=== PATIENT | female | born 1995 | race Caucasian/White ===

== ENCOUNTER 2017-10-17 15:06 | Emergency (ER) | payer SELFPAY ==
[2017-10-17] MEDS ORDERED: IBUPROFEN 400 MG TAB ONE (15:23)
[2017-10-17] MEDS ORDERED: CYCLOBENZAPRINE 10 MG TAB ONE (15:32)
[2017-10-17] MEDS ORDERED: HYDROCODONE/APAP 10/325 TAB ONE (15:58)
--- NOTE | 2017-10-17 15:59 | RAD REPORT ---
EXAM DESCRIPTION: RAD - Ankle Left 3 View -10/17/2017 3:44 pm CLINICAL HISTORY: Left ankle pain status post injury FINDINGS: An oblique mildly displaced fracture involves the distal diaphysis of the left fibula exte nding inferiorly into the fibular metaphysis. Nondisplaced fracture of the distal metaphysis of the tibia is present. This likely extends inferiorl y involving the medial and possibly posterior malleolus. Borderline widening of the medial clear space may indicate an injury to the deltoid ligament
--- NOTE | 2017-10-17 16:58 | EDPHYS ---
Physician Documentation [facility] Name: Dominique Rutledge Age: 22 yrs Sex: Female : 1995 Arrival Date: 10/17/2017 Time: 15:09 Bed 18 Private MD: ED Physician Mak Lara HPI: 10/17 15:31 This 22 yrs old Female presents to ER via Wheelchair with complaints of Ankle kav Injury. 15:31 The patient presents with a contusion, decreased range of motion, pain, swelling. The kav complaints affect the left ankle, anterior aspect of left ankle. Onset: The symptoms/episode began/occurred acutely, just prior to arrival. Context: The problem was sustained at home, resulted from a mis-step by the patient, skate board, The mechanism of injury involved inversion of the affected ankle. The patient is unable to bear weight. must have assistance. Associated signs and symptoms: Pertinent positives: swelling, weakness. Modifying factors: The symptoms are alleviated by nothing, the symptoms are aggravated by weight bearing, movement. Severity of symptoms: At their worst the symptoms were moderate, just prior to arrival. The patient has not experienced similar symptoms in the past. The patient has not recently seen a physician. 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 - Social history:: Smoking status: Patient/guardian denies using tobacco. - Family history:: not pertinent. - Hospitalizations: : No recent hospitalization is reported. - History obtained from: mother. ROS: 15:34 Constitutional: Negative for fever, chills, and weight loss, Eyes: Negative for injury, kav pain, redness, and discharge, ENT: Negative for injury, pain, and discharge, Neck: Negative for injury, pain, and swelling, Cardiovascular: Negative for chest pain, palpitations, and edema, Respiratory: Negative for shortness of breath, cough, wheezing, and pleuritic chest pain, Abdomen/GI: Negative for abdominal pain, nausea, vomiting, diarrhea, and constipation, Back: Negative for injury and pain, : Negative for injury, bleeding, discharge, and swelling, Skin: Negative for injury, rash, and discoloration, Neuro: Negative for headache, weakness, numbness, tingling, and seizure, Psych: Negative for depression, anxiety, suicide ideation, homicidal ideation, and hallucinations, Allergy/Immunology: Negative for hives, rash, and allergies, Endocrine: Negative for neck swelling, polydipsia, polyuria, polyphagia, and marked weight changes, Hematologic/Lymphatic: Negative for swollen nodes, abnormal bleeding, and unusual bruising. 15:34 MS/extremity: Positive for injury or acute deformity, contusion, decreased range of motion, pain, swelling, tenderness, of the anterior aspect of left ankle. Exam: 15:34 Constitutional: This is a well developed, well nourished patient who is awake, alert, kav and in no acute distress. Head/Face: Normocephalic, atraumatic. Eyes: Pupils equal round and reactive to light, extra-ocular motions intact. Lids and lashes normal. Conjunctiva and sclera are non-icteric and not injected. Cornea within normal limits. Periorbital areas with no swelling, redness, or edema. ENT: Nares patent. No nasal discharge, no septal abnormalities noted. Tympanic membranes are normal and external auditory canals are clear. Oropharynx with no redness, swelling, or masses, exudates, or evidence of obstruction, uvula midline. Mucous membranes moist. Neck: Trachea midline, no thyromegaly or masses palpated, and no cervical lymphadenopathy. Supple, full range of motion without nuchal rigidity, or vertebral point tenderness. No Meningismus. Chest/axilla: Normal chest wall appearance and motion. Nontender with no deformity. No lesions are appreciated. Cardiovascular: Regular rate and rhythm with a normal S1 and S2. No gallops, murmurs, or rubs. Normal PMI, no JVD. No pulse deficits. Respiratory: Lungs have equal breath sounds bilaterally, clear to auscultation and percussion. No rales, rhonchi or wheezes noted. No increased work of breathing, no retractions or nasal flaring. Abdomen/GI: Soft, non-tender, with normal bowel sounds. No distension or tympany. No guarding or rebound. No evidence of tenderness throughout. Back: No spinal tenderness. No costovertebral tenderness. Full range of motion. Skin: Warm, dry with normal turgor. Normal color with no rashes, no lesions, and no evidence of cellulitis. Neuro: Awake and alert, GCS 15, oriented to person, place, time, and situation. Cranial nerves II-XII grossly intact. Motor strength 5/5 in all extremities. Sensory grossly intact. Cerebellar exam normal. Normal gait. Psych: Awake, alert, with orientation to person, place and time. Behavior, mood, and affect are within normal limits. 15:34 Musculoskeletal/extremity: Extremities: noted in the anterior aspect of left ankle: ROM: full passive range of motion, in the anterior aspect of left ankle, limited active range of motion, Circulation is intact in all extremities. Pulses: are normal with no appreciated deficits, Sensation intact. Joints: the left ankle displays limited range of motion, pain at rest, painful range of motion, swelling, tenderness, Weight bearing: is unable to bear weight. Vital Signs: 15:12 BP 122 / 85; Pulse 104; Resp 19; Temp 97.6; Pulse Ox 100% on R/A; Weight 72.57 kg; la1 15:15 Pain 10/10; rb1 16:35 BP 109 / 84; Pulse 113; Resp 20; Pulse Ox 100% ; Pain 7/10; rb1 17:19 BP 113 / 83; Pulse 89; Resp 17; Pulse Ox 100% on R/A; rb1 MDM: 15:18 Patient medically screened. kav 15:34 Data reviewed: vital signs, nurses notes. kav 15:53 ED course: patient re-evaluated and c/o to report pain 9/10. kav 16:38 Physician consultation: Santo Davis MD was called at 16:40, was contacted at 16:40, kav regarding consult, patient's condition, need to evaluate the patient as soon as possible, outpatient follow-up, posterior stirrup leg splint lle and f/u with his office on Thursday on 10/19/17. 16:57 Medical screening is not applicable. ka 10/17 15:29 Order name: Ankle Left 3 View XRAY; Complete Time: 16:14 [place] 10/17 16:33 Interpretation: Abnormal. kav 10/17 16:34 Order name: Crutches; Complete Time: 17:11 ka 10/17 16:38 Order name: Splint - Posterior Leg: posterior stirrup splint up to knee left lower kav extremity; Complete Time: 17:11 10/17 16:41 Order name: VS Recheck; Complete Time: 17:20 kav Administered Medications: 15:29 Drug: Ibuprofen 800 mg Route: PO; rb1 16:00 Follow up: Response: No adverse reaction; Pain is decreased rb1 15:36 Drug: Cyclobenzaprine 10 mg Route: PO; rb1 16:00 Follow up: Response: No adverse reaction; Pain is decreased rb1 16:00 Drug: [place] 10 mg-325 mg 1 tabs Route: PO; rb1 16:30 Follow up: Response: No adverse reaction; Pain is decreased rb1 Disposition: 10/17/17 16:57 Discharged to Home. Impression: Displaced fracture of medial malleolus of left tibia, Displaced transverse fracture of shaft of unspecified fibula. - Condition is Stable. - Discharge Instructions: Tibial and Fibular Fracture, Adult, Tibial Fracture, Adult, [id number]. - Prescriptions for Ibuprofen 800 mg Oral Tablet - take 1 tablet by ORAL route every 8 hours As needed take with food; 30 tablet. Tylenol- Codeine #4 300-60 mg Oral Tablet - take 1 tablet by ORAL route every 6 hours As needed; 6 tablet. - Medication Reconciliation Form, Thank You Letter, Antibiotic Education, Prescription Opioid Use form. - Follow up: Santo Davis MD; When: 1 - 2 days; Reason: Recheck today's complaints, Continuance of care, Re-evaluation by your physician. - Problem is new. - Symptoms have improved. Signatures: Dispatcher [employer] EDMS Celeste Workman, ELECTRICIAN MAINTENANCE ELECTRICIAN MAINTENANCE Reese Crowley RN RN la1 Clara Guadalupe, RN RN rb1 Corrections: (The following items were deleted from the chart) 16:38 16:33 Splint - Long Leg: Posterior w/ Stirrup ordered. kachencho kachencho
--- NOTE | 2017-10-17 16:58 | ER ---
Nurse's Notes [facility] Name: Dominique Rutledge Age: 22 yrs Sex: Female : 1995 Arrival Date: 10/17/2017 Time: 15:09 Bed 18 Private MD: Diagnosis: Displaced fracture of medial malleolus of left tibia;Displaced transverse fracture of shaft of unspecified fibula Presentation: 10/17 15:11 Presenting complaint: Patient states: I rolled my left ankle skateboarding. CMS intact. la1 Transition of care: patient was not received from another setting of care. Onset of symptoms was October 17, 2017. Initial Sepsis Screen: Does the patient meet any 2 criteria? No. Patient's initial sepsis screen is negative. Does the patient have a suspected source of infection? No. Patient's initial sepsis screen is negative. Care prior to arrival: None. 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 - Social history:: Smoking status: Patient/guardian denies using tobacco. - Family history:: not pertinent. - Hospitalizations: : No recent hospitalization is reported. - History obtained from: mother. Screenin:15 Abuse screen: Denies threats or abuse. Nutritional screening: No deficits noted. rb1 Tuberculosis screening: No symptoms or risk factors identified. Fall Risk Fall in past 12 months (25 points). No secondary diagnosis (0 pts). No IV (0 pts). Ambulatory Aid- None/Bed Rest/Nurse Assist (0 pts). Gait- Impaired (20 pts.). Mental Status- Oriented to own ability (0 pts). Total Gutierrez Fall Scale indicates High Risk Score (45 or more points). Fall prevention measures have been instituted. Side Rails Up X 2 Placed Close to Nursing Station 1:1 Attendant Assigned Frequent Obs/Assessments Occuring Family Present and informed to notify staff if the need to leave the bedside As available patient and family educated on Fall Prevention Program and Strategies. Assessment: 15:15 General: Appears uncomfortable, Behavior is calm, cooperative. Pain: Complains of pain rb1 in left ankle Pain currently is 10 out of 10 on a pain scale. Pain began \T\ 1500. Neuro: Level of Consciousness is awake, alert, obeys commands, Oriented to person, place, time, situation. Cardiovascular: Capillary refill < 3 seconds is brisk in bilateral toes. Respiratory: Airway is patent Respiratory effort is even, unlabored, Respiratory pattern is regular, symmetrical. GI: No signs and/or symptoms were reported involving the gastrointestinal system. : No signs and/or symptoms were reported regarding the genitourinary system. Derm: Skin is pink, warm \T\ dry. Musculoskeletal: Range of motion: limited in left ankle Swelling present in left ankle. Injury Description: pt. twisted foot while skateboarding. 16:10 Reassessment: Patient appears in no apparent distress at this time. Patient and/or rb1 family updated on plan of care and expected duration. Pain level reassessed. Patient is alert, oriented x 3, equal unlabored respirations, skin warm/dry/pink. 17:00 Reassessment: Pt. tolerated the ankle splint well. rb1 Vital Signs: 15:12 BP 122 / 85; Pulse 104; Resp 19; Temp 97.6; Pulse Ox 100% on R/A; Weight 72.57 kg; la1 15:15 Pain 10/10; rb1 16:35 BP 109 / 84; Pulse 113; Resp 20; Pulse Ox 100% ; Pain 7/10; rb1 17:19 BP 113 / 83; Pulse 89; Resp 17; Pulse Ox 100% on R/A; rb1 ED Course: 15:09 Patient arrived in ED. sb2 15:12 Triage completed. la1 15:12 Arm band placed on right wrist. la1 15:15 Clara Guadalupe, RN is Primary Nurse. rb1 15:15 Patient has correct armband on for positive identification. Bed in low position. Call rb1 light in reach. Side rails up X 1. Pulse ox on. NIBP on. 15:18 Celeste Workman FNP is PHCP. kav 15:18 Mak Lara MD is Attending Physician. kav 15:19 Celeste Workman FNP is PHCP. kav 15:44 Ankle Left 3 View XRAY In Process Unspecified. EDMS 16:55 Orthoglass splint: Posterior short lleg splint applied on left leg. stirrup splint dh3 applied on left leg. capillary refill less than 3 seconds. 16:56 Santo Davis MD is Referral Physician. ka 17:25 No provider procedures requiring assistance completed. Patient did not have IV access rb1 during this emergency room visit. Administered Medications: 15:29 Drug: Ibuprofen 800 mg Route: PO; rb1 16:00 Follow up: Response: No adverse reaction; Pain is decreased rb1 15:36 Drug: Cyclobenzaprine 10 mg Route: PO; rb1 16:00 Follow up: Response: No adverse reaction; Pain is decreased rb1 16:00 Drug: [place] 10 mg-325 mg 1 tabs Route: PO; rb1 16:30 Follow up: Response: No adverse reaction; Pain is decreased rb1 Outcome: 16:57 Discharge ordered by MD. ka 17:25 Discharged to home via wheelchair, with crutches, with family. rb1 17:25 Condition: stable 17:25 Discharge instructions given to patient, Instructed on discharge instructions, follow up and referral plans. medication usage, Demonstrated understanding of instructions, follow-up care, medications, Prescriptions given X 2. 17:25 Patient left the ED. rb1 Signatures: Dispatcher [employer] EDMS Celeste Workman, TAMPING MACHINE OPERATOR ROAD FORMS TAMPING MACHINE OPERATOR ROAD FORMS Reese Crowley RN RN la1 Clara Guadalupe, RN RN rb1 Suni Hitchcock dh3 Karen Jackson sb2 Corrections: (The following items were deleted from the chart) 17:33 17:33 Patient left the ED. rb1 rb1
== END 2017-10-17 17:33 | disposition home or self-care (01) ==
LOC: ER 15:06
DX: S82.52XA Displaced fracture of medial malleolus of left tibia, initial encounter for closed fracture (principal); S82.492A Other fracture of shaft of left fibula, initial encounter for closed fracture; Y93.51 Activity, roller skating (inline) and skateboarding; Y92.9 Unspecified place or not applicable
CPT/HCPCS: 99284

== ENCOUNTER 2017-10-23 06:29 | Day surgery (SDC) | payer SELFPAY ==
[2017-10-21 11:52] LABS: Absolute Lymphocytes (CBC) 2.1 K/uL (0.7-4.9); Absolute Monocytes 0.6 K/uL (0.1-1.3); Basophils % 0.5 % (0-1.3); Hematocrit 41.1 % (36.0-45.0); Lymphocytes % 23.8 % (15.3-44.8); MPV 9.4 fL (7.6-11.3); Monocytes % 7.1 % (3.3-12.3); RBC Red Blood Cell Count 4.42 M/uL (3.86-4.86)
[2017-10-21 12:12] LABS: BUN Blood Urea Nitrogen 9 mg/dL (6-20); Bicarbonate 29 mEq/L (21-31); Glucose Level 88 mg/dL (65-120); Sodium Level 144 mEq/L (135-145)
[2017-10-21 12:20] LABS: Protime INR 1.04
[2017-10-23 06:44] LABS: Specific Gravity 1.015 (1.005-1.030)
[2017-10-23] MEDS ORDERED: Ringers Lactate 1,000 ML IV ONE (06:48)
[2017-10-23] MEDS ORDERED: CEFAZOLIN/SWI 1gm 1 GM/10 ML SYR ONE (06:49)
[2017-10-23] MEDS ORDERED: PROPOFOL 200 MG/20 ML VIAL IV ONE (07:23)
[2017-10-23] MEDS ORDERED: LIDOCAINE 1% MPF 5 ML VIAL ONE (07:23)
[2017-10-23] MEDS ORDERED: FENTANYL CITR 100 MCG/2 ML ONE ×2 (07:23→08:54)
[2017-10-23] MEDS ORDERED: MIDAZOLAM HCL 2 MG/2 ML INJ ONE (07:23)
[2017-10-23] MEDS ORDERED: MORPHINE 10 MG/ML VIAL ONE ×2 (07:52→08:23)
[2017-10-23] MEDS ORDERED: KETOROLAC 30 MG/ML INJ ONE ×2 (08:54)
[2017-10-23] MEDS ORDERED: ONDANSETRON 4 MG/2 ML VIAL ONE (08:54)
--- NOTE | 2017-10-23 09:33 | P.BOP ---
Preoperative diagnosis: left bimalleolar ankle fracture Postoperative diagnosis: same Primary procedure: ORIF left bimalleolar ankle fracture Office Services Clerk: NONE,NONE Estimated blood loss: <10 cc Specimen: none Findings: see dictation Anesthesia: General Complications: None Implants: 8 hole third tubular plate, 2- 4.0 mm cannulated screws Fluids & blood products: per anesthesia; TT: 69 mins @ 250 mmHg Transferred to: Recovery Room Condition: Good
[2017-10-23] MEDS: MEPERIDINE HCL 50 MG/ML AMP ONE ×2 (09:50→09:55)
[2017-10-23] MEDS ORDERED: MEPERIDINE HCL 50 MG/ML AMP ONE (10:07)
--- NOTE | 2017-10-23 10:50 | RAD REPORT ---
EXAM DESCRIPTION: RAD - Ankle Left 2 View - 10/23/2017 9:51 am FINDINGS: Portable frontal and lateral views of the ankle were obtained cast material is in place li miting detail. Bone screws are present fixing prior medial malleolus fracture and plate and screw fixation of fibula r fracture noted. Hardware is in good position. No unexpected bone hardware or joint finding.
[2017-10-23] MEDS ORDERED: HYDROCODONE/APAP 7.5/325 MG TAB ONE (10:56)
--- NOTE | 2017-10-23 17:35 | RAD REPORT ---
EXAM DESCRIPTION: RAD - Ankle Left 2 View - 10/23/2017 4:43 pm FINDINGS: Left ankle fluoroscopy performed. Multiple portable C-arm views were obtained during fluoroscopic assisted placement of fracture fixati on hardware. No suspicious or unexpected finding.
--- NOTE | 2017-10-23 23:04 | OP ---
Date of Procedure: 10/23/2017 Surgeon: Santo Davis MD Preoperative Diagnosis: Left bimalleolar ankle fracture. Postoperative Diagnosis: Left bimalleolar ankle fracture. Procedure Performed: Open reduction and internal fixation of left bimalleolar ankle fracture. Anesthesia: General LMA. Fluids: Per Anesthesia record. Estimated Blood Loss: Less than 10 cc. Implants: An 8-hole 1/3 tubular plate. Two 4.0 mm cannulated screws. Tourniquet Time: 59 minutes at 250 mmHg. Indication For Procedure: Dominique is a 22-year-old female presented to my clinic after sustaining an injury to her left ankle, while skiboarding. She was seen in the ER, diagnosed with a left bimalleolar ankle fracture. The fracture pattern with an SER IV unstable ankle injury. I discussed with the patient and her family at length risks and benefits associated with operative and nonoperative. They expressed understanding and elected to proceed with operative treatment. Description Of Procedure: After informed consent was obtained, the patient was identified in the preoperative holding area. The left lower extremity was marked. The patient was then taken back to the operating room, transferred to the operating table supine in fashion and placed under general LMA anesthesia. The left lower extremity was then prepped and draped in usual sterile fashion. A time-out was initiated. The correct patient and procedure were confirmed and identified. The patient did receive her preop prophylactic antibiotics. The left lower extremity was then exsanguinated using an Esmarch and the tourniquet was inflated to 250 mmHg. Attention was first taken to the distal fibula. For approximately a 12 cm longitudinal incision was made over the distal fibula. Dissection was taken down to the distal fibula using Metzenbaum. The fracture site was identified. The fracture site was then reduced using a 2-point reduction clamp. Fluoroscopy was used to ensure proper reduction of the distal fibula fracture. There was an oblique fracture pattern, and a lag screw was placed using standard AO technique by over-drilling the proximal cortex with a 3.5 drill bit. The distal cortex with a 2.5 drill bit perpendicular to the fracture line. A single 3.5 mm cortical screw was placed. There was a fracture noted at the fracture site. A third plate was then placed over the distal fibula with an 8-hole 1/3 tubular plate. Proper position of the plate was confirmed using fluoroscopy. Three screws placed proximal to the fracture site using 3.5 cortical screws in bicortical fashion. Three screws were placed in unicortical fashion distally using 4-0 cancellous screws. Proper positioning of the screws and plate was confirmed using fluoroscopy, both AP and lateral views. A Cotton test was performed using a 2-point reduction clamp with lateral stress placed on the distal fibula. There was no widening of the syndesmosis. The wound was then irrigated thoroughly with normal saline and subcutaneous tissue was approximated using a 2-0 Vicryl. Next, attention was taken to the distal medial malleolus. Approximately a 4 cm incision centered over the tip of the medial malleolus was performed. There was no significant displacement of the medial malleolus. Two K-wires were placed in a retrograde fashion from the tip of the medial malleolus, 1 anterior, 1 posterior. Proper position of the K-wires was confirmed using fluoroscopy. The proximal cortex was then drilled using a cannulated drill bit and two size 46 mm 4-0 cannulated screws were placed without complication. There was overall good alignment of the fracture as well as placement of the screws was confirmed by fluoroscopy. K -wires were then removed. The wounds were then irrigated thoroughly with normal saline. Subcutaneous tissues were approximated using 2-0 Vicryl. Skin was approximated using a 3-0 nylon. Sterile dressings were applied. The patient was placed in a posterior stirrup splint, awakened and transferred to PACU in good condition. Postoperative Plan: She will be nonweightbearing on the left lower extremity. She will follow up in my clinic in 2 weeks for suture removal. At that point, she will be placed in a CAM boot and will be allowed to work on range of motion exercise. ALLEN/ROSEMARIE Voice ID: [id number] Report ID: [id number] VINI
== END 2017-10-23 11:30 | disposition home or self-care (01) ==
LOC: OR 06:29
PROVIDERS: ATTEND Orthopaedic Surgery Sports Medicine
PROC: 0QSH04Z Reposition Left Tibia with Internal Fixation Device, Open Approach (ICD-10-PCS; 2017-10-23)
PROC: 0QSK04Z Reposition Left Fibula with Internal Fixation Device, Open Approach (ICD-10-PCS; principal; 2017-10-23 07:30)
DX: S82.842A Displaced bimalleolar fracture of left lower leg, initial encounter for closed fracture (principal)
CPT/HCPCS: 36415; 80048; 81025; 85025; 85610; 85730; J0690; J2175; J2250; J2405; J3010

== ENCOUNTER 2021-04-28 14:10 | Emergency (ER) | payer OTHER ==
[2021-04-28 15:19] LABS: Urine Blood Trace-intact (Negative); Urine Glucose Negative (Negative); Urine Protein Negative (Negative); Urine Specific Gravity >=1.030 (1.005-1.030)
[2021-04-28 15:35] LABS: Absolute Lymphocytes (CBC) 2.2 K/uL (0.7-4.9); Basophils % 0.8 % (0-1.3); Lymphocytes % 23.3 % (15.3-44.8); RBC Red Blood Cell Count 4.99 M/uL (3.86-4.86)
--- NOTE | 2021-04-28 16:04 | RAD REPORT ---
EXAM DESCRIPTION: CT - Abdomen Pelvis W Contrast - 04/28/2021 3:45 pm CLINICAL HISTORY: ABD PAIN COMPARISON: No comparisons TECHNIQUE: Biphasic, helical CT imaging of the abdomen and pelvis was performed following 100 ml non -ionic IV contrast. No oral contrast administered. All CT scans are performed using dose optimization technique as appropriate and may include automated exposure control or mA/KV adjustment according to patient size. FINDINGS: No suspicious findings in the lung bases. The liver, spleen, and pancreas show no suspicious findings. Liver attenuation is borderline for fatt y infiltration. No portal vein abnormality. Gallbladder is tightly contracted with no biliary tree di latation. Symmetric renal function is seen with no hydronephrosis or suspicious renal mass. No pyelonephritis o r acute parenchymal process. No bladder abnormalities. No adrenal abnormalities. Uterus and ovaries a re within normal range for patient age. No hemorrhagic or grossly enlarged ovarian cyst. Stomach is filled but not dilated by ingested food. No gastric wall thickening or mass. No duodenal a bnormality seen. Large and small bowel show no acute findings. No surgical history was detailed. Ther e does not appear to be appendectomy clips at the tip of the cecum. No free air, free fluid or inflammatory stranding. No hernia, mass or bulky lymphadenopathy. No suspicious bony findings. IMPRESSION: Contrast enhanced CT abdomen and pelvis showing no acute or emergent finding.
[2021-04-28 16:06] LABS: Albumin 4.5 g/dL (3.4-5.0); Bilirubin Direct 0.1 mg/dL (0-0.2); Bilirubin Total 0.3 mg/dL (0.2-1.0); Potassium 4.2 mmol/L (3.5-5.1); Protein, Total 9.2 g/dL (6.4-8.2)
[2021-04-28] MEDS ORDERED: NA CHLORIDE 0.9% 1,000 ML ONE (17:00)
[2021-04-28] MEDS ORDERED: ONDANSETRON 4 MG/2 ML VIAL ONE (17:00)
[2021-04-28] MEDS ORDERED: MORPHINE 4 MG/ML SYR ONE (17:00)
--- NOTE | 2021-04-28 17:44 | EDPHYS ---
Physician Documentation [facility] Name: Dominique Rutledge Age: 25 yrs Sex: Female : 1995 Arrival Date: 04/28/2021 Time: 14:14 Bed 20 Private MD: ED Physician Alex Barker HPI: 04/28 17:00 This 25 yrs old Female presents to ER via Ambulatory with complaints of pm1 Abdominal Pain, Diarrhea, Back Pain, Nausea. 17:00 The patient presents with abdominal pain in the epigastric area, in the right upper pm1 quadrant. Onset: The symptoms/episode began/occurred yesterday. The symptoms radiate to Associated signs and symptoms: Pertinent positives: diarrhea, nausea, Pertinent negatives: dysuria, fever. The symptoms are described as achy, crampy. Modifying factors: the symptoms are aggravated by food. Severity of pain: in the emergency department the pain has improved is a 1 / 10. The patient has experienced a previous episode, approximately 1 weeks ago. The patient has not recently seen a physician. 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 - Social history:: Smoking status: Patient denies any tobacco usage or history of. ROS: 17:00 Constitutional: Negative for fever, chills, and weight loss, Cardiovascular: Negative pm1 for chest pain, palpitations, and edema, Respiratory: Negative for shortness of breath, cough, wheezing, and pleuritic chest pain. 17:00 : Negative for injury, bleeding, discharge, and swelling, MS/Extremity: Negative for injury and deformity, Skin: Negative for injury, rash, and discoloration. 17:00 Abdomen/GI: Positive for abdominal pain, nausea, diarrhea, Negative for vomiting. 17:00 Back: Negative for injury or acute deformity. 17:00 All other systems are negative. Exam: 17:00 Constitutional: This is a well developed, well nourished patient who is awake, alert, pm1 and in no acute distress. Head/Face: Normocephalic, atraumatic. 17:00 Back: No spinal tenderness. No costovertebral tenderness. Full range of motion. Skin: Warm, dry with normal turgor. Normal color with no rashes, no lesions, and no evidence of cellulitis. MS/ Extremity: Pulses equal, no cyanosis. Neurovascular intact. Full, normal range of motion. 17:00 Eyes: Exam is negative for acute changes, Extraocular movements: no acute changes, Sclera: no acute changes, icterus, is not appreciated. 17:00 ENT: Exam is negative for acute changes, Mouth: no acute changes, Lips: normal, moist, Oral mucosa: normal, pink and intact, moist. 17:00 Cardiovascular: Exam negative for acute changes, Rate: normal, Rhythm: regular, Pulses: no pulse deficits are appreciated, Heart sounds: normal, normal S1and S2, Edema: is not appreciated. 17:00 Respiratory: Exam negative for acute changes, respiratory distress, shortness of breath, Breath sounds: are clear throughout. 17:00 Abdomen/GI: Inspection: obese Palpation: soft, in all quadrants, mild abdominal tenderness, in the epigastric area and right upper quadrant. 17:00 Neuro: Exam negative for acute changes, Orientation: is normal, Mentation: is normal, Motor: is normal, moves all fours. Vital Signs: 14:25 BP 125 / 99; Pulse 113; Resp 14; Temp 98.0(O); Pulse Ox 100% on R/A; Weight 83.91 kg; ss Height 5 ft. 4 in. (162.56 cm); Pain 8/10; 14:30 BP 108 / 61; Pulse 95; Resp 18; Temp 98.4; Pulse Ox 99% on R/A; sl2 16:00 BP 125 / 89; Pulse 99; Resp 18; Temp 98.2(O); Pulse Ox 99% on R/A; sl2 17:00 BP 114 / 82; Pulse 85; Resp 18; Temp 98.2; Pulse Ox 99% ; iw 14:25 Body Mass Index 31.75 (83.91 kg, 162.56 cm) MDM: 14:54 Patient medically screened. pm1 17:02 Data reviewed: vital signs. Data interpreted: Pulse oximetry: on room air is 99 %. pm1 Interpretation: normal. Counseling: I had a detailed discussion with the patient and/or guardian regarding: the historical points, exam findings, and any diagnostic results supporting the discharge/admit diagnosis, lab results, radiology results, the need for outpatient follow up, a office support clerk, to return to the emergency department if symptoms worsen or persist or if there are any questions or concerns that arise at home. 04/28 14:55 Order name: Basic Metabolic Panel; Complete Time: 16:08 pm1 04/28 14:55 Order name: CBC with Diff; Complete Time: 15:51 pm1 04/28 14:55 Order name: Hepatic Function; Complete Time: 16:08 pm1 04/28 14:55 Order name: Lipase; Complete Time: 16:08 pm1 04/28 15:18 Order name: Urine Dipstick-Ancillary; Complete Time: 15:22 EDMS 04/28 15:21 Order name: Test Urine - POC sp 04/28 14:55 Order name: IV Saline Lock; Complete Time: 16:25 pm1 04/28 14:55 Order name: Labs collected and sent; Complete Time: 16:25 pm1 04/28 14:55 Order name: CT Abd/Pelvis - IV Contrast Only; Complete Time: 16:08 pm1 04/28 15:21 Order name: Urine --Ancillary; Complete Time: 16:57 EDMS 04/28 14:55 Order name: Urine Dipstick-Ancillary (obtain specimen); Complete Time: 16:25 pm1 04/28 14:55 Order name: Urine Test (obtain specimen); Complete Time: 16:25 pm1 Administered Medications: 15:10 Drug: NS 0.9% 1000 ml Route: IV; Rate: 1000 ml; Site: left antecubital; sl2 16:25 Follow up: Response: No adverse reaction; IV Status: Completed infusion; IV Intake: sl2 1000ml 15:10 Drug: Zofran (Ondansetron) 4 mg Route: IVP; Site: left antecubital; sl2 16:24 Follow up: Response: No adverse reaction sl2 15:14 Drug: morphine 4 mg Route: IVP; Site: left antecubital; sl2 16:24 Follow up: Response: No adverse reaction; Pain is decreased sl2 17:19 Drug: GI Cocktail without - (Maalox Suspension 30 ml, Lidocaine Liquid 2 % 15 sl2 ml) Route: PO; 17:53 Follow up: Response: No adverse reaction; Pain is decreased iw Disposition: 04/29 06:33 Co-signature as Attending Physician, Alex Barker MD I agree with the assessment and kdr plan of care. Disposition Summary: 04/28/21 17:43 Discharge Ordered Location: Home pm1 Problem: new pm1 Symptoms: have improved pm1 Condition: Stable pm1 Diagnosis - Abdominal pain, unspecified pm1 Followup: pm1 - With: Emergency Department - When: As needed - Reason: Worsening of condition Followup: pm1 - With: Private Physician - When: 2 - 3 days - Reason: Recheck today's complaints, Continuance of care, Re-evaluation by your physician Discharge Instructions: - Discharge Summary Sheet pm1 - Abdominal Pain, Adult pm1 Forms: - Medication Reconciliation Form pm1 - Thank You Letter pm1 - Antibiotic Education pm1 - Prescription Opioid Use pm1 Prescriptions: - dicyclomine 20 mg Oral tablet - take 1 tablet by ORAL route every 6 hours As needed; 20 tablet; Refills: 0, pm1 Product Selection Permitted - ondansetron 4 mg Oral tablet,disintegrating - place 1 tablet by TRANSLINGUAL route every 8 hours As needed; 12 tablet; pm1 Refills: 0, Product Selection Permitted - Pepcid 20 mg Oral Tablet - take 1 tablet by ORAL route every 12 hours for 10 days; 20 tablet; Refills: 0, pm1 Product Selection Permitted Signatures: Dispatcher [employer] EDDE Alex Barker MD MD [facility] Odessa Aparicio RN RN ss Corky Hood, RYAN BREADMAN pm1 Roseline Guerrero RN RN sl2 Misty Nova RN iw
--- NOTE | 2021-04-28 17:44 | ER ---
Nurse's Notes [facility] Name: Dominique Rutledge Age: 25 yrs Sex: Female : 1995 Arrival Date: 04/28/2021 Time: 14:14 Bed 20 Private MD: Diagnosis: Abdominal pain, unspecified Presentation: 04/28 14:25 Chief complaint: Patient states: epigastric discomfort and back discomfort that is ss worse after eating. Pt reports the pain comes and goes, but has become worse since yesterday and now has nausea. Coronavirus screen: Client denies travel out of the [place] in the last 14 days. Ebola Screen: Patient denies exposure to infectious person. Patient denies travel to an Ebola-affected area in the 21 days before illness onset. Initial Sepsis Screen: Does the patient meet any 2 criteria? No. Patient's initial sepsis screen is negative. Does the patient have a suspected source of infection? No. Patient's initial sepsis screen is negative. Risk Assessment: Do you want to hurt yourself or someone else? Patient reports no desire to harm self or others. Onset of symptoms is unknown. 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 - Social history:: Smoking status: Patient denies any tobacco usage or history of. Screenin:40 Abuse screen: Denies threats or abuse. Nutritional screening: No deficits noted. sl2 Tuberculosis screening: No symptoms or risk factors identified. Never had TB. Possible symptoms: None Risk factors: None. Fall Risk None identified. No fall in past 12 months (0 pts). No secondary diagnosis (0 pts). No IV (0 pts). Ambulatory Aid- None/Bed Rest/Nurse Assist (0 pts). Gait- Normal/Bed Rest/Wheelchair (0 pts) Mental Status- Oriented to own ability (0 pts). Total Gutierrez Fall Scale indicates No Risk (0-24 pts). Assessment: 14:40 General: Appears uncomfortable, well groomed, well developed, Behavior is calm, sl2 cooperative, Reports Epigastric \T\ RUQ abdominal pain - worst after eating and light colored stools. 14:40 Pain: Complains of pain in epigastric \T\ RUQ abdomen Pain does not radiate. Pain sl2 currently is 7 out of 10 on a pain scale. Quality of pain is described as aching, sharp, Pain began suddenly, Is intermittent. Neuro: No deficits noted. Level of Consciousness is awake, alert, obeys commands, Oriented to person, place, time, situation, Electric Wirer are equal bilaterally Moves all extremities. Gait is steady, Speech is normal, Facial symmetry appears normal, Cardiovascular: No deficits noted. Respiratory: No deficits noted. GI: Abdomen is soft and non-tender Bowel sounds present X 4 quads. Abd is soft and non tender Reports upper abdominal pain, epigastric pain, Light colored stools Patient currently denies diarrhea. : No deficits noted. EENT: No deficits noted. Derm: No deficits noted. Musculoskeletal: No deficits noted. 16:35 Pain: Pain currently is 1 out of 10 on a pain scale. sl2 Vital Signs: 14:25 BP 125 / 99; Pulse 113; Resp 14; Temp 98.0(O); Pulse Ox 100% on R/A; Weight 83.91 kg; ss Height 5 ft. 4 in. (162.56 cm); Pain 8/10; 14:30 BP 108 / 61; Pulse 95; Resp 18; Temp 98.4; Pulse Ox 99% on R/A; sl2 16:00 BP 125 / 89; Pulse 99; Resp 18; Temp 98.2(O); Pulse Ox 99% on R/A; sl2 17:00 BP 114 / 82; Pulse 85; Resp 18; Temp 98.2; Pulse Ox 99% ; iw 14:25 Body Mass Index 31.75 (83.91 kg, 162.56 cm) ED Course: 14:14 Patient arrived in ED. am2 14:27 Triage completed. ss 14:27 Arm band placed on right wrist. ss 14:39 Corky Hood NP is PHCP. pm1 14:39 Alex Barker MD is Attending Physician. pm1 14:40 Patient has correct armband on for positive identification. Bed in low position. Call sl2 light in reach. 15:30 Inserted saline lock: 22 gauge in left antecubital area, using aseptic technique. sl2 15:45 CT Abd/Pelvis - IV Contrast Only In Process Unspecified. EDMS 15:57 Roseline Guerrero, RN is Primary Nurse. sl2 16:22 Test Urine - POC Sent. sl2 17:55 No provider procedures requiring assistance completed. IV discontinued. iw Administered Medications: 15:10 Drug: NS 0.9% 1000 ml Route: IV; Rate: 1000 ml; Site: left antecubital; sl2 16:25 Follow up: Response: No adverse reaction; IV Status: Completed infusion; IV Intake: sl2 1000ml 15:10 Drug: Zofran (Ondansetron) 4 mg Route: IVP; Site: left antecubital; sl2 16:24 Follow up: Response: No adverse reaction sl2 15:14 Drug: morphine 4 mg Route: IVP; Site: left antecubital; sl2 16:24 Follow up: Response: No adverse reaction; Pain is decreased sl2 17:19 Drug: GI Cocktail without - (Maalox Suspension 30 ml, Lidocaine Liquid 2 % 15 sl2 ml) Route: PO; 17:53 Follow up: Response: No adverse reaction; Pain is decreased iw Intake: 16:25 IV: 1000ml; Total: 1000ml. sl2 Outcome: 17:43 Discharge ordered by MD. pm1 17:55 Discharged to home ambulatory. iw 17:55 Condition: stable 17:55 Discharge instructions given to patient, Instructed on discharge instructions, follow up and referral plans. medication usage, Demonstrated understanding of Prescriptions given X 3. 18:05 Patient left the ED. iw Signatures: Dispatcher [employer] EDMS Misty Nova RN RN iw Odessa Aparicio RN RN Corky Hood, RYAN COMPUTATIONAL SCIENTIST pm1 Whitney Sommers am2 Roseline Guerrero, CHIN RN sl2 Corrections: (The following items were deleted from the chart) 17:54 17:54 BP 114 / 82; Pulse 85bpm; Resp 18bpm; Pulse Ox 99%; Temp 98.2F; iw iw
[2021-04-28] MEDS ORDERED: LIDOCAINE VISCOUS 2% SOLN 15 ML UDC ONE (18:15)
[2021-04-28] MEDS ORDERED: MAGNES/ALUMIN/SIMET 30ML UCUP ONE (18:15)
[2021-04-28 18:39] VITALS: TEMP 98.2; O2SAT 99
[2021-04-28 18:42] VITALS: BP 114/82
== END 2021-04-28 18:05 | disposition home or self-care (01) ==
LOC: ER 14:10
DX: R10.11 Right upper quadrant pain (principal); R10.13 Epigastric pain; F32.A Depression, unspecified
CPT/HCPCS: 96361; 85025; 80048; 36415; 81025; 82565; 80076; 81003; 83690; 74177; 96375; 96374; 99284; Q9967; J7030; J2405

== ENCOUNTER → 2023-08-21 | Emergency (ER) | payer BC, OTHER ==
[~2023-08-21] MED LIST: ACETAMINOPHEN 500 MG TAB ONE
--- OUTSIDE RECORDS SUMMARY | 2023-08-21 13:18 | XMS REPORT | Continuity of Care Document ---
Author Name Unknown Address [address] [place] [address] [facility] thconnect Address [address] [place] [address] Care Team Providers Care At Home Independent Call Center Agent Name Role Phone NATALIIA TALBERT Primary Care Physician Tigist loaiza Moved, . Attending Clinician Unavailable Jj Zaidi Attending Clinician Unavailable ALEJANDRINA MENCHACA Attending Clinician Unavailable Sleep Lab Bed Attending Clinician Shelly Sweeney MD Attending Clinician SHELLY BEDOLLA Attending Clinician SHELLY Licona Attending Clinician Tigist loaiza Doctor Unassigned, Gomer Attending Clinician U [place] Asif Attending Clinician Unavaila Trace Thomas MD Attending Clinician [phone] TRACE ATWOOD Attending Clinician Unavailable ARLENE DAILY Attending Clinician Unavailable Darell Hartley MD Attending Clinician [phone] RAVINDER VALENZUELA Attending Clinician Unavailable Ravinder Valenzuela MD Attending Clinician [phone] Marvin Millan RN, Erum Lemus Attending Clinician Unava ilable Lab, Ang - Db Attending Clinician Unavailable FARHANA ARNOLD Attending Clinician Unavailable Clayton PULLEY MORTISER OPERATOR, Farhana Smith Attending Clinician + [phone] AZEEM FALK Attending Clinician Unava illj Falk PULLEY MORTISER OPERATOR, Azeem Attending Clinician + Nataliia Garcia Attending Clinician [phone] [email or web address] Attending Clinician Unavaila DARELL Romeo Attending Clinician Unavail able DARELL HARTLEY Attending Clinician Unavail able Aman CAPPSP, Lawrence Attending Clinician [phone] AMAN, MELINDA Attending Clinician Unavailable NATALIIA TALBERT Attending Clinician Unavailable [facility] Sleep Lab Attending Clinician Unavaila lila RADIOLOGY Attending Clinician Unavailable Radiology Attending Clinician Unavailable CAROLINE MACHADO Attending Clinician Unavaila Stanislav Rivas Attending Clinician Unavailable Jordon Ovalle Attending Clinician UnavailAbraham Soto Attending Clinician Unavailable Juwan Magdaleno DO Attending Clinician [phone] Kristin Clements Attending Clinician [phone] Brunilda BLAIR, Jessica Winters Attending Clinician [phone] Geovany Khalil MD Attending Clinician [phone] GEOVANY KHALIL Attending Clinician Unavailable Catina Marin MD Attending Clinician + [phone] CATINA MARIN Attending Clinician Unavaila CATINA Lucas Attending Clinician Unavaila Arlene Hawley MD Attending Clinician [phone] TRACE ATWOOD Admitting Clinician Unavailable FARHANA ARNOLD Admitting Clinician Unavailable [email or web address]_S Admitting Clinician UnavailDARELL Burgess Admitting Clinician Unavail able LAURITA CALDERON Admitting Clinician UnavailGeovany Muller MD Admitting Clinician GEOVANY KHALIL Admitting Clinician Unavailable Catina Marin MD Admitting Clinician + [phone] CATINA MARIN Admitting Clinician Unavaila lila Payers Payer Name Policy Type Policy Number Effective Date Expirati on Date Source [facility] [id number] 2022 00:00:00 Cigna 53 [id number] [facility] CIGNA II [id number] 2022 00:00:00 Aetna 53 [id number] 2020 00:00:00 [facility] Problems Condition Name Condition Details Condition Category Status Onset Date Resolution Date Last Treatment Date Treating Clinician Comments Source JERRICA (obstructi ve sleep apnea) JERRICA (obstructi ve sleep apnea) Disease Active 8-10 00:00: 00 [facility] Anxiety with depression Anxiety with depression Disease Active 7-19 00:00: 00 [facility] Appendicit is Appendicit is Disease Active 0 6-14 00:00: 00 [facility] Acute appendicit is Acute appendicit is Disease Active 0 6-13 00:00: 00 [facility] Status post incision and drainage Status post incision and drainage Disease Active 20200 6-06 00:00: 00 [facility] Left genital labial abscess Left genital labial abscess Disease Active 20200 6-06 00:00: 00 [facility] Mitral valve prolapse Mitral valve prolapse Disease Active 0 6-06 00:00: 00 [facility] Cardiac arrhythmia Cardiac arrhythmia Disease Active 0 6-06 00:00: 00 [facility] Status post incision and drainage Status post incision and drainage Disease Active 0 6-06 00:00: 00 [facility] Obesity (BMI 30-39.9) Obesity (BMI 30-39.9) Disease Active 11-28 00:00: 00 [facility] [id number] Mild episode of recurrent major depressive disorder Problem [facility] ent [facility] [id number] Chronic GERD Problem [facility] ent [facility] [id number] Anxiety Problem [facility] [id number] Other chronic pain Problem [facility] [id number] Migraine without aura and without status migrainosu s, not intractabl e Problem [facility] [id number] Irregular menses Problem [facility] [id number] Generalize d anxiety disorder Problem [facility] ent [facility] [id number] Non-intrac table vomiting with nausea, unspecifie d vomiting type Problem [facility] [id number] Sore throat Problem [facility] [id number] Vitamin D deficiency Problem [facility] [id number] Diarrhea of presumed infectious origin Problem [facility] [id number] Contact with and (suspected ) exposure to other viral communicab le diseases Problem [facility] [id number] Encounter for screening for other viral diseases Problem [facility] [id number] UTI symptoms Problem [facility] Clinics Allergies, Adverse Reactions, Alerts Allergy Name Allergy Type Status Severity Reaction(s) Onset Date Inactive Date Treating Clinician Comments Source SUMATRIP DEJESUS DRUG INGREDI Active Med Other-Cmnt 02-02 00:00: 00 [facility] Sumatrip dejesus Propensi ty to adverse reaction s Active Other - See comments 02-02 00:00: 00 Chest tightness [facility] TRIPTANS -5-HT1 ANTIMIGR TONYA AGENTS Drug Class Active Other-Cmnt 11-27 00:00: 00 [facility] Triptans -5-Ht1 Antimigr tonya Agents Propensi ty to adverse reaction s Active Other - See comments 11-27 00:00: 00 [facility] NO KNOWN ALLERGIE S Drug Class Active [facility] Social History Social Habit Start Date Stop Date Quantity Comments Source Gender identity [facility] of [facility] Sex Assigned At [facility] Alcohol intake 2023-05-06 00:00:00 2023-05-06 00:00:00 Current drinker of alcohol (finding) [facility] History of Social function 2023-01-14 00:00:00 2023-01-14 00:00:00 [facility] Tobacco use and exposure 2022-08-22 00:00:00 2022-08-22 00:00:00 Former smokeless tobacco user [facility] Tobacco Comment 2022-08-22 00:00:00 2022-08-22 00:00:00 Vaping [facility] Exposure to SARS-CoV-2 (event) 2022-07-12 00:00:00 2022-07-22 10:40:00 Not sure [facility] Alcohol Comment 2019-11-29 00:00:00 2019-11-29 00:00:00 Socially [facility] Smoking Status Start Date Stop Date Source Never smoked tobacco [facility] Medications Ordered Medication Name Filled Medication Name Start Date Stop Date Current Medication? Ordering Clinician Indication Dosage Frequency Signature (SIG) Comments Components Source verapamiL 40 mg tablet 2022-06 00:00: 00 Yes [id number] 40mg Take 1 tablet by mouth in the morning and 1 tablet at noon and 1 tablet in the evening. [facility] verapamiL 40 mg tablet 2022-06 00:00: 00 Yes [id number] 40mg Take 1 tablet by mouth in the morning and 1 tablet at noon and 1 tablet in the evening. [facility] verapamiL 40 mg tablet 2022-06 00:00: 00 Yes [id number] 40mg Take 1 tablet by mouth in the morning and 1 tablet at noon and 1 tablet in the evening. [facility] verapamiL 40 mg tablet 2022-06 00:00: 00 Yes [id number] 40mg Take 1 tablet by mouth in the morning and 1 tablet at noon and 1 tablet in the evening. [facility] verapamiL 40 mg tablet 2022-06 00:00: 00 Yes [id number] 40mg Take 1 tablet by mouth in the morning and 1 tablet at noon and 1 tablet in the evening. [facility] verapamiL 40 mg tablet 2022-06 00:00: 00 Yes [id number] 40mg Take 1 tablet by mouth in the morning and 1 tablet at noon and 1 tablet in the evening. [facility] verapamiL 40 mg tablet 2022-06 00:00: 00 Yes [id number] 40mg Take 1 tablet by mouth in the morning and 1 tablet at noon and 1 tablet in the evening. [facility] NaCl 0.9% (NS) bolus infusion 1,000 mL 2022-06 02:15: 00 05-07 02:56 :00 No 1000mL at 999 mL/hr, 1,000 mL, IV Infusion, ONCE, 1 dose, On Thu05/06/23 at 2015, STAT [facility] ketorolac (TORADOL) injection 30 mg 2022-06 02:15: 00 05-07 01:35 :00 No 30mg 30 mg, Slow IV Push, ONCE, 1 dose, On Thu05/06/23 at 2015, RANULFO [facility] morpHINE (4 mg/mL) injection 4 mg 2022-06 01:15: 00 05-07 01:35 :00 No 4mg 4 mg, Slow IV Push, ONCE, 1 dose, On Thu05/06/23 at 1915, RANULFO [facility] ondansetron 4 mg disintegrat ing tablet 2022-06 00:00: 00 Yes [id number] 4mg Take 1 tablet by mouth every 4 (four) hours as needed for Nausea and Vomiting (N/V). [facility] ondansetron 4 mg disintegrat ing tablet 2022-06 00:00: 00 Yes [id number] 4mg Take 1 tablet by mouth every 4 (four) hours as needed for Nausea and Vomiting (N/V). [facility] ondansetron 4 mg disintegrat ing tablet 2022-06 00:00: 00 Yes [id number] 4mg Take 1 tablet by mouth every 4 (four) hours as needed for Nausea and Vomiting (N/V). [facility] ondansetron 4 mg disintegrat ing tablet 2022-06 00:00: 00 Yes [id number] 4mg Take 1 tablet by mouth every 4 (four) hours as needed for Nausea and Vomiting (N/V). [facility] ondansetron 4 mg disintegrat ing tablet 2022-06 00:00: 00 Yes [id number] 4mg Take 1 tablet by mouth every 4 (four) hours as needed for Nausea and Vomiting (N/V). [facility] ondansetron 4 mg disintegrat ing tablet 2022-06 00:00: 00 Yes [id number] 4mg Take 1 tablet by mouth every 4 (four) hours as needed for Nausea and Vomiting (N/V). [facility] ondansetron 4 mg disintegrat ing tablet 2022-06 00:00: 00 Yes [id number] 4mg Take 1 tablet by mouth every 4 (four) hours as needed for Nausea and Vomiting (N/V). [facility] ondansetron 4 mg disintegrat ing tablet 2022-06 00:00: 00 Yes [id number] 4mg Take 1 tablet by mouth every 4 (four) hours as needed for Nausea and Vomiting (N/V). [facility] ondansetron 4 mg disintegrat ing tablet 2022-06 00:00: 00 Yes [id number] 4mg Take 1 tablet by mouth every 4 (four) hours as needed for Nausea and Vomiting (N/V). [facility] ondansetron 4 mg disintegrat ing tablet 2022-06 00:00: 00 Yes [id number] 4mg Take 1 tablet by mouth every 4 (four) hours as needed for Nausea and Vomiting (N/V). [facility] ondansetron 4 mg disintegrat ing tablet 2022-06 00:00: 00 Yes [id number] 4mg Take 1 tablet by mouth every 4 (four) hours as needed for Nausea and Vomiting (N/V). [facility] HYDROcodone -acetaminop hen (NORCO) 10-325 mg tablet 2022-06 00:00: 00 05-14 05:59 :00 No [id number] 1{tbl} Take 1 tablet by mouth every 6 (six) hours as needed for Pain (scale 4-6) for up to 7 days. Indication s: acute pain [facility] HYDROcodone -acetaminop hen (NORCO) 10-325 mg tablet 2022-06 00:00: 00 05-14 05:59 :00 No 4647 1{tbl} Take 1 tablet by mouth every 6 (six) hours as needed for Pain (scale 4-6) for up to 7 days. Indication s: acute pain [facility] HYDROcodone -acetaminop hen (NORCO) 10-325 mg tablet 2022-06 00:00: 00 05-14 05:59 :00 No 4647 1{tbl} Take 1 tablet by mouth every 6 (six) hours as needed for Pain (scale 4-6) for up to 7 days. Indication s: acute pain [facility] tamsulosin 0.4 mg 24 hr capsule 2022-06 00:00: 00 06-02 05:59 :00 No [id number] .4mg Take 1 capsule by mouth in the morning for 28 days. [facility] tamsulosin 0.4 mg 24 hr capsule 2022-06 00:00: 00 06-02 05:59 :00 No [id number] .4mg Take 1 capsule by mouth in the morning for 28 days. [facility] tamsulosin 0.4 mg 24 hr capsule 2022-06 00:00: 00 06-02 05:59 :00 No [id number] .4mg Take 1 capsule by mouth in the morning for 28 days. [facility] tamsulosin 0.4 mg 24 hr capsule 2022-06 00:00: 00 06-02 05:59 :00 No [id number] .4mg Take 1 capsule by mouth in the morning for 28 days. [facility] tamsulosin 0.4 mg 24 hr capsule 2022-06 00:00: 00 06-02 05:59 :00 No [id number] .4mg Take 1 capsule by mouth in the morning for 28 days. [facility] tamsulosin 0.4 mg 24 hr capsule 2022-06 00:00: 00 06-02 05:59 :00 No [id number] .4mg Take 1 capsule by mouth in the morning for 28 days. [facility] tamsulosin 0.4 mg 24 hr capsule 2022-06 00:00: 00 06-02 05:59 :00 No [id number] .4mg Take 1 capsule by mouth in the morning for 28 days. [facility] tamsulosin 0.4 mg 24 hr capsule 2022-06 00:00: 00 06-02 05:59 :00 No [id number] .4mg Take 1 capsule by mouth in the morning for 28 days. [facility] tamsulosin 0.4 mg 24 hr capsule 2022-06 00:00: 00 06-02 05:59 :00 No [id number] .4mg Take 1 capsule by mouth in the morning for 28 days. [facility] tamsulosin 0.4 mg 24 hr capsule 2022-06 00:00: 00 06-02 05:59 :00 No [id number] .4mg Take 1 capsule by mouth in the morning for 28 days. [facility] tamsulosin 0.4 mg 24 hr capsule 2022-06 00:00: 00 06-02 05:59 :00 No [id number] .4mg Take 1 capsule by mouth in the morning for 28 days. [facility] tamsulosin 0.4 mg 24 hr capsule 2022-06 00:00: 00 06-02 05:59 :00 No [id number] .4mg Take 1 capsule by mouth in the morning for 28 days. [facility] tamsulosin 0.4 mg 24 hr capsule 2022-06 00:00: 00 06-02 05:59 :00 No [id number] .4mg Take 1 capsule by mouth in the morning for 28 days. [facility] tamsulosin 0.4 mg 24 hr capsule 2022-06 00:00: 00 06-02 05:59 :00 No [id number] .4mg Take 1 capsule by mouth in the morning for 28 days. [facility] cefTRIAXone (ROCEPHIN) 1,000 mg in NaCl 0.9% (NS) 100 mL MINI-BAG 2022-06 03:15: 00 05-03 04:36 :00 No 1000mg 1,000 mg, IV Piggyback, ONCE, 1 dose, On 05/02/23 at 2215, Administer over 30 Minutes, 100 mL
Reas on for Anti-Infec tive: Empiric Therapy for Suspected Infection< br>Empiric Therapy Site: Abdominal< br>Duratio n of therapy: Once (ED) [facility] iopamidol (ISOVUE 370-500 mL) injection 80 mL 2022-06 03:15: 00 05-03 03:15 :00 No [id number] 80mL 80 mL, Intravenou s, ONCE, 1 dose, On 05/02/23 at 2215, Routine [facility] ondansetron (ZOFRAN (PF)) injection 4 mg 2022-06 02:15: 00 05-03 01:45 :00 No 4mg 4 mg, Slow IV Push, ONCE, 1 dose, On 05/02/23 at 2115, RANULFO [facility] ketorolac (TORADOL) injection 15 mg 2022-06 02:15: 00 05-03 01:45 :00 No 15mg 15 mg, Slow IV Push, ONCE, 1 dose, On 05/02/23 at 2115, RANULFO [facility] NaCl 0.9% (NS) bolus infusion 1,000 mL 2022-06 02:15: 00 05-03 03:49 :00 No 1000mL at 999 mL/hr, 1,000 mL, IV Infusion, ONCE, 1 dose, On 05/02/23 at 2115, RANULFO [facility] ketorolac 10 mg tablet 2022-06 00:00: 00 Yes [id number] 10mg Take 1 tablet by mouth every 6 (six) hours as needed for Pain (scale 7-10) for up to 15 doses. [facility] ondansetron (ZOFRAN) 4 mg tablet 2022-06 00:00: 00 Yes [id number] 4mg Take 1 tablet by mouth every 8 (eight) hours as needed for Nausea and Vomiting (N/V) for up to 15 doses. [facility] ketorolac 10 mg tablet 2022-06 00:00: 00 Yes [id number] 10mg Take 1 tablet by mouth every 6 (six) hours as needed for Pain (scale 7-10) for up to 15 doses. [facility] ondansetron (ZOFRAN) 4 mg tablet 2022-06 00:00: 00 Yes [id number] 4mg Take 1 tablet by mouth every 8 (eight) hours as needed for Nausea and Vomiting (N/V) for up to 15 doses. [facility] ketorolac 10 mg tablet 2022-06 00:00: 00 Yes [id number] 10mg Take 1 tablet by mouth every 6 (six) hours as needed for Pain (scale 7-10) for up to 15 doses. [facility] ondansetron (ZOFRAN) 4 mg tablet 2022-06 00:00: 00 Yes [id number] 4mg Take 1 tablet by mouth every 8 (eight) hours as needed for Nausea and Vomiting (N/V) for up to 15 doses. [facility] ketorolac 10 mg tablet 2022-06 00:00: 00 Yes [id number] 10mg Take 1 tablet by mouth every 6 (six) hours as needed for Pain (scale 7-10) for up to 15 doses. [facility] ondansetron (ZOFRAN) 4 mg tablet 2022-06 00:00: 00 Yes [id number] 4mg Take 1 tablet by mouth every 8 (eight) hours as needed for Nausea and Vomiting (N/V) for up to 15 doses. [facility] ketorolac 10 mg tablet 2022-06 00:00: 00 Yes [id number] 10mg Take 1 tablet by mouth every 6 (six) hours as needed for Pain (scale 7-10) for up to 15 doses. [facility] ondansetron (ZOFRAN) 4 mg tablet 2022-06 00:00: 00 Yes [id number] 4mg Take 1 tablet by mouth every 8 (eight) hours as needed for Nausea and Vomiting (N/V) for up to 15 doses. [facility] ketorolac 10 mg tablet 2022-06 00:00: 00 Yes [id number] 10mg Take 1 tablet by mouth every 6 (six) hours as needed for Pain (scale 7-10) for up to 15 doses. [facility] ondansetron (ZOFRAN) 4 mg tablet 2022-06 00:00: 00 Yes [id number] 4mg Take 1 tablet by mouth every 8 (eight) hours as needed for Nausea and Vomiting (N/V) for up to 15 doses. [facility] ketorolac 10 mg tablet 2022-06 00:00: 00 Yes [id number] 10mg Take 1 tablet by mouth every 6 (six) hours as needed for Pain (scale 7-10) for up to 15 doses. [facility] ondansetron (ZOFRAN) 4 mg tablet 2022-06 00:00: 00 Yes [id number] 4mg Take 1 tablet by mouth every 8 (eight) hours as needed for Nausea and Vomiting (N/V) for up to 15 doses. [facility] ketorolac 10 mg tablet 2022-06 00:00: 00 Yes [id number] 10mg Take 1 tablet by mouth every 6 (six) hours as needed for Pain (scale 7-10) for up to 15 doses. [facility] ondansetron (ZOFRAN) 4 mg tablet 2022-06 00:00: 00 Yes [id number] 4mg Take 1 tablet by mouth every 8 (eight) hours as needed for Nausea and Vomiting (N/V) for up to 15 doses. [facility] ketorolac 10 mg tablet 2022-06 00:00: 00 Yes [id number] 10mg Take 1 tablet by mouth every 6 (six) hours as needed for Pain (scale 7-10) for up to 15 doses. [facility] ondansetron (ZOFRAN) 4 mg tablet 2022-06 00:00: 00 Yes [id number] 4mg Take 1 tablet by mouth every 8 (eight) hours as needed for Nausea and Vomiting (N/V) for up to 15 doses. [facility] ketorolac 10 mg tablet 2022-06 00:00: 00 Yes [id number] 10mg Take 1 tablet by mouth every 6 (six) hours as needed for Pain (scale 7-10) for up to 15 doses. [facility] ondansetron (ZOFRAN) 4 mg tablet 2022-06 00:00: 00 Yes [id number] 4mg Take 1 tablet by mouth every 8 (eight) hours as needed for Nausea and Vomiting (N/V) for up to 15 doses. [facility] ketorolac 10 mg tablet 2022-06 00:00: 00 Yes [id number] 10mg Take 1 tablet by mouth every 6 (six) hours as needed for Pain (scale 7-10) for up to 15 doses. [facility] ondansetron (ZOFRAN) 4 mg tablet 2022-06 00:00: 00 Yes [id number] 4mg Take 1 tablet by mouth every 8 (eight) hours as needed for Nausea and Vomiting (N/V) for up to 15 doses. [facility] ketorolac 10 mg tablet 2022-06 00:00: 00 Yes [id number] 10mg Take 1 tablet by mouth every 6 (six) hours as needed for Pain (scale 7-10) for up to 15 doses. [facility] ondansetron (ZOFRAN) 4 mg tablet 2022-06 00:00: 00 Yes [id number] 4mg Take 1 tablet by mouth every 8 (eight) hours as needed for Nausea and Vomiting (N/V) for up to 15 doses. [facility] ketorolac 10 mg tablet 2022-06 00:00: 00 Yes [id number] 10mg Take 1 tablet by mouth every 6 (six) hours as needed for Pain (scale 7-10) for up to 15 doses. [facility] ondansetron (ZOFRAN) 4 mg tablet 2022-06 00:00: 00 Yes [id number] 4mg Take 1 tablet by mouth every 8 (eight) hours as needed for Nausea and Vomiting (N/V) for up to 15 doses. [facility] ketorolac 10 mg tablet 2022-06 00:00: 00 Yes [id number] 10mg Take 1 tablet by mouth every 6 (six) hours as needed for Pain (scale 7-10) for up to 15 doses. [facility] ondansetron (ZOFRAN) 4 mg tablet 2022-06 00:00: 00 Yes [id number] 4mg Take 1 tablet by mouth every 8 (eight) hours as needed for Nausea and Vomiting (N/V) for up to 15 doses. [facility] ketorolac 10 mg tablet 2022-06 00:00: 00 Yes [id number] 10mg Take 1 tablet by mouth every 6 (six) hours as needed for Pain (scale 7-10) for up to 15 doses. [facility] ondansetron (ZOFRAN) 4 mg tablet 2022-06 00:00: 00 Yes [id number] 4mg Take 1 tablet by mouth every 8 (eight) hours as needed for Nausea and Vomiting (N/V) for up to 15 doses. [facility] ketorolac 10 mg tablet 2022-06 00:00: 00 Yes [id number] 10mg Take 1 tablet by mouth every 6 (six) hours as needed for Pain (scale 7-10) for up to 15 doses. [facility] ondansetron (ZOFRAN) 4 mg tablet 2022-06 00:00: 00 Yes [id number] 4mg Take 1 tablet by mouth every 8 (eight) hours as needed for Nausea and Vomiting (N/V) for up to 15 doses. [facility] ketorolac 10 mg tablet 2022-06 00:00: 00 Yes [id number] 10mg Take 1 tablet by mouth every 6 (six) hours as needed for Pain (scale 7-10) for up to 15 doses. [facility] ondansetron (ZOFRAN) 4 mg tablet 2022-06 00:00: 00 Yes [id number] 4mg Take 1 tablet by mouth every 8 (eight) hours as needed for Nausea and Vomiting (N/V) for up to 15 doses. [facility] ketorolac 10 mg tablet 2022-06 00:00: 00 Yes [id number] 10mg Take 1 tablet by mouth every 6 (six) hours as needed for Pain (scale 7-10) for up to 15 doses. [facility] ondansetron (ZOFRAN) 4 mg tablet 2022-06 00:00: 00 Yes [id number] 4mg Take 1 tablet by mouth every 8 (eight) hours as needed for Nausea and Vomiting (N/V) for up to 15 doses. [facility] cefdinir 300 mg capsule 2022-06 00:00: 00 05-13 05:59 :00 No [id number] 300mg Take 1 capsule by mouth every 12 (twelve) hours for 10 days. [facility] cefdinir 300 mg capsule 2022-06 00:00: 00 05-13 05:59 :00 No [id number] 300mg Take 1 capsule by mouth every 12 (twelve) hours for 10 days. [facility] cefdinir 300 mg capsule 2022-06 00:00: 00 05-13 05:59 :00 No [id number] 300mg Take 1 capsule by mouth every 12 (twelve) hours for 10 days. [facility] cefdinir 300 mg capsule 2022-06 00:00: 00 05-13 05:59 :00 No [id number] 300mg Take 1 capsule by mouth every 12 (twelve) hours for 10 days. [facility] [facility] cefdinir 300 mg capsule 2022-06 00:00: 00 05-13 05:59 :00 No [id number] 300mg Take 1 capsule by mouth every 12 (twelve) hours for 10 days. [facility] cefdinir 300 mg capsule 2022-06 00:00: 00 05-13 05:59 :00 No [id number] 300mg Take 1 capsule by mouth every 12 (twelve) hours for 10 days. [facility] cefdinir 300 mg capsule 2022-06 00:00: 00 05-13 05:59 :00 No [id number] 300mg Take 1 capsule by mouth every 12 (twelve) hours for 10 days. [facility] cefdinir 300 mg capsule 2022-06 00:00: 00 05-13 05:59 :00 No [id number] 300mg Take 1 capsule by mouth every 12 (twelve) hours for 10 days. [facility] cefdinir 300 mg capsule 2022-06 00:00: 00 05-13 05:59 :00 No [id number] 300mg Take 1 capsule by mouth every 12 (twelve) hours for 10 days. [facility] cefdinir 300 mg capsule 2022-06 00:00: 00 05-13 05:59 :00 No [id number] 300mg Take 1 capsule by mouth every 12 (twelve) hours for 10 days. [facility] BUSPIRONE 5 mg tablet 2022-06 0 00:00: 00 Yes [id number] TAKE 1 AND 1/2 TABLETS BY MOUTH TWICE DAILY NEEDED FOR ANXIETY [facility] BUSPIRONE 5 mg tablet 2022-06 0-27 00:00: 00 Yes [id number] TAKE 1 AND 1/2 TABLETS BY MOUTH TWICE DAILY NEEDED FOR ANXIETY [facility] BUSPIRONE 5 mg tablet 2022-06 0-27 00:00: 00 Yes [id number] TAKE 1 AND 1/2 TABLETS BY MOUTH TWICE DAILY NEEDED FOR ANXIETY [facility] BUSPIRONE 5 mg tablet 2022-06 00:00: 00 Yes [id number] TAKE 1 AND 1/2 TABLETS BY MOUTH TWICE DAILY NEEDED FOR ANXIETY [facility] BUSPIRONE 5 mg tablet 2022-06 0 00:00: 00 Yes [id number] TAKE 1 AND 1/2 TABLETS BY MOUTH TWICE DAILY NEEDED FOR ANXIETY [facility] BUSPIRONE 5 mg tablet 2022-06 0 00:00: 00 Yes [id number] TAKE 1 AND 1/2 TABLETS BY MOUTH TWICE DAILY NEEDED FOR ANXIETY [facility] BUSPIRONE 5 mg tablet 2022-06 0 00:00: 00 Yes [id number] TAKE 1 AND 1/2 TABLETS BY MOUTH TWICE DAILY NEEDED FOR ANXIETY [facility] BUSPIRONE 5 mg tablet 2022-06 0 00:00: 00 Yes [id number] TAKE 1 AND 1/2 TABLETS BY MOUTH TWICE DAILY NEEDED FOR ANXIETY [facility] BUSPIRONE 5 mg tablet 2022-06 00:00: 00 Yes [id number] TAKE 1 AND 1/2 TABLETS BY MOUTH TWICE DAILY NEEDED FOR ANXIETY [facility] BUSPIRONE 5 mg tablet 2022-06 0 00:00: 00 Yes [id number] TAKE 1 AND 1/2 TABLETS BY MOUTH TWICE DAILY NEEDED FOR ANXIETY [facility] BUSPIRONE 5 mg tablet 2022-06 00:00: 00 Yes [id number] TAKE 1 AND 1/2 TABLETS BY MOUTH TWICE DAILY NEEDED FOR ANXIETY [facility] BUSPIRONE 5 mg tablet 2022-06 00:00: 00 Yes [id number] TAKE 1 AND 1/2 TABLETS BY MOUTH TWICE DAILY NEEDED FOR ANXIETY [facility] BUSPIRONE 5 mg tablet 2022-06 0 00:00: 00 Yes [id number] TAKE 1 AND 1/2 TABLETS BY MOUTH TWICE DAILY NEEDED FOR ANXIETY [facility] BUSPIRONE 5 mg tablet 2022-06 0 00:00: 00 Yes [id number] TAKE 1 AND 1/2 TABLETS BY MOUTH TWICE DAILY NEEDED FOR ANXIETY [facility] BUSPIRONE 5 mg tablet 2022-06 00:00: 00 Yes [id number] TAKE 1 AND 1/2 TABLETS BY MOUTH TWICE DAILY NEEDED [facility] 2022-06 00:00: 00 Yes [id number] TAKE 1 AND 1/2 TABLETS BY MOUTH TWICE DAILY NEEDED FOR ANXIETY [facility] BUSPIRONE 5 mg tablet 2022-06 00:00: 00 Yes [id number] TAKE 1 AND 1/2 TABLETS BY MOUTH TWICE DAILY NEEDED FOR ANXIETY [facility] BUSPIRONE 5 mg tablet 2022-06 00:00: 00 Yes [id number] TAKE 1 AND 1/2 TABLETS BY MOUTH TWICE DAILY NEEDED [facility]XIETY [facility] tablet 2022-06 00:00: 00 Yes [id number] TAKE 1 AND 1/2 TABLETS BY MOUTH TWICE DAILY NEEDED FOR ANXIETY [facility] BUSPIRONE 5 mg tablet 2022-06 00:00: 00 Yes [id number] TAKE 1 AND 1/2 TABLETS BY MOUTH TWICE DAILY NEEDED FOR ANXIETY [facility] nortriptyli ne 25 mg capsule 2022-0 03-03 00:00: 00 Yes [id number] 25mg Take 1 capsule by mouth at bedtime. [facility] nortriptyli ne 25 mg capsule 2022-0 03-03 00:00: 00 Yes [id number] 25mg Take 1 capsule by mouth at bedtime. [facility] nortriptyli ne 25 mg capsule 2022-0 03-03 00:00: 00 Yes [id number] 25mg Take 1 capsule by mouth at bedtime. [facility] nortriptyli ne 25 mg capsule 2022-0 03-03 00:00: 00 Yes [id number] 25mg Take 1 capsule by mouth at bedtime. [facility] nortriptyli ne 25 mg capsule 2022-0 03-03 00:00: 00 Yes [id number] 25mg Take 1 capsule by mouth at bedtime. [facility] nortriptyli ne 25 mg capsule 2022-0 03-03 00:00: 00 Yes [id number] 25mg Take 1 capsule by mouth at bedtime. [facility] nortriptyli ne 25 mg capsule 3-0 03-03 00:00: 00 Yes [id number] 25mg Take 1 capsule by mouth at bedtime. [facility] nortriptyli ne 25 mg capsule 3-0 03-03 00:00: 00 Yes [id number] 25mg Take 1 capsule by mouth at bedtime. [facility] nortriptyli ne 25 mg capsule 3-0 - 00:00: 00 Yes [id number] 25mg Take 1 capsule by mouth at bedtime. [facility] nortriptyli ne 25 mg capsule 3-0 03-03 00:00: 00 Yes [id number] 25mg Take 1 capsule by mouth at bedtime. [facility] nortriptyli ne 25 mg capsule 3-0 03-03 00:00: 00 Yes [id number] 25mg Take 1 capsule by mouth at bedtime. [facility] nortriptyli ne 25 mg capsule 3-0 03-03 00:00: 00 Yes [id number] 25mg Take 1 capsule by mouth at bedtime. [facility] nortriptyli ne 25 mg capsule 3-0 03-03 00:00: 00 Yes [id number] 25mg Take 1 capsule by mouth at bedtime. [facility] nortriptyli ne 25 mg capsule 3-0 03-03 00:00: 00 Yes [id number] 25mg Take 1 capsule by mouth at bedtime. [facility] nortriptyli ne 25 mg capsule 3-0 03-03 00:00: 00 Yes [id number] 25mg Take 1 capsule by mouth at bedtime. [facility] nortriptyli ne 25 mg capsule 3-0 03-03 00:00: 00 Yes [id number] 25mg Take 1 capsule by mouth at bedtime. [facility] nortriptyli ne 25 mg capsule 3-0 - 00:00: 00 Yes [id number] 25mg Take 1 capsule by mouth at bedtime. [facility] nortriptyli ne 25 mg capsule 0 03-03 00:00: 00 Yes [id number] 25mg Take 1 capsule by mouth at bedtime. [facility] nortriptyli ne 25 mg capsule 0 03-03 00:00: 00 Yes [id number] 25mg Take 1 capsule by mouth at bedtime. [facility] nortriptyli ne 25 mg capsule 03-03 00:00: 00 Yes [id number] 25mg Take 1 capsule by mouth at bedtime. [facility] nortriptyli ne 25 mg capsule 0 03-03 00:00: 00 Yes [id number] 25mg Take 1 capsule by mouth at bedtime. [facility] nortriptyli ne 25 mg capsule 03-03 00:00: 00 Yes [id number] 25mg Take 1 capsule by mouth at bedtime. [facility] nortriptyli ne 25 mg capsule 03-03 00:00: 00 Yes [id number] 25mg Take 1 capsule by mouth at bedtime. [facility] LORazepam (ATIVAN) tablet 1 mg 02-20 15:15: 00 02-20 14:10 :00 No [id number] 1mg 1 mg, Oral, ONCE, 1 dose, On Thu02/20/23 at 1015, Routine [facility] LORazepam (ATIVAN) tablet 1 mg 02-20 15:15: 00 02-20 14:10 :00 No [id number] 1mg 1 mg, Oral, ONCE, 1 dose, On Thu02/20/23 at 1015, Routine [facility] escitalopra m oxalate (LEXAPRO) 20 mg tablet 02-11 00:00: 00 Yes [id number] 20mg Take 1 tablet by mouth in the morning. [facility] busPIRone 5 mg tablet 02-11 00:00: 00 Yes [id number] 7.5mg Take 1.5 tablets by mouth 2 (two) times daily as needed (anxiety). [facility] escitalopra m oxalate (LEXAPRO) 20 mg tablet 3-0 8-16 00:00: 00 Yes [id number] 20mg Take 1 tablet by mouth in the morning. [facility] busPIRone 5 mg tablet 3-0 8-16 00:00: 00 Yes [id number] 7.5mg Take 1.5 tablets by mouth 2 (two) times daily as needed (anxiety). [facility] escitalopra m oxalate (LEXAPRO) 20 mg tablet 3-0 8-16 00:00: 00 Yes [id number] 20mg Take 1 tablet by mouth in the morning. [facility] busPIRone 5 mg tablet 3-0 8-16 00:00: 00 Yes [id number] 7.5mg Take 1.5 tablets by mouth 2 (two) times daily as needed (anxiety). [facility] escitalopra m oxalate (LEXAPRO) 20 mg tablet 2022-0 8-16 00:00: 00 Yes [id number] 20mg Take 1 tablet by mouth in the morning. [facility] busPIRone 5 mg tablet 3-0 8-16 00:00: 00 Yes [id number] 7.5mg Take 1.5 tablets by mouth 2 (two) times daily as needed (anxiety). [facility] escitalopra m oxalate (LEXAPRO) 20 mg tablet 3-0 8-16 00:00: 00 Yes [id number] 20mg Take 1 tablet by mouth in the morning. [facility] busPIRone 5 mg tablet 3-0 8-16 00:00: 00 Yes [id number] 7.5mg Take 1.5 tablets by mouth 2 (two) times daily as needed (anxiety). [facility] escitalopra m oxalate (LEXAPRO) 20 mg tablet 3-0 8-16 00:00: 00 Yes [id number] 20mg Take 1 tablet by mouth in the morning. [facility] busPIRone 5 mg tablet 3-0 8-16 00:00: 00 Yes [id number] 7.5mg Take 1.5 tablets by mouth 2 (two) times daily as needed (anxiety). [facility] escitalopra m oxalate (LEXAPRO) 20 mg tablet 3-0 8-16 00:00: 00 Yes [id number] 20mg Take 1 tablet by mouth in the morning. [facility] busPIRone 5 mg tablet 3-0 8-16 00:00: 00 Yes [id number] 7.5mg Take 1.5 tablets by mouth 2 (two) times daily as needed (anxiety). [facility] escitalopra m oxalate (LEXAPRO) 20 mg tablet 3-0 8-16 00:00: 00 Yes [id number] 20mg Take 1 tablet by mouth in the morning. [facility] busPIRone 5 mg tablet 3-0 8-16 00:00: 00 Yes [id number] 7.5mg Take 1.5 tablets by mouth 2 (two) times daily as needed (anxiety). [facility] escitalopra m oxalate (LEXAPRO) 20 mg tablet 3-0 8-16 00:00: 00 Yes [id number] 20mg Take 1 tablet by mouth in the morning. [facility] busPIRone 5 mg tablet 3-0 8-16 00:00: 00 Yes [id number] 7.5mg Take 1.5 tablets by mouth 2 (two) times daily as needed (anxiety). [facility] escitalopra m oxalate (LEXAPRO) 20 mg tablet 3-0 8-16 00:00: 00 Yes [id number] 20mg Take 1 tablet by mouth in the morning. [facility] busPIRone 5 mg tablet 3-0 8-16 00:00: 00 Yes [id number] 7.5mg Take 1.5 tablets by mouth 2 (two) times daily as needed (anxiety). [facility] escitalopra m oxalate (LEXAPRO) 20 mg tablet 3-0 8-16 00:00: 00 Yes [id number] 20mg Take 1 tablet by mouth in the morning. [facility] busPIRone 5 mg tablet 3-0 8-16 00:00: 00 Yes [id number] 7.5mg Take 1.5 tablets by mouth 2 (two) times daily as needed (anxiety). [facility] escitalopra m oxalate (LEXAPRO) 20 mg tablet 2022-0 8-16 00:00: 00 Yes [id number] 20mg Take 1 tablet by mouth in the morning. [facility] busPIRone 5 mg tablet 2022-0 8-16 00:00: 00 Yes [id number] 7.5mg Take 1.5 tablets by mouth 2 (two) times daily as needed (anxiety). [facility] escitalopra m oxalate (LEXAPRO) 20 mg tablet 2022-0 8-16 00:00: 00 Yes [id number] 20mg Take 1 tablet by mouth in the morning. [facility] busPIRone 5 mg tablet 2022-0 8-16 00:00: 00 Yes [id number] 7.5mg Take 1.5 tablets by mouth 2 (two) times daily as needed (anxiety). [facility] escitalopra m oxalate (LEXAPRO) 20 mg tablet 2022-0 8-16 00:00: 00 Yes [id number] 20mg Take 1 tablet by mouth in the morning. [facility] busPIRone 5 mg tablet 2022-0 8-16 00:00: 00 Yes [id number] 7.5mg Take 1.5 tablets by mouth 2 (two) times daily as needed (anxiety). [facility] escitalopra m oxalate (LEXAPRO) 20 mg tablet 2022-0 8-16 00:00: 00 Yes [id number] 20mg Take 1 tablet by mouth in the morning. [facility] escitalopra m oxalate (LEXAPRO) 20 mg tablet 3-0 8-16 00:00: 00 Yes [id number] 20mg Take 1 tablet by mouth in the morning. [facility] escitalopra m oxalate (LEXAPRO) 20 mg tablet 3-0 8-16 00:00: 00 Yes [id number] 20mg Take 1 tablet by mouth in the morning. [facility] escitalopra m oxalate (LEXAPRO) 20 mg tablet 3-0 8-16 00:00: 00 Yes [id number] 20mg Take 1 tablet by mouth in the morning. [facility] escitalopra m oxalate (LEXAPRO) 20 mg tablet 2023-0 8-16 00:00: 00 Yes [id number] 20mg Take 1 tablet by mouth in the morning. [facility] escitalopra m oxalate (LEXAPRO) 20 mg tablet 2023-0 8-16 00:00: 00 Yes [id number] 20mg Take 1 tablet by mouth in the morning. [facility] escitalopra m oxalate (LEXAPRO) 20 mg tablet 3-0 8-16 00:00: 00 Yes [id number] 20mg Take 1 tablet by mouth in the morning. [facility] escitalopra m oxalate (LEXAPRO) 20 mg tablet 2023-0 8-16 00:00: 00 Yes [id number] 20mg Take 1 tablet by mouth in the morning. [facility] escitalopra m oxalate (LEXAPRO) 20 mg tablet 3-0 8-16 00:00: 00 Yes [id number] 20mg Take 1 tablet by mouth in the morning. [facility] escitalopra m oxalate (LEXAPRO) 20 mg tablet 3-0 8-16 00:00: 00 Yes [id number] 20mg Take 1 tablet by mouth in the morning. [facility] escitalopra m oxalate (LEXAPRO) 20 mg tablet 2023-0 8-16 00:00: 00 Yes [id number] 20mg Take 1 tablet by mouth in the morning. [facility] escitalopra m oxalate (LEXAPRO) 20 mg tablet 2023-0 8-16 00:00: 00 Yes [id number] 20mg Take 1 tablet by mouth in the morning. [facility] escitalopra m oxalate (LEXAPRO) 20 mg tablet 2023-0 8-16 00:00: 00 Yes [id number] 20mg Take 1 tablet by mouth in the morning. [facility] escitalopra m oxalate (LEXAPRO) 20 mg tablet 2023-0 8-16 00:00: 00 Yes [id number] 20mg Take 1 tablet by mouth in the morning. [facility] escitalopra m oxalate (LEXAPRO) 20 mg tablet 3-0 8-16 00:00: 00 Yes [id number] 20mg Take 1 tablet by mouth in the morning. [facility] escitalopra m oxalate (LEXAPRO) 20 mg tablet 2022-0 8-16 00:00: 00 Yes [id number] 20mg Take 1 tablet by mouth in the morning. [facility] escitalopra m oxalate (LEXAPRO) 20 mg tablet 2022-0 8-16 00:00: 00 Yes [id number] 20mg Take 1 tablet by mouth in the morning. [facility] escitalopra m oxalate (LEXAPRO) 20 mg tablet 2022-0 8-16 00:00: 00 Yes [id number] 20mg Take 1 tablet by mouth in the morning. [facility] escitalopra m oxalate (LEXAPRO) 20 mg tablet 2022-0 8-16 00:00: 00 Yes [id number] 20mg Take 1 tablet by mouth in the morning. [facility] escitalopra m oxalate (LEXAPRO) 20 mg tablet 2022-0 8-16 00:00: 00 Yes [id number] 20mg Take 1 tablet by mouth in the morning. [facility] busPIRone 5 mg tablet 2022-0 8-16 00:00: 00 27 00:00 :00 No [id number] 7.5mg Take 1.5 tablets by mouth 2 (two) times daily as needed (anxiety). [facility] busPIRone 7.5 mg tablet 2022-0 8-16 00:00: 00 16 00:00 :00 No [id number] 7.5mg Take 1 tablet by mouth in the morning and 1 tablet in the evening. [facility] busPIRone 7.5 mg tablet 3-0 8-16 00:00: 00 -16 00:00 :00 No [id number] 7.5mg Take 1 tablet by mouth in the morning and 1 tablet in the evening. [facility] amitriptyli ne 25 mg tablet 2022-0 02-02 00:00: 00 Yes [id number] 25mg Take 1 tablet by mouth at bedtime. [facility] amitriptyli ne 25 mg tablet 2022-0 8 00:00: 00 Yes [id number] 25mg Take 1 tablet by mouth at bedtime. [facility] amitriptyli ne 25 mg tablet 2022-0 02-02 00:00: 00 Yes [id number] 25mg Take 1 tablet by mouth at bedtime. [facility] amitriptyli ne 25 mg tablet 2022-0 02-02 00:00: 00 Yes [id number] 25mg Take 1 tablet by mouth at bedtime. [facility] amitriptyli ne 25 mg tablet 0 02-02 00:00: 00 Yes [id number] 25mg Take 1 tablet by mouth at bedtime. [facility] amitriptyli ne 25 mg tablet 2022-0 02-02 00:00: 00 Yes [id number] 25mg Take 1 tablet by mouth at bedtime. [facility] amitriptyli ne 25 mg tablet 2022-0 02-02 00:00: 00 Yes [id number] 25mg Take 1 tablet by mouth at bedtime. [facility] amitriptyli ne 25 mg tablet 2022-0 02-02 00:00: 00 Yes [id number] 25mg Take 1 tablet by mouth at bedtime. [facility] amitriptyli ne 25 mg tablet 2022-0 02-02 00:00: 00 Yes [id number] 25mg Take 1 tablet by mouth at bedtime. [facility] amitriptyli ne 25 mg tablet 2022-0 02-02 00:00: 00 Yes [id number] 25mg Take 1 tablet by mouth at bedtime. [facility] amitriptyli ne 25 mg tablet 2022-0 8 00:00: 00 Yes [id number] 25mg Take 1 tablet by mouth at bedtime. [facility] amitriptyli ne 25 mg tablet 2022-0 8 00:00: 00 Yes [id number] 25mg Take 1 tablet by mouth at bedtime. [facility] amitriptyli ne 25 mg tablet 02-02 00:00: 00 Yes [id number] 25mg Take 1 tablet by mouth at bedtime. [facility] amitriptyli ne 25 mg tablet 02-02 00:00: 00 Yes [id number] 25mg Take 1 tablet by mouth at bedtime. [facility] amitriptyli ne 25 mg tablet 02-02 00:00: 00 Yes [id number] 25mg Take 1 tablet by mouth at bedtime. [facility] amitriptyli ne 25 mg tablet 02-02 00:00: 00 03-03 00:00 :00 No [id number] 25mg Take 1 tablet by mouth at bedtime. [facility] amitriptyli ne 25 mg tablet 02-02 00:00: 00 03-03 00:00 :00 No [id number] 25mg Take 1 tablet by mouth at bedtime. [facility] amitriptyli ne 25 mg tablet 02-02 00:00: 00 03-03 00:00 :00 No [id number] 25mg Take 1 tablet by mouth at bedtime. [facility] Cholecalcif liza, Vitamin D3, (VITAMIN D3) 10 mcg (400 unit) capsule 01-14 08:09: 34 Yes [facility] Cholecalcif liza, Vitamin D3, (VITAMIN D3) 10 mcg (400 unit) capsule 2022 01-14 08:09: 34 Yes [facility] Cholecalcif liza, Vitamin D3, (VITAMIN D3) 10 mcg (400 unit) capsule 01-14 08:09: 34 Yes [facility] Cholecalcif liza, Vitamin D3, (VITAMIN D3) 10 mcg (400 unit) capsule 2022 01-14 08:09: 34 Yes [facility] Cholecalcif liza, Vitamin D3, (VITAMIN D3) 10 mcg (400 unit) capsule 01-14 08:09: 34 Yes [facility] Cholecalcif liza, Vitamin D3, (VITAMIN D3) 10 mcg (400 unit) capsule 01-14 08:09: 34 Yes [facility] Cholecalcif liza, Vitamin D3, (VITAMIN D3) 10 mcg (400 unit) capsule 01-14 08:09: 34 Yes [facility] Cholecalcif liza, Vitamin D3, (VITAMIN D3) 10 mcg (400 unit) capsule 01-14 08:09: 34 Yes [facility] Cholecalcif liza, Vitamin D3, (VITAMIN D3) 10 mcg (400 unit) capsule 01-14 08:09: 34 Yes [facility] Cholecalcif liza, Vitamin D3, (VITAMIN D3) 10 mcg (400 unit) capsule 01-14 08:09: 34 Yes [facility] Cholecalcif liza, Vitamin D3, (VITAMIN D3) 10 mcg (400 unit) capsule 01-14 08:09: 34 Yes [facility] Cholecalcif liza, Vitamin D3, (VITAMIN D3) 10 mcg (400 unit) capsule 01-14 08:09: 34 Yes [facility] Cholecalcif liza, Vitamin D3, (VITAMIN D3) 10 mcg (400 unit) capsule 01-14 08:09: 34 Yes [facility] Cholecalcif liza, Vitamin D3, (VITAMIN D3) 10 mcg (400 unit) capsule 01-14 08:09: 34 Yes [facility] Cholecalcif liza, Vitamin D3, (VITAMIN D3) 10 mcg (400 unit) capsule 01-14 08:09: 34 Yes [facility] Cholecalcif liza, Vitamin D3, (VITAMIN D3) 10 mcg (400 unit) capsule 01-14 08:09: 34 Yes [facility] Cholecalcif liza, Vitamin D3, (VITAMIN D3) 10 mcg (400 unit) capsule 01-14 08:09: 34 Yes [facility] Cholecalcif liza, Vitamin D3, (VITAMIN D3) 10 mcg (400 unit) capsule 01-14 08:09: 34 Yes [facility] Cholecalcif liza, Vitamin D3, (VITAMIN D3) 10 mcg (400 unit) capsule 01-14 08:09: 34 Yes [facility] Cholecalcif liza, Vitamin D3, (VITAMIN D3) 10 mcg (400 unit) capsule 01-14 08:09: 34 Yes [facility] Cholecalcif liza, Vitamin D3, (VITAMIN D3) 10 mcg (400 unit) capsule 01-14 08:09: 34 Yes [facility] Cholecalcif liza, Vitamin D3, (VITAMIN D3) 10 mcg (400 unit) capsule 01-14 08:09: 34 Yes [facility] Cholecalcif liza, Vitamin D3, (VITAMIN D3) 10 mcg (400 unit) capsule 01-14 08:09: 34 Yes [facility] Cholecalcif liza, Vitamin D3, (VITAMIN D3) 10 mcg (400 unit) capsule 01-14 08:09: 34 Yes [facility] Cholecalcif liza, Vitamin D3, (VITAMIN D3) 10 mcg (400 unit) capsule 01-14 08:09: 34 Yes [facility] Cholecalcif liza, Vitamin D3, (VITAMIN D3) 10 mcg (400 unit) capsule 01-14 08:09: 34 Yes [facility] Cholecalcif liza, Vitamin D3, (VITAMIN D3) 10 mcg (400 unit) capsule 01-14 08:09: 34 Yes [facility] Cholecalcif liza, Vitamin D3, (VITAMIN D3) 10 mcg (400 unit) capsule 01-14 08:09: 34 Yes [facility] Cholecalcif liza, Vitamin D3, (VITAMIN D3) 10 mcg (400 unit) capsule 01-14 08:09: 34 Yes [facility] Cholecalcif liza, Vitamin D3, (VITAMIN D3) 10 mcg (400 unit) capsule 01-14 08:09: 34 Yes [facility] Cholecalcif liza, Vitamin D3, (VITAMIN D3) 10 mcg (400 unit) capsule 01-14 08:09: 34 Yes [facility] Cholecalcif liza, Vitamin D3, (VITAMIN D3) 10 mcg (400 unit) capsule 01-14 08:09: 34 Yes [facility] Cholecalcif liaz, Vitamin D3, (VITAMIN D3) 10 mcg (400 unit) capsule 01-14 08:09: 34 Yes [facility] Cholecalcif liza, Vitamin D3, (VITAMIN D3) 10 mcg (400 unit) capsule 01-14 08:09: 34 Yes [facility] Cholecalcif liza, Vitamin D3, (VITAMIN D3) 10 mcg (400 unit) capsule 01-14 08:09: 34 Yes [facility] Cholecalcif liza, Vitamin D3, (VITAMIN D3) 10 mcg (400 unit) capsule 01-14 08:09: 34 Yes [facility] Cholecalcif liza, Vitamin D3, (VITAMIN D3) 10 mcg (400 unit) capsule 01-14 08:09: 34 Yes [facility] [facility] Cholecalcif liza, Vitamin D3, (VITAMIN D3) 10 mcg (400 unit) capsule 01-14 08:09: 34 Yes [facility] Cholecalcif liza, Vitamin D3, (VITAMIN D3) 10 mcg (400 unit) capsule 01-14 08:09: 34 Yes [facility] Cholecalcif liza, Vitamin D3, (VITAMIN D3) 10 mcg (400 unit) capsule 01-14 08:09: 34 Yes [facility] Cholecalcif liza, Vitamin D3, (VITAMIN D3) 10 mcg (400 unit) capsule 01-14 08:09: 34 Yes [facility] Cholecalcif liza, Vitamin D3, (VITAMIN D3) 10 mcg (400 unit) capsule 01-14 08:09: 34 Yes [facility] Cholecalcif liza, Vitamin D3, (VITAMIN D3) 10 mcg (400 unit) capsule 01-14 08:09: 34 Yes [facility] Cholecalcif liza, Vitamin D3, (VITAMIN D3) 10 mcg (400 unit) capsule 01-14 08:09: 34 Yes [facility] Cholecalcif liza, Vitamin D3, (VITAMIN D3) 10 mcg (400 unit) capsule 01-14 08:09: 34 Yes [facility] Cholecalcif liza, Vitamin D3, (VITAMIN D3) 10 mcg (400 unit) capsule 01-14 08:09: 34 Yes [facility] busPIRone 5 mg tablet 01-14 00:00: 00 Yes [id number] 5mg Take 1 tablet by mouth 2 (two) times daily as needed (anxiety). [facility] escitalopra m oxalate (LEXAPRO) 20 mg tablet 01-14 00:00: 00 Yes [id number] 20mg Take 1 tablet by mouth in the morning. [facility] busPIRone 5 mg tablet 01-14 00:00: 00 Yes [id number] 5mg Take 1 tablet by mouth 2 (two) times daily as needed (anxiety). [facility] escitalopra m oxalate (LEXAPRO) 20 mg tablet 01-14 00:00: 00 Yes [id number] 20mg Take 1 tablet by mouth in the morning. [facility] busPIRone 5 mg tablet 01-14 00:00: 00 Yes [id number] 5mg Take 1 tablet by mouth 2 (two) times daily as needed (anxiety). [facility] busPIRone 5 mg tablet 01-14 00:00: 00 Yes [id number] 5mg Take 1 tablet by mouth 2 (two) times daily as needed (anxiety). [facility] escitalopra m oxalate (LEXAPRO) 20 mg tablet 01-14 00:00: 00 Yes [id number] 20mg Take 1 tablet by mouth in the morning. [facility] busPIRone 5 mg tablet 0 01-14 00:00: 00 Yes [id number] 5mg Take 1 tablet by mouth 2 (two) times daily as needed (anxiety). [facility] busPIRone 5 mg tablet 2022-0 01-14 00:00: 00 Yes [id number] 5mg Take 1 tablet by mouth 2 (two) times daily as needed (anxiety). [facility] busPIRone 5 mg tablet 0 01-14 00:00: 00 Yes [id number] 5mg Take 1 tablet by mouth 2 (two) times daily as needed (anxiety). [facility] escitalopra m oxalate (LEXAPRO) 20 mg tablet 0 01-14 00:00: 00 Yes [id number] 20mg Take 1 tablet by mouth in the morning. [facility] busPIRone 5 mg tablet 0 01-14 00:00: 00 Yes [id number] 5mg Take 1 tablet by mouth 2 (two) times daily as needed (anxiety). [facility] escitalopra m oxalate (LEXAPRO) 20 mg tablet 0 01-14 00:00: 00 Yes [id number] 20mg Take 1 tablet by mouth in the morning. [facility] busPIRone 5 mg tablet 0 01-14 00:00: 00 Yes [id number] 5mg Take 1 tablet by mouth 2 (two) times daily as needed (anxiety). [facility] escitalopra m oxalate (LEXAPRO) 20 mg tablet 0 01-14 00:00: 00 Yes [id number] 20mg Take 1 tablet by mouth in the morning. [facility] busPIRone 5 mg tablet 2022-0 - 00:00: 00 Yes [id number] 5mg Take 1 tablet by mouth 2 (two) times daily as needed (anxiety). [facility] escitalopra m oxalate (LEXAPRO) 20 mg tablet 0 - 00:00: 00 Yes [id number] 20mg Take 1 tablet by mouth in the morning. [facility] busPIRone 5 mg tablet 01-14 00:00: 00 Yes [id number] 5mg Take 1 tablet by mouth 2 (two) times daily as needed (anxiety). [facility] escitalopra m oxalate (LEXAPRO) 20 mg tablet 01-14 00:00: 00 Yes [id number] 20mg Take 1 tablet by mouth in the morning. [facility] busPIRone 5 mg tablet 01-14 00:00: 00 Yes [id number] 5mg Take 1 tablet by mouth 2 (two) times daily as needed (anxiety). [facility] escitalopra m oxalate (LEXAPRO) 20 mg tablet 01-14 00:00: 00 Yes [id number] 20mg Take 1 tablet by mouth in the morning. [facility] busPIRone 5 mg tablet 01-14 00:00: 00 02-11 00:00 :00 No [id number] 5mg Take 1 tablet by mouth 2 (two) times daily as needed (anxiety). [facility] escitalopra m oxalate (LEXAPRO) 20 mg tablet 01-14 00:00: 00 02-11 00:00 :00 No [id number] 20mg Take 1 tablet by mouth in the morning. [facility] busPIRone 5 mg tablet 01-14 00:00: 00 02-11 00:00 :00 No [id number] 5mg Take 1 tablet by mouth 2 (two) times daily as needed (anxiety). [facility] escitalopra m oxalate (LEXAPRO) 20 mg tablet 01-14 00:00: 00 02-11 00:00 :00 No [id number] 20mg Take 1 tablet by mouth in the morning. [facility] ubrogepant 100 mg Tab - 00:00: 00 Yes [id number] 100mg Take 1 tablet by mouth as needed for Other (Headache) for up to 10 doses. If symptoms persist or return, may repeat dose after 2 hours. Maximum: 200 mg per 24 hours [facility] ubrogepant 100 mg Tab 2023-0 7- 00:00: 00 Yes [id number] 100mg Take 1 tablet by mouth as needed for Other (Headache) for up to 10 doses. If symptoms persist or return, may repeat dose after 2 hours. Maximum: 200 mg per 24 hours [facility] ubrogepant 100 mg Tab 2023-0 7 00:00: 00 Yes [id number] 100mg Take 1 tablet by mouth as needed for Other (Headache) for up to 10 doses. If symptoms persist or return, may repeat dose after 2 hours. Maximum: 200 mg per 24 hours [facility] ubrogepant 100 mg Tab 2023-0 7- 00:00: 00 Yes [id number] 100mg Take 1 tablet by mouth as needed for Other (Headache) for up to 10 doses. If symptoms persist or return, may repeat dose after 2 hours. Maximum: 200 mg per 24 hours [facility] ubrogepant 100 mg Tab 2023-0 7- 00:00: 00 Yes [id number] 100mg Take 1 tablet by mouth as needed for Other (Headache) for up to 10 doses. If symptoms persist or return, may repeat dose after 2 hours. Maximum: 200 mg per 24 hours [facility] ubrogepant 100 mg Tab 3-0 7 00:00: 00 Yes [id number] 100mg Take 1 tablet by mouth as needed for Other (Headache) for up to 10 doses. If symptoms persist or return, may repeat dose after 2 hours. Maximum: 200 mg per 24 hours [facility] ubrogepant 100 mg Tab 2023-0 7 00:00: 00 Yes [id number] 100mg Take 1 tablet by mouth as needed for Other (Headache) for up to 10 doses. If symptoms persist or return, may repeat dose after 2 hours. Maximum: 200 mg per 24 hours [facility] ubrogepant 100 mg Tab 2023-0 7- 00:00: 00 Yes [id number] 100mg Take 1 tablet by mouth as needed for Other (Headache) for up to 10 doses. If symptoms persist or return, may repeat dose after 2 hours. Maximum: 200 mg per 24 hours [facility] ubrogepant 100 mg Tab 2023-0 7- 00:00: 00 Yes [id number] 100mg Take 1 tablet by mouth as needed for Other (Headache) for up to 10 doses. If symptoms persist or return, may repeat dose after 2 hours. Maximum: 200 mg per 24 hours [facility] ubrogepant 100 mg Tab 2023-0 7- 00:00: 00 Yes [id number] 100mg Take 1 tablet by mouth as needed for Other (Headache) for up to 10 doses. If symptoms persist or return, may repeat dose after 2 hours. Maximum: 200 mg per 24 hours [facility] ubrogepant 100 mg Tab 2023-0 7- 00:00: 00 Yes [id number] 100mg Take 1 tablet by mouth as needed for Other (Headache) for up to 10 doses. If symptoms persist or return, may repeat dose after 2 hours. Maximum: 200 mg per 24 hours [facility] ubrogepant 100 mg Tab 2023-0 7- 00:00: 00 Yes [id number] 100mg Take 1 tablet by mouth as needed for Other (Headache) for up to 10 doses. If symptoms persist or return, may repeat dose after 2 hours. Maximum: 200 mg per 24 hours [facility] ubrogepant 100 mg Tab 2023-0 7- 00:00: 00 Yes [id number] 100mg Take 1 tablet by mouth as needed for Other (Headache) for up to 10 doses. If symptoms persist or return, may repeat dose after 2 hours. Maximum: 200 mg per 24 hours [facility] ubrogepant 100 mg Tab 2023-0 7- 00:00: 00 Yes [id number] 100mg Take 1 tablet by mouth as needed for Other (Headache) for up to 10 doses. If symptoms persist or return, may repeat dose after 2 hours. Maximum: 200 mg per 24 hours [facility] ubrogepant 100 mg Tab 2023-0 7- 00:00: 00 Yes [id number] 100mg Take 1 tablet by mouth as needed for Other (Headache) for up to 10 doses. If symptoms persist or return, may repeat dose after 2 hours. Maximum: 200 mg per [address] [facility] ubrogepant 100 mg Tab 2023-0 7- 00:00: 00 Yes [id number] 100mg Take 1 tablet by mouth as needed for Other (Headache) for up to 10 doses. If symptoms persist or return, may repeat dose after 2 hours. Maximum: 200 mg per 24 hours [facility] ubrogepant 100 mg Tab 2023-0 7- 00:00: 00 Yes [id number] 100mg Take 1 tablet by mouth as needed for Other (Headache) for up to 10 doses. If symptoms persist or return, may repeat dose after 2 hours. Maximum: 200 mg per 24 hours [facility] ubrogepant 100 mg Tab 2023-0 7- 00:00: 00 Yes [id number] 100mg Take 1 tablet by mouth as needed for Other (Headache) for up to 10 doses. If symptoms persist or return, may repeat dose after 2 hours. Maximum: 200 mg per 24 hours [facility] ubrogepant 100 mg Tab 2023-0 7- 00:00: 00 Yes [id number] 100mg Take 1 tablet by mouth as needed for Other (Headache) for up to 10 doses. If symptoms persist or return, may repeat dose after 2 hours. Maximum: 200 mg per 24 hours [facility] ubrogepant 100 mg Tab 2023-0 7 00:00: 00 Yes [id number] 100mg Take 1 tablet by mouth as needed for Other (Headache) for up to 10 doses. If symptoms persist or return, may repeat dose after 2 hours. Maximum: 200 mg per 24 hours [facility] ubrogepant 100 mg Tab 2023-0 7 00:00: 00 Yes [id number] 100mg Take 1 tablet by mouth as needed for Other (Headache) for up to 10 doses. If symptoms persist or return, may repeat dose after 2 hours. Maximum: 200 mg per 24 hours [facility] ubrogepant 100 mg Tab 2023-0 7- 00:00: 00 Yes [id number] 100mg Take 1 tablet by mouth as needed for Other (Headache) for up to 10 doses. If symptoms persist or return, may repeat dose after 2 hours. Maximum: 200 mg per 24 hours [facility] ubrogepant 100 mg Tab 2023-0 7- 00:00: 00 Yes [id number] 100mg Take 1 tablet by mouth as needed for Other (Headache) for up to 10 doses. If symptoms persist or return, may repeat dose after 2 hours. Maximum: 200 mg per 24 hours [facility] ubrogepant 100 mg Tab 3-0 7 00:00: 00 Yes [id number] 100mg Take 1 tablet by mouth as needed for Other (Headache) for up to 10 doses. If symptoms persist or return, may repeat dose after 2 hours. Maximum: 200 mg per 24 hours [facility] ubrogepant 100 mg Tab 3-0 01-02 00:00: 00 Yes [id number] 100mg Take 1 tablet by mouth as needed for Other (Headache) for up to 10 doses. If symptoms persist or return, may repeat dose after 2 hours. Maximum: 200 mg per 24 hours [facility] ubrogepant 100 mg Tab 3-0 01-02 00:00: 00 Yes [id number] 100mg Take 1 tablet by mouth as needed for Other (Headache) for up to 10 doses. If symptoms persist or return, may repeat dose after 2 hours. Maximum: 200 mg per 24 hours [facility] ubrogepant 100 mg Tab 3-0 01-02 00:00: 00 Yes [id number] 100mg Take 1 tablet by mouth as needed for Other (Headache) for up to 10 doses. If symptoms persist or return, may repeat dose after 2 hours. Maximum: 200 mg per 24 hours [facility] ubrogepant 100 mg Tab 3-0 01-02 00:00: 00 Yes [id number] 100mg Take 1 tablet by mouth as needed for Other (Headache) for up to 10 doses. If symptoms persist or return, may repeat dose after 2 hours. Maximum: 200 mg per 24 hours [facility] ubrogepant 100 mg Tab 3-0 01-02 00:00: 00 Yes [id number] 100mg Take 1 tablet by mouth as needed for Other (Headache) for up to 10 doses. If symptoms persist or return, may repeat dose after 2 hours. Maximum: 200 mg per 24 hours [facility] ubrogepant 100 mg Tab 3-0 01-02 00:00: 00 Yes [id number] 100mg Take 1 tablet by mouth as needed for Other (Headache) for up to 10 doses. If symptoms persist or return, may repeat dose after 2 hours. Maximum: 200 mg per 24 hours [facility] ubrogepant 100 mg Tab 2023-0 7- 00:00: 00 Yes [id number] 100mg Take 1 tablet by mouth as needed for Other (Headache) for up to 10 doses. If symptoms persist or return, may repeat dose after 2 hours. Maximum: 200 mg per 24 hours [facility] ubrogepant 100 mg Tab 2023-0 7- 00:00: 00 Yes [id number] 100mg Take 1 tablet by mouth as needed for Other (Headache) for up to 10 doses. If symptoms persist or return, may repeat dose after 2 hours. Maximum: 200 mg per 24 hours [facility] ubrogepant 100 mg Tab 2023-0 7- 00:00: 00 Yes [id number] 100mg Take 1 tablet by mouth as needed for Other (Headache) for up to 10 doses. If symptoms persist or return, may repeat dose after 2 hours. Maximum: 200 mg per 24 hours [facility] ubrogepant 100 mg Tab 2023-0 7- 00:00: 00 Yes [id number] 100mg Take 1 tablet by mouth as needed for Other (Headache) for up to 10 doses. If symptoms persist or return, may repeat dose after 2 hours. Maximum: 200 mg per 24 hours [facility] ubrogepant 100 mg Tab 2023-0 7 00:00: 00 Yes [id number] 100mg Take 1 tablet by mouth as needed for Other (Headache) for up to 10 doses. If symptoms persist or return, may repeat dose after 2 hours. Maximum: 200 mg per 24 hours [facility] ubrogepant 100 mg Tab 2023-0 7- 00:00: 00 Yes [id number] 100mg Take 1 tablet by mouth as needed for Other (Headache) for up to 10 doses. If symptoms persist or return, may repeat dose after 2 hours. Maximum: 200 mg per 24 hours [facility] ubrogepant 100 mg Tab 2023-0 7- 00:00: 00 Yes [id number] 100mg Take 1 tablet by mouth as needed for Other (Headache) for up to 10 doses. If symptoms persist or return, may repeat dose after 2 hours. Maximum: 200 mg per 24 hours [facility] ubrogepant 100 mg Tab 2023-0 7- 00:00: 00 Yes [id number] 100mg Take 1 tablet by mouth as needed for Other (Headache) for up to 10 doses. If symptoms persist or return, may repeat dose after 2 hours. Maximum: 200 mg per 24 hours [facility] ubrogepant 100 mg Tab 2023-0 7- 00:00: 00 Yes [id number] 100mg Take 1 tablet by mouth as needed for Other (Headache) for up to 10 doses. If symptoms persist or return, may repeat dose after 2 hours. Maximum: 200 mg per 24 hours [facility] ubrogepant 100 mg Tab 2023-0 7- 00:00: 00 Yes [id number] 100mg Take 1 tablet by mouth as needed for Other (Headache) for up to 10 doses. If symptoms persist or return, may repeat dose after 2 hours. Maximum: 200 mg per 24 hours [facility] ubrogepant 100 mg Tab 2023-0 7- 00:00: 00 Yes [id number] 100mg Take 1 tablet by mouth as needed for Other (Headache) for up to 10 doses. If symptoms persist or return, may repeat dose after 2 hours. Maximum: 200 mg per 24 hours [facility] ubrogepant 100 mg Tab 2023-0 7 00:00: 00 Yes [id number] 100mg Take 1 tablet by mouth as needed for Other (Headache) for up to 10 doses. If symptoms persist or return, may repeat dose after 2 hours. Maximum: 200 mg per 24 hours [facility] ubrogepant 100 mg Tab 2023-0 7- 00:00: 00 Yes [id number] 100mg Take 1 tablet by mouth as needed for Other (Headache) for up to 10 doses. If symptoms persist or return, may repeat dose after 2 hours. Maximum: 200 mg per 24 hours [facility] ubrogepant 100 mg Tab 2023-0 7- 00:00: 00 Yes [id number] 100mg Take 1 tablet by mouth as needed for Other (Headache) for up to 10 doses. If symptoms persist or return, may repeat dose after 2 hours. Maximum: 200 mg per 24 hours [facility] ubrogepant 100 mg Tab 3-0 7- 00:00: 00 Yes [id number] 100mg Take 1 tablet by mouth as needed for Other (Headache) for up to 10 doses. If symptoms persist or return, may repeat dose after 2 hours. Maximum: 200 mg per 24 hours [facility] ubrogepant 100 mg Tab 2023-0 7- 00:00: 00 Yes [id number] 100mg Take 1 tablet by mouth as needed for Other (Headache) for up to 10 doses. If symptoms persist or return, may repeat dose after 2 hours. Maximum: 200 mg per 24 hours [facility] ubrogepant 100 mg Tab 3-0 7- 00:00: 00 Yes [id number] 100mg Take 1 tablet by mouth as needed for Other (Headache) for up to 10 doses. If symptoms persist or return, may repeat dose after 2 hours. Maximum: 200 mg per [address] [facility] ubrogepant 100 mg Tab 3-0 7- 00:00: 00 Yes [id number] 100mg Take 1 tablet by mouth as needed for Other (Headache) for up to 10 doses. If symptoms persist or return, may repeat dose after 2 hours. Maximum: 200 mg per [facility] ubrogepant 100 mg Tab 3-0 7 00:00: 00 Yes [id number] 100mg Take 1 tablet by mouth as needed for Other (Headache) for up to 10 doses. If symptoms persist or return, may repeat dose after 2 hours. Maximum: 200 mg per 24 hours [facility] sumatriptan 100 mg tablet 3-0 -17 00:00: 00 Yes [id number] 100mg Take 1 tablet by mouth as needed for Migraine (Max of 2 tablets/da y.). [facility] sumatriptan 100 mg tablet 3-0 5-17 00:00: 00 Yes [id number] 100mg Take 1 tablet by mouth as needed for Migraine (Max of 2 tablets/da y.). [facility] sumatriptan 100 mg tablet 3-0 5-17 00:00: 00 Yes [id number] 100mg Take 1 tablet by mouth as needed for Migraine (Max of 2 tablets/da y.). [facility] sumatriptan 100 mg tablet 2022-0 -17 00:00: 00 01-02 00:00 :00 No [id number] 100mg Take 1 tablet by mouth as needed for Migraine (Max of 2 tablets/da y.). [facility] escitalopra m oxalate 10 mg tablet 0 - 00:00: 00 01-14 00:00 :00 No 10mg Take 1 tablet by mouth in the morning. [facility] escitalopra m oxalate 10 mg tablet 2022-0 - 00:00: 00 01-14 00:00 :00 No 10mg Take 1 tablet by mouth in the morning. [facility] escitalopra m oxalate 10 mg tablet 2022-0 - 00:00: 00 01-14 00:00 :00 No 10mg Take 1 tablet by mouth in the morning. [facility] verapamiL 40 mg tablet 2022-0 -06 00:00: 00 Yes 40mg Take 1 tablet by mouth in the morning and 1 tablet in the evening. [facility] verapamiL 40 mg tablet 2022-0 -06 00:00: 00 Yes 40mg Take 1 tablet by mouth in the morning and 1 tablet in the evening. [facility] verapamiL 40 mg tablet 3-0 -06 00:00: 00 Yes 40mg Take 1 tablet by mouth in the morning and 1 tablet in the evening. [facility] verapamiL 40 mg tablet 3-0 4-06 00:00: 00 Yes 40mg Take 1 tablet by mouth in the morning and 1 tablet in the evening. [facility] verapamiL 40 mg tablet 3-0 4-06 00:00: 00 Yes 40mg Take 1 tablet by mouth in the morning and 1 tablet in the evening. [facility] verapamiL 40 mg tablet 3-0 4-06 00:00: 00 Yes 40mg Take 1 tablet by mouth in the morning and 1 tablet in the evening. [facility] verapamiL 40 mg tablet 3-0 4- 00:00: 00 Yes 40mg Take 1 tablet by mouth in the morning and 1 tablet in the evening. [facility] verapamiL 40 mg tablet 3-0 4- 00:00: 00 Yes 40mg Take 1 tablet by mouth in the morning and 1 tablet in the evening. [facility] verapamiL 40 mg tablet 2022-0 - 00:00: 00 Yes 40mg Take 1 tablet by mouth in the morning and 1 tablet in the evening. [facility] tablet 3-0 - 00:00: 00 Yes 40mg Take 1 tablet by mouth in the morning and 1 tablet in the evening. [facility] verapamiL 40 mg tablet 3-0 - 00:00: 00 Yes 40mg Take 1 tablet by mouth in the morning and 1 tablet in the evening. [facility] verapamiL 40 mg tablet 3-0 - 00:00: 00 Yes 40mg Take 1 tablet by mouth in the morning and 1 tablet in the evening. [facility] verapamiL 40 mg tablet 3-0 - 00:00: 00 Yes 40mg Take 1 tablet by mouth in the morning and 1 tablet in the evening. [facility] verapamiL 40 mg tablet 3-0 10-02 00:00: 00 Yes 40mg Take 1 tablet by mouth in the morning and 1 tablet in the evening. [facility] verapamiL 40 mg tablet 3-0 - 00:00: 00 Yes 40mg Take 1 tablet by mouth in the morning and 1 tablet in the evening. [facility] verapamiL 40 mg tablet 3-0 - 00:00: 00 Yes 40mg Take 1 tablet by mouth in the morning and 1 tablet in the evening. [facility] verapamiL 40 mg tablet 3-0 - 00:00: 00 Yes 40mg Take 1 tablet by mouth in the morning and 1 tablet in the evening. [facility] verapamiL 40 mg tablet 3-0 4- 00:00: 00 Yes 40mg Take 1 tablet by mouth in the morning and 1 tablet in the evening. [facility] verapamiL 40 mg tablet 3-0 4- 00:00: 00 Yes 40mg Take 1 tablet by mouth in the morning and 1 tablet in the evening. [facility] verapamiL 40 mg tablet 3-0 4- 00:00: 00 Yes 40mg Take 1 tablet by mouth in the morning and 1 tablet in the evening. [facility] verapamiL 40 mg tablet 3-0 4- 00:00: 00 Yes 40mg Take 1 tablet by mouth in the morning and 1 tablet in the evening. [facility] verapamiL 40 mg tablet 3-0 4- 00:00: 00 Yes 40mg Take 1 tablet by mouth in the morning and 1 tablet in the evening. [facility] verapamiL 40 mg tablet 3-0 4- 00:00: 00 Yes 40mg Take 1 tablet by mouth in the morning and 1 tablet in the evening. [facility] verapamiL 40 mg tablet 3-0 4- 00:00: 00 Yes 40mg Take 1 tablet by mouth in the morning and 1 tablet in the evening. [facility] verapamiL 40 mg tablet 3-0 - 00:00: 00 Yes 40mg Take 1 tablet by mouth in the morning and 1 tablet in the evening. [facility] verapamiL 40 mg tablet 3-0 4- 00:00: 00 Yes 40mg Take 1 tablet by mouth in the morning and 1 tablet in the evening. [facility] verapamiL 40 mg tablet 3-0 4- 00:00: 00 Yes 40mg Take 1 tablet by mouth in the morning and 1 tablet in the evening. [facility] verapamiL 40 mg tablet 3-0 4- 00:00: 00 Yes 40mg Take 1 tablet by mouth in the morning and 1 tablet in the evening. [facility] verapamiL 40 mg tablet 3-0 4- 00:00: 00 Yes 40mg Take 1 tablet by mouth in the morning and 1 tablet in the evening. [facility] verapamiL 40 mg tablet 3-0 4- 00:00: 00 Yes 40mg Take 1 tablet by mouth in the morning and 1 tablet in the evening. [facility] verapamiL 40 mg tablet 3-0 4- 00:00: 00 Yes 40mg Take 1 tablet by mouth in the morning and 1 tablet in the evening. [facility] verapamiL 40 mg tablet 3-0 4- 00:00: 00 Yes 40mg Take 1 tablet by mouth in the morning and 1 tablet in the evening. [facility] verapamiL 40 mg tablet 3-0 4- 00:00: 00 Yes 40mg Take 1 tablet by mouth in the morning and 1 tablet in the evening. [facility] verapamiL 40 mg tablet 3-0 4- 00:00: 00 Yes 40mg Take 1 tablet by mouth in the morning and 1 tablet in the evening. [facility] 3-0 4- 00:00: 00 Yes 40mg Take 1 tablet by mouth in the morning and 1 tablet in the evening. [facility] verapamiL 40 mg tablet 3-0 4- 00:00: 00 Yes 40mg Take 1 tablet by mouth in the morning and 1 tablet in the evening. [facility] verapamiL 40 mg tablet 3-0 4- 00:00: 00 Yes 40mg Take 1 tablet by mouth in the morning and 1 tablet in the evening. [facility] verapamiL 40 mg tablet 3-0 4- 00:00: 00 Yes 40mg Take 1 tablet by mouth in the morning and 1 tablet in the evening. [facility] verapamiL 40 mg tablet 3-0 4- 00:00: 00 Yes 40mg Take 1 tablet by mouth in the morning and 1 tablet in the evening. [facility] verapamiL 40 mg tablet 3-0 4- 00:00: 00 Yes 40mg Take 1 tablet by mouth in the morning and 1 tablet in the evening. [facility] verapamiL 40 mg tablet 3-0 4- 00:00: 00 Yes 40mg Take 1 tablet by mouth in the morning and 1 tablet in the evening. [facility] verapamiL 40 mg tablet 3-0 4- 00:00: 00 Yes 40mg Take 1 tablet by mouth in the morning and 1 tablet in the evening. [facility] verapamiL 40 mg tablet 3-0 4- 00:00: 00 Yes 40mg Take 1 tablet by mouth in the morning and 1 tablet in the evening. [facility] verapamiL 40 mg tablet 2022-0 4- 00:00: 00 Yes 40mg Take 1 tablet by mouth in the morning and 1 tablet in the evening. [facility] verapamiL 40 mg tablet 2022-0 - 00:00: 00 Yes 40mg Take 1 tablet by mouth in the morning and 1 tablet in the evening. [facility] verapamiL 40 mg tablet 2022-0 - 00:00: 00 Yes 40mg Take 1 tablet by mouth in the morning and 1 tablet in the evening. [facility] verapamiL 40 mg tablet - 00:00: 00 Yes 40mg Take 1 tablet by mouth in the morning and 1 tablet in the evening. [facility] verapamiL 40 mg tablet 2022-0 - 00:00: 00 Yes 40mg Take 1 tablet by mouth in the morning and 1 tablet in the evening. [facility] verapamiL 40 mg tablet - 00:00: 00 Yes 40mg Take 1 tablet by mouth in the morning and 1 tablet in the evening. [facility] verapamiL 40 mg tablet - 00:00: 00 Yes 40mg Take 1 tablet by mouth in the morning and 1 tablet in the evening. [facility] verapamiL 40 mg tablet 2022-0 - 00:00: 00 Yes 40mg Take 1 tablet by mouth in the morning and 1 tablet in the evening. [facility] verapamiL 40 mg tablet 2022-0 - 00:00: 00 Yes 40mg Take 1 tablet by mouth in the morning and 1 tablet in the evening. [facility] verapamiL 40 mg tablet 2022-0 - 00:00: 00 05-14 00:00 :00 No 40mg Take 1 tablet by mouth in the morning and 1 tablet in the evening. [facility] ubrogepant 100 mg Tab 2022-0 3-16 00:00: 00 Yes [id number] 100mg Take 1 tablet by mouth as needed for Other (Headache) for up to 10 doses. If symptoms persist or return, may repeat dose after 2 hours. Maximum: 200 mg per 24 hours [facility] ubrogepant 100 mg Tab 2023-0 3-16 00:00: 00 Yes [id number] 100mg Take 1 tablet by mouth as needed for Other (Headache) for up to 10 doses. If symptoms persist or return, may repeat dose after 2 hours. Maximum: 200 mg per 24 hours [facility] ubrogepant 100 mg Tab 2023-0 3-16 00:00: 00 Yes [id number] 100mg Take 1 tablet by mouth as needed for Other (Headache) for up to 10 doses. If symptoms persist or return, may repeat dose after 2 hours. Maximum: 200 mg per 24 hours [facility] ubrogepant 100 mg Tab 2023-0 3-16 00:00: 00 Yes [id number] 100mg Take 1 tablet by mouth as needed for Other (Headache) for up to 10 doses. If symptoms persist or return, may repeat dose after 2 hours. Maximum: 200 mg per 24 hours [facility] ubrogepant 100 mg Tab 2023-0 3-16 00:00: 00 Yes [id number] 100mg Take 1 tablet by mouth as needed for Other (Headache) for up to 10 doses. If symptoms persist or return, may repeat dose after 2 hours. Maximum: 200 mg per 24 hours [facility] ubrogepant 100 mg Tab 2023-0 3-16 00:00: 00 Yes [id number] 100mg Take 1 tablet by mouth as needed for Other (Headache) for up to 10 doses. If symptoms persist or return, may repeat dose after 2 hours. Maximum: 200 mg per 24 hours [facility] ubrogepant 100 mg Tab 2023-0 3-16 00:00: 00 Yes [id number] 100mg Take 1 tablet by mouth as needed for Other (Headache) for up to 10 doses. If symptoms persist or return, may repeat dose after 2 hours. Maximum: 200 mg per 24 hours [facility] ubrogepant 100 mg Tab 2023-0 3-16 00:00: 00 Yes [id number] 100mg Take 1 tablet by mouth as needed for Other (Headache) for up to 10 doses. If symptoms persist or return, may repeat dose after 2 hours. Maximum: 200 mg per 24 hours [facility] ubrogepant 100 mg Tab 2023-0 3-16 00:00: 00 Yes [id number] 100mg Take 1 tablet by mouth as needed for Other (Headache) for up to 10 doses. If symptoms persist or return, may repeat dose after 2 hours. Maximum: 200 mg per 24 hours [facility] ubrogepant 100 mg Tab 2023-0 3-16 00:00: 00 Yes [id number] 100mg Take 1 tablet by mouth as needed for Other (Headache) for up to 10 doses. If symptoms persist or return, may repeat dose after 2 hours. Maximum: 200 mg per 24 hours [facility] ubrogepant 100 mg Tab 2023-0 3-16 00:00: 00 Yes [id number] 100mg Take 1 tablet by mouth as needed for Other (Headache) for up to 10 doses. If symptoms persist or return, may repeat dose after 2 hours. Maximum: [facility] Tab 3-0 3-16 00:00: 00 202-17 00:00 :00 No [id number] 100mg Take 1 tablet by mouth as needed for Other (Headache) for up to 10 doses. If symptoms persist or return, may repeat dose after 2 hours. Maximum: 200 mg per 24 hours [facility] verapamiL 40 mg tablet 3-0 2-24 00:00: 00 Yes 40mg Take 1 tablet by mouth in the morning and 1 tablet in the evening. [facility] verapamiL 40 mg tablet 3-0 2-24 00:00: 00 Yes 40mg Take 1 tablet by mouth in the morning and 1 tablet in the evening. [facility] verapamiL 40 mg tablet 3-0 2-24 00:00: 00 Yes 40mg Take 1 tablet by mouth in the morning and 1 tablet in the evening. [facility] verapamiL 40 mg tablet 3-0 2-24 00:00: 00 Yes 40mg Take 1 tablet by mouth in the morning and 1 tablet in the evening. [facility] verapamiL 40 mg tablet 3-0 2-24 00:00: 00 Yes 40mg Take 1 tablet by mouth in the morning and 1 tablet in the evening. [facility] verapamiL 40 mg tablet 2023-0 2-24 00:00: 00 Yes 40mg Take 1 tablet by mouth in the morning and 1 tablet in the evening. [facility] verapamiL 40 mg tablet 2022-0 2-24 00:00: 00 10-02 00:00 :00 No 40mg Take 1 tablet by mouth in the morning and 1 tablet in the evening. [facility] verapamiL 40 mg tablet 2022-0 2-24 00:00: 00 10-02 00:00 :00 No 40mg Take 1 tablet by mouth in the morning and 1 tablet in the evening. [facility] verapamiL 40 mg tablet 2022-0 -24 00:00: 00 Yes [id number] 40mg Take 1 tablet by mouth in the morning and 1 tablet in the evening. [facility] verapamiL 40 mg tablet 2022-0 -24 00:00: 00 Yes [id number] 40mg Take 1 tablet by mouth in the morning and 1 tablet in the evening. [facility] verapamiL 40 mg tablet 2022-0 - 00:00: 00 Yes [id number] 40mg Take 1 tablet by mouth in the morning and 1 tablet in the evening. [facility] verapamiL 40 mg tablet 2022-0 -24 00:00: 00 08-22 00:00 :00 No [id number] 40mg Take 1 tablet by mouth in the morning and 1 tablet in the evening. [facility] verapamiL 40 mg tablet 2022-0 -24 00:00: 00 08-22 00:00 :00 No [id number] 40mg Take 1 tablet by mouth in the morning and 1 tablet in the evening. [facility] verapamiL 40 mg tablet 2022-0 -24 00:00: 00 08-22 00:00 :00 No [id number] 40mg Take 1 tablet by mouth in the morning and 1 tablet in the evening. [facility] Nurtec 75 MG Nurtec 75 MG 2022-- 00:00: 00 No 1{table t_on_ e_sue e_and_a llow_to _dissol ve} Nurtec 75 MG Nurtec 75 MG Nurtec 75 MG 0 07-07 00:00: 00 No 1{table t_on_th e_tongu e_and_a llow_to _dissol ve} Nurtec 75 MG Nurtec 75 MG Nurtec 75 MG 3-0 07-07 00:00: 00 No 1{table t_on_th e_tongu e_and_a llow_to _dissol ve} Nurtec 75 MG Nurtec 75 MG Nurtec 75 MG 3-0 07-07 00:00: 00 No 1{table t_on_th e_tongu e_and_a llow_to _dissol ve} Nurtec 75 MG Nurtec 75 MG Nurtec 75 MG 2022-0 07-07 00:00: 00 No 1{table t_on_th e_tongu e_and_a llow_to _dissol ve} Nurtec 75 MG Nurtec 75 MG Nurtec 75 MG 3-0 07-07 00:00: 00 No 1{table t_on_th e_tongu e_and_a llow_to _dissol ve} Nurtec 75 MG Nurtec 75 MG Nurtec 75 MG 2022-0 07-07 00:00: 00 No 1{table t_on_th e_tongu e_and_a llow_to _dissol ve} Nurtec 75 MG Nurtec 75 MG Nurtec 75 MG 3-0 07-07 00:00: 00 No 1{table t_on_th e_tongu e_and_a llow_to _dissol ve} Nurtec 75 MG Nurtec 75 MG Nurtec 75 MG 3-0 07-07 00:00: 00 No 1{table t_on_th e_tongu e_and_a llow_to _dissol ve} Nurtec 75 MG Nurtec 75 MG Nurtec 75 MG 3-0 07-07 00:00: 00 No 1{table t_on_th e_tongu e_and_a llow_to _dissol ve} Nurtec 75 MG Nurtec 75 MG Nurtec 75 MG 3-0 07-07 00:00: 00 No 1{table t_on_ e_tongu e_and_a llow_to _dissol ve} Nurtec 75 MG Ibuprofen 800 MG Ibuprofen 800 MG 2022-0 5-23 00:00: 00 No TID Ibuprofen 800 MG Ibuprofen 800 MG Ibuprofen 800 MG 2022-0 5-23 00:00: 00 No TID Ibuprofen 800 MG Ibuprofen 800 MG Ibuprofen 800 MG 2022-0 5-23 00:00: 00 No TID Ibuprofen 800 MG Ibuprofen 800 MG Ibuprofen 800 MG 2022-0 5-23 00:00: 00 No TID Ibuprofen 800 MG Ibuprofen 800 MG Ibuprofen 800 MG 2022-0 5-23 00:00: 00 No TID Ibuprofen 800 MG Ibuprofen 800 MG Ibuprofen 800 MG 2022-0 5-23 00:00: 00 No TID Ibuprofen 800 MG Ibuprofen 800 MG Ibuprofen 800 MG 2022-0 5-23 00:00: 00 No TID Ibuprofen 800 MG Ibuprofen 800 MG Ibuprofen 800 MG 2022-0 5-23 00:00: 00 No TID Ibuprofen 800 MG Ibuprofen 800 MG Ibuprofen 800 MG 2022-0 5-23 00:00: 00 No TID Ibuprofen 800 MG Ibuprofen 800 MG Ibuprofen 800 MG 2022-0 5-23 00:00: 00 No TID Ibuprofen 800 MG Ibuprofen 800 MG Ibuprofen 800 MG 2022-0 5-23 00:00: 00 No TID Ibuprofen 800 MG Ibuprofen 800 MG Ibuprofen 800 MG 2022-0 5-23 00:00: 00 No TID Ibuprofen 800 MG Ibuprofen 800 MG Ibuprofen 800 MG 2022-0 5-23 00:00: 00 No TID Ibuprofen 800 MG Ibuprofen 800 MG Ibuprofen 800 MG 2022-0 5-23 00:00: 00 No TID Ibuprofen 800 MG Ibuprofen 800 MG Ibuprofen 800 MG 2022-0 5-23 00:00: 00 No TID Ibuprofen 800 MG Ibuprofen 800 MG Ibuprofen 800 MG 2022-0 5-23 00:00: 00 No TID Ibuprofen 800 MG Lexapro 10 MG Lexapro 10 MG 2022-0 2-22 00:00: 00 No 1{table t} QD Lexapro 10 MG Lexapro 10 MG Lexapro 10 MG 2022-0 2-22 00:00: 00 No 1{table t} QD Lexapro 10 MG Lexapro 10 MG Lexapro 10 MG 2022-0 2-22 00:00: 00 No 1{table t} QD Lexapro 10 MG Lexapro 10 MG Lexapro 10 MG 2021-0 2- 00:00: 00 No 1{table t} QD Lexapro 10 MG Lexapro 10 MG Lexapro 10 MG 2021-0 2- 00:00: 00 No 1{table t} QD Lexapro 10 MG Lexapro 10 MG Lexapro 10 MG 2021-0 2- 00:00: 00 No 1{table t} QD Lexapro 10 MG Lexapro 10 MG Lexapro 10 MG 2022-0 2- 00:00: 00 No 1{table t} QD Lexapro 10 MG Lexapro 10 MG Lexapro 10 MG 2021-0 2- 00:00: 00 No 1{table t} QD Lexapro 10 MG Lexapro 10 MG Lexapro 10 MG 2021-0 2- 00:00: 00 No 1{table t} QD Lexapro 10 MG Lexapro 10 MG Lexapro 10 MG 2021-0 2 00:00: 00 No 1{table t} QD Lexapro 10 MG Zoloft 50 MG Zoloft 50 MG 2021-0 1- 00:00: 00 No 1{table t} QD Zoloft 50 MG Zoloft 50 MG Zoloft 50 MG 2021-0 1- 00:00: 00 No 1{table t} QD Zoloft 50 MG Wellbutrin XL 150 MG Wellbutrin XL 150 MG 2020-06 2-10 00:00: 00 No 1{table t_in_th e_morni ng} QD Wellbutrin XL 150 MG Wellbutrin XL 150 MG Wellbutrin XL 150 MG 2020-06 2-10 00:00: 00 No 1{table t_in_th e_morni ng} QD Wellbutrin XL 150 MG Oseltamivir Phosphate 75 MG Oseltamivir Phosphate 75 MG 2020-06 1-18 00:00: 00 No 1{capsu le} BID Oseltamivi r Phosphate 75 MG Oseltamivir Phosphate 75 MG Oseltamivir Phosphate 75 MG 2020- 1-18 00:00: 00 No 1{capsu le} BID Oseltamivi r Phosphate 75 MG Oseltamivir Phosphate 75 MG Oseltamivir Phosphate 75 MG 2020-06 00:00: 00 No 1{capsu le} BID Oseltamivi r Phosphate 75 MG Fluticasone Propionate 50 MCG/ACT Fluticasone Propionate 50 MCG/ACT 2020-06 00:00: 00 No 1{spray _in_eac h_nostr il} QD Fluticason e Propionate 50 MCG/ACT Fluticasone Propionate 50 MCG/ACT Fluticasone Propionate 50 MCG/ACT 2020-06 00:00: 00 No 1{spray _in_eac h_nostr il} QD Fluticason e Propionate 50 MCG/ACT Fluticasone Propionate 50 MCG/ACT Fluticasone Propionate 50 MCG/ACT 2020-06 00:00: 00 No 1{spray _in_eac h_nostr il} QD Fluticason e Propionate 50 MCG/ACT Naproxen 500 MG Naproxen 500 MG 0 03-14 00:00: 00 No BID Naproxen 500 MG Vitamin D3 25 MCG (1000 UT) Vitamin D3 25 MCG (1000 UT) 2020-0 03-14 00:00: 00 No 1{table t} QD Vitamin D3 25 MCG (1000 UT) Vitamin D3 25 MCG (1000 UT) Vitamin D3 25 MCG (1000 UT) 0 16 00:00: 00 No 1{table t} QD Vitamin D3 25 MCG (1000 UT) Naproxen 500 MG Naproxen 500 MG 0 03-14 00:00: 00 No BID Naproxen 500 MG Vitamin D3 25 MCG (1000 UT) Vitamin D3 25 MCG (1000 UT) 0 03-14 00:00: 00 No 1{table t} QD Vitamin D3 25 MCG (1000 UT) Naproxen 500 MG Naproxen 500 MG 2020-0 16 00:00: 00 No BID Naproxen 500 MG Vitamin D3 25 MCG (1000 UT) Vitamin D3 25 MCG (1000 UT) 2020-0 03-14 00:00: 00 No 1{table t} QD Vitamin D3 25 MCG (1000 UT) Naproxen 500 MG Naproxen 500 MG 2020-0 -16 00:00: 00 No BID Naproxen 500 MG Naproxen 500 MG Naproxen 500 MG 2020-0 9-16 00:00: 00 No BID Naproxen 500 MG Vitamin D3 25 MCG (1000 UT) Vitamin D3 25 MCG (1000 UT) 1-0 -16 00:00: 00 No 1{table t} QD Vitamin D3 25 MCG (1000 UT) Vitamin D3 25 MCG (1000 UT) Vitamin D3 25 MCG (1000 UT) 2020-0 -16 00:00: 00 No 1{table t} QD Vitamin D3 25 MCG (1000 UT) Naproxen 500 MG Naproxen 500 MG 1-0 -16 00:00: 00 No BID Naproxen 500 MG Vitamin D3 25 MCG (1000 UT) Vitamin D3 25 MCG (1000 UT) 1-0 -16 00:00: 00 No 1{table t} QD Vitamin D3 25 MCG (1000 UT) Naproxen 500 MG Naproxen 500 MG 2020-0 -16 00:00: 00 No BID Naproxen 500 MG Vitamin D3 25 MCG (1000 UT) Vitamin D3 25 MCG (1000 UT) 2020-0 -16 00:00: 00 No 1{table t} QD Vitamin D3 25 MCG (1000 UT) Naproxen 500 MG Naproxen 500 MG 2020-0 16 00:00: 00 No BID Naproxen 500 MG Vitamin D3 25 MCG (1000 UT) Vitamin D3 25 MCG (1000 UT) 2020-0 16 00:00: 00 No 1{table t} QD Vitamin D3 25 MCG (1000 UT) Naproxen 500 MG Naproxen 500 MG 1-0 -16 00:00: 00 No BID Naproxen 500 MG Vitamin D3 25 MCG (1000 UT) Vitamin D3 25 MCG (1000 UT) 2020-0 -16 00:00: 00 No 1{table t} QD Vitamin D3 25 MCG (1000 UT) Naproxen 500 MG Naproxen 500 MG 1-0 -16 00:00: 00 No BID Naproxen 500 MG Vitamin D3 25 MCG (1000 UT) Vitamin D3 25 MCG (1000 UT) 2020-0 -16 00:00: 00 No 1{table t} QD Vitamin D3 25 MCG (1000 UT) Naproxen 500 MG Naproxen 500 MG 1-0 9-16 00:00: 00 No BID Naproxen 500 MG Vitamin D3 25 MCG (1000 UT) Vitamin D3 25 MCG (1000 UT) 1-0 -16 00:00: 00 No 1{table t} QD Vitamin D3 25 MCG (1000 UT) Naproxen 500 MG Naproxen 500 MG 2020-0 -16 00:00: 00 No BID Naproxen 500 MG Naproxen 500 MG Naproxen 500 MG 1-0 -16 00:00: 00 No BID Naproxen 500 MG Vitamin D3 25 MCG (1000 UT) Vitamin D3 25 MCG (1000 UT) 1-0 -16 00:00: 00 No 1{table t} QD Vitamin D3 25 MCG (1000 UT) Naproxen 500 MG Naproxen 500 MG 1-0 -16 00:00: 00 No BID Naproxen 500 MG Vitamin D3 25 MCG (1000 UT) Vitamin D3 25 MCG (1000 UT) 2020-0 -16 00:00: 00 No 1{table t} QD Vitamin D3 25 MCG (1000 UT) Naproxen 500 MG Naproxen 500 MG 2020-0 -16 00:00: 00 No BID Naproxen 500 MG Vitamin D3 25 MCG (1000 UT) Vitamin D3 25 MCG (1000 UT) 1-0 -16 00:00: 00 No 1{table t} QD Vitamin D3 25 MCG (1000 UT) Naproxen 500 MG Naproxen 500 MG 2020-0 -16 00:00: 00 No BID Naproxen 500 MG Vitamin D3 25 MCG (1000 UT) Vitamin D3 25 MCG (1000 UT) 2020-0 -16 00:00: 00 No 1{table t} QD Vitamin D3 25 MCG (1000 UT) Naproxen 500 MG Naproxen 500 MG 2020-0 -16 00:00: 00 No BID Naproxen 500 MG Vitamin D3 25 MCG (1000 UT) Vitamin D3 25 MCG (1000 UT) 1-0 9-16 00:00: 00 No 1{table t} QD Vitamin D3 25 MCG (1000 UT) Naproxen 500 MG Naproxen 500 MG 2020-0 -16 00:00: 00 No BID Naproxen 500 MG Vitamin D3 25 MCG (1000 UT) Vitamin D3 25 MCG (1000 UT) 1-0 9-16 00:00: 00 No 1{table t} QD Vitamin D3 25 MCG (1000 UT) Naproxen 500 MG Naproxen 500 MG 2021-0 16 00:00: 00 No BID Naproxen 500 MG Vitamin D3 25 MCG (1000 UT) Vitamin D3 25 MCG (1000 UT) 2020-0 16 00:00: 00 No 1{table t} QD Vitamin D3 25 MCG (1000 UT) Naproxen 500 MG Naproxen 500 MG 2020-0 -16 00:00: 00 No BID Naproxen 500 MG Vitamin D3 25 MCG (1000 UT) Vitamin D3 25 MCG (1000 UT) 2020-0 16 00:00: 00 No 1{table t} QD Vitamin D3 25 MCG (1000 UT) Vitamin D3 25 MCG (1000 UT) Vitamin D3 25 MCG (1000 UT) 2020-0 16 00:00: 00 No 1{table t} QD Vitamin D3 25 MCG (1000 UT) Vitamin D3 25 MCG (1000 UT) Vitamin D3 25 MCG (1000 UT) 2020-0 16 00:00: 00 No 1{table t} QD Vitamin D3 25 MCG (1000 UT) Vitamin D3 25 MCG (1000 UT) Vitamin D3 25 MCG (1000 UT) 2020-0 16 00:00: 00 No 1{table t} QD Vitamin D3 25 MCG (1000 UT) Vitamin D3 25 MCG (1000 UT) Vitamin D3 25 MCG (1000 UT) 2020-0 16 00:00: 00 No 1{table t} QD Vitamin D3 25 MCG (1000 UT) Vitamin D3 25 MCG (1000 UT) Vitamin D3 25 MCG (1000 UT) 2020-0 16 00:00: 00 No 1{table t} QD Vitamin D3 25 MCG (1000 UT) Vitamin D3 25 MCG (1000 UT) Vitamin D3 25 MCG (1000 UT) 2020-0 16 00:00: 00 No 1{table t} QD Vitamin D3 25 MCG (1000 UT) Vitamin D3 25 MCG (1000 UT) Vitamin D3 25 MCG (1000 UT) 2020-0 9-16 00:00: 00 No 1{table t} QD Vitamin D3 25 MCG (1000 UT) Vitamin D3 25 MCG (1000 UT) Vitamin D3 25 MCG (1000 UT) 2020-0 9-16 00:00: 00 No 1{table t} QD Vitamin D3 25 MCG (1000 UT) Vitamin D3 25 MCG (1000 UT) Vitamin D3 25 MCG (1000 UT) 2020-0 9-16 00:00: 00 No 1{table t} QD Vitamin D3 25 MCG (1000 UT) Vitamin D3 25 MCG (1000 UT) Vitamin D3 25 MCG (1000 UT) 2020-0 9-16 00:00: 00 No 1{table t} QD Vitamin D3 25 MCG (1000 UT) Vitamin D3 25 MCG (1000 UT) Vitamin D3 25 MCG (1000 UT) 2020-0 9-16 00:00: 00 No 1{table t} QD Vitamin D3 25 MCG (1000 UT) Zofran ODT 4 mg Zofran ODT 4 mg 2020-0 27 00:00: 00 No 1{table t_on_th e_tongu e_and_a llow_to _dissol ve} Zofran ODT 4 mg Ketorolac Ketorolac 2020-0 02-22 00:00: 00 No 60mg [facility] Ketorolac Ketorolac 2020-0 02-22 00:00: 00 No 60mg [facility] Ketorolac Ketorolac 2020-0 827 00:00: 00 No 60mg [facility] Ketorolac Ketorolac 2020-0 8 00:00: 00 No 60mg [facility] Ketorolac Ketorolac 2020-0 827 00:00: 00 No 60mg [facility] Ketorolac Ketorolac 2020-0 02-22 00:00: 00 No 60mg [facility] Ketorolac Ketorolac 2020-0 827 00:00: [address] [facility] Ketorolac Ketorolac 2020-0 827 00:00: [address] [facility] Ketorolac Ketorolac 2020-0 827 00:00: 00 No 60mg [facility] Ketorolac Ketorolac 2020-0 827 00:00: 00 No 60mg [facility] Ketorolac Ketorolac 1-0 827 00:00: 00 No 60mg [facility] Ketorolac Ketorolac 1-0 02-22 00:00: 00 No 60mg [facility] Ketorolac Ketorolac 2020-0 02-22 00:00: 00 No 60mg [facility] Ketorolac Ketorolac 1-0 8 00:00: 00 No 60mg [facility] Ketorolac Ketorolac 1-0 8 00:00: 00 No 60mg [facility] Ketorolac Ketorolac 1-0 8 00:00: 00 No 60mg [facility] Ketorolac Ketorolac 2020-0 02-22 00:00: 00 No 60mg [facility] Ketorolac Ketorolac 2020-0 02-22 00:00: 00 No 60mg [facility] Ketorolac Ketorolac 2020-0 02-22 00:00: 00 No 60mg [facility] Ketorolac Ketorolac 1-0 8 00:00: 00 No 60mg [facility] Ketorolac Ketorolac 2020-0 02-22 00:00: 00 No 60mg [facility] Ketorolac Ketorolac 1-0 827 00:00: 00 No 60mg [facility] Ketorolac Ketorolac 1-0 827 00:00: 00 No 60mg [facility] Zofran ODT 4 mg Zofran ODT 4 mg 2020-0 827 00:00: 00 No 1{table t_on_ e_jeannineu e_and_a llow_to _dissol ve} Zofran ODT 4 mg Rizatriptan Benzoate 5 MG Rizatriptan Benzoate 5 MG 1-0 7-08 00:00: 00 No QD Rizatripta n Benzoate 5 MG Rizatriptan Benzoate 5 MG Rizatriptan Benzoate 5 MG 2021-0 01-03 00:00: 00 No QD Rizatripta n Benzoate 5 MG Vitamin D 3 50,000 IU Vitamin D 3 50,000 IU 2021-0 01-03 00:00: 00 No 1{table t} Vitamin D 3 50,000 IU Rizatriptan Benzoate 5 MG Rizatriptan Benzoate 5 MG 2021-0 01-03 00:00: 00 No QD Rizatripta n Benzoate 5 MG Vitamin D 3 50,000 IU Vitamin D 3 50,000 IU 2021-0 01-03 00:00: 00 No 1{table t} Vitamin D 3 50,000 IU Vitamin D 3 50,000 IU Vitamin D 3 50,000 IU 2021-0 01-03 00:00: 00 No 1{table t} Vitamin D 3 50,000 IU Promethazin e HCl 12.5 MG Promethazin e HCl 12.5 MG 2019-06 00:00: 00 No 1{table t} Promethazi ne HCl 12.5 MG Zofran ODT 4 MG Zofran ODT 4 MG 2019-06 00:00: 00 No 1{table t_on_th e_tongu e_and_a llow_to _dissol ve} Zofran ODT 4 MG Zofran ODT 4 MG Zofran ODT 4 MG 2019-06 00:00: 00 No 1{table t_on_th e_tongu e_and_a llow_to _dissol ve} Zofran ODT 4 MG Promethazin e HCl 12.5 MG Promethazin e HCl 12.5 MG 2019-06 00:00: 00 No 1{table t} Promethazi ne HCl 12.5 MG Zofran ODT 4 MG Zofran ODT 4 MG 2019-06 00:00: 00 No 1{table t_on_th e_tongu e_and_a llow_to _dissol ve} Zofran ODT 4 MG Zofran ODT 4 MG Zofran ODT 4 MG 2019-06 00:00: 00 No 1{table t_on_ e_jeannineu e_and_a llow_to _dissol ve} Zofran ODT 4 MG ibuprofen (IBU) tablet 400 mg 12-10 17:00: 00 Yes 400mg 400 mg, Oral, TID MEALS, First dose on Thu12/11/19 at 1200, Until Discontinu ed, Routine [facility] HYDROcodone -acetaminop hen (NORCO 5) 5-325 mg tablet 1 tablet 12-10 14:58: 18 12-10 15:22 :42 No 1{tbl} 1 tablet, Oral, Q6HPRN, Starting Thu12/11/19 at 0958, Until Thu12/11/19 at 1022, Routine, Pain (scale 4-6), PACU [facility] acetaminoph en (TYLENOL) tablet 650 mg 12-10 14:45: 00 Yes 650mg 650 mg, Oral, Q6HPRN, Starting Thu12/11/19 at 0945, Until Discontinu ed, Routine, Pain (scale 1-3) [facility] D5W-LR IV infusion 1,000 mL 12-10 14:45: 00 12-11 14:20 :29 No 1000mL at 50 mL/hr, IV Infusion, CONTINUOUS , Starting 12/11/19 at 0945, Until 12/12/19 at 0920, Routine [facility] morpHINE injection 2 mg 12-10 14:28: 17 12-10 15:22 :42 No 2mg 2 mg, Slow IV Push, Q5MIN PRN, 5 doses, Starting Thu12/11/19 at 0928, Until Thu12/11/19 at 1022, Routine, Pain (scale 4-6), PACU [facility] pantoprazol e (PROTONIX) EC tablet 40 mg 12-10 14:00: 00 Yes 40mg 40 mg, Oral, DAILY, First dose on Thu12/11/19 at 0900, Until Discontinu ed, Routine [facility] acetaminoph en (TYLENOL) tablet 650 mg 12-10 05:00: 00 12-10 14:33 :08 No 650mg 650 mg, Oral, Q6H, First dose on 12/11/19 at 0000, Until Discontinu ed, Routine [facility] piperacilli n-tazobacta m (ZOSYN) 3.375 gram/50 mL Piggyback RTU 3.375 g 12-10 00:00: 00 Yes 3.375g 3.375 g, IV Piggyback, Q6H ABX, First dose on 12/10/19 at 1900, Until Discontinu ed, 50 mL
Reas on for Anti-Infec tive: Documented Infection< br>Documen lori Infection Site: Abdominal< br>Duratio n of Therapy: 7 days [facility] D5W-LR IV infusion 1,000 mL 12-10 00:00: 00 12-10 14:33 :08 No 1000mL at 125 mL/hr, IV Infusion, CONTINUOUS , Starting [facility] 12/10/19 at 1900, Until [place] 12/11/19 at 0933, Routine [facility] ondansetron (ZOFRAN (PF)) injection 4 mg 12-09 23:24: 53 Yes 4mg 4 mg, Slow IV Push, Q6HPRN, Starting 12/10/19 at 1824, Until Discontinu ed, Routine, Nausea and Vomiting (N/V) [facility] morpHINE injection 2 mg 12-09 23:24: 20 12-10 14:33 :08 No 2mg 2 mg, Slow IV Push, Q4HPRN, Starting 12/10/19 at 1824, Until 12/11/19 at 0933, Routine, Pain (scale 7-10) [facility] HYDROcodone -acetaminop hen (NORCO 5) 5-325 mg tablet 1 tablet 12-09 23:23: 58 12-11 23:22 :58 No 1{tbl} 1 tablet, Oral, Q6HPRN, Starting 12/10/19 at 1823, Until 12/12/19 at 1822, Routine, Pain (scale 4-6) [facility] cefTRIAXone (ROCEPHIN) 1,000 mg in NaCl 0.9% (NS) 50 mL MINI-BAG 12-09 22:45: 00 12-09 22:54 :19 No 1000mg 1,000 mg, IV Piggyback, ONCE, 1 dose, 12/10/19 at 1745, 50 mL
Reas on for Anti-Infec tive: Documented Infection< br>Documen lori Infection Site: Urine
D uration of Therapy: 7 days [facility] iohexol (OMNIPAQUE 350 BULK-150 mL) injection 120 mL 12-09 22:00: 00 12-09 22:00 :00 No 120mL 120 mL, Intravenou s, ONCE, 1 dose, 12/10/19 at 1700, Routine [facility] maalox:diph enhydrAMINE :lidocaine 2 % viscous 1:1:1 ([facility]) oral suspension 15 mL 12-09 21:30: 00 12-09 20:41 :00 No 15mL 15 mL, Oral, ONCE, 1 dose, 12/10/19 at 1630, Routine [facility] ondansetron (ZOFRAN (PF)) injection 4 mg 12-09 21:30: 00 12-09 20:41 :00 No 4mg 4 mg, Slow IV Push, ONCE, 1 dose, 12/10/19 at 1630, RANULFO [facility] morpHINE injection 4 mg 12-09 21:30: 00 12-09 20:41 :00 No 4mg 4 mg, Slow IV Push, ONCE, 1 dose, 12/10/19 at 1630, STAT [facility] NaCl 0.9% (NS) bolus infusion 1,000 mL 12-09 20:30: 00 12-09 21:50 :00 No 1000mL at 999 mL/hr, 1,000 mL, IV Infusion, ONCE, 1 dose, 12/10/19 at 1530, RANULFO [facility] oxyCODONE immediate release tablet 5 mg 12-03 18:30: 00 12-03 17:26 :00 No 5mg 5 mg, Oral, ONCE, 1 dose, 12/04/19 at 1330, Routine
glass forming crew member approving Restricted medication : CATINA MARIN [facility] enoxaparin (LOVENOX) injection 40 mg 12-03 14:00: 00 Yes 40mg 40 mg, Subcutaneo us, DAILY, First dose on 12/04/19 at 0900, Until Discontinu ed, Routine [facility] sennosides (SENOKOT) tablet 8.6 mg 12-03 14:00: 00 Yes 8.6mg 8.6 mg, Oral, DAILY, First dose on 12/04/19 at 0900, Until Discontinu ed, Routine [facility] docusate (COLACE) capsule 100 mg 12-03 01:00: 00 Yes 100mg 100 mg, Oral, Q12H, First dose on 12/03/19 at 2000, Until Discontinu ed, Routine [facility] ibuprofen 600 mg tablet 12-03 00:00: 00 Yes [id number] 600mg Take 1 tablet by mouth every 6 (six) hours as needed for Pain (scale 1-3). [facility] ibuprofen 600 mg tablet 12-03 00:00: 00 Yes [id number] 600mg Take 1 tablet by mouth every 6 (six) hours as needed for Pain (scale 1-3). [facility] ibuprofen 600 mg tablet 12-03 00:00: 00 Yes [id number] 600mg Take 1 tablet by mouth every 6 (six) hours as needed for Pain (scale 1-3). [facility] ibuprofen 600 mg tablet 12-03 00:00: 00 Yes [id number] 600mg Take 1 tablet by mouth every 6 (six) hours as needed for Pain (scale 1-3). [facility] ibuprofen 600 mg tablet 12-03 00:00: 00 Yes [id number] 600mg Take 1 tablet by mouth every 6 (six) hours as needed for Pain (scale 1-3). [facility] ibuprofen 600 mg tablet 12-03 00:00: 00 Yes [id number] 600mg Take 1 tablet by mouth every 6 (six) hours as needed for Pain (scale 1-3). [facility] ibuprofen 600 mg tablet 12-03 00:00: 00 Yes [id number] 600mg Take 1 tablet by mouth every 6 (six) hours as needed for Pain (scale 1-3). [facility] ibuprofen 600 mg tablet 12-03 00:00: 00 Yes [id number] 600mg Take 1 tablet by mouth every 6 (six) hours as needed for Pain (scale 1-3). [facility] ibuprofen 600 mg tablet 12-03 00:00: 00 Yes [id number] 600mg Take 1 tablet by mouth every 6 (six) hours as needed for Pain (scale 1-3). [facility] oxyCODONE 5 mg immediate release tablet 12-03 00:00: 00 Yes [id number] 5mg Take 1 tablet by mouth every 6 (six) hours as needed for Pain (scale 7-10). [facility] ibuprofen 600 mg tablet 12-03 00:00: 00 Yes [id number] 600mg Take 1 tablet by mouth every 6 (six) hours as needed for Pain (scale 1-3). [facility] ibuprofen 600 mg tablet 12-03 00:00: 00 Yes [id number] 600mg Take 1 tablet by mouth every 6 (six) hours as needed for Pain (scale 1-3). [facility] ondansetron (ZOFRAN ODT) 4 mg disintegrat ing tablet 12-03 00:00: 00 Yes [id number] 4mg Take 1 tablet by mouth every 6 (six) hours as needed for Nausea and Vomiting (N/V). [facility] ibuprofen 600 mg tablet 12-03 00:00: 00 Yes [id number] 600mg Take 1 tablet by mouth every 6 (six) hours as needed for Pain (scale 1-3). [facility] ibuprofen 600 mg tablet 12-03 00:00: 00 Yes [id number] 600mg Take 1 tablet by mouth every 6 (six) hours as needed for Pain (scale 1-3). [facility] mg tablet 12-03 00:00: 00 Yes [id number] 600mg Take 1 tablet by mouth every 6 (six) hours as needed for Pain (scale 1-3). [facility] mg tablet 12-03 00:00: 00 Yes [id number] 600mg Take 1 tablet by mouth every 6 (six) hours as needed for Pain (scale 1-3). [facility] mg tablet 12-03 00:00: 00 Yes [id number] 600mg Take 1 tablet by mouth every 6 (six) hours as needed for Pain (scale 1-3). [facility] ibuprofen 600 mg tablet 12-03 00:00: 00 Yes [id number] 600mg Take 1 tablet by mouth every 6 (six) hours as needed for Pain (scale 1-3). [facility] ibuprofen 600 mg tablet 12-03 00:00: 00 Yes [id number] 600mg Take 1 tablet by mouth every 6 (six) hours as needed for Pain (scale 1-3). [facility] ibuprofen 600 mg tablet 12-03 00:00: 00 Yes [id number] 600mg Take 1 tablet by mouth every 6 (six) hours as needed for Pain (scale 1-3). [facility] ibuprofen 600 mg tablet 12-03 00:00: 00 Yes [id number] 600mg Take 1 tablet by mouth every 6 (six) hours as needed for Pain (scale 1-3). [facility] ibuprofen 600 mg tablet 12-03 00:00: 00 Yes [id number] 600mg Take 1 tablet by mouth every 6 (six) hours as needed for Pain (scale 1-3). [facility] ibuprofen 600 mg tablet 12-03 00:00: 00 Yes [id number] 600mg Take 1 tablet by mouth every 6 (six) hours as needed for Pain (scale 1-3). [facility] ibuprofen 600 mg tablet 12-03 00:00: 00 Yes [id number] 600mg Take 1 tablet by mouth every 6 (six) hours as needed for Pain (scale 1-3). [facility] ibuprofen 600 mg tablet 12-03 00:00: 00 Yes [id number] 600mg Take 1 tablet by mouth every 6 (six) hours as needed for Pain (scale 1-3). [facility] ibuprofen 600 mg tablet 12-03 00:00: 00 Yes [id number] 600mg Take 1 tablet by mouth every 6 (six) hours as needed for Pain (scale 1-3). [facility] ibuprofen 600 mg tablet 12-03 00:00: 00 Yes [id number] 600mg Take 1 tablet by mouth every 6 (six) hours as needed for Pain (scale 1-3). [facility] ibuprofen 600 mg tablet 12-03 00:00: 00 Yes [id number] 600mg Take 1 tablet by mouth every 6 (six) hours as needed for Pain (scale 1-3). [facility] ibuprofen 600 mg tablet 12-03 00:00: 00 Yes [id number] 600mg Take 1 tablet by mouth every 6 (six) hours as needed for Pain (scale 1-3). [facility] ibuprofen 600 mg tablet 12-03 00:00: 00 01-14 00:00 :00 No [id number] 600mg Take 1 tablet by mouth every 6 (six) hours as needed for Pain (scale 1-3). [facility] ibuprofen 600 mg tablet 12-03 00:00: 00 01-14 00:00 :00 No [id number] 600mg Take 1 tablet by mouth every 6 (six) hours as needed for Pain (scale 1-3). [facility] ibuprofen 600 mg tablet 12-03 00:00: 00 01-14 00:00 :00 No [id number] 600mg Take 1 tablet by mouth every 6 (six) hours as needed for Pain (scale 1-3). [facility] acetaminoph en 325 mg tablet 12-03 00:00: 00 12-04 04:59 :00 No [id number] 650mg Take 2 tablets by mouth every 6 (six) hours as needed for Pain (scale 1-3). [facility] acetaminoph en 325 mg tablet 12-03 00:00: 12-04 04:59 :00 No [id number] 650mg Take 2 tablets by mouth every 6 (six) hours as needed for Pain (scale 1-3). [facility] acetaminoph en 325 mg tablet 12-03 00:00: 12-04 04:59 :00 No [id number] 650mg Take 2 tablets by mouth every 6 (six) hours as needed for Pain (scale 1-3). [facility] acetaminoph en 325 mg tablet 12-03 00:00: 12-04 04:59 :00 No [id number] 650mg Take 2 tablets by mouth every 6 (six) hours as needed for Pain (scale 1-3). [facility] clindamycin 300 mg capsule 12-03 00:00: 12-14 04:59 :00 No [id number] 300mg Take 1 capsule by mouth 4 (four) times daily for 10 days. [facility] amoxicillin -clavulanat e (AUGMENTIN) 875-125 mg per tablet 12-03 00:00: 00 12-14 04:59 :00 No [id number] 1{tbl} Take 1 tablet by mouth 2 (two) times daily for 10 days. [facility] oxyCODONE 5 mg immediate release tablet 12-03 00:00: 00 12-12 00:00 :00 No [id number] 5mg Take 1 tablet by mouth every 6 (six) hours as needed for Pain (scale 7-10). [facility] ondansetron (ZOFRAN ODT) 4 mg disintegrat ing tablet 12-03 00:00: 00 12-12 00:00 :00 No [id number] 4mg Take 1 tablet by mouth every 6 (six) hours as needed for Nausea and Vomiting (N/V). [facility] clindamycin 300 mg capsule 12-03 00:00: 00 12-12 00:00 :00 No [id number] 300mg Take 1 capsule by mouth 4 (four) times daily for 10 days. [facility] amoxicillin -clavulanat e (AUGMENTIN) 875-125 mg per tablet 12-03 00:00: 00 12-12 00:00 :00 No [id number] 1{tbl} Take 1 tablet by mouth 2 (two) times daily for 10 days. [facility] gabapentin 300 mg capsule 12-03 00:00: 00 12-09 04:59 :00 No [id number] 300mg Take 1 capsule by mouth 3 (three) times daily for 5 days. [facility] acetaminoph en (TYLENOL) tablet 650 mg 12-02 23:00: 00 Yes 650mg 650 mg, Oral, Q6H, First dose on 12/03/19 at 1800, Until Discontinu ed, Routine [facility] ketorolac (TORADOL) injection 30 mg 12-02 22:30: 00 12-04 16:59 :00 No 30mg 30 mg, Slow IV Push, Q6H, 8 doses, First dose on Thu12/03/19 at 1730, Last dose on Thu12/05/19 at 0600, Routine
glass forming crew member approving Restricted medication : CATINA MARIN [facility] piperacilli n-tazobacta m (ZOSYN) 3.375 gram/50 mL Piggyback RTU 3.375 g 12-02 19:45: 00 Yes 3.375g 3.375 g, IV Piggyback, Q6H ABX, First dose on 12/03/19 at 1445, Until Discontinu ed, 50 mL
Reas on for Anti-Infec tive: Documented Infection< br>Documen lori Infection Site: Wound
D uration of Therapy: 10 days [facility] gabapentin (NEURONTIN) capsule 300 mg 12-02 19:15: 00 Yes 300mg 300 mg, Oral, TID, First dose on 12/03/19 at 1415, Until Discontinu ed, Routine [facility] lactated ringers IV infusion 1,000 mL 12-02 18:00: 00 Yes 1000mL at 125 mL/hr, 1,000 mL, IV Infusion, CONTINUOUS , Starting 12/03/19 at 1300, Until Discontinu ed, Routine [facility] oxyCODONE immediate release tablet 5 mg 12-02 17:44: 08 Yes 5mg 5 mg, Oral, Q6HPRN, Starting 12/03/19 at 1244, Until Discontinu ed, Routine, Pain (scale 7-10)
F aculty member approving Restricted medication : CATINA MARIN [facility] zolpidem (AMBIEN) tablet 10 mg 12-02 17:43: 42 Yes 10mg 10 mg, Oral, QHSPRN, Starting 12/03/19 at 1243, Until Discontinu ed, Routine, Insomnia [facility] ondansetron (ZOFRAN (PF)) injection 4 mg 12-02 17:43: 33 Yes 4mg 4 mg, Slow IV Push, Q6HPRN, Starting 12/03/19 at 1243, Until Discontinu ed, Routine, Nausea and Vomiting (N/V) [facility] lactated ringers IV infusion 1,000 mL 12-02 17:00: 00 Yes 1000mL at 75 mL/hr, 1,000 mL, IV Infusion, CONTINUOUS , Starting 12/03/19 at 1200, Until Discontinu ed, Routine, PACU [facility] clindamycin in 5 % dextrose (CLEOCIN) 900 mg/50 mL IV piggyback RTU 900 mg 12-02 14:30: 00 Yes 900mg 900 mg, IV Piggyback, Q8H ABX, First dose on 12/03/19 at 0930, Until Discontinu ed, 50 mL
Reas on for Anti-Infec tive: Documented Infection< br>Documen lori Infection Site: Skin / Soft Tissue
Duration of Therapy: Other (see Comments)< br>Restric lori use approved by: ED PROVIDER<b r>Indicati on for Clindamyci n use: labial abscess [facility] iohexol (OMNIPAQUE 350 BULK-100 mL) injection 120 mL 12-02 13:45: 00 12-02 13:31 :00 No 120mL 120 mL, Intravenou s, ONCE, 1 dose, 12/03/19 at 0845, Routine [facility] acetaminoph en (TYLENOL) tablet 1,000 mg 12-02 13:30: 12-02 12:28 :00 No 1000mg 1,000 mg, Oral, ONCE, 1 dose, 12/03/19 at 0830, RANULFO [facility] ondansetron (ZOFRAN (PF)) injection 4 mg 12-02 13:30: 12-02 12:29 :00 No 4mg 4 mg, Slow IV Push, ONCE, 1 [facility], [facility]03[facility] 0830[facility] (SUBLIMAZE (PF)) injection 75 mcg 12-02 13:30: 12-02 12:29 :00 No 75ug 75 mcg, Slow IV Push, ONCE, 1 dose, 12/03/19 at 0830, STAT [facility] ibuprofen 800 mg tablet 11-28 00:00: 00 Yes [id number] 800mg Take 1 tablet by mouth every 8 (eight) hours as needed for Pain (scale 4-6). [facility] sulfamethox azole-trime thoprim (BACTRIM DS) 800-160 mg per tablet 11-28 00:00: 00 Yes [id number] 1{tbl} Take 1 tablet by mouth 2 (two) times daily. [facility] sulfamethox azole-trime thoprim (BACTRIM DS) 800-160 mg per tablet 11-28 00:00: 00 12-03 00:00 :00 No [id number] 1{tbl} Take 1 tablet by mouth 2 (two) times daily. [facility] ibuprofen 800 mg tablet 11-28 00:00: 00 12-03 00:00 :00 No [id number] 800mg Take 1 tablet by mouth every 8 (eight) hours as needed for Pain (scale 4-6). [facility] Z[facility] MG Zoloft 100 MG No 1{table t} QD Zoloft 100 MG Zoloft 100 MG Zoloft 100 MG No 1{table t} QD Zoloft 100 MG Tylenol Tylenol No Tylenol NyQuil NyQuil No NyQuil NyQuil NyQuil No NyQuil Pepcid 20 MG Pepcid 20 MG No 1{table t_at_be dtime} QD Pepcid 20 MG Tylenol Tylenol No Tylenol Zoloft 100 MG Zoloft 100 MG No 1{table t} QD Zoloft 100 MG NyQuil NyQuil No NyQuil Pepcid 20 MG Pepcid 20 MG No 1{table t_at_be dtime} QD Pepcid 20 MG Tylenol Tylenol No Tylenol Zoloft 100 MG Zoloft 100 MG No 1{table t} QD Zoloft 100 MG NyQuil NyQuil No NyQuil Pepcid 20 MG Pepcid 20 MG No 1{table t_at_be dtime} QD Pepcid 20 MG Tylenol Tylenol No Tylenol Zoloft 100 MG Zoloft 100 MG No 1{table t} QD Zoloft 100 MG Zoloft 100 MG Zoloft 100 MG No 1{table t} QD Zoloft 100 MG Tylenol Tylenol No Tylenol Pepcid 20 MG Pepcid 20 MG No 1{table t_at_be dtime} QD Pepcid 20 MG Benadryl Allergy 25 MG Benadryl Allergy 25 MG No 1{table t_at_be dtime_a s_neede d} QD Benadryl Allergy 25 MG Zoloft 100 MG Zoloft 100 MG No 1{table t} QD Zoloft 100 MG Benadryl Allergy 25 MG Benadryl Allergy 25 MG No 1{table t_at_be dtime_a s_neede d} QD Benadryl Allergy 25 MG Pepcid 20 MG Pepcid 20 MG No 1{table t_at_be dtime} QD Pepcid 20 MG Tylenol Tylenol No Tylenol Tylenol Tylenol No Tylenol Pepcid 20 MG Pepcid 20 MG No 1{table t_at_be dtime} QD Pepcid 20 MG Benadryl Allergy 25 MG Benadryl Allergy 25 MG No 1{table t_at_be dtime_a s_neede d} QD Benadryl Allergy 25 MG Tylenol Tylenol No Tylenol Pepcid 20 MG Pepcid 20 MG No 1{table t_at_be dtime} QD Pepcid 20 MG Benadryl Allergy 25 MG Benadryl Allergy 25 MG No 1{table t_at_be dtime_a s_neede d} QD Benadryl Allergy 25 MG Tylenol Tylenol No Tylenol Pepcid 20 MG Pepcid 20 MG No 1{table t_at_be dtime} QD Pepcid 20 MG Benadryl Allergy 25 MG Benadryl Allergy 25 MG No 1{table t_at_be dtime_a s_neede d} QD Benadryl Allergy 25 MG Tylenol Tylenol No Tylenol Pepcid 20 MG Pepcid 20 MG No 1{table t_at_be dtime} QD Pepcid 20 MG Benadryl Allergy 25 MG Benadryl Allergy 25 MG No 1{table t_at_be dtime_a s_neede d} QD Benadryl Allergy 25 MG Tylenol Tylenol No Tylenol Pepcid 20 MG Pepcid 20 MG No 1{table t_at_be dtime} QD Pepcid 20 MG Benadryl Allergy 25 MG Benadryl Allergy 25 MG No 1{table t_at_be dtime_a s_neede d} QD Benadryl Allergy 25 MG Tylenol Tylenol No Tylenol Pepcid 20 MG Pepcid 20 MG No 1{table t_at_be dtime} QD Pepcid 20 MG Benadryl Allergy 25 MG Benadryl Allergy 25 MG No 1{table t_at_be dtime_a s_neede d} QD Benadryl Allergy 25 MG Tylenol Tylenol No Tylenol Benadryl Allergy 25 MG Benadryl Allergy 25 MG No 1{table t_at_be dtime_a s_neede d} QD Benadryl Allergy 25 MG Pepcid 20 MG Pepcid 20 MG No 1{table t_at_be dtime} QD Pepcid 20 MG Tylenol Tylenol No Tylenol Benadryl Allergy 25 MG Benadryl Allergy 25 MG No 1{table t_at_be dtime_a s_neede d} QD Benadryl Allergy 25 MG Pepcid 20 MG Pepcid 20 MG No 1{table t_at_be dtime} QD Pepcid 20 MG Tylenol Tylenol No Tylenol Pepcid 20 MG Pepcid 20 MG No 1{table t_at_be dtime} QD Pepcid 20 MG Benadryl Allergy 25 MG Benadryl Allergy 25 MG No 1{table t_at_be dtime_a s_neede d} QD Benadryl Allergy 25 MG Benadryl Allergy 25 MG Benadryl Allergy 25 MG No 1{table t_at_be dtime_a s_neede d} QD Benadryl Allergy 25 MG Pepcid 20 MG Pepcid 20 MG No 1{table t_at_be dtime} QD Pepcid 20 MG Tylenol Tylenol No Tylenol Tylenol Tylenol No Tylenol Benadryl Allergy 25 MG Benadryl Allergy 25 MG No 1{table t_at_be dtime_a s_neede d} QD Benadryl Allergy 25 MG Pepcid 20 MG Pepcid 20 MG No 1{table t_at_be dtime} QD Pepcid 20 MG Tylenol Tylenol No Tylenol Benadryl Allergy 25 MG Benadryl Allergy 25 MG No 1{table t_at_be dtime_a s_neede d} QD Benadryl Allergy 25 MG Pepcid 20 MG Pepcid 20 MG No 1{table t_at_be dtime} QD Pepcid 20 MG Pepcid 20 MG Pepcid 20 MG No 1{table t_at_be dtime} QD Pepcid 20 MG Tylenol Tylenol No Tylenol Benadryl Allergy 25 MG Benadryl Allergy 25 MG No 1{table t_at_be dtime_a s_neede d} QD Benadryl Allergy 25 MG Escitalopra m Oxalate 10 MG Escitalopra m Oxalate 10 MG No Escitalopr am Oxalate 10 MG Pepcid 20 MG Pepcid 20 MG No 1{table t_at_be dtime} QD Pepcid 20 MG Tylenol Tylenol No Tylenol Benadryl Allergy 25 MG Benadryl Allergy 25 MG No 1{table t_at_be dtime_a s_neede d} QD Benadryl Allergy 25 MG Escitalopra m Oxalate 10 MG Escitalopra m Oxalate 10 MG No Escitalopr am Oxalate 10 MG Tylenol Tylenol No Tylenol Escitalopra m Oxalate 10 MG Escitalopra m Oxalate 10 MG No Escitalopr am Oxalate 10 MG Benadryl Allergy 25 MG Benadryl Allergy 25 MG No 1{table t_at_be dtime_a s_neede d} QD Benadryl Allergy 25 MG Tylenol Tylenol No Tylenol Escitalopra m Oxalate 10 MG Escitalopra m Oxalate 10 MG No Escitalopr am Oxalate 10 MG Benadryl Allergy 25 MG Benadryl Allergy 25 MG No 1{table t_at_be dtime_a s_neede d} QD Benadryl Allergy 25 MG Tylenol Tylenol No Tylenol Escitalopra m Oxalate 10 MG Escitalopra m Oxalate 10 MG No Escitalopr am Oxalate 10 MG Benadryl Allergy 25 MG Benadryl Allergy 25 MG No 1{table t_at_be dtime_a s_neede d} QD Benadryl Allergy 25 MG Tylenol Tylenol No Tylenol Escitalopra m Oxalate 10 MG Escitalopra m Oxalate 10 MG No Escitalopr am Oxalate 10 MG Benadryl Allergy 25 MG Benadryl Allergy 25 MG No 1{table t_at_be dtime_a s_neede d} QD Benadryl Allergy 25 MG Tylenol Tylenol No Tylenol Escitalopra m Oxalate 10 MG Escitalopra m Oxalate 10 MG No Escitalopr am Oxalate 10 MG Benadryl Allergy 25 MG Benadryl Allergy 25 MG No 1{table t_at_be dtime_a s_neede d} QD Benadryl Allergy 25 MG Tylenol Tylenol No Tylenol Escitalopra m Oxalate 10 MG Escitalopra m Oxalate 10 MG No Escitalopr am Oxalate 10 MG Benadryl Allergy 25 MG Benadryl Allergy 25 MG No 1{table t_at_be dtime_a s_neede d} QD Benadryl Allergy 25 MG Verapamil HCl 40 MG Verapamil HCl 40 MG No 1{table t} BID Verapamil HCl 40 MG Benadryl Allergy 25 MG Benadryl Allergy 25 MG No 1{table t_at_be dtime_a s_neede d} QD Benadryl Allergy 25 MG Tylenol Tylenol No Tylenol Escitalopra m Oxalate 10 MG Escitalopra m Oxalate 10 MG No Escitalopr am Oxalate 10 MG Verapamil HCl 40 MG Verapamil HCl 40 MG No 1{table t} BID Verapamil HCl 40 MG Benadryl Allergy 25 MG Benadryl Allergy 25 MG No 1{table t_at_be dtime_a s_neede d} QD Benadryl Allergy 25 MG Tylenol Tylenol No Tylenol Escitalopra m Oxalate 10 MG Escitalopra m Oxalate 10 MG No Escitalopr am Oxalate 10 MG Verapamil HCl 40 MG Verapamil HCl 40 MG No 1{table t} BID Verapamil HCl 40 MG Benadryl Allergy 25 MG Benadryl Allergy 25 MG No 1{table t_at_be dtime_a s_neede d} QD Benadryl Allergy 25 MG Tylenol Tylenol No Tylenol Escitalopra m Oxalate 10 MG Escitalopra m Oxalate 10 MG No Escitalopr am Oxalate 10 MG Verapamil HCl 40 MG Verapamil HCl 40 MG No 1{table t} BID Verapamil HCl 40 MG Benadryl Allergy 25 MG Benadryl Allergy 25 MG No 1{table t_at_be dtime_a s_neede d} QD Benadryl Allergy 25 MG Tylenol Tylenol No Tylenol Escitalopra m Oxalate 10 MG Escitalopra m Oxalate 10 MG No Escitalopr am Oxalate 10 MG Verapamil HCl 40 MG Verapamil HCl 40 MG No 1{table t} BID Verapamil HCl 40 MG Escitalopra m Oxalate 10 MG Escitalopra m Oxalate 10 MG No Escitalopr am Oxalate 10 MG Benadryl Allergy 25 MG Benadryl Allergy 25 MG No 1{table t_at_be dtime_a s_neede d} QD Benadryl Allergy 25 MG Tylenol Tylenol No Tylenol Tylenol Tylenol No Tylenol Ibuprofen 200 MG Ibuprofen 200 MG No TID Ibuprofen 200 MG Zoloft 100 MG Zoloft 100 MG No 1{table t} QD Zoloft 100 MG Benadryl Allergy 25 MG Benadryl Allergy 25 MG No 1{table t_at_be dtime_a s_neede d} QD Benadryl Allergy 25 MG Ibuprofen Ibuprofen No Ibuprofen Tylenol Tylenol No Tylenol Ibuprofen 200 MG Ibuprofen 200 MG No TID Ibuprofen 200 MG Zoloft 100 MG Zoloft 100 MG No 1{table t} QD Zoloft 100 MG Benadryl Allergy 25 MG Benadryl Allergy 25 MG No 1{table t_at_be dtime_a s_neede d} QD Benadryl Allergy 25 MG Ibuprofen Ibuprofen No Ibuprofen NyQuil NyQuil No NyQuil Tylenol Tylenol No Tylenol Immunizations Ordered Immunization Name Filled Immunization Name Date Status Comments Source Flu Quadrivalent PF 0.5 ml IM Flu Quadrivalent PF 0.5 ml IM 2022-02-28 15:07:[address] [facility] Flu Quadrivalent PF 0.5 ml IM Flu Quadrivalent PF 0.5 ml IM 2022-02-28 15:07:[address] [facility] Flu Quadrivalent PF 0.5 ml IM Flu Quadrivalent PF 0.5 ml IM 2022-02-28 15:07:[address] [facility] Flu Quadrivalent PF 0.5 ml IM Flu Quadrivalent PF 0.5 ml IM 2022-02-28 15:07:[address] [facility] Flu Quadrivalent PF 0.5 ml IM Flu Quadrivalent PF 0.5 ml IM 2022-02-28 15:07:[address] [facility] Flu Quadrivalent PF 0.5 ml IM Flu Quadrivalent PF 0.5 ml IM 2022-02-28 15:07:[address] [facility] Flu Quadrivalent PF 0.5 ml IM Flu Quadrivalent PF 0.5 ml IM 2022-02-28 15:07:[address] [facility] Flu Quadrivalent PF 0.5 ml IM Flu Quadrivalent PF 0.5 ml IM 2022-02-28 15:07:[address] [facility] Flu Quadrivalent PF 0.5 ml IM Flu Quadrivalent PF 0.5 ml IM 2022-02-28 15:07:[address] [facility] Flu Quadrivalent PF 0.5 ml IM Flu Quadrivalent PF 0.5 ml IM 2022-02-28 15:07:[address] [facility] Flu Quadrivalent PF 0.5 ml IM Flu Quadrivalent PF 0.5 ml IM 2022-02-28 15:07:[address] [facility] Flu Quadrivalent PF 0.5 ml IM Flu Quadrivalent PF 0.5 ml IM 2021-04-10 14:13:[address] [facility] Flu Quadrivalent PF 0.5 ml IM Flu Quadrivalent PF 0.5 ml IM 2021-04-10 14:13:[address] [facility] Flu Quadrivalent PF 0.5 ml IM Flu Quadrivalent PF 0.5 ml IM 2021-04-10 14:13:[address] [facility] Flu Quadrivalent PF 0.5 ml IM Flu Quadrivalent PF 0.5 ml IM 2021-04-10 14:13:[address] [facility] Flu Quadrivalent PF 0.5 ml IM Flu Quadrivalent PF 0.5 ml IM 2021-04-10 14:13:[address] [facility] Flu Quadrivalent PF 0.5 ml IM Flu Quadrivalent PF 0.5 ml IM 2021-04-10 14:13:[address] [facility] Flu Quadrivalent PF 0.5 ml IM Flu Quadrivalent PF 0.5 ml IM 2021-04-10 14:13:[address] [facility] Flu Quadrivalent PF 0.5 ml IM Flu Quadrivalent PF 0.5 ml IM 2021-04-10 14:13:[address] [facility] Flu Quadrivalent PF 0.5 ml IM Flu Quadrivalent PF 0.5 ml IM 2021-04-10 14:13:[address] [facility] Flu Quadrivalent PF 0.5 ml IM Flu Quadrivalent PF 0.5 ml IM 2021-04-10 14:13:[address] [facility] Flu Quadrivalent PF 0.5 ml IM Flu Quadrivalent PF 0.5 ml IM 2021-04-10 14:13:[address] [facility] Flu Quadrivalent PF 0.5 ml IM Flu Quadrivalent PF 0.5 ml IM 2021-04-10 14:13:[address] [facility] Flu Quadrivalent PF 0.5 ml IM Flu Quadrivalent PF 0.5 ml IM 2021-04-10 14:13:[address] [facility] Flu Quadrivalent PF 0.5 ml IM Flu Quadrivalent PF 0.5 ml IM 2021-04-10 14:13:[address] [facility] Flu Quadrivalent PF 0.5 ml IM Flu Quadrivalent PF 0.5 ml IM 2021-04-10 14:13:[address] [facility] Flu Quadrivalent PF 0.5 ml IM Flu Quadrivalent PF 0.5 ml IM 2021-04-10 14:13:[address] [facility] Flu Quadrivalent PF 0.5 ml IM Flu Quadrivalent PF 0.5 ml IM 2021-04-10 14:13:[address] [facility] Flu Quadrivalent PF 0.5 ml IM Flu Quadrivalent PF 0.5 ml IM 2021-04-10 14:13:[address] [facility] Flu Quadrivalent PF 0.5 ml IM Flu Quadrivalent PF 0.5 ml IM 2021-04-10 14:13:[address] [facility] Flu Quadrivalent PF 0.5 ml IM Flu Quadrivalent PF 0.5 ml IM 2021-04-10 14:13:[address] [facility] Flu Quadrivalent PF 0.5 ml IM Flu Quadrivalent PF 0.5 ml IM 2021-04-10 14:13:[address] [facility] Flu Quadrivalent PF 0.5 ml IM Flu Quadrivalent PF 0.5 ml IM 2021-04-10 14:13:[address] [facility] Flu Quadrivalent PF 0.5 ml IM Flu Quadrivalent PF 0.5 ml IM 2021-04-10 14:13:[address] [facility] Flu Quadrivalent PF 0.5 ml IM Flu Quadrivalent PF 0.5 ml IM 2021-04-10 14:13:[address] [facility] Flu Quadrivalent PF 0.5 ml IM Flu Quadrivalent PF 0.5 ml IM 2021-04-10 14:13:[address] [facility] Flu Quadrivalent PF 0.5 ml IM Flu Quadrivalent PF 0.5 ml IM 2021-04-10 14:13:[address] [facility] Flu Quadrivalent PF 0.5 ml IM Flu Quadrivalent PF 0.5 ml IM 2021-04-10 14:13:00 Completed [facility] Ketorolac Ketorolac 2021-02-22 13:36:00 Completed [facility] Ketorolac Ketorolac 2021-02-22 13:36:[address] [facility] Influenza Virus Vaccine 2018-04-21 00:00:00 Completed [facility] Influenza Virus Vaccine 2018-04-21 00:00:00 Completed [facility] Influenza Virus Vaccine 2018-04-21 00:00:00 Completed [facility] Influenza Virus Vaccine 2018-04-21 00:00:00 Completed [facility] Influenza Virus Vaccine 2018-04-21 00:00:00 Completed [facility] Influenza Virus Vaccine 2018-04-21 00:00:00 Completed [facility] Influenza Virus Vaccine 2018-04-21 00:00:00 Completed [facility] Influenza Virus Vaccine 2018-04-21 00:00:00 Completed [facility] Influenza Virus Vaccine 2018-04-21 00:00:00 Completed [facility] Influenza Virus Vaccine 2018-04-21 00:00:00 Completed [facility] Influenza Virus Vaccine 2018-04-21 00:00:00 Completed [facility] Influenza Virus Vaccine 2018-04-21 00:00:00 Completed [facility] Influenza Virus Vaccine 2018-04-21 00:00:00 Completed [facility] Influenza Virus Vaccine 2018-04-21 00:00:00 Completed [facility] Influenza Virus Vaccine 2018-04-21 00:00:00 Completed [facility] Influenza Virus Vaccine 2018-04-21 00:00:00 Completed [facility] Influenza Virus Vaccine 2018-04-21 00:00:00 Completed [facility] Influenza Virus Vaccine 2018-04-21 00:00:00 Completed [facility] Influenza Virus Vaccine 2018-04-21 00:00:00 Completed [facility] Influenza Virus Vaccine 2018-04-21 00:00:00 Completed [facility] Influenza Virus Vaccine 2018-04-21 00:00:00 Completed [facility] Influenza Virus Vaccine 2018-04-21 00:00:00 Completed [facility] Influenza Virus Vaccine 2018-04-21 00:00:00 Completed [facility] Influenza Virus Vaccine 2018-04-21 00:00:00 Completed [facility] Influenza Virus Vaccine 2018-04-21 00:00:00 Completed [facility] Influenza Virus Vaccine 2018-04-21 00:00:00 Completed [facility] Influenza Virus Vaccine 2018-04-21 00:00:00 Completed [facility] Influenza Virus Vaccine 2018-04-21 00:00:00 Completed [facility] Influenza Virus Vaccine 2018-04-21 00:00:00 Completed [facility] Influenza Virus Vaccine 2018-04-21 00:00:00 Completed [facility] Influenza Virus Vaccine 2018-04-21 00:00:00 Completed [facility] Influenza Virus Vaccine 2018-04-21 00:00:00 Completed [facility] Influenza Virus Vaccine 2018-04-21 00:00:00 Completed [facility] Influenza Virus Vaccine 2018-04-21 00:00:00 Completed [facility] Influenza Virus Vaccine 2018-04-21 00:00:00 Completed [facility] Influenza Virus Vaccine 2018-04-21 00:00:00 Completed [facility] Influenza Virus Vaccine 2018-04-21 00:00:00 Completed [facility] Influenza Virus Vaccine 2018-04-21 00:00:00 Completed [facility] Influenza Virus Vaccine 2018-04-21 00:00:00 Completed [facility] Influenza Virus Vaccine 2018-04-21 00:00:00 Completed [facility] Influenza Virus Vaccine 2018-04-21 00:00:00 Completed [facility] Influenza Virus Vaccine 2018-04-21 00:00:00 Completed [facility] Influenza Virus Vaccine 2018-04-21 00:00:00 Completed [facility] Influenza Virus Vaccine 2018-04-21 00:00:00 Completed [facility] Influenza Virus Vaccine 2018-04-21 00:00:00 Completed [facility] Influenza Virus Vaccine 2018-04-21 00:00:00 Completed [facility] Influenza Virus Vaccine 2018-04-21 00:00:00 Completed [facility] Influenza Virus Vaccine 2018-04-21 00:00:00 Completed [facility] Influenza Virus Vaccine 2018-04-21 00:00:00 Completed [facility] Influenza Virus Vaccine 2018-04-21 00:00:00 Completed [facility] Influenza Virus Vaccine 2018-04-21 00:00:00 Completed [facility] Influenza Virus Vaccine 2018-04-21 00:00:00 Completed [facility] Influenza Virus Vaccine 2018-04-21 00:00:00 Completed [facility] Influenza Virus Vaccine 2018-04-21 00:00:00 Completed [facility] Meningococcal Polysaccharide (groups A, C, Y and W-135) conjugate vaccine (MCV4P) 2018-01-12 00:00:00 Completed [facility] Meningococcal Polysaccharide (groups A, C, Y and W-135) conjugate vaccine (MCV4P) 2018-01-12 00:00:00 Completed [facility] Meningococcal Polysaccharide (groups A, C, Y and W-135) conjugate vaccine (MCV4P) 2018-01-12 00:00:00 Completed [facility] Meningococcal Polysaccharide (groups A, C, Y and W-135) conjugate vaccine (MCV4P) 2018-01-12 00:00:00 Completed [facility] Meningococcal Polysaccharide (groups A, C, Y and W-135) conjugate vaccine (MCV4P) 2018-01-12 00:00:00 Completed [facility] Meningococcal Polysaccharide (groups A, C, Y and W-135) conjugate vaccine (MCV4P) 2018-01-12 00:00:00 Completed [facility] Meningococcal Polysaccharide (groups A, C, Y and W-135) conjugate vaccine (MCV4P) 2018-01-12 00:00:00 Completed [facility] Meningococcal Polysaccharide (groups A, C, Y and W-135) conjugate vaccine (MCV4P) 2018-01-12 00:00:00 Completed [facility] Meningococcal Polysaccharide (groups A, C, Y and W-135) conjugate vaccine (MCV4P) 2018-01-12 00:00:00 Completed [facility] Meningococcal Polysaccharide (groups A, C, Y and W-135) conjugate vaccine (MCV4P) 2018-01-12 00:00:00 Completed [facility] Meningococcal Polysaccharide (groups A, C, Y and W-135) conjugate vaccine (MCV4P) 2018-01-12 00:00:00 Completed [facility] Meningococcal Polysaccharide (groups A, C, Y and W-135) conjugate vaccine (MCV4P) 2018-01-12 00:00:00 Completed [facility] Meningococcal Polysaccharide (groups A, C, Y and W-135) conjugate vaccine (MCV4P) 2018-01-12 00:00:00 Completed [facility] Meningococcal Polysaccharide (groups A, C, Y and W-135) conjugate vaccine (MCV4P) 2018-01-12 00:00:00 Completed [facility] Meningococcal Polysaccharide (groups A, C, Y and W-135) conjugate vaccine (MCV4P) 2018-01-12 00:00:00 Completed [facility] Meningococcal Polysaccharide (groups A, C, Y and W-135) conjugate vaccine (MCV4P) 2018-01-12 00:00:00 Completed [facility] Meningococcal Polysaccharide (groups A, C, Y and W-135) conjugate vaccine (MCV4P) 2018-01-12 00:00:00 Completed [facility] Meningococcal Polysaccharide (groups A, C, Y and W-135) conjugate vaccine (MCV4P) 2018-01-12 00:00:00 Completed [facility] Meningococcal Polysaccharide (groups A, C, Y and W-135) conjugate vaccine (MCV4P) 2018-01-12 00:00:00 Completed [facility] Meningococcal Polysaccharide (groups A, C, Y and W-135) conjugate vaccine (MCV4P) 2018-01-12 00:00:00 Completed [facility] Meningococcal Polysaccharide (groups A, C, Y and W-135) conjugate vaccine (MCV4P) 2018-01-12 00:00:00 Completed [facility] Meningococcal Polysaccharide (groups A, C, Y and W-135) conjugate vaccine (MCV4P) 2018-01-12 00:00:00 Completed [facility] Meningococcal Polysaccharide (groups A, C, Y and W-135) conjugate vaccine (MCV4P) 2018-01-12 00:00:00 Completed [facility] Meningococcal Polysaccharide (groups A, C, Y and W-135) conjugate vaccine (MCV4P) 2018-01-12 00:00:00 Completed [facility] Meningococcal Polysaccharide (groups A, C, Y and W-135) conjugate vaccine (MCV4P) 2018-01-12 00:00:00 Completed [facility] Meningococcal Polysaccharide (groups A, C, Y and W-135) conjugate vaccine (MCV4P) 2018-01-12 00:00:00 Completed [facility] Meningococcal Polysaccharide (groups A, C, Y and W-135) conjugate vaccine (MCV4P) 2018-01-12 00:00:00 Completed [facility] Meningococcal Polysaccharide (groups A, C, Y and W-135) conjugate vaccine (MCV4P) 2018-01-12 00:00:00 Completed [facility] Meningococcal Polysaccharide (groups A, C, Y and W-135) conjugate vaccine (MCV4P) 2018-01-12 00:00:00 Completed [facility] Meningococcal Polysaccharide (groups A, C, Y and W-135) conjugate vaccine (MCV4P) 2018-01-12 00:00:00 Completed [facility] Meningococcal Polysaccharide (groups A, C, Y and W-135) conjugate vaccine (MCV4P) 2018-01-12 00:00:00 Completed [facility] Meningococcal Polysaccharide (groups A, C, Y and W-135) conjugate vaccine (MCV4P) 2018-01-12 00:00:00 Completed [facility] Meningococcal Polysaccharide (groups A, C, Y and W-135) conjugate vaccine (MCV4P) 2018-01-12 00:00:00 Completed [facility] Meningococcal Polysaccharide (groups A, C, Y and W-135) conjugate vaccine (MCV4P) 2018-01-12 00:00:00 Completed [facility] Meningococcal Polysaccharide (groups A, C, Y and W-135) conjugate vaccine (MCV4P) 2018-01-12 00:00:00 Completed [facility] Meningococcal Polysaccharide (groups A, C, Y and W-135) conjugate vaccine (MCV4P) 2018-01-12 00:00:00 Completed [facility] Meningococcal Polysaccharide (groups A, C, Y and W-135) conjugate vaccine (MCV4P) 2018-01-12 00:00:00 Completed [facility] Meningococcal Polysaccharide (groups A, C, Y and W-135) conjugate vaccine (MCV4P) 2018-01-12 00:00:00 Completed [facility] Meningococcal Polysaccharide (groups A, C, Y and W-135) conjugate vaccine (MCV4P) 2018-01-12 00:00:00 Completed [facility] Meningococcal Polysaccharide (groups A, C, Y and W-135) conjugate vaccine (MCV4P) 2018-01-12 00:00:00 Completed [facility] Meningococcal Polysaccharide (groups A, C, Y and W-135) conjugate vaccine (MCV4P) 2018-01-12 00:00:00 Completed [facility] Meningococcal Polysaccharide (groups A, C, Y and W-135) conjugate vaccine (MCV4P) 2018-01-12 00:00:00 Completed [facility] Meningococcal Polysaccharide (groups A, C, Y and W-135) conjugate vaccine (MCV4P) 2018-01-12 00:00:00 Completed [facility] Meningococcal Polysaccharide (groups A, C, Y and W-135) conjugate vaccine (MCV4P) 2018-01-12 00:00:00 Completed [facility] Meningococcal Polysaccharide (groups A, C, Y and W-135) conjugate vaccine (MCV4P) 2018-01-12 00:00:00 Completed [facility] Meningococcal Polysaccharide (groups A, C, Y and W-135) conjugate vaccine (MCV4P) 2018-01-12 00:00:00 Completed [facility] Meningococcal Polysaccharide (groups A, C, Y and W-135) conjugate vaccine (MCV4P) 2018-01-12 00:00:00 Completed [facility] Meningococcal Polysaccharide (groups A, C, Y and W-135) conjugate vaccine (MCV4P) 2018-01-12 00:00:00 Completed [facility] Meningococcal Polysaccharide (groups A, C, Y and W-135) conjugate vaccine (MCV4P) 2018-01-12 00:00:00 Completed [facility] Meningococcal Polysaccharide (groups A, C, Y and W-135) conjugate vaccine (MCV4P) 2018-01-12 00:00:00 Completed [facility] Meningococcal Polysaccharide (groups A, C, Y and W-135) conjugate vaccine (MCV4P) 2018-01-12 00:00:00 Completed [facility] Meningococcal Polysaccharide (groups A, C, Y and W-135) conjugate vaccine (MCV4P) 2018-01-12 00:00:00 Completed [facility] Meningococcal Polysaccharide (groups A, C, Y and W-135) conjugate vaccine (MCV4P) 2018-01-12 00:00:00 Completed [facility] Meningococcal Polysaccharide (groups A, C, Y and W-135) conjugate vaccine (MCV4P) 2018-01-12 00:00:00 Completed [facility] TDAP 2010-01-02 00:00:00 Completed [facility] Varicella (varivax)(chicken pox) 2010-01-02 00:00:00 Completed [facility] Meningococcal Polysaccharide (groups A, C, Y and W-135) conjugate vaccine (MCV4P) 2010-01-02 00:00:00 Completed [facility] TDAP 2010-01-02 00:00:00 Completed [facility] Varicella (varivax)(chicken pox) 2010-01-02 00:00:00 Completed [facility] Meningococcal Polysaccharide (groups A, C, Y and W-135) conjugate vaccine (MCV4P) 2010-01-02 00:00:00 Completed [facility] TDAP 2010-01-02 00:00:00 Completed [facility] Varicella (varivax)(chicken pox) 2010-01-02 00:00:00 Completed [facility] Meningococcal Polysaccharide (groups A, C, Y and W-135) conjugate vaccine (MCV4P) 2010-01-02 00:00:00 Completed [facility] TDAP 2010-01-02 00:00:00 Completed [facility] Varicella (varivax)(chicken pox) 2010-01-02 00:00:00 Completed [facility] Meningococcal Polysaccharide (groups A, C, Y and W-135) conjugate vaccine (MCV4P) 2010-01-02 00:00:00 Completed [facility] TDAP 2010-01-02 00:00:00 Completed [facility] Varicella (varivax)(chicken pox) 2010-01-02 00:00:00 Completed [facility] Meningococcal Polysaccharide (groups A, C, Y and W-135) conjugate vaccine (MCV4P) 2010-01-02 00:00:00 Completed [facility] TDAP 2010-01-02 00:00:00 Completed [facility] Varicella (varivax)(chicken pox) 2010-01-02 00:00:00 Completed [facility] Meningococcal Polysaccharide (groups A, C, Y and W-135) conjugate vaccine (MCV4P) 2010-01-02 00:00:00 Completed [facility] TDAP 2010-01-02 00:00:00 Completed [facility] Varicella (varivax)(chicken pox) 2010-01-02 00:00:00 Completed [facility] Meningococcal Polysaccharide (groups A, C, Y and W-135) conjugate vaccine (MCV4P) 2010-01-02 00:00:00 Completed [facility] TDAP 2010-01-02 00:00:00 Completed [facility] Varicella (varivax)(chicken pox) 2010-01-02 00:00:00 Completed [facility] Meningococcal Polysaccharide (groups A, C, Y and W-135) conjugate vaccine (MCV4P) 2010-01-02 00:00:00 Completed [facility] TDAP 2010-01-02 00:00:00 Completed [facility] Varicella (varivax)(chicken pox) 2010-01-02 00:00:00 Completed [facility] Meningococcal Polysaccharide (groups A, C, Y and W-135) conjugate vaccine (MCV4P) 2010-01-02 00:00:00 Completed [facility] TDAP 2010-01-02 00:00:00 Completed [facility] Varicella (varivax)(chicken pox) 2010-01-02 00:00:00 Completed [facility] Meningococcal Polysaccharide (groups A, C, Y and W-135) conjugate vaccine (MCV4P) 2010-01-02 00:00:00 Completed [facility] TDAP 2010-01-02 00:00:00 Completed [facility] Varicella (varivax)(chicken pox) 2010-01-02 00:00:00 Completed [facility] Meningococcal Polysaccharide (groups A, C, Y and W-135) conjugate vaccine (MCV4P) 2010-01-02 00:00:00 Completed [facility] TDAP 2010-01-02 00:00:00 Completed [facility] Varicella (varivax)(chicken pox) 2010-01-02 00:00:00 Completed [facility] Meningococcal Polysaccharide (groups A, C, Y and W-135) conjugate vaccine (MCV4P) 2010-01-02 00:00:00 Completed [facility] TDAP 2010-01-02 00:00:00 Completed [facility] Varicella (varivax)(chicken pox) 2010-01-02 00:00:00 Completed [facility] Meningococcal Polysaccharide (groups A, C, Y and W-135) conjugate vaccine (MCV4P) 2010-01-02 00:00:00 Completed [facility] TDAP 2010-01-02 00:00:00 Completed [facility] Varicella (varivax)(chicken pox) 2010-01-02 00:00:00 Completed [facility] Meningococcal Polysaccharide (groups A, C, Y and W-135) conjugate vaccine (MCV4P) 2010-01-02 00:00:00 Completed [facility] TDAP 2010-01-02 00:00:00 Completed [facility] Varicella (varivax)(chicken pox) 2010-01-02 00:00:00 Completed [facility] Meningococcal Polysaccharide (groups A, C, Y and W-135) conjugate vaccine (MCV4P) 2010-01-02 00:00:00 Completed [facility] TDAP 2010-01-02 00:00:00 Completed [facility] Varicella (varivax)(chicken pox) 2010-01-02 00:00:00 Completed [facility] Meningococcal Polysaccharide (groups A, C, Y and W-135) conjugate vaccine (MCV4P) 2010-01-02 00:00:00 Completed [facility] TDAP 2010-01-02 00:00:00 Completed [facility] Varicella (varivax)(chicken pox) 2010-01-02 00:00:00 Completed [facility] Meningococcal Polysaccharide (groups A, C, Y and W-135) conjugate vaccine (MCV4P) 2010-01-02 00:00:00 Completed [facility] TDAP 2010-01-02 00:00:00 Completed [facility] Varicella (varivax)(chicken pox) 2010-01-02 00:00:00 Completed [facility] Meningococcal Polysaccharide (groups A, C, Y and W-135) conjugate vaccine (MCV4P) 2010-01-02 00:00:00 Completed [facility] TDAP 2010-01-02 00:00:00 Completed [facility] Varicella (varivax)(chicken pox) 2010-01-02 00:00:00 Completed [facility] Meningococcal Polysaccharide (groups A, C, Y and W-135) conjugate vaccine (MCV4P) 2010-01-02 00:00:00 Completed [facility] TDAP 2010-01-02 00:00:00 Completed [facility] Varicella (varivax)(chicken pox) 2010-01-02 00:00:00 Completed [facility] Meningococcal Polysaccharide (groups A, C, Y and W-135) conjugate vaccine (MCV4P) 2010-01-02 00:00:00 Completed [facility] Meningococcal Polysaccharide (groups A, C, Y and W-135) conjugate vaccine (MCV4P) 2010-01-02 00:00:00 Completed [facility] TDAP 2010-01-02 00:00:00 Completed [facility] Varicella (varivax)(chicken pox) 2010-01-02 00:00:00 Completed [facility] Meningococcal Polysaccharide (groups A, C, Y and W-135) conjugate vaccine (MCV4P) 2010-01-02 00:00:00 Completed [facility] TDAP 2010-01-02 00:00:00 Completed [facility] Varicella (varivax)(chicken pox) 2010-01-02 00:00:00 Completed [facility] Meningococcal Polysaccharide (groups A, C, Y and W-135) conjugate vaccine (MCV4P) 2010-01-02 00:00:00 Completed [facility] TDAP 2010-01-02 00:00:00 Completed [facility] Varicella (varivax)(chicken pox) 2010-01-02 00:00:00 Completed [facility] Tdap 2010-01-02 00:00:00 Completed [facility] Meningococcal Polysaccharide (groups A, C, Y and W-135) conjugate vaccine (MCV4P) 2010-01-02 00:00:00 Completed [facility] Varicella (varivax)(chicken pox) 2010-01-02 00:00:00 Completed [facility] TDAP 2010-01-02 00:00:00 Completed [facility] Varicella (varivax)(chicken pox) 2010-01-02 00:00:00 Completed [facility] Meningococcal Polysaccharide (groups A, C, Y and W-135) conjugate vaccine (MCV4P) 2010-01-02 00:00:00 Completed [facility] TDAP 2010-01-02 00:00:00 Completed [facility] Varicella (varivax)(chicken pox) 2010-01-02 00:00:00 Completed [facility] Meningococcal Polysaccharide (groups A, C, Y and W-135) conjugate vaccine (MCV4P) 2010-01-02 00:00:00 Completed [facility] TDAP 2010-01-02 00:00:00 Completed [facility] Varicella (varivax)(chicken pox) 2010-01-02 00:00:00 Completed [facility] Meningococcal Polysaccharide (groups A, C, Y and W-135) conjugate vaccine (MCV4P) 2010-01-02 00:00:00 Completed [facility] TDAP 2010-01-02 00:00:00 Completed [facility] Varicella (varivax)(chicken pox) 2010-01-02 00:00:00 Completed [facility] Meningococcal Polysaccharide (groups A, C, Y and W-135) conjugate vaccine (MCV4P) 2010-01-02 00:00:00 Completed [facility] Meningococcal Polysaccharide (groups A, C, Y and W-135) conjugate vaccine (MCV4P) 2010-01-02 00:00:00 Completed [facility] TDAP 2010-01-02 00:00:00 Completed [facility] Varicella (varivax)(chicken pox) 2010-01-02 00:00:00 Completed [facility] Meningococcal Polysaccharide (groups A, C, Y and W-135) conjugate vaccine (MCV4P) 2010-01-02 00:00:00 Completed [facility] Tdap 2010-01-02 00:00:00 Completed [facility] TDAP 2010-01-02 00:00:00 Completed [facility] Varicella (varivax)(chicken pox) 2010-01-02 00:00:00 Completed [facility] Varicella (varivax)(chicken pox) 2010-01-02 00:00:00 Completed [facility] Meningococcal Polysaccharide (groups A, C, Y and W-135) conjugate vaccine (MCV4P) 2010-01-02 00:00:00 Completed [facility] TDAP 2010-01-02 00:00:00 Completed [facility] Varicella (varivax)(chicken pox) 2010-01-02 00:00:00 Completed [facility] Meningococcal Polysaccharide (groups A, C, Y and W-135) conjugate vaccine (MCV4P) 2010-01-02 00:00:00 Completed [facility] TDAP 2010-01-02 00:00:00 Completed [facility] Varicella (varivax)(chicken pox) 2010-01-02 00:00:00 Completed [facility] Meningococcal Polysaccharide (groups A, C, Y and W-135) conjugate vaccine (MCV4P) 2010-01-02 00:00:00 Completed [facility] TDAP 2010-01-02 00:00:00 Completed [facility] Varicella (varivax)(chicken pox) 2010-01-02 00:00:00 Completed [facility] Meningococcal Polysaccharide (groups A, C, Y and W-135) conjugate vaccine (MCV4P) 2010-01-02 00:00:00 Completed [facility] TDAP 2010-01-02 00:00:00 Completed [facility] Varicella (varivax)(chicken pox) 2010-01-02 00:00:00 Completed [facility] Meningococcal Polysaccharide (groups A, C, Y and W-135) conjugate vaccine (MCV4P) 2010-01-02 00:00:00 Completed [facility] TDAP 2010-01-02 00:00:00 Completed [facility] Varicella (varivax)(chicken pox) 2010-01-02 00:00:00 Completed [facility] Meningococcal Polysaccharide (groups A, C, Y and W-135) conjugate vaccine (MCV4P) 2010-01-02 00:00:00 Completed [facility] TDAP 2010-01-02 00:00:00 Completed [facility] Varicella (varivax)(chicken pox) 2010-01-02 00:00:00 Completed [facility] Meningococcal Polysaccharide (groups A, C, Y and W-135) conjugate vaccine (MCV4P) 2010-01-02 00:00:00 Completed [facility] TDAP 2010-01-02 00:00:00 Completed [facility] Varicella (varivax)(chicken pox) 2010-01-02 00:00:00 Completed [facility] Meningococcal Polysaccharide (groups A, C, Y and W-135) conjugate vaccine (MCV4P) 2010-01-02 00:00:00 Completed [facility] TDAP 2010-01-02 00:00:00 Completed [facility] Varicella (varivax)(chicken pox) 2010-01-02 00:00:00 Completed [facility] Meningococcal Polysaccharide (groups A, C, Y and W-135) conjugate vaccine (MCV4P) 2010-01-02 00:00:00 Completed [facility] TDAP 2010-01-02 00:00:00 Completed [facility] Varicella (varivax)(chicken pox) 2010-01-02 00:00:00 Completed [facility] Meningococcal Polysaccharide (groups A, C, Y and W-135) conjugate vaccine (MCV4P) 2010-01-02 00:00:00 Completed [facility] TDAP 2010-01-02 00:00:00 Completed [facility] Varicella (varivax)(chicken pox) 2010-01-02 00:00:00 Completed [facility] Meningococcal Polysaccharide (groups A, C, Y and W-135) conjugate vaccine (MCV4P) 2010-01-02 00:00:00 Completed [facility] TDAP 2010-01-02 00:00:00 Completed [facility] Varicella (varivax)(chicken pox) 2010-01-02 00:00:00 Completed [facility] Meningococcal Polysaccharide (groups A, C, Y and W-135) conjugate vaccine (MCV4P) 2010-01-02 00:00:00 Completed [facility] TDAP 2010-01-02 00:00:00 Completed [facility] Varicella (varivax)(chicken pox) 2010-01-02 00:00:00 Completed [facility] Meningococcal Polysaccharide (groups A, C, Y and W-135) conjugate vaccine (MCV4P) 2010-01-02 00:00:00 Completed [facility] TDAP 2010-01-02 00:00:00 Completed [facility] Varicella (varivax)(chicken pox) 2010-01-02 00:00:00 Completed [facility] Meningococcal Polysaccharide (groups A, C, Y and W-135) conjugate vaccine (MCV4P) 2010-01-02 00:00:00 Completed [facility] TDAP 2010-01-02 00:00:00 Completed [facility] Varicella (varivax)(chicken pox) 2010-01-02 00:00:00 Completed [facility] Meningococcal Polysaccharide (groups A, C, Y and W-135) conjugate vaccine (MCV4P) 2010-01-02 00:00:00 Completed [facility] TDAP 2010-01-02 00:00:00 Completed [facility] Varicella (varivax)(chicken pox) 2010-01-02 00:00:00 Completed [facility] Meningococcal Polysaccharide (groups A, C, Y and W-135) conjugate vaccine (MCV4P) 2010-01-02 00:00:00 Completed [facility] TDAP 2010-01-02 00:00:00 Completed [facility] Varicella (varivax)(chicken pox) 2010-01-02 00:00:00 Completed [facility] Meningococcal Polysaccharide (groups A, C, Y and W-135) conjugate vaccine (MCV4P) 2010-01-02 00:00:00 Completed [facility] Meningococcal Polysaccharide (groups A, C, Y and W-135) conjugate vaccine (MCV4P) 2010-01-02 00:00:00 Completed [facility] TDAP 2010-01-02 00:00:00 Completed [facility] Varicella (varivax)(chicken pox) 2010-01-02 00:00:00 Completed [facility] Meningococcal Polysaccharide (groups A, C, Y and W-135) conjugate vaccine (MCV4P) 2010-01-02 00:00:00 Completed [facility] TDAP 2010-01-02 00:00:00 Completed [facility] Varicella (varivax)(chicken pox) 2010-01-02 00:00:00 Completed [facility] Meningococcal Polysaccharide (groups A, C, Y and W-135) conjugate vaccine (MCV4P) 2010-01-02 00:00:00 Completed [facility] TDAP 2010-01-02 00:00:00 Completed [facility] Varicella (varivax)(chicken pox) 2010-01-02 00:00:00 Completed [facility] Tdap 2010-01-02 00:00:00 Completed [facility] Meningococcal Polysaccharide (groups A, C, Y and W-135) conjugate vaccine (MCV4P) 2010-01-02 00:00:00 Completed [facility] Varicella (varivax)(chicken pox) 2010-01-02 00:00:00 Completed [facility] TDAP 2010-01-02 00:00:00 Completed [facility] Varicella (varivax)(chicken pox) 2010-01-02 00:00:00 Completed [facility] Meningococcal Polysaccharide (groups A, C, Y and W-135) conjugate vaccine (MCV4P) 2010-01-02 00:00:00 Completed [facility] TDAP 2010-01-02 00:00:00 Completed [facility] Varicella (varivax)(chicken pox) 2010-01-02 00:00:00 Completed [facility] Meningococcal Polysaccharide (groups A, C, Y and W-135) conjugate vaccine (MCV4P) 2010-01-02 00:00:00 Completed [facility] TDAP 2010-01-02 00:00:00 Completed [facility] Varicella (varivax)(chicken pox) 2010-01-02 00:00:00 Completed [facility] Meningococcal Polysaccharide (groups A, C, Y and W-135) conjugate vaccine (MCV4P) 2010-01-02 00:00:00 Completed [facility] MMR 2003-02-07 00:00:00 Completed [facility] Polio (IPV/OPV) 2003-02-07 00:00:00 Completed [facility] Daptacel DTAP 2003-02-07 00:00:00 Completed [facility] MMR 2003-02-07 00:00:00 Completed [facility] Polio (IPV/OPV) 2003-02-07 00:00:00 Completed [facility] Daptacel DTAP 2003-02-07 00:00:00 Completed [facility] MMR 2003-02-07 00:00:00 Completed [facility] Polio (IPV/OPV) 2003-02-07 00:00:00 Completed [facility] Daptacel DTAP 2003-02-07 00:00:00 Completed [facility] MMR 2003-02-07 00:00:00 Completed [facility] Polio (IPV/OPV) 2003-02-07 00:00:00 Completed [facility] Daptacel DTAP 2003-02-07 00:00:00 Completed [facility] MMR 2003-02-07 00:00:00 Completed [facility] Polio (IPV/OPV) 2003-02-07 00:00:00 Completed [facility] Daptacel DTAP 2003-02-07 00:00:00 Completed [facility] MMR 2003-02-07 00:00:00 Completed [facility] Polio (IPV/OPV) 2003-02-07 00:00:00 Completed [facility] Daptacel DTAP 2003-02-07 00:00:00 Completed [facility] MMR 2003-02-07 00:00:00 Completed [facility] Polio (IPV/OPV) 2003-02-07 00:00:00 Completed [facility] Daptacel DTAP 2003-02-07 00:00:00 Completed [facility] MMR 2003-02-07 00:00:00 Completed [facility] Polio (IPV/OPV) 2003-02-07 00:00:00 Completed [facility] Daptacel DTAP 2003-02-07 00:00:00 Completed [facility] MMR 2003-02-07 00:00:00 Completed [facility] Polio (IPV/OPV) 2003-02-07 00:00:00 Completed [facility] Daptacel DTAP 2003-02-07 00:00:00 Completed [facility] MMR 2003-02-07 00:00:00 Completed [facility] Polio (IPV/OPV) 2003-02-07 00:00:00 Completed [facility] Daptacel DTAP 2003-02-07 00:00:00 Completed [facility] MMR 2003-02-07 00:00:00 Completed [facility] Polio (IPV/OPV) 2003-02-07 00:00:00 Completed [facility] Daptacel DTAP 2003-02-07 00:00:00 Completed [facility] MMR 2003-02-07 00:00:00 Completed [facility] Polio (IPV/OPV) 2003-02-07 00:00:00 Completed [facility] Daptacel DTAP 2003-02-07 00:00:00 Completed [facility] MMR 2003-02-07 00:00:00 Completed [facility] Polio (IPV/OPV) 2003-02-07 00:00:00 Completed [facility] Daptacel DTAP 2003-02-07 00:00:00 Completed [facility] MMR 2003-02-07 00:00:00 Completed [facility] Polio (IPV/OPV) 2003-02-07 00:00:00 Completed [facility] Daptacel DTAP 2003-02-07 00:00:00 Completed [facility] MMR 2003-02-07 00:00:00 Completed [facility] Polio (IPV/OPV) 2003-02-07 00:00:00 Completed [facility] Daptacel DTAP 2003-02-07 00:00:00 Completed [facility] Daptacel DTAP 2003-02-07 00:00:00 Completed [facility] MMR 2003-02-07 00:00:00 Completed [facility] Polio (IPV/OPV) 2003-02-07 00:00:00 Completed [facility] Daptacel DTAP 2003-02-07 00:00:00 Completed [facility] MMR 2003-02-07 00:00:00 Completed [facility] Polio (IPV/OPV) 2003-02-07 00:00:00 Completed [facility] Daptacel DTAP 2003-02-07 00:00:00 Completed [facility] MMR 2003-02-07 00:00:00 Completed [facility] Polio (IPV/OPV) 2003-02-07 00:00:00 Completed [facility] Daptacel DTAP 2003-02-07 00:00:00 Completed [facility] MMR 2003-02-07 00:00:00 Completed [facility] Polio (IPV/OPV) 2003-02-07 00:00:00 Completed [facility] Daptacel DTAP 2003-02-07 00:00:00 Completed [facility] Daptacel DTAP 2003-02-07 00:00:00 Completed [facility] MMR 2003-02-07 00:00:00 Completed [facility] Polio (IPV/OPV) 2003-02-07 00:00:00 Completed [facility] Daptacel DTAP 2003-02-07 00:00:00 Completed [facility] MMR 2003-02-07 00:00:00 Completed [facility] Polio (IPV/OPV) 2003-02-07 00:00:00 Completed [facility] MMR 2003-02-07 00:00:00 Completed [facility] Daptacel DTAP 2003-02-07 00:00:00 Completed [facility] MMR 2003-02-07 00:00:00 Completed [facility] Polio (IPV/OPV) 2003-02-07 00:00:00 Completed [facility] Daptacel DTAP 2003-02-07 00:00:00 Completed [facility] MMR 2003-02-07 00:00:00 Completed [facility] Polio (IPV/OPV) 2003-02-07 00:00:00 Completed [facility] Polio (IPV/OPV) 2003-02-07 00:00:00 Completed [facility] Daptacel DTAP 2003-02-07 00:00:00 Completed [facility] MMR 2003-02-07 00:00:00 Completed [facility] Polio (IPV/OPV) 2003-02-07 00:00:00 Completed [facility] Daptacel DTAP 2003-02-07 00:00:00 Completed [facility] MMR 2003-02-07 00:00:00 Completed [facility] Polio (IPV/OPV) 2003-02-07 00:00:00 Completed [facility] Daptacel DTAP 2003-02-07 00:00:00 Completed [facility] MMR 2003-02-07 00:00:00 Completed [facility] Polio (IPV/OPV) 2003-02-07 00:00:00 Completed [facility] Daptacel DTAP 2003-02-07 00:00:00 Completed [facility] MMR 2003-02-07 00:00:00 Completed [facility] Polio (IPV/OPV) 2003-02-07 00:00:00 Completed [facility] MMR 2003-02-07 00:00:00 Completed [facility] Daptacel DTAP 2003-02-07 00:00:00 Completed [facility] MMR 2003-02-07 00:00:00 Completed [facility] Polio (IPV/OPV) 2003-02-07 00:00:00 Completed [facility] Polio (IPV/OPV) 2003-02-07 00:00:00 Completed [facility] Daptacel DTAP 2003-02-07 00:00:00 Completed [facility] MMR 2003-02-07 00:00:00 Completed [facility] Polio (IPV/OPV) 2003-02-07 00:00:00 Completed [facility] Daptacel DTAP 2003-02-07 00:00:00 Completed [facility] MMR 2003-02-07 00:00:00 Completed [facility] Polio (IPV/OPV) 2003-02-07 00:00:00 Completed [facility] Daptacel DTAP 2003-02-07 00:00:00 Completed [facility] MMR 2003-02-07 00:00:00 Completed [facility] Polio (IPV/OPV) 2003-02-07 00:00:00 Completed [facility] Daptacel DTAP 2003-02-07 00:00:00 Completed [facility] MMR 2003-02-07 00:00:00 Completed [facility] Polio (IPV/OPV) 2003-02-07 00:00:00 Completed [facility] Daptacel DTAP 2003-02-07 00:00:00 Completed [facility] MMR 2003-02-07 00:00:00 Completed [facility] Polio (IPV/OPV) 2003-02-07 00:00:00 Completed [facility] Daptacel DTAP 2003-02-07 00:00:00 Completed [facility] MMR 2003-02-07 00:00:00 Completed [facility] Polio (IPV/OPV) 2003-02-07 00:00:00 Completed [facility] Daptacel DTAP 2003-02-07 00:00:00 Completed [facility] MMR 2003-02-07 00:00:00 Completed [facility] Polio (IPV/OPV) 2003-02-07 00:00:00 Completed [facility] Daptacel DTAP 2003-02-07 00:00:00 Completed [facility] MMR 2003-02-07 00:00:00 Completed [facility] Polio (IPV/OPV) 2003-02-07 00:00:00 Completed [facility] Daptacel DTAP 2003-02-07 00:00:00 Completed [facility] MMR 2003-02-07 00:00:00 Completed [facility] Polio (IPV/OPV) 2003-02-07 00:00:00 Completed [facility] Daptacel DTAP 2003-02-07 00:00:00 Completed [facility] MMR 2003-02-07 00:00:00 Completed [facility] Polio (IPV/OPV) 2003-02-07 00:00:00 Completed [facility] Daptacel DTAP 2003-02-07 00:00:00 Completed [facility] MMR 2003-02-07 00:00:00 Completed [facility] Polio (IPV/OPV) 2003-02-07 00:00:00 Completed [facility] Daptacel DTAP 2003-02-07 00:00:00 Completed [facility] MMR 2003-02-07 00:00:00 Completed [facility] Polio (IPV/OPV) 2003-02-07 00:00:00 Completed [facility] Daptacel DTAP 2003-02-07 00:00:00 Completed [facility] MMR 2003-02-07 00:00:00 Completed [facility] Polio (IPV/OPV) 2003-02-07 00:00:00 Completed [facility] Daptacel DTAP 2003-02-07 00:00:00 Completed [facility] MMR 2003-02-07 00:00:00 Completed [facility] Polio (IPV/OPV) 2003-02-07 00:00:00 Completed [facility] Daptacel DTAP 2003-02-07 00:00:00 Completed [facility] MMR 2003-02-07 00:00:00 Completed [facility] Polio (IPV/OPV) 2003-02-07 00:00:00 Com[facility] [facility] DTAP 2003-02-07 00:00:00 Completed [facility] Daptacel DTAP 2003-02-07 00:00:00 Completed [facility] MMR 2003-02-07 00:00:00 Completed [facility] Polio (IPV/OPV) 2003-02-07 00:00:00 Completed [facility] Daptacel DTAP 2003-02-07 00:00:00 Completed [facility] MMR 2003-02-07 00:00:00 Completed [facility] Polio (IPV/OPV) 2003-02-07 00:00:00 Completed [facility] Daptacel DTAP 2003-02-07 00:00:00 Completed [facility] MMR 2003-02-07 00:00:00 Completed [facility] Polio (IPV/OPV) 2003-02-07 00:00:00 Completed [facility] MMR 2003-02-07 00:00:00 Completed [facility] Daptacel DTAP 2003-02-07 00:00:00 Completed [facility] MMR 2003-02-07 00:00:00 Completed [facility] Polio (IPV/OPV) 2003-02-07 00:00:00 Completed [facility] Daptacel DTAP 2003-02-07 00:00:00 Completed [facility] Polio (IPV/OPV) 2003-02-07 00:00:00 Completed [facility] MMR 2003-02-07 00:00:00 Completed [facility] Polio (IPV/OPV) 2003-02-07 00:00:00 Completed [facility] D[facility]acel DTAP 2003-02-07 00:00:00 Completed [facility] MMR 2003-02-07 00:00:00 Completed [facility] Polio (IPV/OPV) 2003-02-07 00:00:00 Completed [facility] D[facility]acel DTAP 2003-02-07 00:00:00 Completed [facility] MMR 2003-02-07 00:00:00 Completed [facility] Polio (IPV/OPV) 2003-02-07 00:00:00 Completed [facility] D[facility]acel DTAP 2003-02-07 00:00:00 Completed [facility] MMR 2003-02-07 00:00:00 Completed [facility] Polio (IPV/OPV) 2003-02-07 00:00:00 Completed [facility] Daptacel DTAP 2003-02-07 00:00:00 Completed [facility] Hiberix 1999-06-27 00:00:00 Completed [facility] Daptacel DTAP 1999-06-27 00:00:00 Completed [facility] Hiberix 1999-06-27 00:00:00 Completed [facility] Daptacel DTAP 1999-06-27 00:00:00 Completed [facility] Hiberix 1999-06-27 00:00:00 Completed [facility] Daptacel DTAP 1999-06-27 00:00:00 Completed [facility] Hiberix 1999-06-27 00:00:00 Completed [facility] Daptacel DTAP 1999-06-27 00:00:00 Completed [facility] Hiberix 1999-06-27 00:00:00 Completed [facility] D[facility]acel DTAP 1999-06-27 00:00:00 Completed [facility] Hiberix 1999-06-27 00:00:00 Completed [facility] D[facility]acel DTAP 1999-06-27 00:00:00 Completed [facility] Hiberix 1999-06-27 00:00:00 Completed [facility] Daptacel DTAP 1999-06-27 00:00:00 Completed [facility] Hiberix 1999-06-27 00:00:00 Completed [facility] Daptacel DTAP 1999-06-27 00:00:00 Completed [facility] Hiberix 1999-06-27 00:00:00 Completed [facility] Daptacel DTAP 1999-06-27 00:00:00 Completed [facility] Hiberix 1999-06-27 00:00:00 Completed [facility] Daptacel DTAP 1999-06-27 00:00:00 Completed [facility] Hiberix 1999-06-27 00:00:00 Completed [facility] Daptacel DTAP 1999-06-27 00:00:00 Completed [facility] Hiberix 1999-06-27 00:00:00 Completed [facility] Daptacel DTAP 1999-06-27 00:00:00 Completed [facility] Daptacel DTAP 1999-06-27 00:00:00 Completed [facility] Hiberix 1999-06-27 00:00:00 Completed [facility] Daptacel DTAP 1999-06-27 00:00:00 Completed [facility] Hiberix 1999-06-27 00:00:00 Completed [facility] Daptacel DTAP 1999-06-27 00:00:00 Completed [facility] Hiberix 1999-06-27 00:00:00 Completed [facility] Daptacel DTAP 1999-06-27 00:00:00 Completed [facility] Hiberix 1999-06-27 00:00:00 Completed [facility] Daptacel DTAP 1999-06-27 00:00:00 Completed [facility] Hiberix 1999-06-27 00:00:00 Completed [facility] Daptacel DTAP 1999-06-27 00:00:00 Completed [facility] Hiberix 1999-06-27 00:00:00 Completed [facility] Daptacel DTAP 1999-06-27 00:00:00 Completed [facility] Hiberix 1999-06-27 00:00:00 Completed [facility] Daptacel DTAP 1999-06-27 00:00:00 Completed [facility] Daptacel DTAP 1999-06-27 00:00:00 Completed [facility] Hiberix 1999-06-27 00:00:00 Completed [facility] Daptacel DTAP 1999-06-27 00:00:00 Completed [facility] Hiberix 1999-06-27 00:00:00 Completed [facility] Daptacel DTAP 1999-06-27 00:00:00 Completed [facility] Hiberix 1999-06-27 00:00:00 Completed [facility] Daptacel DTAP 1999-06-27 00:00:00 Completed [facility] Hiberix 1999-06-27 00:00:00 Completed [facility] Daptacel DTAP 1999-06-27 00:00:00 Completed [facility] Hiberix 1999-06-27 00:00:00 Completed [facility] Daptacel DTAP 1999-06-27 00:00:00 Completed [facility] Hiberix 1999-06-27 00:00:00 Completed [facility] Hiberix 1999-06-27 00:00:00 Completed [facility] Daptacel DTAP 1999-06-27 00:00:00 Completed [facility] Hiberix 1999-06-27 00:00:00 Completed [facility] Daptacel DTAP 1999-06-27 00:00:00 Completed [facility] Hiberix 1999-06-27 00:00:00 Completed [facility] Daptacel DTAP 1999-06-27 00:00:00 Completed [facility] Hiberix 1999-06-27 00:00:00 Completed [facility] Daptacel DTAP 1999-06-27 00:00:00 Completed [facility] Hiberix 1999-06-27 00:00:00 Completed [facility] Hiberix 1999-06-27 00:00:00 Completed [facility] D[facility]el DTAP 1999-06-27 00:00:00 Completed [facility] Hiberix 1999-06-27 00:00:00 Completed [facility] Daptacel DTAP 1999-06-27 00:00:00 Completed [facility] Hiberix 1999-06-27 00:00:00 Completed [facility] Daptacel DTAP 1999-06-27 00:00:00 Completed [facility] Hiberix 1999-06-27 00:00:00 Completed [facility] Daptacel DTAP 1999-06-27 00:00:00 Completed [facility] Hiberix 1999-06-27 00:00:00 Completed [facility] Daptacel DTAP 1999-06-27 00:00:00 Completed [facility] Hiberix 1999-06-27 00:00:00 Completed [facility] Daptacel DTAP 1999-06-27 00:00:00 Completed [facility] Hiberix 1999-06-27 00:00:00 Completed [facility] Daptacel DTAP 1999-06-27 00:00:00 Completed [facility] Hiberix 1999-06-27 00:00:00 Completed [facility] Daptacel DTAP 1999-06-27 00:00:00 Completed [facility] Hiberix 1999-06-27 00:00:00 Completed [facility] Daptacel DTAP 1999-06-27 00:00:00 Completed [facility] Hiberix 1999-06-27 00:00:00 Completed [facility] Daptacel DTAP 1999-06-27 00:00:00 Completed [facility] Hiberix 1999-06-27 00:00:00 Completed [facility] Daptacel DTAP 1999-06-27 00:00:00 Completed [facility] Hiberix 1999-06-27 00:00:00 Completed [facility] Daptacel DTAP 1999-06-27 00:00:00 Completed [facility] Hiber[facility] 1999-06-27 00:00:00 Completed [facility] Daptacel DTAP 1999-06-27 00:00:00 Completed [facility] Hiber[facility] 1999-06-27 00:00:00 Completed [facility] D[facility]el DTAP 1999-06-27 00:00:00 Completed [facility] Hiber[facility] 1999-06-27 00:00:00 Completed [facility] Daptacel DTAP 1999-06-27 00:00:00 Completed [facility] Daptacel DTAP 1999-06-27 00:00:00 Completed [facility] Hiberix 1999-06-27 00:00:00 Completed [facility] Daptacel DTAP 1999-06-27 00:00:00 Completed [facility] Hiberix 1999-06-27 00:00:00 Completed [facility] Daptacel DTAP 1999-06-27 00:00:00 Completed [facility] Hiber[facility] 1999-06-27 00:00:00 Completed [facility] Daptacel DTAP 1999-06-27 00:00:00 Completed [facility] Hiberix 1999-06-27 00:00:00 Completed [facility] Daptacel DTAP 1999-06-27 00:00:00 Completed [facility] Hiberix 1999-06-27 00:00:00 Completed [facility] Daptacel DTAP 1999-06-27 00:00:00 Completed [facility] Hiber[facility] 1999-06-27 00:00:00 Completed [facility] D[facility]el DTAP 1999-06-27 00:00:00 Completed [facility] Hiberix 1999-06-27 00:00:00 Completed [facility] Hiber[facility] 1999-06-27 00:00:00 Completed [facility] D[facility]el DTAP 1999-06-27 00:00:00 Completed [facility] Hiber[facility] 1999-06-27 00:00:00 Completed [facility] D[facility]el DTAP 1999-06-27 00:00:00 Completed [facility] Polio (IPV/OPV) 1998-09-10 00:00:00 Completed [facility] Varicella (varivax)(chicken pox) 1998-09-10 00:00:00 Completed [facility] Hiberix 1998-09-10 00:00:00 Completed [facility] D[facility]acel DTAP 1998-09-10 00:00:00 Completed [facility] MMR 1998-09-10 00:00:00 Completed [facility] Polio (IPV/OPV) 1998-09-10 00:00:00 Completed [facility] Varicella (varivax)(chicken pox) 1998-09-10 00:00:00 Completed [facility] Hiber[facility] 1998-09-10 00:00:00 Completed [facility] D[facility]el DTAP 1998-09-10 00:00:00 Completed [facility] MMR 1998-09-10 00:00:00 Completed [facility] Polio (IPV/OPV) 1998-09-10 00:00:00 Completed [facility] Varicella (varivax)(chicken pox) 1998-09-10 00:00:00 Completed [facility] Hiberix 1998-09-10 00:00:00 Completed [facility] D[facility]el DTAP 1998-09-10 00:00:00 Completed [facility] MMR 1998-09-10 00:00:00 Completed [facility] Polio (IPV/OPV) 1998-09-10 00:00:00 Completed [facility] Varicella (varivax)(chicken pox) 1998-09-10 00:00:00 Completed [facility] Hiberix 1998-09-10 00:00:00 Completed [facility] D[facility]el DTAP 1998-09-10 00:00:00 Completed [facility] MMR 1998-09-10 00:00:00 Completed [facility] Polio (IPV/OPV) 1998-09-10 00:00:00 Completed [facility] Varicella (varivax)(chicken pox) 1998-09-10 00:00:00 Completed [facility]iber[facility] 1998-09-10 00:00:00 Completed [facility] D[facility]el DTAP 1998-09-10 00:00:00 Completed [facility] MMR 1998-09-10 00:00:00 Completed [facility] Polio (IPV/OPV) 1998-09-10 00:00:00 Completed [facility] Varicella (varivax)(chicken pox) 1998-09-10 00:00:00 Completed [facility] 1998-09-10 00:00:00 Completed [facility] D[facility]el DTAP 1998-09-10 00:00:00 Completed [facility] MMR 1998-09-10 00:00:00 Completed [facility] Polio (IPV/OPV) 1998-09-10 00:00:00 Completed [facility] Varicella (varivax)(chicken pox) 1998-09-10 00:00:00 Completed [facility]iber[facility] 1998-09-10 00:00:00 Completed [facility] D[facility]el DTAP 1998-09-10 00:00:00 Completed [facility] MMR 1998-09-10 00:00:00 Completed [facility] Polio (IPV/OPV) 1998-09-10 00:00:00 Completed [facility] Varicella (varivax)(chicken pox) 1998-09-10 00:00:00 Completed [facility]iber[facility] 1998-09-10 00:00:00 Completed [facility] D[facility]el DTAP 1998-09-10 00:00:00 Completed [facility] MMR 1998-09-10 00:00:00 Completed [facility] Polio (IPV/OPV) 1998-09-10 00:00:00 Completed [facility] Varicella (varivax)(chicken pox) 1998-09-10 00:00:00 Completed [facility]iber[facility] 1998-09-10 00:00:00 Completed [facility] D[facility]el DTAP 1998-09-10 00:00:00 Completed [facility] D[facility]el DTAP 1998-09-10 00:00:00 Completed [facility] MMR 1998-09-10 00:00:00 Completed [facility] Polio (IPV/OPV) 1998-09-10 00:00:00 Completed [facility] Varicella (varivax)(chicken pox) 1998-09-10 00:00:00 Completed [facility]iber[facility] 1998-09-10 00:00:00 Completed [facility] D[facility]acel DTAP 1998-09-10 00:00:00 Completed [facility] MMR 1998-09-10 00:00:00 Completed [facility] Polio (IPV/OPV) 1998-09-10 00:00:00 Completed [facility] Varicella (varivax)(chicken pox) 1998-09-10 00:00:00 Completed [facility]iber[facility] 1998-09-10 00:00:00 Completed [facility] D[facility]acel DTAP 1998-09-10 00:00:00 Completed [facility] MMR 1998-09-10 00:00:00 Completed [facility] Polio (IPV/OPV) 1998-09-10 00:00:00 Completed [facility] Varicella (varivax)(chicken pox) 1998-09-10 00:00:00 Completed [facility]iber[facility] 1998-09-10 00:00:00 Completed [facility] D[facility]acel DTAP 1998-09-10 00:00:00 Completed [facility] MMR 1998-09-10 00:00:00 Completed [facility] Polio (IPV/OPV) 1998-09-10 00:00:00 Completed [facility] Varicella (varivax)(chicken pox) 1998-09-10 00:00:00 Completed [facility]iberix 1998-09-10 00:00:00 Completed [facility] D[facility]acel DTAP 1998-09-10 00:00:00 Completed [facility] MMR 1998-09-10 00:00:00 Completed [facility] Polio (IPV/OPV) 1998-09-10 00:00:00 Completed [facility] Varicella (varivax)(chicken pox) 1998-09-10 00:00:00 Completed [facility]iber[facility] 1998-09-10 00:00:00 Completed [facility] D[facility]acel DTAP 1998-09-10 00:00:00 Completed [facility] MMR 1998-09-10 00:00:00 Completed [facility] Polio (IPV/OPV) 1998-09-10 00:00:00 Completed [facility] Varicella (varivax)(chicken pox) 1998-09-10 00:00:00 Completed [facility]iber[facility] 1998-09-10 00:00:00 Completed [facility] D[facility]el DTAP 1998-09-10 00:00:00 Completed [facility] MMR 1998-09-10 00:00:00 Completed [facility] Polio (IPV/OPV) 1998-09-10 00:00:00 Completed [facility] Varicella (varivax)(chicken pox) 1998-09-10 00:00:00 Completed [facility] 1998-09-10 00:00:00 Completed [facility] D[facility]el DTAP 1998-09-10 00:00:00 Completed [facility] MMR 1998-09-10 00:00:00 Completed [facility] Polio (IPV/OPV) 1998-09-10 00:00:00 Completed [facility] Varicella (varivax)(chicken pox) 1998-09-10 00:00:00 Completed [facility] 1998-09-10 00:00:00 Completed [facility] D[facility]el DTAP 1998-09-10 00:00:00 Completed [facility] MMR 1998-09-10 00:00:00 Completed [facility] Polio (IPV/OPV) 1998-09-10 00:00:00 Completed [facility] Varicella (varivax)(chicken pox) 1998-09-10 00:00:00 Completed [facility] 1998-09-10 00:00:00 Completed [facility] D[facility]el DTAP 1998-09-10 00:00:00 Completed [facility] MMR 1998-09-10 00:00:00 Completed [facility] Polio (IPV/OPV) 1998-09-10 00:00:00 Completed [facility] D[facility]el DTAP 1998-09-10 00:00:00 Completed [facility] Varicella (varivax)(chicken pox) 1998-09-10 00:00:00 Completed [facility] 1998-09-10 00:00:00 Completed [facility] D[facility]el DTAP 1998-09-10 00:00:00 Completed [facility] MMR 1998-09-10 00:00:00 Completed [facility] Polio (IPV/OPV) 1998-09-10 00:00:00 Completed [facility] Varicella (varivax)(chicken pox) 1998-09-10 00:00:00 Completed [facility] 1998-09-10 00:00:00 Completed [facility] D[facility]acel DTAP 1998-09-10 00:00:00 Completed [facility] MMR 1998-09-10 00:00:00 Completed [facility] Polio (IPV/OPV) 1998-09-10 00:00:00 Completed [facility] Varicella (varivax)(chicken pox) 1998-09-10 00:00:00 Completed [facility] 1998-09-10 00:00:00 Completed [facility] MMR 1998-09-10 00:00:00 Completed [facility] D[facility]el DTAP 1998-09-10 00:00:00 Completed [facility] MMR 1998-09-10 00:00:00 Completed [facility] Polio (IPV/OPV) 1998-09-10 00:00:00 Completed [facility] Varicella (varivax)(chicken pox) 1998-09-10 00:00:00 Completed [facility] 1998-09-10 00:00:00 Completed [facility] D[facility]el DTAP 1998-09-10 00:00:00 Completed [facility] Polio (IPV/OPV) 1998-09-10 00:00:00 Completed [facility] MMR 1998-09-10 00:00:00 Completed [facility] Polio (IPV/OPV) 1998-09-10 00:00:00 Completed [facility] Varicella (varivax)(chicken pox) 1998-09-10 00:00:00 Completed [facility] 1998-09-10 00:00:00 Completed [facility] Varicella (varivax)(chicken pox) 1998-09-10 00:00:00 Completed [facility] D[facility]acel DTAP 1998-09-10 00:00:00 Completed [facility] MMR 1998-09-10 00:00:00 Completed [facility] Polio (IPV/OPV) 1998-09-10 00:00:00 Completed [facility] Varicella (varivax)(chicken pox) 1998-09-10 00:00:00 Completed [facility] 1998-09-10 00:00:00 Completed [facility] 1998-09-10 00:00:00 Completed [facility] D[facility]el DTAP 1998-09-10 00:00:00 Completed [facility] MMR 1998-09-10 00:00:00 Completed [facility] Polio (IPV/OPV) 1998-09-10 00:00:00 Completed [facility] Varicella (varivax)(chicken pox) 1998-09-10 00:00:00 Completed [facility] 1998-09-10 00:00:00 Completed [facility] D[facility]el DTAP 1998-09-10 00:00:00 Completed [facility] MMR 1998-09-10 00:00:00 Completed [facility] Polio (IPV/OPV) 1998-09-10 00:00:00 Completed [facility] Varicella (varivax)(chicken pox) 1998-09-10 00:00:00 Completed [facility] 1998-09-10 00:00:00 Completed [facility] D[facility]el DTAP 1998-09-10 00:00:00 Completed [facility] MMR 1998-09-10 00:00:00 Completed [facility] Polio (IPV/OPV) 1998-09-10 00:00:00 Completed [facility] Varicella (varivax)(chicken pox) 1998-09-10 00:00:00 Completed [facility] 1998-09-10 00:00:00 Completed [facility] MMR 1998-09-10 00:00:00 Completed [facility] D[facility]acel DTAP 1998-09-10 00:00:00 Completed [facility] MMR 1998-09-10 00:00:00 Completed [facility] Polio (IPV/OPV) 1998-09-10 00:00:00 Completed [facility] Varicella (varivax)(chicken pox) 1998-09-10 00:00:00 Completed [facility] Polio (IPV/OPV) 1998-09-10 00:00:00 Completed [facility] 1998-09-10 00:00:00 Completed [facility] D[facility]el DTAP 1998-09-10 00:00:00 Completed [facility] MMR 1998-09-10 00:00:00 Completed [facility] Polio (IPV/OPV) 1998-09-10 00:00:00 Completed [facility] Varicella (varivax)(chicken pox) 1998-09-10 00:00:00 Completed [facility] 1998-09-10 00:00:00 Completed [facility] Varicella (varivax)(chicken pox) 1998-09-10 00:00:00 Completed [facility] 1998-09-10 00:00:00 Completed [facility] D[facility]el DTAP 1998-09-10 00:00:00 Completed [facility] MMR 1998-09-10 00:00:00 Completed [facility] Polio (IPV/OPV) 1998-09-10 00:00:00 Completed [facility] Varicella (varivax)(chicken pox) 1998-09-10 00:00:00 Completed [facility] 1998-09-10 00:00:00 Completed [facility] D[facility]el DTAP 1998-09-10 00:00:00 Completed [facility] MMR 1998-09-10 00:00:00 Completed [facility] Polio (IPV/OPV) 1998-09-10 00:00:00 Completed [facility] Varicella (varivax)(chicken pox) 1998-09-10 00:00:00 Completed [facility] 1998-09-10 00:00:00 Completed [facility]el DTAP 1998-09-10 00:00:00 [facility] [facility] M[facility] 1998-09-10 00:00:00 Completed [facility] Polio (IPV/OPV) 1998-09-10 00:00:00 Completed [facility] Varicella (varivax)(chicken pox) 1998-09-10 00:00:00 Completed [facility] Hiberix 1998-09-10 00:00:00 Completed [facility] Daptacel DTAP 1998-09-10 00:00:00 Completed [facility] MMR 1998-09-10 00:00:00 Completed [facility] Polio (IPV/OPV) 1998-09-10 00:00:00 Completed [facility] Varicella (varivax)(chicken pox) 1998-09-10 00:00:00 Completed [facility] Hiberix 1998-09-10 00:00:00 Completed [facility] Daptacel DTAP 1998-09-10 00:00:00 Completed [facility] MMR 1998-09-10 00:00:00 Completed [facility] Polio (IPV/OPV) 1998-09-10 00:00:00 Completed [facility] Varicella (varivax)(chicken pox) 1998-09-10 00:00:00 Completed [facility] Hiberix 1998-09-10 00:00:00 Completed [facility] Daptacel DTAP 1998-09-10 00:00:00 Completed [facility] MMR 1998-09-10 00:00:00 Completed [facility] Polio (IPV/OPV) 1998-09-10 00:00:00 Completed [facility] Varicella (varivax)(chicken pox) 1998-09-10 00:00:00 Completed [facility] Hiberix 1998-09-10 00:00:00 Completed [facility] Daptacel DTAP 1998-09-10 00:00:00 Completed [facility] MMR 1998-09-10 00:00:00 Completed [facility] Polio (IPV/OPV) 1998-09-10 00:00:00 Completed [facility] Varicella (varivax)(chicken pox) 1998-09-10 00:00:00 Completed [facility] Hiberix 1998-09-10 00:00:00 Completed [facility] Daptacel DTAP 1998-09-10 00:00:00 Completed [facility] MMR 1998-09-10 00:00:00 Completed [facility] Polio (IPV/OPV) 1998-09-10 00:00:00 Completed [facility] Varicella (varivax)(chicken pox) 1998-09-10 00:00:00 Completed [facility] Hiberix 1998-09-10 00:00:00 Completed [facility] Daptacel DTAP 1998-09-10 00:00:00 Completed [facility] MMR 1998-09-10 00:00:00 Completed [facility] Polio (IPV/OPV) 1998-09-10 00:00:00 Completed [facility] Varicella (varivax)(chicken pox) 1998-09-10 00:00:00 Completed [facility] Hiberix 1998-09-10 00:00:00 Completed [facility] Daptacel DTAP 1998-09-10 00:00:00 Completed [facility] MMR 1998-09-10 00:00:00 Completed [facility] Polio (IPV/OPV) 1998-09-10 00:00:00 Completed [facility] Varicella (varivax)(chicken pox) 1998-09-10 00:00:00 Completed [facility] Hiberix 1998-09-10 00:00:00 Completed [facility] Daptacel DTAP 1998-09-10 00:00:00 Completed [facility] MMR 1998-09-10 00:00:00 Completed [facility] Polio (IPV/OPV) 1998-09-10 00:00:00 Completed [facility] Varicella (varivax)(chicken pox) 1998-09-10 00:00:00 Completed [facility] Hiberix 1998-09-10 00:00:00 Completed [facility] Daptacel DTAP 1998-09-10 00:00:00 Completed [facility] MMR 1998-09-10 00:00:00 Completed [facility] Polio (IPV/OPV) 1998-09-10 00:00:00 Completed [facility] Varicella (varivax)(chicken pox) 1998-09-10 00:00:00 Completed [facility] Hiberix 1998-09-10 00:00:00 Completed [facility] Daptacel DTAP 1998-09-10 00:00:00 Completed [facility] MMR 1998-09-10 00:00:00 Completed [facility] Polio (IPV/OPV) 1998-09-10 00:00:00 Completed [facility] Varicella (varivax)(chicken pox) 1998-09-10 00:00:00 Completed [facility] Hiberix 1998-09-10 00:00:00 Completed [facility] Daptacel DTAP 1998-09-10 00:00:00 Completed [facility] MMR 1998-09-10 00:00:00 Completed [facility] Daptacel DTAP 1998-09-10 00:00:00 Completed [facility] Polio (IPV/OPV) 1998-09-10 00:00:00 Completed [facility] Varicella (varivax)(chicken pox) 1998-09-10 00:00:00 Completed [facility] Hiberix 1998-09-10 00:00:00 Completed [facility] Daptacel DTAP 1998-09-10 00:00:00 Completed [facility] MMR 1998-09-10 00:00:00 Completed [facility] Polio (IPV/OPV) 1998-09-10 00:00:00 Completed [facility] Varicella (varivax)(chicken pox) 1998-09-10 00:00:00 Completed [facility] Hiberix 1998-09-10 00:00:00 Completed [facility] Daptacel DTAP 1998-09-10 00:00:00 Completed [facility] MMR 1998-09-10 00:00:00 Completed [facility] Polio (IPV/OPV) 1998-09-10 00:00:00 Completed [facility] Varicella (varivax)(chicken pox) 1998-09-10 00:00:00 Completed [facility] Hiberix 1998-09-10 00:00:00 Completed [facility] Daptacel DTAP 1998-09-10 00:00:00 Completed [facility] MMR 1998-09-10 00:00:00 Completed [facility] Polio (IPV/OPV) 1998-09-10 00:00:00 Completed [facility] MMR 1998-09-10 00:00:00 Completed [facility] Varicella (varivax)(chicken pox) 1998-09-10 00:00:00 Completed [facility] Hiberix 1998-09-10 00:00:00 Completed [facility] Daptacel DTAP 1998-09-10 00:00:00 Completed [facility] MMR 1998-09-10 00:00:00 Completed [facility] Polio (IPV/OPV) 1998-09-10 00:00:00 Completed [facility] Varicella (varivax)(chicken pox) 1998-09-10 00:00:00 Completed [facility] Hiberix 1998-09-10 00:00:00 Completed [facility] Polio (IPV/OPV) 1998-09-10 00:00:00 Completed [facility] Daptacel DTAP 1998-09-10 00:00:00 Completed [facility] MMR 1998-09-10 00:00:00 Completed [facility] Polio (IPV/OPV) 1998-09-10 00:00:00 Completed [facility] Varicella (varivax)(chicken pox) 1998-09-10 00:00:00 Completed [facility] Hiberix 1998-09-10 00:00:00 Completed [facility] Varicella (varivax)(chicken pox) 1998-09-10 00:00:00 Completed [facility] Daptacel DTAP 1998-09-10 00:00:00 Completed [facility] MMR 1998-09-10 00:00:00 Completed [facility] Polio (IPV/OPV) 1998-09-10 00:00:00 Completed [facility] Varicella (varivax)(chicken pox) 1998-09-10 00:00:00 Completed [facility] Hiberix 1998-09-10 00:00:00 Completed [facility] Daptacel DTAP 1998-09-10 00:00:00 Completed [facility] Hiberix 1998-09-10 00:00:00 Completed [facility] MMR 1998-09-10 00:00:00 Completed [facility] Polio (IPV/OPV) 1998-09-10 00:00:00 Completed [facility] Varicella (varivax)(chicken pox) 1998-09-10 00:00:00 Completed [facility] Hiberix 1998-09-10 00:00:00 Completed [facility] Daptacel DTAP 1998-09-10 00:00:00 Completed [facility] MMR 1998-09-10 00:00:00 Completed [facility] Polio (IPV/OPV) 1998-09-10 00:00:00 Completed [facility] Varicella (varivax)(chicken pox) 1998-09-10 00:00:00 Completed [facility] Hiberix 1998-09-10 00:00:00 Completed [facility] Daptacel DTAP 1998-09-10 00:00:00 Completed [facility] MMR 1998-09-10 00:00:00 Completed [facility] Hep B, Adol or Pedi Dosage 1997 00:00:00 Completed [facility] Hep B, Adol or Pedi Dosage 1997 00:00:00 Completed [facility] Hep B, Adol or Pedi Dosage 1997 00:00:00 Completed [facility] Hep B, Adol or Pedi Dosage 1997 00:00:00 Completed [facility] Hep B, Adol or Pedi Dosage 1997 00:00:00 Completed [facility] Hep B, Adol or Pedi Dosage 1997 00:00:00 Completed [facility] Hep B, Adol or Pedi Dosage 1997 00:00:00 Completed [facility] Hep B, Adol or Pedi Dosage 1997 00:00:00 Completed [facility] Hep B, Adol or Pedi Dosage 1997 00:00:00 Completed [facility] Hep B, Adol or Pedi Dosage 1997 00:00:00 Completed [facility] Hep B, Adol or Pedi Dosage 1997 00:00:00 Completed [facility] Hep B, Adol or Pedi Dosage 1997 00:00:00 Completed [facility] Hep B, Adol or Pedi Dosage 1997 00:00:00 Completed [facility] Hep B, Adol or Pedi Dosage 1997 00:00:00 Completed [facility] Hep B, Adol or Pedi Dosage 1997 00:00:00 Completed [facility] Hep B, Adol or Pedi Dosage 1997 00:00:00 Completed [facility] Hep B, Adol or Pedi Dosage 1997 00:00:00 Completed [facility] Hep B, Adol or Pedi Dosage 1997 00:00:00 Completed [facility] Hep B, Adol or Pedi Dosage 1997 00:00:00 Completed [facility] Hep B, Adol or Pedi Dosage 1997 00:00:00 Completed [facility] Hep B, Adol or Pedi Dosage 1997 00:00:00 Completed [facility] Hep B, Adol or Pedi Dosage 1997 00:00:00 Completed [facility] Hep B, Adol or Pedi Dosage 1997 00:00:00 Completed [facility] Hep B, Adol or Pedi Dosage 1997 00:00:00 Completed [facility] Hep B, Adol or Pedi Dosage 1997 00:00:00 Completed [facility] Hep B, Adol or Pedi Dosage 1997 00:00:00 Completed [facility] Hep B, Adol or Pedi Dosage 1997 00:00:00 Completed [facility] Hep B, Adol or Pedi Dosage 1997 00:00:00 Completed [facility] Hep B, Adol or Pedi Dosage 1997 00:00:00 Completed [facility] Hep B, Adol or Pedi Dosage 1997 00:00:00 Completed [facility] Hep B, Adol or Pedi Dosage 1997 00:00:00 Completed [facility] Hep B, Adol or Pedi Dosage 1997 00:00:00 Completed [facility] Hep B, Adol or Pedi Dosage 1997 00:00:00 Completed [facility] Hep B, Adol or Pedi Dosage 1997 00:00:00 Completed [facility] Hep B, Adol or Pedi Dosage 1997 00:00:00 Completed [facility] Hep B, Adol or Pedi Dosage 1997 00:00:00 Completed [facility] Hep B, Adol or Pedi Dosage 1997 00:00:00 Completed [facility] Hep B, Adol or Pedi Dosage 1997 00:00:00 Completed [facility] Hep B, Adol or Pedi Dosage 1997 00:00:00 Completed [facility] Hep B, Adol or Pedi Dosage 1997 00:00:00 Completed [facility] Hep B, Adol or Pedi Dosage 1997 00:00:00 Completed [facility] Hep B, Adol or Pedi Dosage 1997 00:00:00 Completed [facility] Hep B, Adol or Pedi Dosage 1997 00:00:00 Completed [facility] Hep B, Adol or Pedi Dosage 1997 00:00:00 Completed [facility] Hep B, Adol or Pedi Dosage 1997 00:00:00 Completed [facility] Hep B, Adol or Pedi Dosage 1997 00:00:00 Completed [facility] Hep B, Adol or Pedi Dosage 1997 00:00:00 Completed [facility] Hep B, Adol or Pedi Dosage 1997 00:00:00 Completed [facility] Hep B, Adol or Pedi Dosage 1997 00:00:00 Completed [facility] Hep B, Adol or Pedi Dosage 1997 00:00:00 Completed [facility] Hep B, Adol or Pedi Dosage 1997 00:00:00 Completed [facility] Hep B, Adol or Pedi Dosage 1997 00:00:00 Completed [facility] Hep B, Adol or Pedi Dosage 1997 00:00:00 Completed [facility] Hep B, Adol or Pedi Dosage 1997 00:00:00 Completed [facility] Polio (IPV/OPV) 1997 00:00:00 Completed [facility] Hiberix 1997 00:00:00 Completed [facility] Daptacel DTAP 1997 00:00:00 Completed [facility] Polio (IPV/OPV) 1997 00:00:00 Completed [facility] Hiberix 1997 00:00:00 Completed [facility] Daptacel DTAP 1997 00:00:00 Completed [facility] Polio (IPV/OPV) 1997 00:00:00 Completed [facility] Hiberix 1997 00:00:00 Completed [facility] Daptacel DTAP 1997 00:00:00 Completed [facility] Polio (IPV/OPV) 1997 00:00:00 Completed [facility] Hiberix 1997 00:00:00 Completed [facility] Daptacel DTAP 1997 00:00:00 Completed [facility] Polio (IPV/OPV) 1997 00:00:00 Completed [facility] Hiberix 1997 00:00:00 Completed [facility] Daptacel DTAP 1997 00:00:00 Completed [facility] Polio (IPV/OPV) 1997 00:00:00 Completed [facility] Hiberix 1997 00:00:00 Completed [facility] Daptacel DTAP 1997 00:00:00 Completed [facility] Daptacel DTAP 1997 00:00:00 Completed [facility] Polio (IPV/OPV) 1997 00:00:00 Completed [facility] Hiberix 1997 00:00:00 Completed [facility] Daptacel DTAP 1997 00:00:00 Completed [facility] Polio (IPV/OPV) 1997 00:00:00 Completed [facility] Hiberix 1997 00:00:00 Completed [facility] Daptacel DTAP 1997 00:00:00 Completed [facility] Polio (IPV/OPV) 1997 00:00:00 Completed [facility] Hiberix 1997 00:00:00 Completed [facility] Daptacel DTAP 1997 00:00:00 Completed [facility] Polio (IPV/OPV) 1997 00:00:00 Completed [facility] Hiberix 1997 00:00:00 Completed [facility] Daptacel DTAP 1997 00:00:00 Completed [facility] Polio (IPV/OPV) 1997 00:00:00 Completed [facility] Hiberix 1997 00:00:00 Completed [facility] Daptacel DTAP 1997 00:00:00 Completed [facility] Polio (IPV/OPV) 1997 00:00:00 Completed [facility] Hiberix 1997 00:00:00 Completed [facility] Daptacel DTAP 1997 00:00:00 Completed [facility] Polio (IPV/OPV) 1997 00:00:00 Completed [facility] Hiberix 1997 00:00:00 Completed [facility] Daptacel DTAP 1997 00:00:00 Completed [facility] Polio (IPV/OPV) 1997 00:00:00 Completed [facility] Hiberix 1997 00:00:00 Completed [facility] Daptacel DTAP 1997 00:00:00 Completed [facility] Polio (IPV/OPV) 1997 00:00:00 Completed [facility] Hiberix 1997 00:00:00 Completed [facility] Daptacel DTAP 1997 00:00:00 Completed [facility] Polio (IPV/OPV) 1997 00:00:00 Completed [facility] Hiberix 1997 00:00:00 Completed [facility] Daptacel DTAP 1997 00:00:00 Completed [facility] Polio (IPV/OPV) 1997 00:00:00 Completed [facility] Hiberix 1997 00:00:00 Completed [facility] Daptacel DTAP 1997 00:00:00 Completed [facility] Polio (IPV/OPV) 1997 00:00:00 Completed [facility] Hiberix 1997 00:00:00 Completed [facility] Daptacel DTAP 1997 00:00:00 Completed [facility] Daptacel DTAP 1997 00:00:00 Completed [facility] Polio (IPV/OPV) 1997 00:00:00 Completed [facility] Hiberix 1997 00:00:00 Completed [facility] Daptacel DTAP 1997 00:00:00 Completed [facility] Polio (IPV/OPV) 1997 00:00:00 Completed [facility] Hiberix 1997 00:00:00 Completed [facility] Daptacel DTAP 1997 00:00:00 Completed [facility] Polio (IPV/OPV) 1997 00:00:00 Completed [facility] Hiberix 1997 00:00:00 Completed [facility] Daptacel DTAP 1997 00:00:00 Completed [facility] Polio (IPV/OPV) 1997 00:00:00 Completed [facility] Hiberix 1997 00:00:00 Completed [facility] Polio (IPV/OPV) 1997 00:00:00 Completed [facility] Daptacel DTAP 1997 00:00:00 Completed [facility] Polio (IPV/OPV) 1997 00:00:00 Completed [facility] Hiberix 1997 00:00:00 Completed [facility] Daptacel DTAP 1997 00:00:00 Completed [facility] Polio (IPV/OPV) 1997 00:00:00 Completed [facility] Hiberix 1997 00:00:00 Completed [facility] Hiberix 1997 00:00:00 Completed [facility] Daptacel DTAP 1997 00:00:00 Completed [facility] Polio (IPV/OPV) 1997 00:00:00 Completed [facility] Hiberix 1997 00:00:00 Completed [facility] Daptacel DTAP 1997 00:00:00 Completed [facility] Polio (IPV/OPV) 1997 00:00:00 Completed [facility] Hiberix 1997 00:00:00 Completed [facility] Daptacel DTAP 1997 00:00:00 Completed [facility] Polio (IPV/OPV) 1997 00:00:00 Completed [facility] Hiberix 1997 00:00:00 Completed [facility] Daptacel DTAP 1997 00:00:00 Completed [facility] Polio (IPV/OPV) 1997 00:00:00 Completed [facility] Polio (IPV/OPV) 1997 00:00:00 Completed [facility] Hiberix 1997 00:00:00 Completed [facility] Daptacel DTAP 1997 00:00:00 Completed [facility] Polio (IPV/OPV) 1997 00:00:00 Completed [facility] Hiberix 1997 00:00:00 Completed [facility] Hiberix 1997 00:00:00 Completed [facility] Daptacel DTAP 1997 00:00:00 Completed [facility] Polio (IPV/OPV) 1997 00:00:00 Completed [facility] Hiberix 1997 00:00:00 Completed [facility] Daptacel DTAP 1997 00:00:00 Completed [facility] Polio (IPV/OPV) 1997 00:00:00 Completed [facility] Hiberix 1997 00:00:00 Completed [facility] Daptacel DTAP 1997 00:00:00 Completed [facility] Polio (IPV/OPV) 1997 00:00:00 Completed [facility] Hiberix 1997 00:00:00 Completed [facility] Daptacel DTAP 1997 00:00:00 Completed [facility] Polio (IPV/OPV) 1997 00:00:00 Completed [facility] Hiberix 1997 00:00:00 Completed [facility] Daptacel DTAP 1997 00:00:00 Completed [facility] Polio (IPV/OPV) 1997 00:00:00 Completed [facility] Hiberix 1997 00:00:00 Completed [facility] Daptacel DTAP 1997 00:00:00 Completed [facility] Polio (IPV/OPV) 1997 00:00:00 Completed [facility] Hiberix 1997 00:00:00 Completed [facility] Daptacel DTAP 1997 00:00:00 Completed [facility] Polio (IPV/OPV) 1997 00:00:00 Completed [facility] Hiberix 1997 00:00:00 Completed [facility] Daptacel DTAP 1997 00:00:00 Completed [facility] Polio (IPV/OPV) 1997 00:00:00 Completed [facility] Hiberix 1997 00:00:00 Completed [facility] Daptacel DTAP 1997 00:00:00 Completed [facility] Polio (IPV/OPV) 1997 00:00:00 Completed [facility] Hiberix 1997 00:00:00 Completed [facility] Daptacel DTAP 1997 00:00:00 Completed [facility] Polio (IPV/OPV) 1997 00:00:00 Completed [facility] Hiberix 1997 00:00:00 Completed [facility] Daptacel DTAP 1997 00:00:00 Completed [facility] Polio (IPV/OPV) 1997 00:00:00 Completed [facility] Hiberix 1997 00:00:00 Completed [facility] Daptacel DTAP 1997 00:00:00 Completed [facility] Polio (IPV/OPV) 1997 00:00:00 Completed [facility] Hiberix 1997 00:00:00 Completed [facility] Daptacel DTAP 1997 00:00:00 Completed [facility] Polio (IPV/OPV) 1997 00:00:00 Completed [facility]iber[facility] 1997 00:00:00 Completed [facility] Daptacel DTAP 1997 00:00:00 Completed [facility] Daptacel DTAP 1997 00:00:00 Completed [facility] Polio (IPV/OPV) 1997 00:00:00 Completed [facility]iber[facility] 1997 00:00:00 Completed [facility] Daptacel DTAP 1997 00:00:00 Completed [facility] Polio (IPV/OPV) 1997 00:00:00 Completed [facility] Hiberix 1997 00:00:00 Completed [facility] Daptacel DTAP 1997 00:00:00 Completed [facility] Polio (IPV/OPV) 1997 00:00:00 Completed [facility] Hiberix 1997 00:00:00 Completed [facility] Daptacel DTAP 1997 00:00:00 Completed [facility] Polio (IPV/OPV) 1997 00:00:00 Completed [facility]iber[facility] 1997 00:00:00 Completed [facility] Daptacel DTAP 1997 00:00:00 Completed [facility] Polio (IPV/OPV) 1997 00:00:00 Completed [facility] Polio (IPV/OPV) 1997 00:00:00 Completed [facility] Hiberix 1997 00:00:00 Completed [facility] Daptacel DTAP 1997 00:00:00 Completed [facility] Polio (IPV/OPV) 1997 00:00:00 Completed [facility] Hiberix 1997 00:00:00 Completed [facility] Daptacel DTAP 1997 00:00:00 Completed [facility] Polio (IPV/OPV) 1997 00:00:00 Completed [facility] Hiberix 1997 00:00:00 Completed [facility] Hiberix 1997 00:00:00 Completed [facility] Daptacel DTAP 1997 00:00:00 Completed [facility] Polio (IPV/OPV) 1997 00:00:00 Completed [facility] Hiberix 1997 00:00:00 Completed [facility] Daptacel DTAP 1997 00:00:00 Completed [facility] Polio (IPV/OPV) 1997 00:00:00 Completed [facility] Hiberix 1997 00:00:00 Completed [facility] Daptacel DTAP 1997 00:00:00 Completed [facility] Polio (IPV/OPV) 1997 00:00:00 Completed [facility] Daptacel DTAP 1997 00:00:00 Completed [facility] Hep B, Adol or Pedi Dosage 1997 00:00:00 Completed [facility] Polio (IPV/OPV) 1997 00:00:00 Completed [facility] Daptacel DTAP 1997 00:00:00 Completed [facility] Hep B, Adol or Pedi Dosage 1997 00:00:00 Completed [facility] Polio (IPV/OPV) 1997 00:00:00 Completed [facility] Daptacel DTAP 1997 00:00:00 Completed [facility] Daptacel DTAP 1997 00:00:00 Completed [facility] Hep B, Adol or Pedi Dosage 1997 00:00:00 Completed [facility] Polio (IPV/OPV) 1997 00:00:00 Completed [facility] Daptacel DTAP 1997 00:00:00 Completed [facility] Hep B, Adol or Pedi Dosage 1997 00:00:00 Completed [facility] Polio (IPV/OPV) 1997 00:00:00 Completed [facility] Daptacel DTAP 1997 00:00:00 Completed [facility] Hep B, Adol or Pedi Dosage 1997 00:00:00 Completed [facility] Polio (IPV/OPV) 1997 00:00:00 Completed [facility] Daptacel DTAP 1997 00:00:00 Completed [facility] Hep B, Adol or Pedi Dosage 1997 00:00:00 Completed [facility] Polio (IPV/OPV) 1997 00:00:00 Completed [facility] Daptacel DTAP 1997 00:00:00 Completed [facility] Hep B, Adol or Pedi Dosage 1997 00:00:00 Completed [facility] Polio (IPV/OPV) 1997 00:00:00 Completed [facility] Daptacel DTAP 1997 00:00:00 Completed [facility] Hep B, Adol or Pedi Dosage 1997 00:00:00 Completed [facility] Polio (IPV/OPV) 1997 00:00:00 Completed [facility] Daptacel DTAP 1997 00:00:00 Completed [facility] Hep B, Adol or Pedi Dosage 1997 00:00:00 Completed [facility] Polio (IPV/OPV) 1997 00:00:00 Completed [facility] Daptacel DTAP 1997 00:00:00 Completed [facility] Hep B, Adol or Pedi Dosage 1997 00:00:00 Completed [facility] Polio (IPV/OPV) 1997 00:00:00 Completed [facility] Daptacel DTAP 1997 00:00:00 Completed [facility] Hep B, Adol or Pedi Dosage 1997 00:00:00 Completed [facility] Polio (IPV/OPV) 1997 00:00:00 Completed [facility] Daptacel DTAP 1997 00:00:00 Completed [facility] Hep B, Adol or Pedi Dosage 1997 00:00:00 Completed [facility] Polio (IPV/OPV) 1997 00:00:00 Completed [facility] Daptacel DTAP 1997 00:00:00 Completed [facility] Hep B, Adol or Pedi Dosage 1997 00:00:00 Completed [facility] Polio (IPV/OPV) 1997 00:00:00 Completed [facility] Daptacel DTAP 1997 00:00:00 Completed [facility] Hep B, Adol or Pedi Dosage 1997 00:00:00 Completed [facility] Polio (IPV/OPV) 1997 00:00:00 Completed [facility] Daptacel DTAP 1997 00:00:00 Completed [facility] Hep B, Adol or Pedi Dosage 1997 00:00:00 Completed [facility] Polio (IPV/OPV) 1997 00:00:00 Completed [facility] Daptacel DTAP 1997 00:00:00 Completed [facility] Hep B, Adol or Pedi Dosage 1997 00:00:00 Completed [facility] Polio (IPV/OPV) 1997 00:00:00 Completed [facility] Daptacel DTAP 1997 00:00:00 Completed [facility] Hep B, Adol or Pedi Dosage 1997 00:00:00 Completed [facility] Polio (IPV/OPV) 1997 00:00:00 Completed [facility] Daptacel DTAP 1997 00:00:00 Completed [facility] Daptacel DTAP 1997 00:00:00 Completed [facility] Hep B, Adol or Pedi Dosage 1997 00:00:00 Completed [facility] Polio (IPV/OPV) 1997 00:00:00 Completed [facility] Daptacel DTAP 1997 00:00:00 Completed [facility] Hep B, Adol or Pedi Dosage 1997 00:00:00 Completed [facility] Polio (IPV/OPV) 1997 00:00:00 Completed [facility] Hep B, Adol or Pedi Dosage 1997 00:00:00 Completed [facility] Hep B, Adol or Pedi Dosage 1997 00:00:00 Completed [facility] Daptacel DTAP 1997 00:00:00 Completed [facility] Hep B, Adol or Pedi Dosage 1997 00:00:00 Completed [facility] Polio (IPV/OPV) 1997 00:00:00 Completed [facility] Daptacel DTAP 1997 00:00:00 Completed [facility] Hep B, Adol or Pedi Dosage 1997 00:00:00 Completed [facility] Polio (IPV/OPV) 1997 00:00:00 Completed [facility] Polio (IPV/OPV) 1997 00:00:00 Completed [facility] Daptacel DTAP 1997 00:00:00 Completed [facility] Hep B, Adol or Pedi Dosage 1997 00:00:00 Completed [facility] Polio (IPV/OPV) 1997 00:00:00 Completed [facility] Daptacel DTAP 1997 00:00:00 Completed [facility] Hep B, Adol or Pedi Dosage 1997 00:00:00 Completed [facility] Polio (IPV/OPV) 1997 00:00:00 Completed [facility] Daptacel DTAP 1997 00:00:00 Completed [facility] Hep B, Adol or Pedi Dosage 1997 00:00:00 Completed [facility] Polio (IPV/OPV) 1997 00:00:00 Completed [facility] Daptacel DTAP 1997 00:00:00 Completed [facility] Hep B, Adol or Pedi Dosage 1997 00:00:00 Completed [facility] Polio (IPV/OPV) 1997 00:00:00 Completed [facility] Daptacel DTAP 1997 00:00:00 Completed [facility] Hep B, Adol or Pedi Dosage 1997 00:00:00 Completed [facility] Polio (IPV/OPV) 1997 00:00:00 Completed [facility] Daptacel DTAP 1997 00:00:00 Completed [facility] Polio (IPV/OPV) 1997 00:00:00 Completed [facility] Hep B, Adol or Pedi Dosage 1997 00:00:00 Completed [facility] Polio (IPV/OPV) 1997 00:00:00 Completed [facility] Daptacel DTAP 1997 00:00:00 Completed [facility] Hep B, Adol or Pedi Dosage 1997 00:00:00 Completed [facility] Polio (IPV/OPV) 1997 00:00:00 Completed [facility] Daptacel DTAP 1997 00:00:00 Completed [facility] Hep B, Adol or Pedi Dosage 1997 00:00:00 Completed [facility] Polio (IPV/OPV) 1997 00:00:00 Completed [facility] Daptacel DTAP 1997 00:00:00 Completed [facility] Hep B, Adol or Pedi Dosage 1997 00:00:00 Completed [facility] Polio (IPV/OPV) 1997 00:00:00 Completed [facility] Daptacel DTAP 1997 00:00:00 Completed [facility] Hep B, Adol or Pedi Dosage 1997 00:00:00 Completed [facility] Polio (IPV/OPV) 1997 00:00:00 Completed [facility] Daptacel DTAP 1997 00:00:00 Completed [facility] Hep B, Adol or Pedi Dosage 1997 00:00:00 Completed [facility] Polio (IPV/OPV) 1997 00:00:00 Completed [facility] Daptacel DTAP 1997 00:00:00 Completed [facility] Hep B, Adol or Pedi Dosage 1997 00:00:00 Completed [facility] Polio (IPV/OPV) 1997 00:00:00 Completed [facility] Daptacel DTAP 1997 00:00:00 Completed [facility] Hep B, Adol or Pedi Dosage 1997 00:00:00 Completed [facility] Polio (IPV/OPV) 1997 00:00:00 Completed [facility] Daptacel DTAP 1997 00:00:00 Completed [facility] Hep B, Adol or Pedi Dosage 1997 00:00:00 Completed [facility] Polio (IPV/OPV) 1997 00:00:00 Completed [facility] Daptacel DTAP 1997 00:00:00 Completed [facility] Hep B, Adol or Pedi Dosage 1997 00:00:00 Completed [facility] Polio (IPV/OPV) 1997 00:00:00 Completed [facility] Daptacel DTAP 1997 00:00:00 Completed [facility] Hep B, Adol or Pedi Dosage 1997 00:00:00 Completed [facility] Polio (IPV/OPV) 1997 00:00:00 Completed [facility] Daptacel DTAP 1997 00:00:00 Completed [facility] Hep B, Adol or Pedi Dosage 1997 00:00:00 Completed [facility] Polio (IPV/OPV) 1997 00:00:00 Completed [facility] Daptacel DTAP 1997 00:00:00 Completed [facility] Hep B, Adol or Pedi Dosage 1997 00:00:00 Completed [facility] Polio (IPV/OPV) 1997 00:00:00 Completed [facility] Daptacel DTAP 1997 00:00:00 Completed [facility] Hep B, Adol or Pedi Dosage 1997 00:00:00 Completed [facility] Polio (IPV/OPV) 1997 00:00:00 Completed [facility] Daptacel DTAP 1997 00:00:00 Completed [facility] Hep B, Adol or Pedi Dosage 1997 00:00:00 Completed [facility] Polio (IPV/OPV) 1997 00:00:00 Completed [facility] Daptacel DTAP 1997 00:00:00 Completed [facility] Daptacel DTAP 1997 00:00:00 Completed [facility] Hep B, Adol or Pedi Dosage 1997 00:00:00 Completed [facility] Polio (IPV/OPV) 1997 00:00:00 Completed [facility] Daptacel DTAP 1997 00:00:00 Completed [facility] Hep B, Adol or Pedi Dosage 1997 00:00:00 Completed [facility] Polio (IPV/OPV) 1997 00:00:00 Completed [facility] Hep B, Adol or Pedi Dosage 1997 00:00:00 Completed [facility] Daptacel DTAP 1997 00:00:00 Completed [facility] Hep B, Adol or Pedi Dosage 1997 00:00:00 Completed [facility] Polio (IPV/OPV) 1997 00:00:00 Completed [facility] Daptacel DTAP 1997 00:00:00 Completed [facility] Hep B, Adol or Pedi Dosage 1997 00:00:00 Completed [facility] Polio (IPV/OPV) 1997 00:00:00 Completed [facility] Daptacel DTAP 1997 00:00:00 Completed [facility] Hep B, Adol or Pedi Dosage 1997 00:00:00 Completed [facility] Polio (IPV/OPV) 1997 00:00:00 Completed [facility] Polio (IPV/OPV) 1997 00:00:00 Completed [facility] Daptacel DTAP 1997 00:00:00 Completed [facility] Hep B, Adol or Pedi Dosage 1997 00:00:00 Completed [facility] Polio (IPV/OPV) 1997 00:00:00 Completed [facility] Daptacel DTAP 1997 00:00:00 Completed [facility] Hep B, Adol or Pedi Dosage 1997 00:00:00 Completed [facility] Polio (IPV/OPV) 1997 00:00:00 Completed [facility] Daptacel DTAP 1997 00:00:00 Completed [facility] Hep B, Adol or Pedi Dosage 1997 00:00:00 Completed [facility] Polio (IPV/OPV) 1997 00:00:00 Completed [facility] Daptacel DTAP 1997 00:00:00 Completed [facility] Hep B, Adol or Pedi Dosage 1997 00:00:00 Completed [facility] Polio (IPV/OPV) 1997 00:00:00 Completed [facility] Daptacel DTAP 1997 00:00:00 Completed [facility] Hep B, Adol or Pedi Dosage 1997 00:00:00 Completed [facility] Hep B, Adol or Pedi Dosage 1997 00:00:00 Completed [facility] Hep B, Adol or Pedi Dosage 1997 00:00:00 Completed [facility] Hep B, Adol or Pedi Dosage 1997 00:00:00 Completed [facility] Hep B, Adol or Pedi Dosage 1997 00:00:00 Completed [facility] Hep B, Adol or Pedi Dosage 1997 00:00:00 Completed [facility] Hep B, Adol or Pedi Dosage 1997 00:00:00 Completed [facility] Hep B, Adol or Pedi Dosage 1997 00:00:00 Completed [facility] Hep B, Adol or Pedi Dosage 1997 00:00:00 Completed [facility] Hep B, Adol or Pedi Dosage 1997 00:00:00 Completed [facility] Hep B, Adol or Pedi Dosage 1997 00:00:00 Completed [facility] Hep B, Adol or Pedi Dosage 1997 00:00:00 Completed [facility] Hep B, Adol or Pedi Dosage 1997 00:00:00 Completed [facility] Hep B, Adol or Pedi Dosage 1997 00:00:00 Completed [facility] Hep B, Adol or Pedi Dosage 1997 00:00:00 Completed [facility] Hep B, Adol or Pedi Dosage 1997 00:00:00 Completed [facility] Hep B, Adol or Pedi Dosage 1997 00:00:00 Completed [facility] Hep B, Adol or Pedi Dosage 1997 00:00:00 Completed [facility] Hep B, Adol or Pedi Dosage 1997 00:00:00 Completed [facility] Hep B, Adol or Pedi Dosage 1997 00:00:00 Completed [facility] Hep B, Adol or Pedi Dosage 1997 00:00:00 Completed [facility] Hep B, Adol or Pedi Dosage 1997 00:00:00 Completed [facility] Hep B, Adol or Pedi Dosage 1997 00:00:00 Completed [facility] Hep B, Adol or Pedi Dosage 1997 00:00:00 Completed [facility] Hep B, Adol or Pedi Dosage 1997 00:00:00 Completed [facility] Hep B, Adol or Pedi Dosage 1997 00:00:00 Completed [facility] Hep B, Adol or Pedi Dosage 1997 00:00:00 Completed [facility] Hep B, Adol or Pedi Dosage 1997 00:00:00 Completed [facility] Hep B, Adol or Pedi Dosage 1997 00:00:00 Completed [facility] Hep B, Adol or Pedi Dosage 1997 00:00:00 Completed [facility] Hep B, Adol or Pedi Dosage 1997 00:00:00 Completed [facility] Hep B, Adol or Pedi Dosage 1997 00:00:00 Completed [facility] Hep B, Adol or Pedi Dosage 1997 00:00:00 Completed [facility] Hep B, Adol or Pedi Dosage 1997 00:00:00 Completed [facility] Hep B, Adol or Pedi Dosage 1997 00:00:00 Completed [facility] Hep B, Adol or Pedi Dosage 1997 00:00:00 Completed [facility] Hep B, Adol or Pedi Dosage 1997 00:00:00 Completed [facility] Hep B, Adol or Pedi Dosage 1997 00:00:00 Completed [facility] Hep B, Adol or Pedi Dosage 1997 00:00:00 Completed [facility] Hep B, Adol or Pedi Dosage 1997 00:00:00 Completed [facility] Hep B, Adol or Pedi Dosage 1997 00:00:00 Completed [facility] Hep B, Adol or Pedi Dosage 1997 00:00:00 Completed [facility] Hep B, Adol or Pedi Dosage 1997 00:00:00 Completed [facility] Hep B, Adol or Pedi Dosage 1997 00:00:00 Completed [facility] Hep B, Adol or Pedi Dosage 1997 00:00:00 Completed [facility] Hep B, Adol or Pedi Dosage 1997 00:00:00 Completed [facility] Hep B, Adol or Pedi Dosage 1997 00:00:00 Completed [facility] Hep B, Adol or Pedi Dosage 1997 00:00:00 Completed [facility] Hep B, Adol or Pedi Dosage 1997 00:00:00 Completed [facility] Hep B, Adol or Pedi Dosage 1997 00:00:00 Completed [facility] Hep B, Adol or Pedi Dosage 1997 00:00:00 Completed [facility] Hep B, Adol or Pedi Dosage 1997 00:00:00 Completed [facility] Hep B, Adol or Pedi Dosage 1997 00:00:00 Completed [facility] Hep B, Adol or Pedi Dosage 1997 00:00:00 Completed [facility] Hep B, Adol or Pedi Dosage 1997 00:00:00 Completed [facility] Daptacel DTAP Unknown [facility] DTAP Unknown Com[facility] DTAP Unknown Com[facility] D[facility] DTAP Unknown Com[facility] Hep B, Adol or Pedi Dosage Unknown Completed [facility] Hep B, Adol or Pedi Dosage Unknown Completed [facility] Hep B, Adol or Pedi Dosage Unknown Completed [facility] Influenza Virus Vaccine Unknown Completed [facility] Meningococcal Polysaccharide (groups A, C, Y and W-135) conjugate vaccine (MCV4P) Unknown Completed [facility] Meningococcal Polysaccharide (groups A, C, Y and W-135) conjugate vaccine (MCV4P) Unknown Completed [facility] MMR Unknown Completed [facility] MMR Unknown Completed [facility] Polio (IPV/OPV) Unknown Completed [facility] Polio (IPV/OPV) Unknown Completed [facility] Polio (IPV/OPV) Unknown Completed [facility] Polio (IPV/OPV) Unknown Completed [facility] TDAP Unknown Completed [facility] Varicella (varivax)(chicken pox) Unknown Completed [facility] Varicella (varivax)(chicken pox) Unknown Completed [facility] Hiberix Unknown Completed [facility] Hiberix Unknown Completed [facility] Hiberix Unknown Completed [facility] Daptacel DTAP Unknown [facility] DTAP Unknown Completed [facility] Hep B, Adol or Pedi Dosage Unknown Completed [facility] Hep B, Adol or Pedi Dosage Unknown Completed [facility] Hep B, Adol or Pedi Dosage Unknown Completed [facility] Influenza Virus Vaccine Unknown Completed [facility] Meningococcal Polysaccharide (groups A, C, Y and W-135) conjugate vaccine (MCV4P) Unknown Completed [facility] Meningococcal Polysaccharide (groups A, C, Y and W-135) conjugate vaccine (MCV4P) Unknown Completed [facility] MMR Unknown Completed [facility] MMR Unknown Completed [facility] Polio (IPV/OPV) Unknown Completed [facility] Polio (IPV/OPV) Unknown Completed [facility] Polio (IPV/OPV) Unknown Completed [facility] Polio (IPV/OPV) Unknown Completed [facility] TDAP Unknown Completed [facility] Varicella (varivax)(chicken pox) Unknown Completed [facility] Varicella (varivax)(chicken pox) Unknown Completed [facility] Hiberix Unknown Completed [facility] Hiberix Unknown Completed [facility] Hiberix Unknown Completed [facility] Daptacel DTAP Unknown Com[facility] DTAP Unknown Com[facility] D[facility] DTAP Unknown Completed [facility] Daptacel DTAP Unknown Com[facility] DTAP Unknown Com[facility] Hep B, Adol or Pedi Dosage Unknown Completed [facility] Hep B, Adol or Pedi Dosage Unknown Completed [facility] Hep B, Adol or Pedi Dosage Unknown Completed [facility] Influenza Virus Vaccine Unknown Completed [facility] Meningococcal Polysaccharide (groups A, C, Y and W-135) conjugate vaccine (MCV4P) Unknown Completed [facility] Meningococcal Polysaccharide (groups A, C, Y and W-135) conjugate vaccine (MCV4P) Unknown Completed [facility] MMR Unknown Completed [facility] MMR Unknown Completed [facility] Polio (IPV/OPV) Unknown Completed [facility] Polio (IPV/OPV) Unknown Completed [facility] Polio (IPV/OPV) Unknown Completed [facility] Polio (IPV/OPV) Unknown Completed [facility] TDAP Unknown Completed [facility] Varicella (varivax)(chicken pox) Unknown Completed [facility] Varicella (varivax)(chicken pox) Unknown Completed [facility] Hiberix Unknown Completed [facility] Hiberix Unknown Completed [facility] Hiberix Unknown Completed [facility] Daptacel DTAP Unknown Completed [facility] Daptacel DTAP Unknown [facility] Com[facility] DTAP Unknown Completed [facility] DTAP Unknown Completed [facility] Hep B, Adol or Pedi Dosage Unknown Completed [facility] Hep B, Adol or Pedi Dosage Unknown Completed [facility] Hep B, Adol or Pedi Dosage Unknown Completed [facility] Influenza Virus Vaccine Unknown Completed [facility] Meningococcal Polysaccharide (groups A, C, Y and W-135) conjugate vaccine (MCV4P) Unknown Completed [facility] Meningococcal Polysaccharide (groups A, C, Y and W-135) conjugate vaccine (MCV4P) Unknown Completed [facility] MMR Unknown Completed [facility] MMR Unknown Completed [facility] Polio (IPV/OPV) Unknown [facility] Completed [facility] Polio (IPV/OPV) Unknown Completed [facility] Polio (IPV/OPV) Unknown Completed [facility] TDAP Unknown Completed [facility] Varicella (varivax)(chicken pox) Unknown Completed [facility] Varicella (varivax)(chicken pox) Unknown Completed [facility] Hiberix Unknown Completed [facility] Hiberix Unknown Completed [facility] Hiberix Unknown Completed [facility]acel DTAP [facility] Unknown [facility]pleted [facility] Daptacel DTAP Unknown [facility] Com[facility] Hep B[facility] Adol or Pedi Dosage Unknown Completed [facility] Hep B, Adol or Pedi Dosage Unknown Completed [facility] Hep B, Adol or Pedi Dosage Unknown Completed [facility] Influenza Virus Vaccine Unknown Completed [facility] Meningococcal Polysaccharide (groups A, C, Y and W-135) conjugate vaccine (MCV4P) Unknown Completed [facility] Meningococcal Polysaccharide (groups A, C, Y and W-135) conjugate vaccine (MCV4P) Unknown Completed [facility] MMR Unknown Completed [facility] MMR Unknown Completed [facility] Polio (IPV/OPV) Unknown [facility] ([facility]/OPV[facility] Unknown Completed [facility] Polio (IPV/OPV) Unknown Completed [facility] TDAP Unknown Completed [facility] Varicella (varivax)(chicken pox) Unknown Completed [facility] Varicella (varivax)(chicken pox) Unknown Completed [facility] Hiberix Unknown Completed [facility] Hiberix Unknown Completed [facility] Hiberix Unknown Completed [facility] Daptacel DTAP Unknown [facility] DTAP Unknown Completed [facility] DTAP Unknown Completed [facility] DTAP Unknown Completed [facility] Hep B, Adol or Pedi Dosage Unknown Completed [facility] Hep B, Adol or Pedi Dosage Unknown Completed [facility] Hep B, Adol or Pedi Dosage Unknown Completed [facility] Influenza Virus Vaccine Unknown Completed [facility] Meningococcal Polysaccharide (groups A, C, Y and W-135) conjugate vaccine (MCV4P) Unknown Completed [facility] Meningococcal Polysaccharide (groups A, C, Y and W-135) conjugate vaccine (MCV4P) Unknown Completed [facility] MMR Unknown Completed [facility] MMR Unknown Completed [facility] Polio (IPV/OPV) Unknown Completed [facility] Polio (IPV/OPV) Unknown Completed [facility] Polio (IPV/OPV) Unknown Completed [facility] Polio (IPV/OPV) Unknown Completed [facility] TDAP Unknown Completed [facility] Varicella (varivax)(chicken pox) Unknown Completed [facility] Varicella (varivax)(chicken pox) Unknown Completed [facility] Hiberix Unknown Completed [facility] Hiberix Unknown Completed [facility] Hiberix Unknown Completed [facility] Daptacel DTAP Unknown [facility] DTAP Unknown Completed [facility] DTAP Unknown Completed [facility] DTAP Unknown Completed [facility] Dapt[facility]el DTAP Unknown Completed [facility] Hep B, Adol or Pedi Dosage Unknown Completed [facility] Hep B, Adol or Pedi Dosage Unknown Completed [facility] Hep B, Adol or Pedi Dosage Unknown Completed [facility] Influenza Virus Vaccine Unknown Completed [facility] Meningococcal Polysaccharide (groups A, C, Y and W-135) conjugate vaccine (MCV4P) Unknown Completed [facility] Meningococcal Polysaccharide (groups A, C, Y and W-135) conjugate vaccine (MCV4P) Unknown Completed [facility] MMR Unknown Completed [facility] MMR Unknown Completed [facility] Polio (IPV/OPV) Unknown Completed [facility] Polio (IPV/OPV) Unknown Completed [facility] Polio (IPV/OPV) Unknown Completed [facility] Polio (IPV/OPV) Unknown Completed [facility] TDAP Unknown Completed [facility] Varicella (varivax)(chicken pox) Unknown Completed [facility] Varicella (varivax)(chicken pox) Unknown Completed [facility] Hiberix Unknown Completed [facility] Hiberix Unknown Completed [facility] Hiberix Unknown Completed [facility] Daptacel DTAP Unknown Completed [facility] Daptacel DTAP Unknown Completed [facility] Daptacel DTAP Unknown Completed [facility] Daptacel DTAP Unknown Completed [facility] Daptacel DTAP Unknown Completed [facility] Hep B, Adol or Pedi Dosage Unknown Completed [facility] Hep B, Adol or Pedi Dosage Unknown Completed [facility] Hep B, Adol or Pedi Dosage Unknown Completed [facility] Influenza Virus Vaccine Unknown Completed [facility] Meningococcal Polysaccharide (groups A, C, Y and W-135) conjugate vaccine (MCV4P) Unknown Completed [facility] Meningococcal Polysaccharide (groups A, C, Y and W-135) conjugate vaccine (MCV4P) Unknown Completed [facility] MMR Unknown Completed [facility] MMR Unknown Completed [facility] Polio (IPV/OPV) Unknown Completed [facility] Polio (IPV/OPV) Unknown Completed [facility] Polio (IPV/OPV) Unknown Completed [facility] Polio (IPV/OPV) Unknown Completed [facility] TDAP Unknown Completed [facility] Varicella (varivax)(chicken pox) Unknown Completed [facility] Varicella (varivax)(chicken pox) Unknown Completed [facility] Hiberix Unknown Completed [facility] Hiberix Unknown Completed [facility] Hiberix Unknown Completed [facility] Daptacel DTAP Unknown [facility] DTAP Unknown [facility]pleted [facility] Daptacel DTAP Unknown Completed [facility] Daptacel DTAP Unknown Completed [facility] Daptacel DTAP Unknown Completed [facility] Hep B, Adol or Pedi Dosage Unknown Completed [facility] Hep B, Adol or Pedi Dosage Unknown Completed [facility] Hep B, Adol or Pedi Dosage Unknown Completed [facility] Influenza Virus Vaccine Unknown Completed [facility] Meningococcal Polysaccharide (groups A, C, Y and W-135) conjugate vaccine (MCV4P) Unknown Completed [facility] Meningococcal Polysaccharide (groups A, C, Y and W-135) conjugate vaccine (MCV4P) Unknown Completed [facility] MMR Unknown Completed [facility] MMR Unknown Completed [facility] Polio (IPV/OPV) Unknown Completed [facility] Polio (IPV/OPV) Unknown Completed [facility] Polio (IPV/OPV) Unknown Completed [facility] Polio (IPV/OPV) Unknown Completed [facility] TDAP Unknown Completed [facility] Varicella (varivax)(chicken pox) Unknown Completed [facility] Varicella (varivax)(chicken pox) Unknown Completed [facility] Hiberix Unknown Completed [facility] Hiberix Unknown Completed [facility] Hiberix Unknown Completed [facility] Daptacel DTAP Unknown Completed [facility] Daptacel DTAP Unknown Completed [facility] DTAP Unknown Completed [facility] DTAP Unknown Completed [facility] DTAP Unknown Completed [facility] Hep B, Adol or Pedi Dosage Unknown Completed [facility] Hep B, Adol or Pedi Dosage Unknown Completed [facility] Hep B, Adol or Pedi Dosage Unknown Completed [facility] Influenza Virus Vaccine Unknown Completed [facility] Meningococcal Polysaccharide (groups A, C, Y and W-135) conjugate vaccine (MCV4P) Unknown Completed [facility] Meningococcal Polysaccharide (groups A, C, Y and W-135) conjugate vaccine (MCV4P) Unknown Completed [facility] MMR Unknown Completed [facility] MMR Unknown Completed [facility] Polio (IPV/OPV) Unknown Completed [facility] Polio (IPV/OPV) Unknown Completed [facility] Polio (IPV/OPV) Unknown Completed [facility] Polio (IPV/OPV) Unknown Completed [facility] TDAP Unknown Completed [facility] Varicella (varivax)(chicken pox) Unknown Completed [facility] Varicella (varivax)(chicken pox) Unknown Completed [facility] Hiberix Unknown Completed [facility] Hiberix Unknown Completed [facility] Hiberix Unknown Completed [facility] Daptacel DTAP Unknown Completed [facility] Daptacel DTAP Unknown Completed [facility] DTAP Unknown Completed [facility] DTAP Unknown Completed [facility] DTAP Unknown Com[facility] Hep B, Adol or Pedi Dosage Unknown Completed [facility] Hep B, Adol or Pedi Dosage Unknown Completed [facility] Hep B, Adol or Pedi Dosage Unknown Completed [facility] Influenza Virus Vaccine Unknown Completed [facility] Meningococcal Polysaccharide (groups A, C, Y and W-135) conjugate vaccine (MCV4P) Unknown Completed [facility] Meningococcal Polysaccharide (groups A, C, Y and W-135) conjugate vaccine (MCV4P) Unknown Completed [facility] MMR Unknown Completed [facility] MMR Unknown Completed [facility] Polio (IPV/OPV) Unknown Completed [facility] Polio (IPV/OPV) Unknown Completed [facility] Polio (IPV/OPV) Unknown Completed [facility] Polio (IPV/OPV) Unknown Completed [facility] TDAP Unknown Completed [facility] Varicella (varivax)(chicken pox) Unknown Completed [facility] Varicella (varivax)(chicken pox) Unknown Completed [facility] Hiberix Unknown Completed [facility] Hiberix Unknown Completed [facility] Hiberix Unknown Completed [facility] Daptacel DTAP Unknown Completed [facility] Daptacel DTAP Unknown Completed [facility] Daptacel DTAP Unknown Completed [facility] Daptacel DTAP Unknown Completed [facility] Daptacel DTAP Unknown Completed [facility] Hep B, Adol or Pedi Dosage Unknown Completed [facility] Hep B, Adol or Pedi Dosage Unknown Completed [facility] Hep B, Adol or Pedi Dosage Unknown Completed [facility] Influenza Virus Vaccine Unknown Completed [facility] Meningococcal Polysaccharide (groups A, C, Y and W-135) conjugate vaccine (MCV4P) Unknown Completed [facility] Meningococcal Polysaccharide (groups A, C, Y and W-135) conjugate vaccine (MCV4P) Unknown Completed [facility] MMR Unknown Completed [facility] MMR Unknown Completed [facility] Polio (IPV/OPV) Unknown Completed [facility] Polio (IPV/OPV) Unknown Completed [facility] Polio (IPV/OPV) Unknown Completed [facility] Polio (IPV/OPV) Unknown Completed [facility] TDAP Unknown Completed [facility] Varicella (varivax)(chicken pox) Unknown Completed [facility] Varicella (varivax)(chicken pox) Unknown Completed [facility] Hiberix Unknown Completed [facility] Hiberix Unknown Completed [facility] Hiberix Unknown Completed [facility] Daptacel DTAP Unknown [facility]pleted [facility] DTAP Unknown Completed [facility] DTAP Unknown Completed [facility] Daptacel DTAP Unknown Completed [facility] DTAP Unknown Completed [facility] Hep B, Adol or Pedi Dosage Unknown Completed [facility] Hep B, Adol or Pedi Dosage Unknown Completed [facility] Hep B, Adol or Pedi Dosage Unknown Completed [facility] Influenza Virus Vaccine Unknown Completed [facility] Meningococcal Polysaccharide (groups A, C, Y and W-135) conjugate vaccine (MCV4P) Unknown Completed [facility] Meningococcal Polysaccharide (groups A, C, Y and W-135) conjugate vaccine (MCV4P) Unknown Completed [facility] MMR Unknown Completed [facility] MMR Unknown Completed [facility] Polio (IPV/OPV) Unknown Completed [facility] Polio (IPV/OPV) Unknown Completed [facility] Polio (IPV/OPV) Unknown Completed [facility] Polio (IPV/OPV) Unknown Completed [facility] TDAP Unknown Completed [facility] Varicella (varivax)(chicken pox) Unknown Completed [facility] Varicella (varivax)(chicken pox) Unknown Completed [facility] Hiberix Unknown Completed [facility] Hiberix Unknown Completed [facility] Hiberix Unknown Completed [facility] Daptacel DTAP Unknown Completed [facility] DTAP Unknown Completed [facility] Daptacel DTAP Unknown Completed [facility] DTAP Unknown Completed [facility] D[facility] DTAP Unknown Completed [facility] Hep B, Adol or Pedi Dosage Unknown Completed [facility] Hep B, Adol or Pedi Dosage Unknown Completed [facility] Hep B, Adol or Pedi Dosage Unknown Completed [facility] Influenza Virus Vaccine Unknown Completed [facility] Meningococcal Polysaccharide (groups A, C, Y and W-135) conjugate vaccine (MCV4P) Unknown Completed [facility] Meningococcal Polysaccharide (groups A, C, Y and W-135) conjugate vaccine (MCV4P) Unknown Completed [facility] MMR Unknown Completed [facility] MMR Unknown Completed [facility] Polio (IPV/OPV) Unknown [facility] Completed [facility] Polio (IPV/OPV) Unknown Completed [facility] Polio (IPV/OPV) Unknown Completed [facility] TDAP Unknown Completed [facility] Varicella (varivax)(chicken pox) Unknown Completed [facility] Varicella (varivax)(chicken pox) Unknown Completed [facility] Hiberix Unknown Completed [facility] Hiberix Unknown Completed [facility] Hiberix Unknown Completed [facility] Daptacel DTAP [facility] Com[facility] Unknown Com[facility] DTAP Unknown Completed [facility] DTAP Unknown Completed [facility] Hep B, Adol or Pedi Dosage Unknown Completed [facility] Hep B, Adol or Pedi Dosage Unknown Completed [facility] Hep B, Adol or Pedi Dosage Unknown Completed [facility] Influenza Virus Vaccine Unknown Completed [facility] Meningococcal Polysaccharide (groups A, C, Y and W-135) conjugate vaccine (MCV4P) Unknown Completed [facility] Meningococcal Polysaccharide (groups A, C, Y and W-135) conjugate vaccine (MCV4P) Unknown Completed [facility] MMR Unknown Completed [facility] MMR Unknown Completed [facility] Polio (IPV/OPV) Unknown [facility] ([facility]OPV) [facility] ([facility]OPV) Unknown Completed [facility] TDAP Unknown Completed [facility] Varicella (varivax)(chicken pox) Unknown Completed [facility] Varicella (varivax)(chicken pox) Unknown Completed [facility] Hiberix Unknown Completed [facility] Hiberix Unknown Completed [facility] Hiberix Unknown Completed [facility] Daptacel DTAP Unknown [facility] Unknown Completed [facility] Daptacel DTAP Unknown Completed [facility] Daptacel DTAP Unknown Completed [facility] Daptacel DTAP Unknown Completed [facility] Hep B, Adol or Pedi Dosage Unknown Completed [facility] Hep B, Adol or Pedi Dosage Unknown Completed [facility] Hep B, Adol or Pedi Dosage Unknown Completed [facility] Influenza Virus Vaccine Unknown Completed [facility] Meningococcal Polysaccharide (groups A, C, Y and W-135) conjugate vaccine (MCV4P) Unknown Completed [facility] Meningococcal Polysaccharide (groups A, C, Y and W-135) conjugate vaccine (MCV4P) Unknown Completed [facility] MMR Unknown Completed [facility] MMR Unknown Completed [facility] Polio (IPV/OPV) Unknown Completed [facility] Polio (IPV/OPV) Unknown Completed [facility] Polio (IPV/OPV) Unknown Completed [facility] Polio (IPV/OPV) Unknown Completed [facility] TDAP Unknown Completed [facility] Varicella (varivax)(chicken pox) Unknown Completed [facility] Varicella (varivax)(chicken pox) Unknown Completed [facility] Hiberix Unknown Completed [facility] Hiberix Unknown Completed [facility] Hiberix Unknown Completed [facility] Daptacel DTAP Unknown Completed [facility] Daptacel DTAP Unknown [facility] DTAP Unknown Completed [facility] DTAP Unknown Completed [facility] DTAP Unknown Completed [facility] Hep B, Adol or Pedi Dosage Unknown Completed [facility] Hep B, Adol or Pedi Dosage Unknown Completed [facility] Hep B, Adol or Pedi Dosage Unknown Completed [facility] Influenza Virus Vaccine Unknown Completed [facility] Meningococcal Polysaccharide (groups A, C, Y and W-135) conjugate vaccine (MCV4P) Unknown Completed [facility] Meningococcal Polysaccharide (groups A, C, Y and W-135) conjugate vaccine (MCV4P) Unknown Completed [facility] MMR Unknown Completed [facility] MMR Unknown Completed [facility] Polio (IPV/OPV) Unknown Completed [facility] Polio (IPV/OPV) Unknown Completed [facility] Polio (IPV/OPV) Unknown Completed [facility] Polio (IPV/OPV) Unknown Completed [facility] TDAP Unknown Completed [facility] Varicella (varivax)(chicken pox) Unknown Completed [facility] Varicella (varivax)(chicken pox) Unknown Completed [facility] Hiberix Unknown Completed [facility] Hiberix Unknown Completed [facility] Hiberix Unknown Completed [facility] Daptacel DTAP [facility] Daptacel DTAP Unknown Completed [facility] Daptacel DTAP Unknown Completed [facility] Hep B, Adol or Pedi Dosage Unknown Completed [facility] Hep B, Adol or Pedi Dosage Unknown Completed [facility] Hep B, Adol or Pedi Dosage Unknown Completed [facility] Influenza Virus Vaccine Unknown Completed [facility] Meningococcal Polysaccharide (groups A, C, Y and W-135) conjugate vaccine (MCV4P) Unknown Completed [facility] Meningococcal Polysaccharide (groups A, C, Y and W-135) conjugate vaccine (MCV4P) Unknown Completed [facility] MMR Unknown Completed [facility] MMR Unknown Completed [facility] Polio (IPV/OPV) Unknown [facility] Completed [facility] Polio (IPV/OPV) Unknown Completed [facility] Polio (IPV/OPV) Unknown Completed [facility] TDAP Unknown Completed [facility] Varicella (varivax)(chicken pox) Unknown Completed [facility] Varicella (varivax)(chicken pox) Unknown Completed [facility] Hiberix Unknown Completed [facility] Hiberix Unknown Completed [facility] Hiberix Unknown Completed [facility] Daptacel DTAP Unknown Completed [facility] D[facility]acel DTAP [facility] Com[facility] D[facility] DTAP Unknown Completed [facility] Hep B, Adol or Pedi Dosage Unknown Completed [facility] Hep B, Adol or Pedi Dosage Unknown Completed [facility] Hep B, Adol or Pedi Dosage Unknown Completed [facility] Influenza Virus Vaccine Unknown Completed [facility] Meningococcal Polysaccharide (groups A, C, Y and W-135) conjugate vaccine (MCV4P) Unknown Completed [facility] Meningococcal Polysaccharide (groups A, C, Y and W-135) conjugate vaccine (MCV4P) Unknown Completed [facility] MMR Unknown Completed [facility] MMR Unknown Completed [facility] Polio (IPV/OPV) Unknown Completed [facility] Polio (IPV/OPV) Unknown Completed [facility] Polio (IPV/OPV) Unknown Completed [facility] Polio (IPV/OPV) Unknown Completed [facility] TDAP Unknown Completed [facility] Varicella (varivax)(chicken pox) Unknown Completed [facility] Varicella (varivax)(chicken pox) Unknown Completed [facility] Hiberix Unknown Completed [facility] Hiberix Unknown Completed [facility] Hiberix Unknown Completed [facility] Daptacel DTAP Unknown Completed [facility]acel DTAP [facility] DTAP Unknown Completed [facility] Daptacel DTAP Unknown Completed [facility] Daptacel DTAP Unknown Completed [facility] Hep B, Adol or Pedi Dosage Unknown Completed [facility] Hep B, Adol or Pedi Dosage Unknown Completed [facility] Hep B, Adol or Pedi Dosage Unknown Completed [facility] Influenza Virus Vaccine Unknown Completed [facility] Meningococcal Polysaccharide (groups A, C, Y and W-135) conjugate vaccine (MCV4P) Unknown Completed [facility] Meningococcal Polysaccharide (groups A, C, Y and W-135) conjugate vaccine (MCV4P) Unknown Completed [facility] MMR Unknown Completed [facility] MMR Unknown Completed [facility] Polio (IPV/OPV) Unknown Completed [facility] Polio (IPV/OPV) Unknown Completed [facility] Polio (IPV/OPV) Unknown Completed [facility] Polio (IPV/OPV) Unknown Completed [facility] TDAP Unknown Completed [facility] Varicella (varivax)(chicken pox) Unknown Completed [facility] Varicella (varivax)(chicken pox) Unknown Completed [facility] Hiberix Unknown Completed [facility] Hiberix Unknown Completed [facility] Hiberix Unknown Completed [facility] Daptacel DTAP Unknown Completed [facility] Daptacel DTAP Unknown Completed [facility] Daptacel DTAP Unknown Completed [facility] Daptacel DTAP Unknown Completed [facility] Daptacel DTAP Unknown Completed [facility] Hep B, Adol or Pedi Dosage Unknown Completed [facility] Hep B, Adol or Pedi Dosage Unknown Completed [facility] Hep B, Adol or Pedi Dosage Unknown Completed [facility] Influenza Virus Vaccine Unknown Completed [facility] Meningococcal Polysaccharide (groups A, C, Y and W-135) conjugate vaccine (MCV4P) Unknown Completed [facility] Meningococcal Polysaccharide (groups A, C, Y and W-135) conjugate vaccine (MCV4P) Unknown Completed [facility] MMR Unknown Completed [facility] MMR Unknown Completed [facility] Polio (IPV/OPV) Unknown Completed [facility] Polio (IPV/OPV) Unknown Completed [facility] Polio (IPV/OPV) Unknown Completed [facility] Polio (IPV/OPV) Unknown Completed [facility] TDAP Unknown Completed [facility] Varicella (varivax)(chicken pox) Unknown Completed [facility] Varicella (varivax)(chicken pox) Unknown Completed [facility] Hiberix Unknown Completed [facility] Hiberix Unknown Completed [facility] Hiberix Unknown Completed [facility] Daptacel DTAP Unknown Completed [facility] Daptacel DTAP Unknown Completed [facility] Daptacel DTAP Unknown Completed [facility] Daptacel DTAP Unknown Completed [facility] Daptacel DTAP Unknown Completed [facility] Hep B, Adol or Pedi Dosage Unknown Completed [facility] Hep B, Adol or Pedi Dosage Unknown Completed [facility] Hep B, Adol or Pedi Dosage Unknown Completed [facility] Influenza Virus Vaccine Unknown Completed [facility] Meningococcal Polysaccharide (groups A, C, Y and W-135) conjugate vaccine (MCV4P) Unknown Completed [facility] Meningococcal Polysaccharide (groups A, C, Y and W-135) conjugate vaccine (MCV4P) Unknown Completed [facility] MMR Unknown Completed [facility] MMR Unknown Completed [facility] Polio (IPV/OPV) Unknown Completed [facility] Polio (IPV/OPV) Unknown Completed [facility] Polio (IPV/OPV) Unknown Completed [facility] Polio (IPV/OPV) Unknown Completed [facility] TDAP Unknown Completed [facility] Varicella (varivax)(chicken pox) Unknown Completed [facility] Varicella (varivax)(chicken pox) Unknown Completed [facility] Hiberix Unknown Completed [facility] Hiberix Unknown Completed [facility] Hiberix Unknown Completed [facility] Vital Signs Vital Name Observation Time Observation Value Comments Mariah rodgers Systolic blood pressure 2023-05-07 02:00:00 123 mm[Hg] [facility] Diastolic blood pressure 2023-05-07 02:00:00 86 mm[Hg] [facility] Heart rate 2023-05-07 02:00:00 75 /min [facility] Body temperature 2023-05-07 02:00:00 36.89 Nancy [facility] Respiratory rate 2023-05-07 02:00:00 16 /min [facility] Oxygen saturation in Arterial blood by Pulse oximetry 2023-05-07 02:00:00 99 /min [facility] Body height 2023-05-07 00:24:00 165.1 cm [facility] Body weight 2023-05-07 00:24:00 104.327 kg [facility] BMI 2023-05-07 00:24:00 38.27 kg/m2 [facility] Systolic blood pressure 2023-05-04 14:08:00 106 mm[Hg] [facility] Diastolic blood pressure 2023-05-04 14:08:00 71 mm[Hg] [facility] Heart rate 2023-05-04 14:08:00 79 /min [facility] Body temperature 2023-05-04 14:08:00 36.94 Nancy [facility] Body height 2023-05-04 14:08:00 165.1 cm [facility] Body weight 2023-05-04 14:08:00 112.674 kg [facility] BMI 2023-05-04 14:08:00 41.34 kg/m2 [facility] Oxygen saturation in Arterial blood by Pulse oximetry 2023-05-04 14:08:00 99 /min [facility] Systolic blood pressure 2023-05-03 04:36:00 129 mm[Hg] [facility] Diastolic blood pressure 2023-05-03 04:36:00 78 mm[Hg] [facility] Heart rate 2023-05-03 04:36:00 91 /min [facility] Respiratory rate 2023-05-03 04:36:00 16 /min [facility] Oxygen saturation in Arterial blood by Pulse oximetry 2023-05-03 04:36:00 99 /min [facility] Body temperature 2023-05-03 00:25:00 36.78 Nancy [facility] Systolic blood pressure 2023-05-03 00:02:00 112 mm[Hg] [facility] Diastolic blood pressure 2023-05-03 00:02:00 81 mm[Hg] [facility] Heart rate 2023-05-03 00:02:00 86 /min [facility] Body temperature 2023-05-03 00:02:00 36.56 Nancy [facility] Respiratory rate 2023-05-03 00:02:00 16 /min [facility] Body weight 2023-05-03 00:02:00 111.449 kg [facility] BMI 2023-05-03 00:02:00 40.89 kg/m2 [facility] Oxygen saturation in Arterial blood by Pulse oximetry 2023-05-03 00:02:00 99 /min [facility] Systolic blood pressure 2023-03-03 13:09:00 112 mm[Hg] [facility] Diastolic blood pressure 2023-03-03 13:09:00 76 mm[Hg] [facility] Heart rate 2023-03-03 13:09:00 76 /min [facility] Body height 2023-03-03 13:09:00 165.1 cm [facility] Body weight 2023-03-03 13:09:00 108.364 kg [facility] BMI 2023-03-03 13:09:00 39.76 kg/m2 [facility] Oxygen saturation in Arterial blood by Pulse oximetry 2023-03-03 13:09:00 98 /min [facility] Systolic blood pressure 2023-02-20 14:08:00 126 mm[Hg] [facility] Diastolic blood pressure 2023-02-20 14:08:00 80 mm[Hg] [facility] Heart rate 2023-02-20 14:08:00 93 /min [facility] Respiratory rate 2023-02-20 14:08:00 18 /min [facility] Body height 2023-02-20 14:08:00 165.1 cm [facility] Body weight 2023-02-20 14:08:00 108.863 kg [facility] BMI 2023-02-20 14:08:00 39.94 kg/m2 [facility] Oxygen saturation in Arterial blood by Pulse oximetry 2023-02-20 14:08:00 99 /min [facility] Systolic blood pressure 2023-02-11 17:32:00 115 mm[Hg] [facility] Diastolic blood pressure 2023-02-11 17:32:00 77 mm[Hg] [facility] Heart rate 2023-02-11 17:32:00 84 /min [facility] Body temperature 2023-02-11 17:32:00 36.11 Nancy [facility] Body height 2023-02-11 17:32:00 165.1 cm [facility] Body weight 2023-02-11 17:32:00 109.181 kg [facility] BMI 2023-02-11 17:32:00 40.05 kg/m2 [facility] Oxygen saturation in Arterial blood by Pulse oximetry 2023-02-11 17:32:00 98 /min [facility] Systolic blood pressure 2023-02-11 13:24:00 110 mm[Hg] [facility] Diastolic blood pressure 2023-02-11 13:24:00 80 mm[Hg] [facility] Heart rate 2023-02-11 13:24:00 82 /min [facility] Body temperature 2023-02-11 13:24:00 35.94 Nancy [facility] Body height 2023-02-11 13:24:00 165.1 cm [facility] Body weight 2023-02-11 13:24:00 109.498 kg [facility] BMI 2023-02-11 13:24:00 40.17 kg/m2 [facility] Oxygen saturation in Arterial blood by Pulse oximetry 2023-02-11 13:24:00 98 /min [facility] Systolic blood pressure 2023-02-02 21:23:00 113 mm[Hg] [facility] Diastolic blood pressure 2023-02-02 21:23:00 83 mm[Hg] [facility] Heart rate 2023-02-02 21:23:00 85 /min [facility] Respiratory rate 2023-02-02 21:23:00 18 /min [facility] Body height 2023-02-02 21:23:00 165.1 cm [facility] Body weight 2023-02-02 21:23:00 108.183 kg [facility] BMI 2023-02-02 21:23:00 39.69 kg/m2 [facility] Oxygen saturation in Arterial blood by Pulse oximetry 2023-02-02 21:23:00 99 /min [facility] Systolic blood pressure 2023-01-14 13:09:00 112 mm[Hg] [facility] Diastolic blood pressure 2023-01-14 13:09:00 73 mm[Hg] [facility] Heart rate 2023-01-14 13:09:00 73 /min [facility] Body temperature 2023-01-14 13:09:00 36.67 Nancy [facility] Body height 2023-01-14 13:09:00 165.1 cm [facility] Body weight 2023-01-14 13:09:00 107.049 kg [facility] BMI 2023-01-14 13:09:00 39.27 kg/m2 [facility] Oxygen saturation in Arterial blood by Pulse oximetry 2023-01-14 13:09:00 100 /min [facility] Systolic blood pressure 2022-08-22 15:33:00 101 mm[Hg] [facility] Diastolic blood pressure 2022-08-22 15:33:00 68 mm[Hg] [facility] Heart rate 2022-08-22 15:33:00 68 /min [facility] Body height 2022-08-22 15:33:00 162.6 cm [facility] Body weight 2022-08-22 15:33:00 102.059 kg [facility] BMI 2022-08-22 15:33:00 38.62 kg/m2 [facility] Systolic blood pressure 2022-07-22 16:47:00 109 mm[Hg] [place] [facility] Diastolic blood pressure 2022-07-22 16:47:00 78 mm[Hg] [facility] Heart rate 2022-07-22 16:47:00 81 /min [facility] Respiratory rate 2022-07-22 16:47:00 18 /min [facility] Body height 2022-07-22 16:47:00 162.6 cm [facility] Body weight 2022-07-22 16:47:00 102.649 kg [facility] BMI 2022-07-22 16:47:00 38.84 kg/m2 [facility] weight 2022-07-07 15:00:00 229.5 [lb_av] [facility] height 2022-07-07 15:00:00 64 [in_i] [facility] bmi 2022-07-07 15:00:00 39.39 kg/m2 [facility] heart rate 2022-07-07 15:00:00 82 /min [facility] [place] temperature 2022-07-07 15:00:00 98.1 [degF] [facility] oximetry 2022-07-07 15:00:00 98 % [facility] blood pressure systolic 2022-07-07 15:00:00 102 mm[Hg] [facility] blood pressure diastolic 2022-07-07 15:00:00 76 mm[Hg] [facility] weight 2021-06-07 14:00:00 200.7 [lb_av] [facility] height 2021-06-07 14:00:00 64 [in_i] [facility] bmi 2021-06-07 14:00:00 34.45 kg/m2 [facility] heart rate 2021-06-07 14:00:00 109 /min [facility] temperature 2021-06-07 14:00:00 98.2 [degF] [facility] oximetry 2021-06-07 14:00:00 98 % [facility] blood pressure systolic 2021-06-07 14:00:00 115 mm[Hg] [facility] blood pressure diastolic 2021-06-07 14:00:00 71 mm[Hg] [facility] heart rate 2021-02-22 12:20:00 140 /min [facility] temperature 2021-02-22 12:20:00 100.4 [degF] [facility] oximetry 2021-02-22 12:20:00 97 % [facility] weight 2021-01-03 13:15:00 189.1 [lb_av] [facility] height 2021-01-03 13:15:00 64 [in_i] [facility] bmi 2021-01-03 13:15:00 32.46 kg/m2 [facility] heart rate 2021-01-03 13:15:00 104 /min [facility] temperature 2021-01-03 13:15:00 98.4 [degF] [facility] oximetry 2021-01-03 13:15:00 98 % [facility] blood pressure systolic 2021-01-03 13:15:00 116 mm[Hg] [facility] blood pressure diastolic 2021-01-03 13:15:00 72 mm[Hg] [facility] Systolic blood pressure 2019-12-13 16:01:00 110 mm[Hg] [facility] Diastolic blood pressure 2019-12-13 16:01:00 80 mm[Hg] [facility] Heart rate 2019-12-13 16:01:00 75 /min [facility] Body temperature 2019-12-13 16:01:00 36.33 Nancy [facility] Respiratory rate 2019-12-13 16:01:00 18 /min [facility] Oxygen saturation in Arterial blood by Pulse oximetry 2019-12-13 16:01:00 100 /min [facility] Body weight 2019-12-13 09:20:00 88.996 kg [facility] BMI 2019-12-13 09:20:00 33.68 kg/m2 [facility] Body height 2019-12-11 00:55:00 162.6 cm [facility] Systolic blood pressure 2019-12-13 16:01:00 110 mm[Hg] [facility] Diastolic blood pressure 2019-12-13 16:01:00 80 mm[Hg] [facility] Heart rate 2019-12-13 16:01:00 75 /min [facility] Body temperature 2019-12-13 16:01:00 36.33 Nancy [facility] Respiratory rate 2019-12-13 16:01:00 18 /min [facility] Oxygen saturation in Arterial blood by Pulse oximetry 2019-12-13 16:01:00 100 /min [facility] Body weight 2019-12-13 09:20:00 88.996 kg [facility] BMI 2019-12-13 09:20:00 33.68 kg/m2 [facility] Body height 2019-12-11 00:55:00 162.6 cm [facility] Systolic blood pressure 2019-12-04 16:51:00 93 mm[Hg] [facility] Diastolic blood pressure 2019-12-04 16:51:00 52 mm[Hg] [facility] Heart rate 2019-12-04 16:51:00 73 /min [facility] Body temperature 2019-12-04 16:51:00 36.39 Nancy [facility] Respiratory rate 2019-12-04 16:51:00 18 /min [facility] Oxygen saturation in Arterial blood by Pulse oximetry 2019-12-04 16:51:00 99 /min [facility] Body weight 2019-12-04 08:26:00 89.994 kg [facility] BMI 2019-12-04 08:26:00 34.06 kg/m2 [facility] Body height 2019-12-03 18:55:00 162.6 cm [facility] Systolic blood pressure 2019-12-04 16:51:00 93 mm[Hg] [facility] Diastolic blood pressure 2019-12-04 16:51:00 52 mm[Hg] [facility] Heart rate 2019-12-04 16:51:00 73 /min [facility] Body temperature 2019-12-04 16:51:00 36.39 Nancy [facility] Respiratory rate 2019-12-04 16:51:00 18 /min [facility] Oxygen saturation in Arterial blood by Pulse oximetry 2019-12-04 16:51:00 99 /min [facility] Body weight 2019-12-04 08:26:00 89.994 kg [facility] BMI 2019-12-04 08:26:00 34.06 kg/m2 [facility] Body height 2019-12-03 18:55:00 162.6 cm [facility] Procedures Procedure Date / Time Performed Performing Clinician Source SLEEP STUDY DATA REPORT 2023-06-10 06:01:00 Doct or Unassigned, Gomer [facility] US RETROPERITONEAL COMPLETE 2023-05-18 22:46:01 Trace Atwood [facility] ASSIGNMENT OF BENEFITS 2023-05-18 22:20:58 Docto r Unassigned, Gomer [facility] CONSENT/REFUSAL FOR DIAGNOSIS AND TREATMENT 2023-05-18 22:20:42 Doctor Unassigned, Gomer [facility] BASIC METABOLIC PANEL (NA, K, CL, CO2, GLUCOSE, BUN, CREATININE, CA) 2023-05-07 01:09:00 Ravinder Valenzuela [facility] URINALYSIS 2023-05-07 01:09:00 Ravinder Valenzuela [facility] POCT TEST 2023-05-07 01:09:00 Marshall Valenzuela [facility] CONSENT/REFUSAL FOR DIAGNOSIS AND TREATMENT 2023-05-07 00:13:20 Doctor Unassigned, Gomer [facility] PATIENT QUESTIONNAIRE 2023-05-04 06:01:00 Doctor Unassigned, Gomer [facility] CT ABDOMEN PELVIS W CONTRAST 2023-05-03 02:19:10 Farhana Arnold [facility] LIPASE 2023-05-03 01:41:00 Farhana Arnold [facility] HEPATIC FUNCTION PANEL (15089) (ALB,T.PRO,BILI T,BU/BC,ALT,AST,ALK PHOS) 2023-05-03 01:41:00 Farhana Arnold [facility] BASIC METABOLIC PANEL (NA, K, CL, CO2, GLUCOSE, BUN, CREATININE, CA) 2023-05-03 01:41:00 Farhana Arnold [facility] CBC WITH DIFF 2023-05-03 01:41:[address] [facility] POCT TEST 2023-05-03 01:07:00 Farhana Arnold [facility] URINALYSIS 2023-05-03 01:06:00 Farhana Arnold [facility] CONSENT/REFUSAL FOR DIAGNOSIS AND TREATMENT 2023-05-03 00:21:40 Doctor Unassigned, Gomer [facility] MR CERVICAL SPINE WO CONTRAST 2023-02-20 15:08:24 Darell Hartley [facility] SLEEP STUDY DATA REPORT 2023-02-03 05:01:00 Doct or Unassigned, Gomer [facility] POCT TEST 2023-01-14 13:50:00 Nataliia Talbert [facility] MEDICATION CORRESPONDENCE 2022-10-02 05:01:00 Do ctor Unassigned, Gomer [facility] XR CHEST 2 VW 2022-09-26 14:44:11 Laurita Calderon [facility] ASSIGNMENT OF BENEFITS 2022-09-26 14:23:34 Docto r Unassigned, Gomer [facility] PATIENT FINANCIAL POLICY 2022-08-22 15:16:36 Doctor Unassigned, Gomer [facility] ASSIGNMENT OF BENEFITS 2022-07-22 16:42:31 Docto r Unassigned, Gomer [facility] BASIC METABOLIC PANEL (NA, K, CL, CO2, GLUCOSE, BUN, CREATININE, CA) 2019-12-13 08:55:00 Glenn [facility] CBC WITH DIFFERENTIAL 2019-12-13 08:55:00 Tiffani Elizabeth [facility] BASIC METABOLIC PANEL (NA, K, CL, CO2, GLUCOSE, BUN, CREATININE, CA) 2019-12-12 08:07:00 Glenn [facility] CBC WITH DIFFERENTIAL 2019-12-12 08:07:00 Tiffani Elizabeth [facility] SURGICAL PATHOLOGY EXAM 2019-12-11 14:00:00 Kj Pack [facility] LAPAROSCOPIC APPENDECTOMY 2019-12-11 12:53:00 Annetta Pack [facility] MAGNESIUM 2019-12-11 08:12:00 Stephanie Vega [facility] BASIC METABOLIC PANEL (NA, K, CL, CO2, GLUCOSE, BUN, CREATININE, CA) 2019-12-11 08:12:00 Stephanie Vega [facility] CBC WITH DIFFERENTIAL 2019-12-11 08:12:00 Denis Vega [facility] PROTHROMBIN TIME / INR 2019-12-11 08:12:00 Ld Hardin [facility] ACTIVATED PARTIAL THRMPLAS JOSE MARTIN 2019-12-11 08:12:00 Kristian Hardin [facility] COVID-19 (ID NOW RAPID TESTING) 2019-12-10 23:13:00 Jessica Worley [facility] BLOOD CULTURE SCREEN 2019-12-10 22:28:00 Armando Worley [facility] BLOOD CULTURE SCREEN 2019-12-10 22:15:00 Armando Worley [facility] LACTIC ACID WHOLE BLOOD 2019-12-10 22:13:00 Jessica Worley [facility] CT ABDOMEN PELVIS W CONTRAST 2019-12-10 21:47:45 Jessica Worley [facility] LIPASE 2019-12-10 20:34:00 Jessica Worley [facility] COMP. METABOLIC PANEL (10343) 2019-12-10 20:34:00 Jessica Worley [facility] CBC WITH DIFFERENTIAL 2019-12-10 20:34:00 Sebastian Worley Singh [facility] URINALYSIS 2019-12-10 20:34:00 Jessica Worley Singh [facility] URINE CULTURE 2019-12-10 20:34:00 Jessica Worley Singh [facility] POCT TEST 2019-12-10 20:34:00 Jin Worley F [facility] CBC WITH DIFFERENTIAL 2019-12-04 10:31:00 Chandrika [facility] ASPIRATE OR ABSCESS CULTURE(AEROBIC/ANAEROBIC) 2019-12-03 16:05:18 Chandrika [facility] CT PELVIS W CONTRAST 2019-12-03 13:34:34 Kendra Valenzuela [facility] BLOOD CULTURE SCREEN 2019-12-03 12:49:00 Kendra Valenzuela [facility] POCT TEST 2019-12-03 12:32:00 Marshall Valenzuela [facility] URINALYSIS 2019-12-03 12:29:00 Ravinder Valenzuela [facility] COVID-19 (ID NOW RAPID TESTING) 2019-12-03 12:29:00 Ravinder Valenzuela [facility] BLOOD CULTURE SCREEN 2019-12-03 12:21:00 Kendra Valenzuela [facility] CBC WITH DIFFERENTIAL 2019-12-03 12:21:00 Dakotah Valenzuela [facility] PROTHROMBIN TIME / INR 2019-12-03 12:21:00 Sathish Valenzuela [facility] ACTIVATED PARTIAL THRMPLAS JOSE MARTIN 2019-12-03 12:21:00 Ravinder Valenzuela [facility] HEPATIC FUNCTION PANEL (88454) (ALB,T.PRO,BILI T,BU/BC,ALT,AST,ALK PHOS) 2019-12-03 12:20:00 Ravinder Valenzuela [facility] BASIC METABOLIC PANEL (NA, K, CL, CO2, GLUCOSE, BUN, CREATININE, CA) 2019-12-03 12:20:00 Ravinder Valenzuela [facility] LACTIC ACID WHOLE BLOOD 2019-12-03 12:20:00 Do kaitlin Valenzuela [facility] NOTICE OF PRIVACY PRACTICES 2019-12-03 11:17:35 Doctor Unassigned, Gomer [facility] Encounters Start Date/Time End Date/Time Encounter Type Admission Type Attending Clinicians Care Facility Care Department Encounter ID Source 2023-02-02 11:21:00 Outpatient Moved, . JOE [facility] [id number] [facility] 2022-10-22 10:15:02 Outpatient DejuanJj young JOE [facility] [id number] [facility] 2022-09-30 11:55:01 Outpatient DejuanJj young JOE [facility] [id number] [facility] 2022-07-14 11:32:02 Outpatient DejuanJj young JOE [facility] [id number] [facility] 2022-07-11 17:06:00 Outpatient DejuanJj young JOE [facility] [id number] [facility] 2022-07-07 11:43:03 Outpatient DejuanJj young STSUZIE [facility] [id number] [facility] 2022-06-10 11:01:01 Outpatient Dejuan Jj STSUZIE [facility] [id number] [facility] 2022-02-05 14:59:01 Outpatient Dejuan Jj STSUZIE [facility] [id number] [facility] 2021-10-01 14:12:02 Outpatient Jj Zaidi [facility] [id number] [facility] 2021-09-02 17:03:02 Outpatient Jj Zaidi [facility] [id number] [facility] 2021-07-24 14:27:47 Outpatient Jj Zaidi [facility] [id number] [facility] 2021-07-24 14:23:59 Outpatient Jj Zaidi [facility] [id number] [facility] 2021-07-24 14:08:21 Outpatient Jj Zaidi [facility] [id number] [facility] 2021-07-24 13:23:42 [facility] [id number] [facility] 2023-08-21 13:40:00 2023-08-21 13:40:00 Outpatient R [facility] [id number] [facility] 2023 11:00:00 2023 11:00:00 Outpatient ALEJANDRINA RODRIGUEZ [facility] [id number] [facility] 2023 09:00:00 2023 09:00:00 Outpatient ALEJANDRINA RODRIGUEZ [facility] [id number] [facility] 2023-06-10 20:00:00 2023-06-10 22:30:00 [employer] Work[employer] Visit 1, [facility] Sleep Lab Bed Shelly Bedolla [facility] 1.2.840.114 350.1.13.10 4.2.7.2.686 [id number] [facility] 2023-06-10 20:00:00 2023-06-10 20:00:00 Outpatient R SHELLY BEDOLLA STRAHIL [facility] [id number] [facility] 2023-06-10 00:00:00 2023-06-10 00:00:00 Orders Only Doctor Unassigned, Gomer [facility] 1.2840.114 350.1.13.10 4.2.7.2.686 [id number] [facility] 2023-05-26 10:00:00 2023-05-26 10:00:00 Outpatient R KHOURYWINSTON [facility] [id number] [facility] 2023-05-19 00:00:00 2023-05-19 00:00:00 Telephone Angelic [facility] 1.840.114 350.1.13.10 4.2.7.2.686 [id number] [facility] 2023-05-18 16:20:52 2023-05-18 23:59:00 Outpatient R ANGELIC [facility] [id number] [facility] 2023-05-18 16:20:52 2023-05-18 23:59:00 Hospital Encounter Angelic [facility] 1.840.114 350.1.13.10 4.2.7.2.686 [id number] [facility] 2023-05-15 10:00:00 2023-05-15 10:00:00 Outpatient R ARLENE DAILY [facility] [id number] [facility] 2023-05-14 00:00:00 2023-05-14 00:00:00 Darell Damon [facility] 1..840.114 350.1.13.10 4.2.7.2.686 [id number] [facility] 2023-05-11 00:00:00 2023-05-11 00:00:00 Telephone Angelic [facility] 1.0.114 350.1.13.10 4.2.7.2.686 [id number] [facility] 2023-05-11 00:00:00 2023-05-11 00:00:00 Patient Secure Msg Doctor Unassigned, Gomer [facility] 1.20.114 350.1.13.10 4.2.7.2.686 [id number] [facility] 2023-05-06 18:26:00 2023-05-06 20:57:00 Emergency X RAVINDER [facility]ENZ[facility]A [facility] [id number] [facility] 2023-05-06 18:26:00 2023-05-06 20:57:00 Emergency Ravinder Valenzuela [facility] 1.840.114 350.1.13.10 4.2.7.2.686 [id number] [facility] 2023-05-06 00:00:00 2023-05-06 00:00:00 Nurse Triage Marvin Millan, [facility] 1.2840.114 350.1.13.10 4.2.7.2.686 [id number] [facility] 2023-05-05 00:00:00 2023-05-05 00:00:00 Telephone Angelic [facility] 1.20.114 350.1.13.10 4.2.7.2.686 [id number] [facility] 2023-05-04 12:30:00 2023-05-04 12:45:00 [employer] Work[employer] Visit Lab, Luis Fernando - [facility]SA[facility] 1.2.114 350.1.13.10 4.2.7.2.686 [id number] [facility] 2023-05-04 08:00:00 2023-05-04 08:40:42 Outpatient R ANGELIC [facility] [id number] [facility] 2023-05-04 08:00:00 2023-05-04 08:30:00 [facility] 1..114 350.1.13.10 4.2.7.2.686 [id number] [facility] 2023-05-04 00:00:00 2023-05-04 00:00:00 Orders Only Doctor Unassigned, Gomer [facility] 1.84.114 350.1.13.10 4.2.7.2.686 [id number] [facility] 2023-05-02 19:29:00 2023-05-02 23:37:00 Emergency X FARHANA ARNOLD [facility] ERT [id number] [facility] 2023-05-02 19:29:00 2023-05-02 23:37:00 Emergency Farhana Arnold [facility] 1.840.114 350.1.13.10 4.2.7.2.686 [id number] [facility] 2023-05-02 18:45:00 2023-05-02 19:27:28 Outpatient R AZEEM LOW [facility] [id number] [facility] 2023-05-02 18:45:00 2023-05-02 19:27:28 Nurse Visit Azeem Low [facility] 1.84.114 350.1.13.10 4.2.7.2.686 [id number] [facility] 2023-05-02 18:30:00 2023-05-02 18:30:00 Outpatient R SADIE LOWA [facility] [id number] [facility] 2023-05-01 15:30:00 2023-05-01 15:30:00 Outpatient R [facility] [id number] [facility] 2023-04-18 00:00:00 2023-04-18 00:00:00 Refill Nataliia Talbert Yair [facility] 1.840.114 350.1.13.10 4.2.7.2.686 [id number] [facility] 2023-04-15 00:00:00 2023-04-15 00:00:00 Outpatient GC_GCBZW_Ka diyala_S [facility] [id number] [facility] 2023-04-06 00:00:00 2023-04-06 00:00:00 [facility] 1.84.114 350.1.13.10 4.2.7.2.686 [id number] [facility] 2023-03-03 08:20:00 2023-03-03 08:40:39 Outpatient R DARELL HARTLEY HOWARD [facility] [id number] [facility] 2023-03-03 08:20:00 2023-03-03 08:40:39 Office Visit Darell Hartley [facility] 1.84.114 350.1.13.10 4.2.7.2.686 [id number] [facility] 2023-02-27 00:00:00 2023-02-27 00:00:00 Telephone Melinda Newton [facility] 1.114 350.1.13.10 4.2.7.2.686 [id number] [facility] 2023-02-25 00:00:00 2023-02-25 00:00:00 Case Management [facility] 1.840.114 350.1.13.10 4.2.7.2.686 [id number] [facility] 2023-02-25 00:00:00 2023-02-25 00:00:00 Patient Secure Msg [facility] 1.840.114 350.1.13.10 4.2.7.2.686 [id number] [facility] 2023-02-20 08:19:08 2023-02-20 23:59:00 Outpatient DARELL LOCKHART [facility] [id number] [facility] 2023-02-20 08:19:08 2023-02-20 23:59:00 Hospital Encounter Darell Hartley [facility] 1.840.114 350.1.13.10 4.2.7.2.686 [id number] [facility] 2023-02-19 00:00:00 2023-02-19 00:00:00 Patient Secure Msg Doctor Unassigned, Gomer [facility] 1.840.114 350.1.13.10 4.2.7.2.686 [id number] [facility] 2023-02-11 12:30:00 2023-02-11 13:03:32 Outpatient R MELINDA NEWTON [facility] [id number] [facility] 2023-02-11 12:30:00 2023-02-11 13:00:00 Office Visit [facility] 1.840.114 350.1.13.10 4.2.7.2.686 [id number] [facility] 2023-02-11 08:30:00 2023-02-11 09:15:03 Office Visit Nataliia Talbert [facility] HUSSAIN?[facility] 1.2840.114 350.1.13.10 4.2.7.2.686 [id number] [facility] 2023-02-05 00:00:00 2023-02-05 00:00:00 Telephone Nataliia Talbert [facility] HUSSAIN?[facility] 1.2840.114 350.1.13.10 4.2.7.2.686 [id number] [facility] 2023-02-05 00:00:00 2023-02-05 00:00:00 Telephone Nataliia Talbert [facility] 1.840.114 350.1.13.10 4.2.7.2.686 [id number] [facility] 2023-02-03 15:00:00 2023-02-03 15:15:00 Sheep [employer] Worker Visit [facility] Sleep Lab Shelly Bedolla [facility] 1.84.114 350.1.13.10 4.2.7.2.686 [id number] [facility] 2023-02-03 15:00:00 2023-02-03 15:00:00 Outpatient SHELLY BOUCHER STRAHIL [facility] [id number] [facility] 2023-02-03 00:00:00 2023-02-03 00:00:00 Orders Only Doctor Unassigned, Gomer [facility] 1.2840.114 350.1.13.10 4.2.7.2.686 [id number] [facility] 2023-02-02 16:00:00 2023-02-02 17:11:50 Outpatient R DARELL HARTLEY [facility] [id number] [facility] 2023-02-02 16:00:00 2023-02-02 17:11:50 Office Visit Darell Hartley [facility] 1..840.114 350.1.13.10 4.2.7.2.686 [id number] [facility] 2023-02-01 00:00:00 2023-02-01 00:00:00 (TEL) [facility]LS[facility] [id number] [facility] 2023-01-14 11:30:00 2023-01-14 11:30:00 [employer]ep [employer] Worker Visit Lab, Nataliia Smith [facility] HUS[facility]IN?[facility] 1.840.114 350.1.13.10 4.2.7.2.686 [id number] [facility] 2023-01-14 08:00:00 2023-01-14 08:48:26 Outpatient R NATALIIA TALBERT [facility] [id number] [facility] 2023-01-14 08:00:00 2023-01-14 08:48:26 Office Visit Nataliia Talbert [facility] HUSSAIN?[facility]ILD[facility] 1.840.114 350.1.13.10 4.2.7.2.686 [id number] [facility] 2023-01-09 13:30:00 2023-01-09 13:30:00 Outpatient R ALEJANDRINA MENCHACA [facility] [id number] [facility] 2023-01-07 00:00:00 2023-01-07 00:00:00 Telephone Alejandrina Menchaca [facility] 1..840.114 350.1.13.10 4.2.7.2.686 [id number] [facility] 2023-01-02 00:00:00 2023-01-02 00:00:00 Telephone Alejandrina Menchaca [facility] 1.2.840.114 350.1.13.10 4.2.7.2.686 [id number] [facility] 2022-11-26 00:00:00 2022-11-26 00:00:00 (TEL) [facility] [id number] [facility] ent Clinics 2022-11-21 00:00:00 2022-11-21 00:00:00 Telephone Selwyn [facility] Hospital[facility] 1.2.840.114 350.1.13.10 4.2.7.2.686 [id number] [facility] 2022-11-11 00:00:00 2022-11-11 00:00:00 Telephone Selwyn [facility]aca[facility] HospitalJONATHON [facility]IX[facility] BU[facility] 1.2.840.114 350.1.13.10 4.2.7.2.686 [id number] [facility] 2022-11-07 00:00:00 2022-11-07 00:00:00 Telephone Darell Hartley [facility] 1.2.840.114 350.1.13.10 4.2.7.2.686 [id number] [facility] 2022-11-03 00:00:00 2022-11-03 00:00:00 Telephone Selwyn [facility] HospitalJONATHON NIX[facility] BU[facility] 1.2.840.114 350.1.13.10 4.2.7.2.686 [id number] [facility] 2022-10-31 00:00:00 2022-10-31 00:00:00 Telephone Darell Hartley [facility] 1.2840.114 350.1.13.10 4.2.7.2.686 [id number] [facility] 2022-10-03 00:00:00 2022-10-03 00:00:00 Patient Secure Msg Doctor Unassigned, Gomer [facility] 1.2840.114 350.1.13.10 4.2.7.2.686 [id number] [facility] 2022-10-02 00:00:00 2022-10-02 00:00:00 Orders Only Doctor Unassigned, Gomer [facility] 1.2840.114 350.1.13.10 4.2.7.2.686 [id number] [facility] 2022-10-01 00:00:00 2022-10-01 00:00:00 Telephone Selwyn Menchacassica [facility] HUSSAIN?[facility] 1.284.114 350.1.13.10 4.2.7.2.686 [id number] [facility] 2022-09-29 00:00:00 2022-09-29 00:00:00 Refill Selwyn Menchacassica [facility] HUSSAIN?[facility] 1.2840.114 350.1.13.10 4.2.7.2.686 [id number] [facility] 2022-09-26 09:24:35 2022-09-26 23:59:00 Outpatient R RADIOLOGY [facility] [id number] [facility] 2022-09-26 09:24:35 2022-09-26 23:59:00 Hospital Encounter Radiology [facility] 1.2840.114 350.1.13.10 4.2.7.2.686 [id number] [facility] 2022-09-26 00:00:00 2022-09-26 00:00:00 (TEL) [facility] [id number] [facility] ent Clinics 2022-09-26 00:00:00 2022-09-26 00:00:00 Orders Only Doctor Unassigned, Gomer [facility] 1.2840.114 350.1.13.10 4.2.7.2.686 [id number] [facility] 2022-09-19 00:00:00 2022-09-19 00:00:00 (TEL) [facility] [id number] [facility] ent [facility] 2022-09-09 00:00:00 2022-09-09 00:00:00 Telephone Darell Hartley [facility] OFF[facility] BUILD[facility] 1..840.114 350.1.13.10 4.2.7.2.686 [id number] [facility] 2022-08-28 10:00:00 2022-08-28 10:00:00 Outpatient CAROLINE MACHADO [id number] Daisy Perkins 2022-08-22 09:20:00 2022-08-22 11:27:15 Outpatient DARELL LOCKHART HOW[facility] [id number] [facility] 2022-08-22 09:20:00 2022-08-22 11:27:15 Office Visit Luis [facility] MED[facility] OFFICE BUILDING 1..840.114 350.1.13.10 4.2.7.2.686 [id number] [facility] 2022-08-22 00:00:00 2022-08-22 00:00:00 Orders Only Doctor Unassigned, Gomer [facility] 1.2.840.114 350.1.13.10 4.2.7.2.686 [id number] [facility] 2022-08-15 08:45:00 2022-08-15 08:45:00 Outpatient KAITLIN MACHADONILE DAISY LANDAVERDE [id number] Daisy Perkins 2022-07-25 00:00:00 2022-07-25 00:00:00 (TEL) STLSANDRES STLSJC [id number] [facility] Outpati ent Clinics 2022-07-22 11:00:00 2022-07-22 11:31:46 Outpatient DARELL LOCKHART [facility] [id number] [facility] 2022-07-22 11:00:00 2022-07-22 11:31:46 Office Visit Alejandrina Menchaca Howard [facility] OFF[facility]ILD[facility] 1.2.840.114 350.1.13.10 4.2.7.2.686 [id number] [facility] 2022-07-22 00:00:00 2022-07-22 00:00:00 Orders Only Doctor Unassigned, Gomer [facility] 1.2.840.114 350.1.13.10 4.2.7.2.686 [id number] [facility] 2022-07-16 00:00:00 2022-07-16 00:00:00 (TEL) [facility] ST[facility] [id number] [facility] [place] Outpat[facility] ent Clinics 2022-07-14 00:00:00 2022-07-14 00:00:00 (TEL) [facility] [id number] [facility] 2022-07-14 00:00:00 2022-07-14 00:00:00 (TEL) [facility] [id number] [facility] 2022-07-14 00:00:00 2022-07-14 00:00:00 (TEL) [facility] [id number] [facility] 2022-07-08 00:00:00 2022-07-08 00:00:00 (TEL) [facility] [id number] [facility] 2022-07-07 00:00:00 2022-07-07 00:00:00 (15 min) 15 min [facility] [id number] [facility] 2022-06-09 00:00:00 2022-06-09 00:00:00 (TEL) [facility] [id number] [facility] 2022-06-07 00:00:00 2022-06-07 00:00:00 (TEL) [facility] [id number] [facility] 2021-12-06 00:00:00 2021-12-06 00:00:00 (TEL) [facility] [id number] [facility] 2021-11-18 00:00:00 2021-11-18 00:00:00 Office Visit, Est Pt., Level 3 [facility] [id number] [facility] ent [facility]ics 2021-11-15 00:00:00 2021-11-15 00:00:00 (TEL) [facility] [id number] [facility] 2021-09-03 00:00:00 2021-09-03 00:00:00 (TEL) [facility] [id number] [facility] 2021-09-03 00:00:00 2021-09-03 00:00:00 Office Visit, Est Pt., Level [id number] [facility] 2021-09-02 00:00:00 2021-09-02 00:00:00 (TEL) [facility] [id number] [facility] 2021-08-20 00:00:00 2021-08-20 00:00:00 (TEL) [facility] [id number] [facility] 2021-08-20 00:00:00 2021-08-20 00:00:00 (TEL) [facility] [id number] [facility] 2021-08-06 00:00:00 2021-08-06 00:00:00 (TEL) [facility] [id number] [facility] 2021-08-06 00:00:00 2021-08-06 00:00:00 (TEL) [facility] [id number] [facility] ent [facility] 2021-07-26 00:00:00 2021-07-26 00:00:00 (TEL) [facility] [id number] [facility] 2021-07-26 00:00:00 2021-07-26 00:00:00 Office Visit, Est Pt., Level 3 [facility] [facility] [id number] [facility] ent Clinics 2021-06-07 00:00:00 2021-06-07 00:00:00 Office Visit, Est Pt., Level 4 [facility] [id number] [facility] ent [facility] 2021-06-03 10:10:00 2021-06-03 10:11:00 Outpatient R Stanislav Gotti [facility]X ST[facility]X [id number] [facility] 2021-05-16 00:00:00 2021-05-16 00:00:00 Outpatient Stanislav Gotti [facility]JX ST[facility] [id number] [facility] 2021-05-16 00:00:00 2021-05-16 00:00:00 ([place]) Nurse Visit [facility] [id number] [facility] ent Clinics 2021-05-16 00:00:00 2021-05-16 00:00:00 (TEL) [facility] [id number] [facility] 2021-05-15 00:00:00 2021-05-15 00:00:00 (TEL) [facility] [id number] [facility] 2021-05-15 00:00:00 2021-05-15 00:00:00 Office Visit, Est Pt., Level 3 [facility] [id number] [facility] ent [facility] 2021-03-14 00:00:00 2021-03-14 00:00:00 Office Visit, Est Pt., Level 4 [facility] [id number] [facility] 2021-02-26 18:25:00 2021-02-26 18:25:00 Outpatient Jordon Allen [facility]X ST[facility] [id number] [facility] 2021-02-22 00:00:00 2021-02-22 00:00:00 Office Visit, Est Pt., Level 3 [facility] [id number] [facility] 2021-01-03 00:00:00 2021-01-03 00:00:00 Office Visit, Est Pt., Level 4 [facility] [id number] [facility] 2021-01-03 00:00:00 2021-01-03 00:00:00 (TEL) [facility] [id number] [facility] ent [facility] 2020-12-01 20:37:00 2020-12-01 20:37:00 Emergency ER Abraham Sorto ST[facility]JX ST[facility]X [id number] [facility] 2020-09-18 00:00:00 2020-09-18 00:00:00 Patient Outreach Juwan Magdal[facility] 1.2.840.114 350.1.13.10 4.2.7.2.686 [id number] 2020-09-18 00:00:00 2020-09-18 00:00:00 Patient Outreach Juwan Magdaleno [facility] 1.2.840.114 350.1.13.10 4.2.7.2.686 [id number] [facility] 2020-06-06 13:00:00 2020-06-06 13:00:00 Outpatient R ABIMBOLA [facility] [id number] [facility] 2019-12-14 00:00:00 2019-12-14 00:00:00 Transition of Care Kristin Clements 1.2.840.114 350.1.13.10 4.2.7.2.686 [id number] 2019-12-14 00:00:00 2019-12-14 00:00:00 Transition of Care Kristin Clements 1.2.840.114 350.1.13.10 4.2.7.2.686 [id number] [facility] 2019-12-10 15:00:16 2019-12-13 13:00:00 Hospital Encounter Jessica Worley [facility] 1.2.840.114 350.1.13.10 4.2.7.2.686 [id number] 2019-12-10 15:00:16 2019-12-13 13:00:00 Hospital Encounter Jessica Worley [facility] 1.2.840.114 350.1.13.10 4.2.7.2.686 [id number] [facility] 2019-12-10 15:00:16 2019-12-13 13:00:00 Inpatient X GEOVANY KHALIL [facility] [id number] [facility] 2019-12-06 13:00:00 2019-12-06 13:00:00 Outpatient R ADUM, [facility] [id number] [facility] 2019-12-03 06:40:29 2019-12-04 16:25:00 Hospital Encounter Ravinder Valenzuela [facility] 1.2.840.114 350.1.13.10 4.2.7.2.686 [id number] 2019-12-03 06:40:29 2019-12-04 16:25:00 Inpatient X CATINA MARIN MICHAEL [facility] [id number] [facility] 2019-12-03 06:40:29 2019-12-04 16:25:00 Hospital Encounter Ravinder Valenzuela [facility] 1.2.840.114 350.1.13.10 4.2.7.2.686 [id number] [facility] 2019-12-02 00:00:00 2019-12-02 00:00:00 Telephone AdumArlene [facility] 1.2.840.114 350.1.13.10 4.2.7.2.686 [id number] 2019-12-02 00:00:00 2019-12-02 00:00:00 Telephone AdumArlene [facility] 1.2.840.114 350.1.13.10 4.2.7.2.686 [id number] [facility] 2019-11-29 10:00:00 2019-11-29 10:00:00 [id number] Results Test Description Test Time Test Comments Results Result Co mments Source [id number] 01:09:00* Test Item Value Reference Range Interpretation Comme nts POCT PREG (test code = 1605) Negative On board controls acceptable with C Line (test code = 3574) Yes POCT PREG LOT # (test code = 3575) [id number] POCT PREG TEST DATE ( test code = 3576) 07-01-2024 Lab Interpretation (test cod e = 64279-5) [facility] (NA, K, CL, CO2, GLUCOSE, BUN, CREATININE, CA)2023-05-03 02:06:38* Test Item Value Reference Range Interpretation Comme nts NA (test code = 2942468949) 140 mmol/L 135-145 K (test code = 1562810892) 4.4 mmol/L 3.5-5.0 CL (test code = 5247984793) 107 mmol/L 98-108 CO2 TOTAL (test code = 9272843927) 22 mmol/L 23-31 L AGAP (test code = 1488378099) 11 2-16 BUN (test code = 3589647189) 22 mg/dL 7-23 GLUCOSE (test code = 6534498848) 92 mg/dL 70-110 CREATININE (test code = 8200437150) 0.96 mg/dL 0.50-1.04 CALCIUM (test code = 6470396341) 9.1 mg/dL 8.6-10.6 eGFR (test code = 66023-1) 84.4 mL/min/1.73m2 CKD-EPI eGFR (2020). Assuming creatinine has been stable day-to-day for at least three months, the eGFR indicates Category G2 (60 - 89 mL/min/1.73 m2) Lab Interpretation (test code = 96882-1) [facility]normal [facility]16162[facility] (ALB,T.PRO,BILI T,BU/BC,ALT,AST,ALK PHOS)2023-05-03 02:06:38* Test Item Value Reference Range Interpretation Comme nts TOTAL BILI (test code = 7931661790) 0.4 mg/dL 0.1-1.1 BILI UNCON (test code = 6907979342) 0.1 mg/dL 0.1-1.1 BILI CONJ (test code = 6835600253) 0.0 mg/dL 0.0-0.3 T PROTEIN (test code = 5950163146) 8.4 g/dL 6.3-8.2 H ALBUMIN (test code = 7261082494) 4.5 g/dL 3.5-5.0 ALK PHOS (test code = 5483438991) 113 U/L 34-122 ALTv (test code = 1742-6) 73 U/L 5-35 H AST(SGOT) (test code = 9903576057) 55 U/L 13-40 H Lab Interpretation (test cod e = 92531-0) [facility] 02:06:38* Test Item Value Reference Range Interpretation Comme nts LIPASE (test code = 0747064972) 104 U/L 0-220 Lab Interpretation (test cod e = 84502-4) [facility] [id number] 01:49:56* Test Item Value Reference Range Interpretation Comme nts WBC (test code = 6690-2) 11.34 See_Comment H [Automated messa ge] The system which generated this result transmitted reference range: 4.30 - 11.10 10*3/?L. The reference range was not used to interpret this result as normal/abnormal. RBC (test code = 789-8) 4.14 See_Comment [Automated messa ge] The system which generated this result transmitted reference range: 3.93 - 5.25 10*6/?L. The reference range was not used to interpret this result as normal/abnormal. HGB (test code = 718-7) 11.3 g/dL 11.6-15.0 L HCT (test code = 4544-3) 34.6 % 35.7-45.2 L MCV (test code = 787-2) 83.6 fL 80.6-95.5 MCH (test code = 785-6) 27.3 pg 25.9-32.8 MCHC (test code = 786-4) 32.7 g/dL 31.6-35.1 RDW-SD (test code = 72018-4) 43.8 fL 39.0-49.9 RDW-CV (test code = 788-0) 14.4 % 12.0-15.5 PLT (test code = 777-3) 396 See_Comment H [Automated messa ge] The system which generated this result transmitted reference range: 166 - 358 10*3/?L. The reference range was not used to interpret this result as normal/abnormal. MPV (test code = 90546-5) 10.0 fL 9.5-12.9 NRBC/100 WBC (test code = 2217071623) 0.0 See_Comment [Automated me ssage] The system which generated this result transmitted reference range: 0.0 - 10.0 /100 WBCs. The reference range was not used to interpret this result as normal/abnormal. NRBC x10^3 (test code = 0312633768) See_Comment [Automated messa ge] The system which generated this result transmitted reference range: 10*3/?L. The reference range was not used to interpret this result as normal/abnormal. GRAN MAT (NEUT) % (test code = 770-8) 66.0 % IMM GRAN % (test code = 1568842002) 0.30 % LYMPH % (test code = 736-9) 26.8 % MONO % (test code = 5905-5) 5.2 % EOS % (test code = 713-8) 1.1 % BASO % (test code = 706-2) 0.6 % GRAN MAT x10^3(ANC) (test code = 4232940466) 7.49 10*3/uL 1.88-7.09 H IMM GRAN x10^3 (test code = 8640468692) 0.03 10*3/uL 0.00-0.06 LYMPH x10^3 (test code = 731-0) 3.04 10*3/uL 1.32-3.29 MONO x10^3 (test code = 742-7) 0.59 10*3/uL 0.33-0.92 EOS x10^3 (test code = 711-2) 0.12 10*3/uL 0.03-0.39 BASO x10^3 (test code = 704-7) 0.07 10*3/uL 0.01-0.07 Lab Interpretation (test code = 56561-2) Abnormal [facility] [id number] 01:07:00* Test Item Value Reference Range Interpretation Comme nts POCT PREG (test code = 1605) Negative On board controls acceptable with C Line (test code = 3574) Yes POCT PREG LOT # (test code = 3575) [id number] POCT PREG TEST DATE ( test code = 3576) 07/01/24 Lab Interpretation (test cod e = 32629-9) Normal [facility] [id number] 13:53:00* Test Item Value Reference Range Interpretation Comme nts POCT PREG (test code = 1605) Negative On board controls acceptable with C Line (test code = 3574) Yes POCT PREG LOT # (test code = 3575) POCT PREG TEST DATE ( test code = 3576) [facility] [id number] 13:53:00* Test Item Value Reference Range Interpretation Comme nts POCT PREG (test code = 1605) Negative On board controls acceptable with C Line (test code = 3574) Yes POCT PREG LOT # (test code = 3575) POCT PREG TEST DATE ( test code = 3576) [facility] [id number] 13:53:00* Test Item Value Reference Range Interpretation Comme nts POCT PREG (test code = 1605) Negative On board controls acceptable with C Line (test code = 3574) Yes POCT PREG LOT # (test code = 3575) POCT PREG TEST DATE ( test code = 3576) [facility] by [id number] 00:00:00* Test Item Value Reference Range Interpretation Comme nts SARS-CoV-2 PCR (test code = 68470-0) Not Detected NotDetected SURGICAL PATHOLOGY [id number] 16:36:00* Test Item Value Reference Range Interpretation Comme nts Case Report (test code = 0474409516) Surgical Pathology ?Case: [id number] ? Authorizing Provider: ?Sridhar Pack MD ? Collected: ? 12/11/2019 0900 ?Ordering Location: ? ? [facility] ? ? ?Received: ?12/11/2019 1022 ? [facility] ?Pathologist: ? Lizett, Dacia, PHD ?Specimen: ? ?APPENDIX, Appendix ? Final Diagnosis (test code = 7081253342) n2tzoTUmNJXvb7liBFVuaRW uZzEwMzNcZnRuYmpcdWMxIH rjhiQxFEfun6TaV1YsMpCnW FxhbnNpXGRlZmxhbmcxMDMz ADY8zbVaGJJtFWywPKCbFFw sMq9dtIHubDqbZhUlHZXgp9 dlfoCJbtmhcJm9p4teIOOxC fV2jBHxFCzsU5bubbTxqBYd LBCdPQs9pC38LENigX6xqAN sIDtccmVkMFxncmVlbjBcYm r9EMKeE0hbXSQaMXFvG4QwE E4gMMIrTxf7AVC6ERY5vKmj h7N1mVBhcWYlcRslOaSgEqZ pLRBVy1UeBQt4zWomE6KjON EuCzA5wDXpEWTeSYyfDUCbX DQccnC0mY81YDmlykJ7aNBy x1Zti78kw683vM4ziDGdIOR 6WOLtXKOijEEaTSKiLTD4SH PksYIlG7ywPEkzOI7bbxfaZ MK9QBxxZZPyeMrcFEwzGRRn YgFeoPLyMSKpnVjlQZjnu58 0QOT2PjCiMZ0kX2Qdf2N5vU 9maXRcZGVmdGFiNzIwXGZvc x0kgAOoEErvn6BeEVH9suC1 qMBqhEDbCMCpBS60Evooy3T nQokrAPX8ALLcdqCib6Wex7 anMpTludCdK5ilX2PdXMQgI OWsITGdCmCbpvYsg1Xco6Vm sYOmdGk0i6phXKJjKDVaaIc of3ivQBQ0VNFzO3B8bSDma6 ekNMvpOFYpyXD9joPbXXPmv KQjV6ZilQ2dGIixAV1meah3 g6asXfDvJF5ljztjv3ifYMx yRRUuJJH8ChIdWUFxa3Fbxi hiVcAol5NdeRHzYOzbK60jo 065HTRmfgZhX8dmlZIuxdih bGFpblxmMFxmczIwXHFsXHB sYWluXGYwXGZzMjBccGxhaW 5cZjBcZnMyMFxwYXJccGFyZ FxwbGFpblxmMFxmczIwXHBs JZuwTHDlGBRaYmAuXZ3fXSS WOU3DEFbhZJYWCDEPCZSKQA 9NWTpccGFyXHFsXHBsYWluX SFqWOBbLyGzyFlsnW1qFnSj DbSzBHVzPAAbQK9kILDQPCI pFUQZNZ3KPYOPWAsTPEAvdv TbQHApOZ2vPV1KN00VLLZHT 2SUG6upRNV5p4cbxGYeEWPf kSHeGiRtVQNeVPZtw6yeBZP mbGFuZzEwMzNcZnRuYmpcdW ShERPqKkHol8vge912hZLcw 5eeFRZrWnK1zQLjUEVyiVdm cmz1fHtuCaMlQEHvx2tvlgM cZmNoYXJzZXQwIEFyaWFsO3 32PSDjFIyph6bsj4TiIXTsm UQuz3Q8YPNYFOmrOgVgB104 h8rzj9tqmfPzeFJ3FETlENH 3KSldxzEzfmR6DIwjoUZmZt K1LUrcuyTjDSvejgJumqZkX vd9DJLiT091QWW1xYvpz7bu BVQ5CWUrHGVzYtbpJb2sgXW cI090MELuLLTFGOSfoBo4AD RvzpEzouLzaOTTm502N638k 6dzRMObefCaiLrVjxflb0vl U705IECmtIJkvjClXzNmJYO jyCZmnNT0BCUePZ5qhjudEU lyQWjiFEGiaiZ7KPHvrFRyI 2AfBESvVH0xfuyfRLZ8TObp PQJpPCW8MpSsSFMcn8Nceqw 7EoDjir9ndw26MRP2y3ItgZ bfZLZ7JCF8YaOmBh9mfDEcE YZiMQ0oWvIpcXIhNNOruq23 mRuwYVudphCadK8wSuBsVCV uyCUrAPAbLA9orDZrLFRabY 5ucmxjXHBnYnJkcmhlYWRcc SyadgKsOl8khKfjHJM8EQen E5xveQ5bYkB4GCpiJ4yrlV6 rXCs2APceiQX0LNBayM1iYA 8hbaauo7auEEqwWOpxYGZvo qN4tvM4ICHccTUcU4NjoO3y VPWoEQ4bayidg6ajVQR2KRe tKEYzCNO8RoPjIPXmv8Rkqc i9XzWhz9XiwZCrBHohD70pf 695LBKifkHbT5khiRPamhum tDEssaieMSykvgQ3ASIxKVE sYWluXGYxXGZzMjBcbGFuZz EwMzNcaGljaFxmMVxkYmNoX AFxCAshL4mzCuSbM6OeOMKn DzVweXOcAMnhnVX4WEUyJKT qr55osOc0UFBdpbeow8VqJV WowCLjqLYogU9nmkLmg4foN KFdELEoERMeZ2UqWKZ0bBAt KHVuxSOjfNS2CZ6vzcZfKO9 hZGUgYnkgcmVzaWRlbnRzLC FvKKyxx7mqBX4zOZIugTvmq Z7zqIG1GBPah5cowQTivTTb a3ngj8GkchQdDPniCIMzSHl uQZOnNQLhUH6bDAFdwATgvl Prk6G4DyeynZOasugeKduuy tD8DDxpysmkKUZyKSjjB0ik KjTpYLDqqDykQaahn7PoPXW yXGZzMjhccGFyfX0= Clinical Information (test code = 2586470192) Acute Appendicitis Gross Description (test code = 1998119699) d9mrsFNrHPLihMIlPwKyIPE yXWWvi3pdNMIerPHdUsOcTt NcZnRuYmpcdWMxXGRlZmYwe 9got830hLHse3aaQLJaZjO4 kHWbGRZtsQGyE553RPFdWEp qo0phj6EzTFUuoCUat1D5YA POblfmcBk5oFyyS10yp7Y1N zhqD5efZLXfZOqsQTEoIXws yZXeMTN7IWEcAGA9ADmutcO kveM9IWwfuNQlXdT6HXl0r7 upuQlzUEOjOGP3j0aoQMlqb pJuJL7has6leKb6f7jdpwPt ILTiZRHovQYEASOxT0RiqHi rJt1ghVy9qYqbUrqyISW1Sk v8WY5gnp93gjj1fAqnPEFmv tolJcF4PEeuLWLovkqcWVl9 VTxgTGLcdVKzXRCcqZTgK8R oFFbvZF6gzrq8HiOxMY0wpm srSPxuXEToMIR9InGfORGcz 7ExgwoxQgGbtf7fop82AUB0 j8VjmFzmSPE5UWI0ByYdLn8 wvHCpZITgIU4vDmUpxEWeUD Riym66pQmcAGtljcCyqV7qB lRaZUWxvWAdZSZiSR2ehAZx ATIixL2wxjdiIEYeKjHkwbl cAGIulPkrcvTqPp1hmVamCR A0BHztX3ntyC7lFeA3QXwiG 9osdO7pPAh7UNdfvIZ7FWYi fV1iFH7wbrsoo1xyDFH8SYt rCGGxyiU7byWkZEBnqASdQ9 HptN05VgIxfJYxQ7ZiiR1nW FnnYJXzkfs3XaRlHi8tiMMo wKA4ENrlOttwXNdrMZBgvjR vbnRccGduZGVjXHBsYWluXH BfQTmoGKXpSOKtQeFax8EtV GUli1ocZyVhu8rvuEq9TRip bFxwbGFpblxmMFxmczIwXHB nQSeiIUUlEYKhVpGtH7XjO6 moVD7xMDRmihDvWSOtxCZeZ IIvksBdk7JuRUfsmrDvNRWv bWivZXD9pNSaMJKjDPBtEDF vHY63SAQlTHqmCFDwEOGxPo AwlMnnSLzvORz3CbgdjRDtt lxmMVxmczIwIHMgbmFtZSwg VUggbnVtYmVyICJhcHBlbmR peFxwbGFpblxmMVxmczIwXH P6LlFbYLdmQKTpjSdvhY8dV xUuVtHoZAFzHD4jZTXwddTj g5MgXP8iLAIgvWjptf82LJ2 cjqPbeJnvj0AzJSUkdXZhOD b3NNd6MxDsS04moW9xgUElH 6EsQYjuPF44KAEmQGMrbIUx yxYzaXXeCKMynluho1u2oFO hkQIiC9seAQF5IJsbv6ndjH 9uoNfcoCCpCCUcL0HfuFvxH 69rI2QvrPVqRX5wi01dvYHv xkHmaYFyNx9gCYoxVl17PJm aUX8sUJEeTR9kUDKySWXypS BzuxJlmIMgGJDuy0RnvTRuG RJgaQI0UVDszxSyq2Kpql0k XQizIRWatFCnWZj2FRglYUE orfogkDk4ONMjT3Tta41mYM K2jeTyYISqJXauNBPbYSIzu wDtqLXySX4bTGYqpxhzubkc ZqMfpVFmRrTcHJ9yLOOaTYG dp944YDstfP4tVP8iIMB9FR F2PE4ys5gdsXQedOfpddNln TKyDC8fIYUmMPO7ADlfUAMu jQJhdiDkcjIiYM5pJBVmQwH klYEfIiMiOQ1cFNSpPzWTUM W5tJC1psJyh8l1CHMijyBox 6VjR6Ezt3PjtEUkNYUezMoc aWVkLiBSZXByZXNlbnRhdGl 0VUCwFYI3nA8fsgE9pEibbA WmaoPmhYYaJRFbe0HbOKVkJ 3Qtu49fYFQ6zEStUhsgK8kn zL2lPNTuejFeCFY2kH5xGR3 hcmdpbiBhbmQgZGlzdGFsIH LedJDlpeKog4XplGn7qJMlK GluIEExLUEyLlxwYXJccGFy ZFxwbGFpblxmMFxmczIwXHB sYWluXGYxXGZzMjAgSnVsaW UjGZXFvEyhekW4CEBPUTdaZ XJ9 Embedded Images (test code = 1015053439) [facility] METABOLIC PANEL (NA, K, CL, CO2, GLUCOSE, BUN, CREATININE, CA)2019-12-13 09:38:00* Test Item Value Reference Range Interpretation Comme nts NA (test code = 2841400305) 138 mmol/L 135-145 K (test code = 2065418822) 3.8 mmol/L 3.5-5 CL (test code = 4634295641) 108 mmol/L 98-108 CO2 TOTAL (test code = 8567289364) 26 mmol/L 23-31 AGAP (test code = 6061016201) 2-16 BUN (test code = 7942578737) 10 mg/dL 7-23 GLUCOSE (test code = 3442339565) 87 mg/dL 70-110 CREATININE (test code = 3944749311) 0.65 mg/dL 0.5-1.04 CALCIUM (test code = 7647288082) 8.4 mg/dL 8.6-10.6 L eGFR Calculation (Non-) (test code = 8597049968) mL/min/1.73m2 eGFR Calculation () (test code = 7416630070) mL/min/1.73m2 LESLEY (test code = LESLEY) Association of Glomerular Filtration Rate (GFR) and Staging of Kidney Disease* + --+ --+ ------+| GFR (mL/min/1.73 m2) ?| With Kidney Damage ?| ?Without Kidney Damage+ --------+ --------+ +| ?>90 ?| ?Stage one ?| ? Normal ?+ ---+ ---+ -------+| ?60-89 ?| ?Stage two ?| ? Decreased GFR ? + --+ --+ ------+| ?30-59 ?| ?Stage three ?| ? Stage three ? + --+ --+ ------+| ?15-29 ?| ?Stage four ? | ? Stage four ?+ ---+ ---+ -------+| ?<15 (or dialysis) ? ?| ?Stage five ? | ? Stage five ?+ ---+ ---+ -------+ *Each stage assumes the associated GFR level has been in effect for at least three months. ?Stages 1 to 5, with or without kidney disease, indicate chronic kidney disease. Notes: Determination of stages one and two (with eGFR >59mL/min/1.73 m2) requires estimation of kidney damage for at least three months as defined by structural or functional abnormalities of the kidney, manifested by either:Pathological abnormalities or Markers of kidney damage (including abnormalities in the composition of the blood or urine or abnormalities in imaging tests). Lab Interpretation (test code = 26665-3) Abnormal [facility] WITH [id number] 09:21:00* Test Item Value Reference Range Interpretation Comme nts WBC (test code = 6690-2) See_Comment [Automated messa ge] The system which generated this result transmitted reference range: 4.30 - 11.10 10*3/?L. The reference range was not used to interpret this result as normal/abnormal. RBC (test code = 789-8) See_Comment L [Automated messa ge] The system which generated this result transmitted reference range: 3.93 - 5.25 10*6/?L. The reference range was not used to interpret this result as normal/abnormal. HGB (test code = 718-7) 9.2 g/dL 11.6-15 L HCT (test code = 4544-3) 28.5 % 35.7-45.2 L MCV (test code = 787-2) 84.1 fL 80.6-95.5 MCH (test code = 785-6) 27.1 pg 25.9-32.8 MCHC (test code = 786-4) 32.3 g/dL 31.6-35.1 RDW-SD (test code = 53905-6) 46.5 fL 39-49.9 RDW-CV (test code = 788-0) 15.3 % 12-15.5 PLT (test code = 777-3) See_Comment [Automated messa ge] The system which generated this result transmitted reference range: 166 - 358 10*3/?L. The reference range was not used to interpret this result as normal/abnormal. MPV (test code = 03977-0) 10.7 fL 9.5-12.9 NRBC/100 WBC (test code = 0345779861) See_Comment [Automated [employer] ssage] The system which generated this result transmitted reference range: 0.0 - 10.0 /100 WBCs. The reference range was not used to interpret this result as normal/abnormal. NRBC x10^3 (test code = 6180691944) <0.01 See_Comment [Automated messa ge] The system which generated this result transmitted reference range: 10*3/?L. The reference range was not used to interpret this result as normal/abnormal. GRAN MAT (NEUT) % (test code = 770-8) 55.2 % IMM GRAN % (test code = 2796583948) 0.40 % LYMPH % (test code = 736-9) 36.9 % MONO % (test code = 5905-5) 6.6 % EOS % (test code = 713-8) 0.2 % BASO % (test code = 706-2) 0.7 % GRAN MAT x10^3(ANC) (test code = 1053000896) 5.51 10*3/uL 1.88-7.09 IMM GRAN x10^3 (test code = 1075092899) 0.04 10*3/uL 0-0.06 LYMPH x10^3 (test code = 731-0) 3.69 10*3/uL 1.32-3.29 H MONO x10^3 (test code = 742-7) 0.66 10*3/uL 0.33-0.92 EOS x10^3 (test code = 711-2) <0.03 0.03-0.39 L BASO x10^3 (test code = 704-7) 0.07 10*3/uL 0.01-0.07 Lab Interpretation (test code = 41012-4) Abnormal [facility] METABOLIC PANEL (NA, K, CL, CO2, GLUCOSE, BUN, CREATININE, CA)2019-12-12 09:50:00* Test Item Value Reference Range Interpretation Comme nts NA (test code = 5048958303) 137 mmol/L 135-145 K (test code = 3230704425) 4.1 mmol/L 3.5-5 CL (test code = 4102568761) 105 mmol/L 98-108 CO2 TOTAL (test code = 5081527461) 26 mmol/L 23-31 AGAP (test code = 7810917819) 2-16 BUN (test code = 3369735006) 7 mg/dL 7-23 GLUCOSE (test code = 1197001543) 113 mg/dL 70-110 H CREATININE (test code = 5319986712) 0.60 mg/dL 0.5-1.04 CALCIUM (test code = 4145015947) 9.0 mg/dL 8.6-10.6 eGFR Calculation (Non-) (test code = 1607624645) mL/min/1.73m2 eGFR Calculation () (test code = 7425229928) mL/min/1.73m2 LESLEY (test code = LESLEY) Association of Glomerular Filtration Rate (GFR) and Staging of Kidney Disease* + --+ --+ ------+| GFR (mL/min/1.73 m2) ?| With Kidney Damage ?| ?Without Kidney Damage+ --------+ --------+ +| ?>90 ?| ?Stage one ?| ? Normal ?+ ---+ ---+ -------+| ?60-89 ?| ?Stage two ?| ? Decreased GFR ? + --+ --+ ------+| ?30-59 ?| ?Stage three ?| ? Stage three ? + --+ --+ ------+| ?15-29 ?| ?Stage four ? | ? Stage four ?+ ---+ ---+ -------+| ?<15 (or dialysis) ? ?| ?Stage five ? | ? Stage five ?+ ---+ ---+ -------+ *Each stage assumes the associated GFR level has been in effect for at least three months. ?Stages 1 to 5, with or without kidney disease, indicate chronic kidney disease. Notes: Determination of stages one and two (with eGFR >59mL/min/1.73 m2) requires estimation of kidney damage for at least three months as defined by structural or functional abnormalities of the kidney, manifested by either:Pathological abnormalities or Markers of kidney damage (including abnormalities in the composition of the blood or urine or abnormalities in imaging tests). Lab Interpretation (test code = 88727-4) Abnormal [facility] WITH [id number] 09:26:00* Test Item Value Reference Range Interpretation Comme nts WBC (test code = 6690-2) See_Comment H [Automated message] The system which generated this result transmitted reference range: 4.30 - 11.10 10*3/?L. The reference range was not used to interpret this result as normal/abnormal. RBC (test code = 789-8) See_Comment L [Automated message] The system which generated this result transmitted reference range: 3.93 - 5.25 10*6/?L. The reference range was not used to interpret this result as normal/abnormal. HGB (test code = 718-7) 10.4 g/dL 11.6-15 L HCT (test code = 4544-3) 32.6 % 35.7-45.2 L MCV (test code = 787-2) 85.1 fL 80.6-95.5 MCH (test code = 785-6) 27.2 pg 25.9-32.8 MCHC (test code = 786-4) 31.9 g/dL 31.6-35.1 RDW-SD (test code = 76199-6) 45.2 fL 39-49.9 RDW-CV (test code = 788-0) 14.6 % 12-15.5 PLT (test code = 777-3) See_Comment H [Automated message] The system which generated this result transmitted reference range: 166 - 358 10*3/?L. The reference range was not used to interpret this result as normal/abnormal. MPV (test code = 07027-6) 11.3 fL 9.5-12.9 NRBC/100 WBC (test code = 8370600769) See_Comment [Automated message] The system which generated this result transmitted reference range: 0.0 - 10.0 /100 WBCs. The reference range was not used to interpret this result as normal/abnormal. NRBC x10^3 (test code = 7047601672) <0.01 See_Comment [Automated message] The system which generated this result transmitted reference range: 10*3/?L. The reference range was not used to interpret this result as normal/abnormal. GRAN MAT (NEUT) % (test code = 770-8) 85.0 % IMM GRAN % (test code = 4381115486) 0.60 % LYMPH % (test code = 736-9) 10.1 % MONO % (test code = 5905-5) 4.1 % EOS % (test code = 713-8) 0.0 % BASO % (test code = 706-2) 0.2 % GRAN MAT x10^3(ANC) (test code = 8253216310) 14.90 10*3/uL 1.88-7.09 H IMM GRAN x10^3 (test code = 8635078750) 0.10 10*3/uL 0-0.06 H LYMPH x10^3 (test code = 731-0) 1.77 10*3/uL 1.32-3.29 MONO x10^3 (test code = 742-7) 0.72 10*3/uL 0.33-0.92 EOS x10^3 (test code = 711-2) <0.03 0.03-0.39 L BASO x10^3 (test code = 704-7) 0.04 10*3/uL 0.01-0.07 Lab Interpretation (test code = 65392-2) [id number] 20:16:00* Test Item Value Reference Range Interpretation Comme nts URINE CULTURE (test code = 630-4) No aerobic growth (< 1000 CFU/mL) [facility] [id number] 09:46:00* Test Item Value Reference Range Interpretation Comme nts MAGNESIUM (test code = 8783601581) 2.0 mg/dL 1.7-2.4 Lab Interpretation (test cod e = 01988-8) [facility] (NA, K, CL, CO2, GLUCOSE, BUN, CREATININE, CA)2019-12-11 09:45:00* Test Item Value Reference Range Interpretation Comme nts NA (test code = 6776596212) 136 mmol/L 135-145 K (test code = [id number]) 3.6 mmol/L 3.5-5 CL (test code = 7640648130) 106 mmol/L 98-108 CO2 TOTAL (test code = 8777642789) 26 mmol/L 23-31 AGAP (test code = 1632428456) 2-16 BUN (test code = 4835921050) 13 mg/dL 7-23 GLUCOSE (test code = 4208320416) 105 mg/dL 70-110 CREATININE (test code = 5898357225) 0.67 mg/dL 0.5-1.04 CALCIUM (test code = 4868469759) 8.5 mg/dL 8.6-10.6 L eGFR Calculation (Non-) (test code = 2793095024) mL/min/1.73m2 eGFR Calculation () (test code = 2133583875) mL/min/1.73m2 LESLEY (test code = LESLEY) Association of Glomerular Filtration Rate (GFR) and Staging of Kidney Disease* + --+ --+ ------+| GFR (mL/min/1.73 m2) ?| With Kidney Damage ?| ?Without Kidney Damage+ --------+ --------+ +| ?>90 ?| ?Stage one ?| ? Normal ?+ ---+ ---+ -------+| ?60-89 ?| ?Stage two ?| ? Decreased GFR ? + --+ --+ ------+| ?30-59 ?| ?Stage three ?| ? Stage three ? + --+ --+ ------+| ?15-29 ?| ?Stage four ? | ? Stage four ?+ ---+ ---+ -------+| ?<15 (or dialysis) ? ?| ?Stage five ? | ? Stage five ?+ ---+ ---+ -------+ *Each stage assumes the associated GFR level has been in effect for at least three months. ?Stages 1 to 5, with or without kidney disease, indicate chronic kidney disease. Notes: Determination of stages one and two (with eGFR >59mL/min/1.73 m2) requires estimation of kidney damage for at least three months as defined by structural or functional abnormalities of the kidney, manifested by either:Pathological abnormalities or Markers of kidney damage (including abnormalities in the composition of the blood or urine or abnormalities in imaging tests). Lab Interpretation (test code = 79854-4) Abnormal [facility] 09:15:00* Test Item Value Reference Range Interpretation Comme [facility] APTT Patient (test code = 3173-2) See_Comment [Automated message] The system which generated this result transmitted reference range: 23 - 38 Seconds. The reference range was not used to interpret this result as normal/abnormal. LESLEY (test code = LESLEY) The [facility] patient population mean normal value for aPTT is 30 seconds. Lab Interpretation (test code = 95342-4) Normal [facility] CenterPROTHROMBIN TIME / [id number] 09:13:00* Test Item Value Reference Range Interpretation Comme [facility] PROTIME PATIENT (test code = 5964-2) See_Comment [Automated messa ge] The system which generated this result transmitted reference range: 12.0 - 14.7 Seconds. The reference range was not used to interpret this result as normal/abnormal. INR (test code = 6301-6) Normal INR <1.1; Warfarin Therapeutic range 2.0 to 3.0 or 2.5 to 3.5, depending upon the indications. Lab Interpretation (test code = 28618-0) Normal [facility] WITH [id number] 09:06:00* Test Item Value Reference Range Interpretation Comme nts WBC (test code = 6690-2) See_Comment H [Automated messa ge] The system which generated this result transmitted reference range: 4.30 - 11.10 10*3/?L. The reference range was not used to interpret this result as normal/abnormal. RBC (test code = 789-8) See_Comment L [Automated messa ge] The system which generated this result transmitted reference range: 3.93 - 5.25 10*6/?L. The reference range was not used to interpret this result as normal/abnormal. HGB (test code = 718-7) 9.5 g/dL 11.6-15 L HCT (test code = 4544-3) 29.6 % 35.7-45.2 L MCV (test code = 787-2) 83.9 fL 80.6-95.5 MCH (test code = 785-6) 26.9 pg 25.9-32.8 MCHC (test code = 786-4) 32.1 g/dL 31.6-35.1 RDW-SD (test code = 50119-4) 44.3 fL 39-49.9 RDW-CV (test code = 788-0) 14.5 % 12-15.5 PLT (test code = 777-3) See_Comment [Automated messa ge] The system which generated this result transmitted reference range: 166 - 358 10*3/?L. The reference range was not used to interpret this result as normal/abnormal. MPV (test code = 74868-4) 10.8 fL 9.5-12.9 NRBC/100 WBC (test code = 1476554636) See_Comment [Automated [employer] ssage] The system which generated this result transmitted reference range: 0.0 - 10.0 /100 WBCs. The reference range was not used to interpret this result as normal/abnormal. NRBC x10^3 (test code = 4505008160) <0.01 See_Comment [Automated messa ge] The system which generated this result transmitted reference range: 10*3/?L. The reference range was not used to interpret this result as normal/abnormal. GRAN MAT (NEUT) % (test code = 770-8) 70.5 % IMM GRAN % (test code = 5623212607) 0.50 % LYMPH % (test code = 736-9) 22.1 % MONO % (test code = 5905-5) 6.1 % EOS % (test code = 713-8) 0.3 % BASO % (test code = 706-2) 0.5 % GRAN MAT x10^3(ANC) (test code = 4708040191) 9.13 10*3/uL 1.88-7.09 H IMM GRAN x10^3 (test code = 0445017387) 0.07 10*3/uL 0-0.06 H LYMPH x10^3 (test code = 731-0) 2.86 10*3/uL 1.32-3.29 MONO x10^3 (test code = 742-7) 0.79 10*3/uL 0.33-0.92 EOS x10^3 (test code = 711-2) 0.04 10*3/uL 0.03-0.39 BASO x10^3 (test code = 704-7) 0.07 10*3/uL 0.01-0.07 Lab Interpretation (test code = 31978-1) Abnormal [facility] CenterCOVID-19 (ID NOW RAPID TESTING)2019-12-11 00:12:00* Test Item Value Reference Range Interpretation Comme nts SARS-CoV-2 Rapid ID NOW (test code = 04625-7) Not Detected Not Detected LESLEY (test code = LESLEY) ID NOW COVID-19 As say is an isothermal nucleic acid amplification test intended for the qualitative detection of nucleic acid from SARS-CoV-2 viral RNA in nasopharyngeal (SENIOR DATA DEVELOPER) specimens. It is used under Emergency Use Authorization (EUA) by FDA. The limit of detection (LOD) of the assay is 125 Genome Equivalents/mL. A positive result is indicative of the presence of SARS-CoV-2 RNA. ?Clinical correlation with patient history and other diagnostic information is necessary to determine patient infection status. A negative (Not Detected) result does not preclude SARS-CoV-2 infection. In patients with clinical symptoms and other tests that are consistent with SARS-CoV-2 infection, negative results should be treated as presumptive negative and a new specimen should be tested with alternative PCR molecular test. Invalid: Please collect a new specimen for repeat patient testing if clinically indicated. Lab Interpretation (test code = 05128-3) Normal [facility] CenterCT ABDOMEN PELVIS W [id number] 22:56:30Early uncomplicated acute appendicitis with no perforation orperiappendiceal abscess. The findings of this study, including early appendicitis, have beendiscussed with and acknowledged by [facility] Folrufusoover the phone on 12/10/2019at 5:45 PM with readback. Preliminary Report Dictated by Resident: Jimenez Cruz ?MD. Henry, have reviewed this study and agree with the abovereport.CT ABDOMEN PELVIS W CONTRAST HISTORY: 24 years-old; Female; Nausea, vomiting Abd pain, gastroenteritisor colitis suspected COMPARISON: None TECHNIQUE AND FINDINGS: Contiguous axial imaging from the level of the lungbases through the pubic symphysis was performed after the uncomplicatedadministration of 120 cc of intravenous Omnipaque contrast. Coronal andsagittal reconstructions were obtained. ?Auto mA and/or iterativereconstruction were used to reduce radiation dose. FINDINGS: LOWER THORAX: The lung basesare clear. No cardiomegaly. LIVER: No focal hepatic lesions. Normal contour. GALLBLADDER AND BILIARY TREE: No intra or extrahepatic biliary ductaldilation. No gallbladder wall thickening. SPLEEN: Unremarkable. PANCREAS: No ductal dilation or masses. ADRENAL GLANDS: No adrenal mass. KIDNEYS: No hydronephrosis, stones, or masses. Homogeneous and symmetricalenhancement. PERITONEUM AND RETROPERITONEUM: No free air or fluid collection. LYMPH NODES: No intra-abdominal or pelvic lymph node enlargement. GI TRACT: No dilation or bowel wall thickening. The appendix is dilatedmeasuring up to 10 mm with minimal periappendiceal fat stranding. PELVIS/BLADDER: Bladder is fully distended with no wall thickening. Uterusis unremarkable. A dominant follicle measures 1.5 cm in the right ovary. VESSELS: Unremarkable. BONES AND SOFT TISSUES: No suspicious lytic or sclerotic bony lesions. [facility], Radiant Results Inft User - 12/10/2019 5:57 PM CDTCT ABDOMEN PELVIS W CONTRASTHISTORY: 24 years-old; Female; Nausea, vomiting Abd pain, gastroenteritisor colitis suspected COMPARISON: NoneTECHNIQUE AND FINDINGS: Contiguous axial imaging from the level of the lungbases through the pubic symphysis was performed after the uncomplicatedadministration of 120 cc of intravenous Omnipaque contrast. Coronal andsagittal reconstructions were obtained. Auto mA and/or iterativereconstruction were used to reduce radiation dose.FINDINGS:LOWER THORAX: The lung bases are clear. No cardiomegaly.LIVER: No focal hepatic lesions. Normal contour.GALLBLADDER AND BILIARY TREE: No intra or extrahepatic biliary ductaldilation. No gallbladder wall thickening.SPLEEN: Unremarkable.PANCREAS: No ductal dilation or masses.ADRENAL GLANDS: No adrenal mass.KIDNEYS: No hydronephrosis, stones, or masses. Homogeneous and symmetricalenhancement.PERITONEUM AND RETROPERITONEUM: No free air or fluid collection.LYMPH NODES: No intra-abdominal or pelvic lymph node enlargement.GI TRACT: No dilation or bowel wall thickening. The appendix is dilatedmeasuring up to 10 mm with minimal periappendiceal fat stranding.PELVIS/BLADDER: Bladder is fully distended with no wall thickening. Uterusis unremarkable. A dominant follicle measures 1.5 cm inthe right ovary.VESSELS: Unremarkable.BONES AND SOFT TISSUES: No suspicious lytic or sclerotic bonylesions.IMPRESSIONEarly uncomplicated acute appendicitis with no perforation orperiappendiceal absce ss.The findings of this study, including early appendicitis, have beendiscussed with and acknowledged by PULLEY MORTISER OPERATORVinita Lopez over the phone on 12/10/2019at 5:45 PM with readback.Preliminary Report Dictated byResident: Jimenez Loera MD., have reviewed this study and agree with the abovereport.[facility] CenterLactic Acid Whole [id number] 22:21:00* Test Item Value Reference Range Interpretation Comme nts LACTIC ACID (test code = 4376954567) 1.70 mmol/L 0.3-2.6 [facility] CenterCB WITH [id number] 21:45:00* Test Item Value Reference Range Interpretation Comme nts WBC (test code = 6690-2) See_Comment H [Automated message] The system which generated this result transmitted reference range: 4.30 - 11.10 10*3/?L. The reference range was not used to interpret this result as normal/abnormal. RBC (test code = 789-8) See_Comment [Automated message] The system which generated this result transmitted reference range: 3.93 - 5.25 10*6/?L. The reference range was not used to interpret this result as normal/abnormal. HGB (test code = 718-7) 11.6 g/dL 11.6-15 HCT (test code = 4544-3) 35.3 % 35.7-45.2 L MCV (test code = 787-2) 82.7 fL 80.6-95.5 MCH (test code = 785-6) 27.2 pg 25.9-32.8 MCHC (test code = 786-4) 32.9 g/dL 31.6-35.1 RDW-SD (test code = 40715-5) 43.1 fL 39-49.9 RDW-CV (test code = 788-0) 14.3 % 12-15.5 PLT (test code = 777-3) See_Comment H [Automated message] The system which generated this result transmitted reference range: 166 - 358 10*3/?L. The reference range was not used to interpret this result as normal/abnormal. MPV (test code = 17250-0) 10.6 fL 9.5-12.9 NRBC/100 WBC (test code = 0902853267) See_Comment [Automated message] The system which generated this result transmitted reference range: 0.0 - 10.0 /100 WBCs. The reference range was not used to interpret this result as normal/abnormal. NRBC x10^3 (test code = 8590656192) <0.01 See_Comment [Automated message] The system which generated this result transmitted reference range: 10*3/?L. The reference range was not used to interpret this result as normal/abnormal. GRAN MAT (NEUT) % (test code = 770-8) 90.0 % IMM GRAN % (test code = 9951933904) 1.00 % LYMPH % (test code = 736-9) 5.5 % MONO % (test code = 5905-5) 3.1 % EOS % (test code = 713-8) 0.0 % BASO % (test code = 706-2) 0.4 % GRAN MAT x10^3(ANC) (test code = 9281201742) 23.83 10*3/uL 1.88-7.09 H IMM GRAN x10^3 (test code = 5242610608) 0.26 10*3/uL 0-0.06 H LYMPH x10^3 (test code = 731-0) 1.47 10*3/uL 1.32-3.29 MONO x10^3 (test code = 742-7) 0.83 10*3/uL 0.33-0.92 EOS x10^3 (test code = 711-2) <0.03 0.03-0.39 L BASO x10^3 (test code = 704-7) 0.11 10*3/uL 0.01-0.07 H Lab Interpretation (test code = 39224-9) Abnormal [facility] CenterUrinalysis2020-06-13 21:37:00* Test Item Value Reference Range Interpretation Comme nts APPEARANCE (test code = 7732314303) Cloudy Clear A COLOR (test code = 4711997995) Yellow Yellow PH (test code = 5602971854) 4.8-8.0 SP GRAVITY (test code = 2503002145) 1.003-1.030 GLU U QUAL (test code = 6736263776) Normal Normal BLOOD (test code = 3275530287) 2+ Negative A KETONES (test code = 9837864340) 5 mg/dL Negative A PROTEIN (test code = 2887-8) 30 mg/dL Negative A UROBILIN (test code = 1819406762) Normal Normal BILIRUBIN (test code = 4994575046) Negative Negative NITRITE (test code = 9357490764) Negative Negative LEUK JAKE (test code = 0498818272) 250/uL Negative A RBC/HPF (test code = 0631181140) See_Comment H [Automated Vindia ge] The system which generated this result transmitted reference range: 0 - 3 HPF. The reference range was not used to interpret this result as normal/abnormal. WBC/HPF (test code = 6918539443) See_Comment H [Automated Vindia ge] The system which generated this result transmitted reference range: 0 - 5 HPF. The reference range was not used to interpret this result as normal/abnormal. BACTERIA (test code = 9004640175) Few Negative A MUCOUS (test code = 1138587353) Marked Negative LPF A SQ EPITH (test code = 6482331508) HPF Lab Interpretation (test code = 28509-0) Abnormal [facility]. METABOLIC PANEL (94667)2019-12-10 21:28:00* Test Item Value Reference Range Interpretation Comme nts NA (test code = 2193237455) 136 mmol/L 135-145 K (test code = 1959613772) 3.8 mmol/L 3.5-5 CL (test code = 3937946249) 103 mmol/L 98-108 CO2 TOTAL (test code = 5990390148) 23 mmol/L 23-31 AGAP (test code = 1932134742) 2-16 BUN (test code = 2353240054) 13 mg/dL 7-23 GLUCOSE (test code = 1749006262) 93 mg/dL 70-110 CREATININE (test code = 7127042452) 0.58 mg/dL 0.5-1.04 TOTAL BILI (test code = 4840776012) 0.4 mg/dL 0.1-1.1 CALCIUM (test code = 7668784448) 9.3 mg/dL 8.6-10.6 T PROTEIN (test code = 8622934183) 7.8 g/dL 6.3-8.2 ALBUMIN (test code = 6823113070) 4.5 g/dL 3.5-5 ALK PHOS (test code = 3184409431) 88 U/L 34-122 ALTv (test code = 1742-6) 44 U/L 5-35 H AST(SGOT) (test code = 1051242699) 31 U/L 13-40 eGFR Calculation (Non-) (test code = 1798074198) mL/min/1.73m2 eGFR Calculation () (test code = 9333213856) mL/min/1.73m2 LESLEY (test code = LESLEY) Association of Glomerular Filtration Rate (GFR) and Staging of Kidney Disease* + --+ --+ ------+| GFR (mL/min/1.73 m2) ?| With Kidney Damage ?| ?Without Kidney Damage+ --------+ --------+ +| ?>90 ?| ?Stage one ?| ? Normal ?+ ---+ ---+ -------+| ?60-89 ?| ?Stage two ?| ? Decreased GFR ? + --+ --+ ------+| ?30-59 ?| ?Stage three ?| ? Stage three ? + --+ --+ ------+| ?15-29 ?| ?Stage four ? | ? Stage four ?+ ---+ ---+ -------+| ?<15 (or dialysis) ? ?| ?Stage five ? | ? Stage five ?+ ---+ ---+ -------+ *Each stage assumes the associated GFR level has been in effect for at least three months. ?Stages 1 to 5, with or without kidney disease, indicate chronic kidney disease. Notes: Determination of stages one and two (with eGFR >59mL/min/1.73 m2) requires estimation of kidney damage for at least three months as defined by structural or functional abnormalities of the kidney, manifested by either:Pathological abnormalities or Markers of kidney damage (including abnormalities in the composition of the blood or urine or abnormalities in imaging tests). Lab Interpretation (test code = 54665-0) Abnormal [facility] CenterLipase [id number] 21:28:00* Test Item Value Reference Range Interpretation Comme [facility] LIPASE (test code = 7804483085) 76 U/L 0-220 Lab Interpretation (test cod e = 66590-0) Normal [facility] CenterPOCT Test, [id number] 20:34:00 * Test Item Value Reference Range Interpretation Comme nts POCT PREG (test code = 1605) negative POCT PREG LOT # (test code = 3575) [id number] POCT PREG TEST DATE ( test code = 3576) 01/26/2021 Lab Interpretation (test cod e = 24345-4) Normal [facility] CenterCB WITH [id number] 11:03:00* Test Item Value Reference Range Interpretation Comme nts WBC (test code = 6690-2) See_Comment H [Automated message] The system which generated this result transmitted reference range: 4.30 - 11.10 10*3/?L. The reference range was not used to interpret this result as normal/abnormal. RBC (test code = 789-8) See_Comment [Automated message] The system which generated this result transmitted reference range: 3.93 - 5.25 10*6/?L. The reference range was not used to interpret this result as normal/abnormal. HGB (test code = 718-7) 11.1 g/dL 11.6-15 L HCT (test code = 4544-3) 34.1 % 35.7-45.2 L MCV (test code = 787-2) 84.2 fL 80.6-95.5 MCH (test code = 785-6) 27.4 pg 25.9-32.8 MCHC (test code = 786-4) 32.6 g/dL 31.6-35.1 RDW-SD (test code = 71385-6) 44.3 fL 39-49.9 RDW-CV (test code = 788-0) 14.5 % 12-15.5 PLT (test code = 777-3) See_Comment H [Automated message] The system which generated this result transmitted reference range: 166 - 358 10*3/?L. The reference range was not used to interpret this result as normal/abnormal. MPV (test code = 47018-2) 10.6 fL 9.5-12.9 NRBC/100 WBC (test code = 4700722713) See_Comment [Automated message] The system which generated this result transmitted reference range: 0.0 - 10.0 /100 WBCs. The reference range was not used to interpret this result as normal/abnormal. NRBC x10^3 (test code = 6701038287) <0.01 See_Comment [Automated message] The system which generated this result transmitted reference range: 10*3/?L. The reference range was not used to interpret this result as normal/abnormal. GRAN MAT (NEUT) % (test code = 770-8) 87.0 % IMM GRAN % (test code = 9917047850) 0.80 % LYMPH % (test code = 736-9) 7.5 % MONO % (test code = 5905-5) 4.6 % EOS % (test code = 713-8) 0.0 % BASO % (test code = 706-2) 0.1 % GRAN MAT x10^3(ANC) (test code = 7914635751) 12.69 10*3/uL 1.88-7.09 H IMM GRAN x10^3 (test code = 0367227178) 0.12 10*3/uL 0-0.06 H LYMPH x10^3 (test code = 731-0) 1.10 10*3/uL 1.32-3.29 L MONO x10^3 (test code = 742-7) 0.67 10*3/uL 0.33-0.92 EOS x10^3 (test code = 711-2) <0.03 0.03-0.39 L BASO x10^3 (test code = 704-7) <0.03 0.01-0.07 Lab Interpretation (test code = 90468-2) Abnormal [facility] CenterCT PELVIS W [id number] 14:57:55A 6.4 cm peripherally enhancing left labial gas and fluid collection,consistent with labial abscess. Preliminary Report Dictated by Resident: Sandra Powell MD.,have reviewed this study and agree with the abovereport.EXAM: CT PELVIS W CONTRAST HISTORY: labial abscess COMPARISON: None. FINDINGS: A 3.6 x 6.4 cm left labial peripherally enhancing gas and fluid collectionis seen, consistent with abscess. Mild surrounding inflammatory changesseen. The uterus and gallbladder are unremarkable. The visualized bowel loops are unremarkable. The visualized vasculature are unremarkable. No acute osseous findings. [facility], Radiant Results Inft User - 12/03/2019 9:59 AM CDTEXAM: CT PELVIS W CONTRASTHISTORY: labial abscess COMPARISON: None.FINDINGS:A 3.6 x 6.4 cm leftlabial peripherally enhancing gas and fluid collectionis seen, consistent with abscess. Mild surrounding inflammatory changesseen.The uterus and gallbladder are unremarkable.The visualized bowel loops are unremarkable.The visualized vasculature are unremarkable.No acute osseous findings.IMPRESSIONA6.4 cm peripherally enhancing left labial gas and fluid collection,consistent with labial abscess.Preliminary Report Dictated by Resident: Ami Alford, Sandra De La Rosa MD., havereviewed this study and agree with the abovereport.[facility] CenterUrinalysis2020-06-06 13:17:00* Test Item Value Reference Range Interpretation Comme nts APPEARANCE (test code = 6810142929) Clear Clear COLOR (test code = 2761247709) Yellow Yellow PH (test code = 6017594586) 4.8-8.0 SP GRAVITY (test code = 8215216300) 1.003-1.030 GLU U QUAL (test code = 4487647317) Negative Negative BLOOD (test code = 6384067243) Negative Negative KETONES (test code = 5528549108) 40 mg/dL Negative A PROTEIN (test code = 2887-8) Negative Negative UROBILIN (test code = 1844227264) 0.2 mg/dL See_Comment [Automated messa ge] The system which generated this result transmitted reference range: 0-1.0 mg/dL. The reference range was not used to interpret this result as normal/abnormal. BILIRUBIN (test code = 7984728648) Negative Negative NITRITE (test code = 7631792657) Negative Negative LEUK JAKE (test code = 9788266934) Negative Negative RBC/HPF (test code = 7093776359) <1 See_Comment [Automated messa ge] The system which generated this result transmitted reference range: 0 - 3 HPF. The reference range was not used to interpret this result as normal/abnormal. WBC/HPF (test code = 7525452323) <1 See_Comment [Automated messa ge] The system which generated this result transmitted reference range: 0 - 5 HPF. The reference range was not used to interpret this result as normal/abnormal. BACTERIA (test code = 7431251364) Few Negative A Lab Interpretation (test code = 42898-2) Abnormal [facility] CenterB[facility] (NA, K, CL, CO2, GLUCOSE, BUN, CREATININE, CA)2019-12-03 13:16:00* Test Item Value Reference Range Interpretation Comme nts NA (test code = 3385707669) 137 mmol/L 135-145 K (test code = 0848946034) 4.0 mmol/L 3.5-5 CL (test code = 7665400848) 103 mmol/L 98-108 CO2 TOTAL (test code = 8549239187) 23 mmol/L 23-31 AGAP (test code = 1541458933) 2-16 BUN (test code = 4855005423) 18 mg/dL 7-23 GLUCOSE (test code = 9697685911) 96 mg/dL 70-110 CREATININE (test code = 5275316421) 0.93 mg/dL 0.5-1.04 CALCIUM (test code = 3129278601) 9.9 mg/dL 8.6-10.6 eGFR Calculation (Non-) (test code = 4354408899) mL/min/1.73m2 eGFR Calculation () (test code = 5910643329) mL/min/1.73m2 LESLEY (test code = LESLEY) Association of Glomerular Filtration Rate (GFR) and Staging of Kidney Disease* + -+ + ---+| GFR (mL/min/1.73 m2) ?| With Kidney Damage ?| ?Without Kidney Damage+ -------+ ------+ ---------+| ?>90 ?| ?Stage one ?| ? Normal ?+ --+ -+ ----+| ?60-89 ?| ?Stage two ?| ? Decreased GFR ? + -+ + ---+| ?30-59 ?| ?Stage three ?| ? Stage three ? + -+ + ---+| ?15-29 ?| ?Stage four ? | ? Stage four ?+ --+ -+ ----+| ?<15 (or dialysis) ? ?| ?Stage five ? | ? Stage five ?+ --+ -+ ----+ *Each stage assumes the associated GFR level has been in effect for at least three months. ?Stages 1 to 5, with or without kidney disease, indicate chronic kidney disease. Notes: Determination of stages one and two (with eGFR >59mL/min/1.73 m2) requires estimation of kidney damage for at least three months as defined by structural or functional abnormalities of the kidney, manifested by either:Pathological abnormalities or Markers of kidney damage (including abnormalities in the composition of the blood or urine or abnormalities in imaging tests). [facility] CenterHepatic Function Panel (ALB, T.PRO, BILI T, BU/BC, ALT, AST, ALK PHOS)2019-12-03 13:16:00* Test Item Value Reference Range Interpretation Comme nts TOTAL BILI (test code = 5640939202) 0.6 mg/dL 0.1-1.1 BILI UNCON (test code = 9629183443) 0.6 mg/dL 0.1-1.1 BILI CONJ (test code = 5386901810) 0.0 mg/dL 0-0.3 T PROTEIN (test code = 3194710651) 8.7 g/dL 6.3-8.2 H ALBUMIN (test code = 2166938692) 5.0 g/dL 3.5-5 ALK PHOS (test code = 8283146011) 125 U/L 34-122 H ALTv (test code = 1742-6) 36 U/L 5-35 H AST(SGOT) (test code = 6008473303) 25 U/L 13-40 Lab Interpretation (test cod e = 71092-5) Abnormal [facility] CenterCOVID-19 (ID NOW RAPID TESTING)2019-12-03 13:05:00* Test Item Value Reference Range Interpretation Comme nts SARS-CoV-2 Rapid ID NOW (test code = 41100-8) Not Detected Not Detected LESLEY (test code = LESLEY) ID NOW COVID-19 As say is an isothermal nucleic acid amplification test intended for the qualitative detection of nucleic acid from SARS-CoV-2 viral RNA in nasopharyngeal (SENIOR DATA DEVELOPER) specimens. It is used under Emergency Use Authorization (EUA) by FDA. The limit of detection (LOD) of the assay is 125 Genome Equivalents/mL. A positive result is indicative of the presence of SARS-CoV-2 RNA. ?Clinical correlation with patient history and other diagnostic information is necessary to determine patient infection status. A negative (Not Detected) result does not preclude SARS-CoV-2 infection. In patients with clinical symptoms and other tests that are consistent with SARS-CoV-2 infection, negative results should be treated as presumptive negative and a new specimen should be tested with alternative PCR molecular test. Invalid: Please collect a new specimen for repeat patient testing if clinically indicated. Lab Interpretation (test code = 84762-4) Normal [facility] 12[facility]54:00* Test Item Value Reference Range Interpretation Comme [facility] APTT Patient (test code = 3173-2) See_Comment [Automated message] The system which generated this result transmitted reference range: 23 - 38 Seconds. The reference range was not used to interpret this result as normal/abnormal. LESLEY (test code = LESLEY) The [facility] patient population mean normal value for aPTT is 30 seconds. Lab Interpretation (test code = 36690-4) Normal [facility] CenterProthrombin Time (PT) / KEC9301-26-53 12:54:00 * Test Item Value Reference Range Interpretation Comme [facility] PROTIME PATIENT (test code = 5964-2) See_Comment [Automated messa ge] The system which generated this result transmitted reference range: 12.0 - 14.7 Seconds. The reference range was not used to interpret this result as normal/abnormal. INR (test code = 6301-6) Normal INR <1.1; Warfarin Therapeutic range 2.0 to 3.0 or 2.5 to 3.5, depending upon the indications. Lab Interpretation (test code = 04733-2) Normal [facility] CenterCBC WITH SNRFDMDIJNTE4295-13-46 12:43:00* Test Item Value Reference Range Interpretation Comme [facility] WBC (test code = 6690-2) See_Comment H [Automated message] The system which generated this result transmitted reference range: 4.30 - 11.10 10*3/?L. The reference range was not used to interpret this result as normal/abnormal. RBC (test code = 789-8) See_Comment [Automated message] The system which generated this result transmitted reference range: 3.93 - 5.25 10*6/?L. The reference range was not used to interpret this result as normal/abnormal. HGB (test code = 718-7) 11.6 g/dL 11.6-15 HCT (test code = 4544-3) 35.8 % 35.7-45.2 MCV (test code = 787-2) 82.9 fL 80.6-95.5 MCH (test code = 785-6) 26.9 pg 25.9-32.8 MCHC (test code = 786-4) 32.4 g/dL 31.6-35.1 RDW-SD (test code = 47420-6) 42.6 fL 39-49.9 RDW-CV (test code = 788-0) 14.2 % 12-15.5 PLT (test code = 777-3) See_Comment [Automated message] The system which generated this result transmitted reference range: 166 - 358 10*3/?L. The reference range was not used to interpret this result as normal/abnormal. MPV (test code = 59124-8) 10.5 fL 9.5-12.9 NRBC/100 WBC (test code = 2795167112) See_Comment [Automated message] The system which generated this result transmitted reference range: 0.0 - 10.0 /100 WBCs. The reference range was not used to interpret this result as normal/abnormal. NRBC x10^3 (test code = 1975482157) <0.01 See_Comment [Automated message] The system which generated this result transmitted reference range: 10*3/?L. The reference range was not used to interpret this result as normal/abnormal. GRAN MAT (NEUT) % (test code = 770-8) 82.6 % IMM GRAN % (test code = 2191393714) 0.70 % LYMPH % (test code = 736-9) 9.2 % MONO % (test code = 5905-5) 6.7 % EOS % (test code = 713-8) 0.3 % BASO % (test code = 706-2) 0.5 % GRAN MAT x10^3(ANC) (test code = 7340001929) 12.22 10*3/uL 1.88-7.09 H IMM GRAN x10^3 (test code = 2733793048) 0.11 10*3/uL 0-0.06 H LYMPH x10^3 (test code = 731-0) 1.36 10*3/uL 1.32-3.29 MONO x10^3 (test code = 742-7) 0.99 10*3/uL 0.33-0.92 H EOS x10^3 (test code = 711-2) 0.04 10*3/uL 0.03-0.39 BASO x10^3 (test code = 704-7) 0.08 10*3/uL 0.01-0.07 H Lab Interpretation (test code = 66806-6) Abnormal [facility] CenterLacoic Acid Whole Eyxgi4541-04-32 12:41:00* Test Item Value Reference Range Interpretation Comme nts LACTIC ACID (test code = 7341614109) 1.29 mmol/L 0.3-2.6 [facility] Test, Cdapc7349-68-45 12:32:00 * Test Item Value Reference Range Interpretation Comme nts POCT PREG (test code = 1605) negative On board controls acceptable with C Line (test code = 3574) present POCT PREG LOT # (test code = 3575) [id number] POCT PREG TEST DATE ( test code = 3576) 01/26/2021 Lab Interpretation (test cod e = 26963-4) Normal [facility], Strep A Screen [*IH]* Test Item Value Reference Range Interpretation Comme nts Strep A (test code = 73880-6) neg Ref Range - Negat reid POC, Strep A Screen [*IH]* Test Item Value Reference Range Interpretation Comme nts Strep A (test code = 72241-5) negative Ref Range - Negat reid US Gallbladder RUQ Name: MECCA RUTLEDGEJm Beauchamp : 1995Sex: [facility] Pt Name: KIRILLEDUARD C [address] Phys: [place] [address] : 1995 Age: 25 SEX:F Exam Date: 06/03/21 Status: REG CLI Acct: [id number] Loc: [facility] Pt Unit #: [id number] Report #: [id number] CC: Stanislav Gotti MD ULTRASOUND REPORT Order # Category/Exam [id number] ULT/US Gallbladder RUQ ([id number]): . Results EXAM: Right upper quadrant ultrasound PROVIDED CLINICAL HISTORY: Right upper quadrant pain COMPARISON: None FINDINGS: Visualized portions of the pancreas and IVC appear normal. Liver demonstrates no mass or intrahepatic biliary ductal dilatation. Common duct is nondilated. Gallbladder demonstrates no stones, wall thickening or pericholecystic fluid. Right kidney demonstrates no hydronephrosis or mass. IMPRESSION: Unremarkable right upper quadrant ultrasound. Reported By: Wes Warren MD Electronically Signed Date/Time: 06/03/21 1056 Technologist: KARLEE GRAHAM Dictated Date/Time: 06/03/21 1055 Transcribed Date/Time:XR Chest 1 View PortableName: EDUARD RUTLEDGE : 1995 [facility] EDUARD RUTLEDGE [address] Phys: [place] [address] : 1995 Age: 25 SEX:F Exam Date: 12/01/20 Status: REG ER Acct: [id number] Loc: [facility] Pt Unit #: [id number] Report #: [id number] CC: ABRAHAM SORTO DO [facility] REPORT Order # Category/Exam [id number] RAD/XR Chest 1 View Portable ([id number]): . Results Exam: Chest one view HISTORY:Shortness of breath and chest pain Comparison: None FINDINGS: Cardiac silhouette: Normal Aorta: Unremarkable Pulmonary vessels: Normal Costophrenic angles: Clear LUNGS: No masses or consolidation. Pneumothorax: None Osseous abnormalities: None IMPRESSION: No acutecardiopulmonary process. Reported By: Jonathan Garcia MD Electronically Signed Date/Time: 12/01/202121 Technologist: FEI Dictated Date/Time: 12/01/202120 Transcribed Date/Time: Notes Date/Time Note Provider Source 2023-02-27 09:18:33 5A487xrpIswpTr4JTzZH 3VExlJ6G1vb Xz8nPQgjvxSTbgYW98/+obc8huZsqCf uE5928-17-19I83:18:33 Images from the original note were not included.[employer] The following has been sent to the provider for completion via parachute/FAX Orders pended for [employer] company Prescription for CPAP Sleep study /data report dated - 02/03/2023 Demographics - Face sheet Insurance Information Progress Notes from office visit prior to sleep study - 01/14/2023 Office visit note post sleep study 02/11/2023 Follow up due 31-90 days following initiation of any device. 53080-2Mrmudktie encounter YylxHO5656-73-11B07:20:22Teleph one encounter NoteTXT1.2.840.548349.1.13.104. 2.7.2.829794|[id number] [facility] hgmw75151-6CulkCD484419849Ezpbl ilene Naidu RN[address] OpnaOrzqxaemeVfwjovdwuAXBZ10647 00985KSSADOEFFFNWDGJSCBRTVZ8317 -09-01T09:20:221.2.840.456697.1 .72.3.15|1.2.840.503108.1.13.10 4.2.7.2.727879_1889107541 Doreen Naidu RN [facility] 2023-02-05 14:24:38 JUqkNkKSv4wQO8qOt34k 2faVPu8NoTq rlI3tRz/bx375vR1tWwY8FtY6vA82oM ub3685-45-46T23:24:38 Attempted to contact patient. No answer. Left message to call back.Joan Herrera LVN 02/05/2023 2:24 PM 79781-3Pvfbgwwrp encounter ErluRF4929-57-73W18:24:49Teleph one encounter NoteTXT1.2.840.942854.1.13.104. 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 2.7.2.690993|[id number] ble for patient gikp52726-2VarnEG736561198Fvkgh [address]TXTX[address] 38350KDIUPXNLHCHMSBKGQQIYJP7223 -08-10T14:19:561.2.840.115157.1 .72.3.15|1.2.840.491494.1.13.10 4.2.7.2.727879_[id number] Merline Brunson [facility] 2023-01-14 11:30:00 YkRGzYdomSW+Efp/y3Af dIHe7shF27e 7AIF3pGx1YV1YKO34tFLjG/WrPLF8DQ Vw0059-05-20B41:30:00 Images from the original note were not included.Venipuncture collection performed by clean technique on the left anticubitus. Total of 1 attempts were made. Slight pressure and a bandage/dressing were applied to the site(s). The patient experienced no complications. The following specimens were processed according to instructions and sent to [facility] laboratories per lab order on TODAY: LT BLUE SST 3 RED LAV 2 PPT DK GREEN (LiHep) DK GREEN (SodH) REEVES DK BLUE (K2) DK BLUE (S) ACD Blood Culture NIPT/NTD 17908-3Qhpxw CuwfOI8900-58-15I78:39:25Nurse NoteTXT1.2.840.659426.1.13.104. 2.7.2.830007|[id number] ble for patient [address]TXTX[address] 78133AFKDOVBTAYBQDXGESTGCVW4792 -07-19T09:39:251.2.840.264957.1 .72.3.15|1.2.840.321668.1.13.[address]727879_[id number] [facility]"
--- NOTE | 2023-08-21 14:01 | RAD REPORT ---
EXAM DESCRIPTION: Laura Single View08/21/2023 1:45 pm CLINICAL HISTORY: syncope COMPARISON: No comparisons TECHNIQUE: Portable AP view of the chest. FINDINGS: The lungs are clear. No pneumothorax or effusion. The cardiomediastinal contours are unre markable. IMPRESSION: No acute cardiopulmonary process.
[2023-08-21 14:20] LABS: Specific Gravity 1.011 (1.005-1.030); Specific Gravity 1.012 (1.005-1.030); Urine Bilirubin NEGATIVE (Negative); Urine Blood Negative (Negative); Urine Clarity Clear (Clear); Urine Color Colorless (Yellow); Urine Glucose NEGATIVE (Negative); Urine Protein NEGATIVE (Negative); Urine Urobilinogen Normal (Normal)
[2023-08-21 14:28] LABS: Barbiturates NEGATIVE (NEGATIVE); Benzodiazepines NEGATIVE (NEGATIVE); Cocaine NEGATIVE (NEGATIVE); METHAMPHETAM NEGATIVE (NEGATIVE); Methadone NEGATIVE (NEGATIVE); Opiates NEGATIVE (NEGATIVE); Phencyclidine NEGATIVE (NEGATIVE); THC Cannibis NEGATIVE (NEGATIVE)
[2023-08-21 14:47] LABS: Absolute Lymphocytes (CBC) 2.6 K/uL (0.7-4.9); Hematocrit 36.4 % (36.0-45.0); Lymphocytes % 24.7 % (15.3-44.8); MCV 82.1 fL (80-100); MPV 8.8 fL (7.6-11.3); Platelets 345 thou/uL (152-406); RBC Red Blood Cell Count 4.44 M/uL (3.86-4.86)
[2023-08-21 14:50] LABS: Protime INR 1.14
[2023-08-21 15:01] LABS: ALT/SGPT 58 U/L (13-56); AST/SGOT 23 U/L (15-37); Albumin 3.7 g/dL (3.4-5.0); Alkaline Phosphatase 113 U/L (45-117); BUN Blood Urea Nitrogen 12 mg/dL (7-18); Bicarbonate 29 mEq/L (21-32); Bilirubin Direct 0.2 mg/dL (0-0.2); Bilirubin Indirect, Calculated 0.3 mg/dL (0.2-0.8); Bilirubin Total 0.5 mg/dL (0.2-1.0); Glomerular Filtration Rate 103 ml/min (=/>90); Glucose Level 84 mg/dL (74-106); NT PRO-BNP 36 pg/mL (<125); Potassium 3.9 mEq/L (3.5-5.1); Protein, Total 8.6 g/dL (6.4-8.2); Sodium Level 137 mEq/L (136-145)
[2023-08-21 15:02] LABS: Troponin High Sensitivity < 3.0 pg/mL (<58.9)
--- NOTE | 2023-08-21 15:30 | RAD REPORT ---
EXAM DESCRIPTION: CT - Head Brain Wo Cont - 08/21/2023 2:27 pm CLINICAL HISTORY: SYNCOPE COMPARISON: No comparisons TECHNIQUE: Noncontrast head CT images were obtained without IV contrast. Multiplanar reformats were generated and reviewed. All CT scans are performed using dose optimization technique as appropriate and may include automated exposure control or mA/KV adjustment according to patient size. FINDINGS: No intracranial hemorrhage, mass, or edema. Midline structures are unremarkable. Normal ventricular caliber for age. Gross-white matter differentiation is preserved, without evidence of acute infarct. No abnormal extra- axial fluid collections. Mastoid air cells and visualized portions of the paranasal sinuses are clear. No acute bony findings. IMPRESSION: No evidence of an acute intracranial process.
--- NOTE | 2023-08-21 16:34 | ER ---
Nurse's Notes [facility] Name: Dominique Rutledge Age: 28 yrs Sex: Female : 1995 Arrival Date: 08/21/2023 Time: 13:01 Bed 13 Private MD: MIRLANDE CARDOSO Diagnosis: Syncope Presentation: 08/21 13:16 Chief complaint: Patient states: Awoke today fatigued and tired. Was sitting at work in ll1 a meeting and passed out. Feels dizzy, weak, and pale since passing out. Slight READ. Coronavirus screen: Vaccine status: Patient reports receiving the 2nd dose of the covid vaccine. Client denies travel out of the [place] in the last 14 days. At this time, the client does not indicate any symptoms associated with coronavirus-19. Ebola Screen: Patient denies travel to an Ebola-affected area in the 21 days before illness onset. Initial Sepsis Screen: Does the patient meet any 2 criteria? No. Patient's initial sepsis screen is negative. Does the patient have a suspected source of infection? No. Patient's initial sepsis screen is negative. Risk Assessment: Do you want to hurt yourself or someone else? Patient reports no desire to harm self or others. Onset of symptoms was August 21, 2023. 13:16 Method Of Arrival: Ambulatory ll1 13:16 Acuity: NANCI 3 ll1 Triage Assessment: 13:17 General: Appears in no apparent distress. Behavior is calm, cooperative. Pain: ll1 Complains of pain in head Pain currently is 4 out of 10 on a pain scale. Quality of pain is described as aching. Neuro: Reports dizziness, headache a syncopal episode weakness. GI: Reports nausea. Historical: - Allergies: 13:16 No Known Allergies; ll1 - PMHx: 13:16 Anxiety; depressive disorder; Sleep apnea; MVP; ll1 - PSHx: 13:16 Appendectomy; L ankle SX (Appendectomy); ll1 - Immunization history:: Adult Immunizations up to date. - Social history:: Smoking status: Patient denies any tobacco usage or history of. Screenin:23 [facility] ED Fall Risk Assessment (Adult) History of falling in the last 3 months, cm10 including since admission Yes- physiologic fall (2 pts) Confusion or Disorientation No (0 pts) Intoxicated or Sedated No (0 pts) Impaired Gait No (0 pts) Mobility Assist Device Used No (0 pt) Altered Elimination No (0 pt) Score/Fall Risk Level 0 - 2 = Low Risk Oriented to surroundings, Maintained a safe environment, Hourly rounding (assess needs \T\ fall precautionary measures) done. Abuse screen: Denies threats or abuse. Denies injuries from another. 15:23 Nutritional screening: No deficits noted. Tuberculosis screening: No symptoms or risk cm10 factors identified. Assessment: 15:13 General: Appears in no apparent distress. comfortable, Behavior is calm, cooperative. cm10 Neuro: No deficits noted. Level of Consciousness is awake, alert, Oriented to person, place, time, situation. Neuro: Reports a syncopal episode. Cardiovascular: No deficits noted. Capillary refill < 3 seconds Patient's skin is warm and dry. Respiratory: No deficits noted. Airway is patent Respiratory effort is even, unlabored, Respiratory pattern is regular, symmetrical. GI: No deficits noted. No signs and/or symptoms were reported involving the gastrointestinal system. : No deficits noted. No signs and/or symptoms were reported regarding the genitourinary system. EENT: No deficits noted. No signs and/or symptoms were reported regarding the EENT system. Derm: No deficits noted. No signs and/or symptoms reported regarding the dermatologic system. Skin is intact, Skin is pink, warm \T\ dry. Musculoskeletal: No deficits noted. No signs and/or symptoms reported regarding the musculoskeletal system. Range of motion: intact in all extremities. 16:16 Reassessment: Pt complaining of headache. Provider made aware and pt medicated per MAR. cm10 Vital Signs: 13:16 BP 125 / 80; Pulse 70; Resp 16; Temp 97.4; Pulse Ox 100% ; Weight 99.79 kg; Height 5 ll1 ft. 5 in. ; Pain 4/10; 15:18 BP 112 / 71 Supine; Pulse 65; cm10 15:19 BP 115 / 81 Sitting; Pulse 64; cm10 15:21 BP 111 / 80 Standing; Pulse 85; cm10 16:00 BP 105 / 68; Pulse 85; Resp 16; Pulse Ox 100% ; cm10 17:02 Pain 3/10; cm10 13:16 Body Mass Index 36.61 (99.79 kg, 165.1 cm) ll1 13:16 Pain Scale: Adult ll1 17:02 Pain Scale: Adult cm10 ED Course: 13:04 Patient arrived in ED. rg4 13:04 MIRLANDE CARDOSO is Private Physician. rg4 13:11 Ramiro Schmidt PA is PHCP. cp 13:11 Gallo Vincent MD is Attending Physician. cp 13:16 Arm band placed on. ll1 13:18 Triage completed. ll1 13:46 XRAY Chest (1 view) In Process Unspecified. EDMS 14:13 Test, Urine Sent. as6 14:13 UDS Sent. as6 14:13 Urinalysis w/ reflexes Sent. as6 14:28 CT Head Brain wo Cont In Process Unspecified. EDMS 14:36 Inserted saline lock: 20 gauge in left antecubital area, using aseptic technique. Blood as6 collected. 14:36 Basic Metabolic Panel Sent. as6 14:36 CBC with Diff Sent. as6 14:36 D-Dimer Sent. as6 14:36 LFT's Sent. as6 14:36 Magnesium Sent. as6 14:36 NT PRO-BNP Sent. as6 14:36 PT-INR Sent. as6 14:36 Troponin HS Sent. as6 15:12 Loli Gordon, RN is Primary Nurse. cm10 15:24 Patient has correct armband on for positive identification. Bed in low position. Call cm10 light in reach. Side rails up X2. Provided Education on: ER process and procedures. . Client placed on continuous cardiac and pulse oximetry monitoring. NIBP monitoring applied. 16:30 Ramon Cantu MD is Referral Physician. cp 17:02 No provider procedures requiring assistance completed. IV discontinued, intact, cm10 bleeding controlled, No redness/swelling at site. Pressure dressing applied. Administered Medications: 16:15 Drug: Acetaminophen PO 1000 mg PO once Route: PO; cm10 17:02 Follow up: Pain 3/10 Adult; Response: Pain is decreased cm10 Medication: 15:23 VIS not applicable for this client. cm10 Outcome: 16:34 Discharge ordered by . cp 17:03 Discharged to home ambulatory, with family, cm10 17:03 Condition: good 17:03 Discharge instructions given to patient, Instructed on discharge instructions, follow up and referral plans. Demonstrated understanding of instructions, follow-up care, 17:03 Patient left the ED. cm10 Signatures: Dispatcher [employer] EDMS Ramiro Schmidt PA PA cp Garcia, Rubi rg4 Waleska Pitt RN RN ll1 Can Bejarano RN RN as6 Loli Gordon RN RN cm10 Corrections: (The following items were deleted from the chart) 15:24 15:23 [facility] ED Fall Risk Assessment (Adult) History of falling in the last 3 months, cm10 including since admission cm10
--- NOTE | 2023-08-21 16:34 | EDPHYS ---
Physician Documentation [facility] Name: Dominique Rutledge Age: 28 yrs Sex: Female : 1995 Arrival Date: 08/21/2023 Time: 13:01 Bed 13 Private MD: MIRLANDE CARDOSO ED Physician Gallo Vincent HPI: 08/21 13:34 This 28 yrs old Female presents to ER via Ambulatory with complaints of Passed Out cp Prior To Arrival. 13:34 The patient has experienced syncope, lost consciousness. Onset: The symptoms/episode cp began/occurred this morning, at work at about 1030. 13:34 Duration: This was a single episode, that lasted an unknown period of time. Context: cp the episode(s) was witnessed, by co-worker(s), occurred while the patient was sitting, in meeting. Just prior to the episode the patient experienced lightheadedness. Associated injury: The patient did not suffer any apparent associated injury. Associated signs and symptoms: Pertinent negatives: abdominal pain, chest pain, combativeness, diarrhea, headache, not seizure, shortness of breath, vomiting. Current symptoms: headache, that is mild, dizzy, general weakness. The patient has not experienced similar symptoms in the past. Historical: - Allergies: 13:16 No Known Allergies; ll1 - PMHx: 13:16 Anxiety; depressive disorder; Sleep apnea; MVP; ll1 - PSHx: 13:16 Appendectomy; L ankle SX (Appendectomy); ll1 - Immunization history:: Adult Immunizations up to date. - Social history:: Smoking status: Patient denies any tobacco usage or history of. ROS: 13:37 Neuro: Positive for headache, syncope, weakness, Negative for altered mental status, cp 13:37 Constitutional: Negative for body aches, chills, fever, poor PO intake, cp 13:37 Eyes: Negative for injury, pain, redness, and discharge, cp 13:37 ENT: Negative for drainage from ear(s), ear pain, sore throat, difficulty swallowing, difficulty handling secretions, 13:37 Cardiovascular: Negative for chest pain, edema, palpitations, 13:37 Respiratory: Negative for cough, shortness of breath, wheezing, 13:37 Abdomen/GI: Negative for abdominal pain, nausea, vomiting, and diarrhea, black/tarry stool, rectal bleeding, 13:37 : Negative for urinary symptoms, vaginal bleeding, 13:37 All other systems are negative, Exam: 13:40 Constitutional: The patient appears in no acute distress, alert, awake, comfortable, cp non-diaphoretic, non-toxic, well developed, well nourished, 13:40 Head/Face: Normocephalic, atraumatic. cp 13:40 Eyes: Periorbital structures: appear normal, Pupils: equal, round, and reactive to light and accomodation, Extraocular movements: intact throughout, Conjunctiva: normal, no exudate, no injection, Sclera: no appreciated abnormality, Lids and lashes: appear normal, bilaterally, 13:40 ENT: External ear(s): are unremarkable, Nose: is normal, Mouth: Lips: moist, Oral mucosa: pink and intact, moist, Posterior pharynx: Airway: no evidence of obstruction, patent, erythema, is not appreciated, exudate, is not appreciated, 13:40 Neck: ROM/movement: is normal, is supple, without pain, no range of motions limitations, 13:40 Chest/axilla: Inspection: normal, 13:40 Cardiovascular: Rate: normal, Rhythm: regular, Edema: is not appreciated, JVD: is not appreciated, 13:40 Respiratory: the patient does not display signs of respiratory distress, Respirations: normal, no use of accessory muscles, no retractions, labored breathing, is not present, Breath sounds: are clear throughout, no decreased breath sounds, no stridor, no wheezing, 13:40 Abdomen/GI: Inspection: abdomen appears normal, Palpation: abdomen is soft and non-tender, in all quadrants, 13:40 Back: pain, is absent, ROM is normal, 13:40 Neuro: Orientation: to person, place \T\ time. Mentation: is normal, Cerebellar function: is grossly normal, Motor: moves all fours, strength is normal, Sensation: is normal, 15:15 ECG was reviewed by the Attending Physician. cp Vital Signs: 13:16 BP 125 / 80; Pulse 70; Resp 16; Temp 97.4; Pulse Ox 100% ; Weight 99.79 kg; Height 5 ll1 ft. 5 in. ; Pain 4/10; 15:18 BP 112 / 71 Supine; Pulse 65; cm10 15:19 BP 115 / 81 Sitting; Pulse 64; cm10 15:21 BP 111 / 80 Standing; Pulse 85; cm10 16:00 BP 105 / 68; Pulse 85; Resp 16; Pulse Ox 100% ; cm10 17:02 Pain 3/10; cm10 13:16 Body Mass Index 36.61 (99.79 kg, 165.1 cm) ll1 13:16 Pain Scale: Adult ll1 17:02 Pain Scale: Adult cm10 MDM: 13:11 Patient medically screened. cp 14:00 Differential Diagnosis: aortic aneurysm, cardiac arrhythmia, cerebrovascular accident, cp emotional response, GI bleed, , seizure, transient ischemic attack, vasovagal episode. 16:33 Data reviewed: vital signs, nurses notes, lab test result(s), EKG, radiologic studies, cp CT scan, plain films, and as a result, I will discharge patient. 16:33 Counseling: I had a detailed discussion with the patient and/or guardian regarding the cp historical points, exam findings, and any diagnostic results supporting the discharge/admit diagnosis, lab results, radiology results, the need for outpatient follow up, a media manager, a family practitioner, to return to the emergency department if symptoms worsen or persist or if there are any questions or concerns that arise at home. Response to treatment: the patient's symptoms have markedly improved after treatment, and as a result, I will discharge patient. 08/21 13:17 Order name: Test, Urine; Complete Time: 15:22 08/21 16:21 Interpretation: Reviewed. 08/21 13:17 Order name: UDS; Complete Time: 15:22 08/21 16:21 Interpretation: Reviewed. 08/21 13:17 Order name: Urinalysis w/ reflexes; Complete Time: 15:22 08/21 15:22 Interpretation: Reviewed. 08/21 13:34 Order name: Basic Metabolic Panel; Complete Time: 15:22 08/21 16:20 Interpretation: Reviewed. 08/21 13:34 Order name: CBC with Diff; Complete Time: 15:22 08/21 15:22 Interpretation: Normal except: RDW 15.3. 08/21 13:34 Order name: D-Dimer; Complete Time: 15:22 08/21 13:34 Order name: LFT's; Complete Time: 15:22 08/21 16:20 Interpretation: Normal except: ALT 58; TP 8.6; GLOB 4.9; A/G 0.8; Reviewed. cp 08/21 13:34 Order name: Magnesium; Complete Time: 15:22 cp 08/21 13:34 Order name: NT PRO-BNP; Complete Time: 15:22 cp 08/21 13:34 Order name: PT-INR; Complete Time: 15:22 cp 08/21 13:34 Order name: Troponin HS; Complete Time: 15:22 cp 08/21 13:34 Order name: XRAY Chest (1 view); Complete Time: 14:18 cp 08/21 14:18 Interpretation: Report review. cp 08/21 13:34 Order name: CT Head Brain wo Cont; Complete Time: 15:31 cp 08/21 15:31 Interpretation: Report reviewed. cp 08/21 13:17 Order name: EKG; Complete Time: 13:17 cp 08/21 13:16 Order name: Orthostatics; Complete Time: 15:23 cp 08/21 13:17 Order name: EKG - Nurse/Tech; Complete Time: 15:13 cp 08/21 13:34 Order name: Cardiac monitoring; Complete Time: 15:13 cp 08/21 13:34 Order name: IV Saline Lock; Complete Time: 14:36 cp 08/21 13:34 Order name: Labs collected and sent; Complete Time: 14:36 cp 08/21 13:34 Order name: O2 Per Protocol; Complete Time: 15:13 cp 08/21 13:34 Order name: O2 Sat Monitoring; Complete Time: 15:13 cp EC:15 Rate is 74 beats/min. Rhythm is regular. MO interval is normal. QRS interval is normal. cp QT interval is normal. T waves are Inverted in lead aVR. Interpreted by me. Reviewed by me. Administered Medications: 16:15 Drug: Acetaminophen PO 1000 mg PO once Route: PO; cm10 17:02 Follow up: Pain 3/ Adult; Response: Pain is decreased cm10 Disposition Summary: 08/21/23 16:34 Discharge Ordered Notes: Location: Home cp Problem: new cp Symptoms: have improved cp Condition: Stable cp Diagnosis - Syncope cp Followup: cp - With: Ramon Cantu MD - When: 5 - 6 days - Reason: Recheck today's complaints Followup: cp - With: Private Physician - When: 2 - 3 days - Reason: Recheck today's complaints Discharge Instructions: - Discharge Summary Sheet cp - Ibuprofen Dosage Chart, Pediatric cp - General Headache Without Cause cp - Syncope cp - Aspirin and Your Heart cp - Form - Excuse from Work, School, or Physical Activity cp Forms: - Medication Reconciliation Form cp - Thank You Letter cp - Antibiotic Education cp - Prescription Opioid Use cp - Patient Portal Instructions cp - Leadership Thank You Letter cp Signatures: Dispatcher [employer] EDMS Ramiro Schmidt PA PA cp Waleska Pitt RN RN ll1 Loli Gordon RN RN cm10 Corrections: (The following items were deleted from the chart) 08/22 16:08/21 13:34 Context: the episode(s) was witnessed, by co-worker(s), occurred while the cp patient was sitting, Just prior to the episode the patient experienced lightheadedness, cp 08/22 16:24 08/21 13:34 Current symptoms: Currently, the patient is not experiencing any symptoms, cp cp 08/22 16:26 08/21 13:37 Neuro: Positive for syncope, weakness, Negative for altered mental status, cp cp
[2023-08-21 17:10] VITALS: TEMP 97.4; O2SAT 100
[2023-08-21 17:31] VITALS: BP 105/68
--- NOTE | 2023-08-24 14:37 | EKG ---
Test Date: 2023-08-21 Test Time: 15:09:55 Mortgage Field Inspector: NATAN MEASUREMENT RESULTS: Intervals: Rate: 74 TN: 170 QRSD: 98 QT: 362 QTc: [address]: P: 42 TN: 170 QRS: 72 T: 42 INTERPRETIVE STATEMENTS: Normal sinus rhythm Incomplete right bundle branch block Borderline ECG No previous ECG available for comparison Electronically Signed On 08-24-23 14:29:35 SENIOR ACTUARIAL ANALYST by Ramon Cantu
== END ==
LOC: ER 13:01
DX: R55 Syncope and collapse (principal)
CPT/HCPCS: 36415; 70450; 71045; 80048; 80076; 80307; 81003; 81025; 83735; 83880; 84484; 85025; 85379; 85610; 93005

== ENCOUNTER 2024-04-13 22:30 | Emergency (ER) | payer BC ==
--- OUTSIDE RECORDS SUMMARY | 2024-04-13 22:41 | XMS REPORT | Continuity of Care Document ---
Author Name Unknown Address [address] [facility] [address] [place] [address] [facility] thconnect Address [address] [facility] [address] [place] [address] Care Team Providers Care Loading Machine Operator Name Role Phone NATALIIA TALBERT Primary Care Physician Unavailyair Kemp, . Attending Clinician Unavailable Jj Zaidi Attending Clinician Unavailable ALE REAL Attending Clinician Unavailable TERESA BELL Attending Clinician Unavailable NATALIIA TALBERT Attending Clinician Unavailable Nataliia Garcia Attending Clinician [phone] Ale Real MD Attending Clinician + [phone] JOCE TIBURCIOWU IVY Attending Clinician Unavailab earline Patel MD, Edmond Soares Attending Clinician [phone] Sarah Bethea MD Attending Clinician + [phone] SARAH BETHEA Attending Clinician Unavailab earline Nguyen ACTING PROFESSOR, Cami Attending Clinician [phone] Unknown, Attending Attending Clinician Unavailab CAMI Denise Attending Clinician Unavailable Ale Real MD Attending Clinician + [phone] Shelly Bedolla MD Attending Clinician + [phone] , [facility] Sleep Lab Bed Attending Clinician Unavail SHELLY Miller Attending Clinician Unavaila SHELLY Elliott Attending Clinician Unavailyair Belcher ACTING PROFESSOR, Michelle Riley Attending Clinician [phone] [facility], [facility] Lab Main Attending Clinician Unavailmateo Valenzuela [facility] Attending Clinician Unava illj [place] ACTING PROFESSOR, Alejandrina Attending Clinician [phone] Doctor Unassigned, Shokan Attending Clinician U MICHELLE Benitez Attending Clinician UnavailCHRIS Childress Attending Clinician Unavailable Nataliia Garcia Attending Clinician + [phone] Draw, [facility] Attending Clinician UnavailTANISHA Munroe Attending Clinician Unavailable PUJA POLLARD Attending Clinician Unavailable Chris Yeung MD Attending Clinician [phone] CALEB WARD Attending Clinician Unavailable Sylvia ACTING PROFESSOR, Caleb Attending Clinician [phone] WINSTON KHOURY Attending Clinician Unavaila Trace Thomas MD Attending Clinician [phone] TRACE ATWOOD Attending Clinician Unavailable ARLENE DAILY Attending Clinician Unavailable Darell Hartley MD Attending Clinician [phone] RAVINDER VALENZUELA Attending Clinician Unavailable Ravinder Valenzuela MD Attending Clinician [phone] Marvin Millan RN, Erum Perez Attending Clinician Unava ilable Lab, Ang - Db Attending Clinician Unavailable FARHANA ARNOLD Attending Clinician Unavailable Clayton ACTING PROFESSOR, Farhana Smith Attending Clinician +[phone] AZEEM FALK Attending Clinician Unava trina Falk ACTING PROFESSOR, Azeem Attending Clinician + GC_GCBZW_Kadiyala_S Attending Clinician UnavailDARELL Burgess Attending Clinician Unavail able DARELL HARTLEY Attending Clinician Unavail able Aman ACTING PROFESSOR, Lawrence Attending Clinician [phone] AMAN, LAWRENCE Attending Clinician Unavailable Tech, [facility] Attending Clinician Unavaila lila RADIOLOGY Attending Clinician Unavailable Radiology Attending Clinician Unavailable CAROLINE MACHADO Attending Clinician Unavaila Stanislav Rivas Attending Clinician Unavailable Jordon Ovalle Attending Clinician Unavailab Abraham Cesar Attending Clinician Unavailable Juwan Magdaleno DO Attending Clinician [phone] Kristin Clements Attending Clinician [phone] Brunilda BLAIR, Jessica Winters Attending Clinician [phone] Geovany Khalil MD Attending Clinician + GEOVANY KHALIL Attending Clinician Unavailable Catina Marin MD Attending Clinician + CATINA MARIN Attending Clinician UnavailCATINA Posey Attending Clinician UnavailArlene Huynh MD Attending Clinician [phone] TRACE ATWOOD Admitting Clinician Unavailable FARHANA ARNOLD Admitting Clinician Unavailable GC_GCBZW_Kadiyala_S Admitting Clinician Unavaila DARELL Romeo Admitting Clinician Unavail able LAURITA CALDERON Admitting Clinician UnavailGeovany Muller MD Admitting Clinician + GEOVANY KHALIL Admitting Clinician Unavailable Catina Marin MD Admitting Clinician + CATINA MARIN Admitting Clinician Unavaila lila Payers Payer Name Policy Type Policy Number Effective Date Expirati on Date Source [facility] [id number] 2022 00:00:00 Cigna 53 [id number] [facility] CIGNA II [id number] 2022 00:00:00 Aeserena 53 [id number] 2020 00:00:00 [facility] Problems Condition Name Condition Details Condition Category Status Onset Date Resolution Date Last Treatment Date Treating Clinician Comments Source JERRIAC (obstructi ve sleep apnea) JERRICA (obstructi ve sleep apnea) Disease Active 8-10 00:00: 00 [facility] Anxiety with depression Anxiety with depression Disease Active 7-19 00:00: 00 [facility] Appendicit is Appendicit is Disease Active 0 6-14 00:00: 00 [facility] Acute appendicit is Acute appendicit is Disease Active 0 6-13 00:00: 00 [facility] Status post incision and drainage Status post incision and drainage Disease Active 20200 6-06 00:00: 00 [facility] Left genital labial abscess Left genital labial abscess Disease Active 20200 6-06 00:00: 00 [facility] Mitral valve prolapse Mitral valve prolapse Disease Active 20200 6-06 00:00: 00 [facility] Cardiac arrhythmia Cardiac arrhythmia Disease Active 20200 6-06 00:00: 00 [facility] Status post incision and drainage Status post incision and drainage Disease Active 20200 6-06 00:00: 00 [facility] Obesity (BMI 30-39.9) Obesity (BMI 30-39.9) Disease Active 20200 6-02 00:00: 00 [facility] [id number] Mild episode of recurrent major depressive disorder Problem [facility] [id number] Chronic GERD Problem [facility] [id number] Anxiety Problem [facility] [id number] Other chronic pain Problem [facility] [id number] Migraine without aura and without status migrainosu s, not intractabl e Problem [facility] [id number] Irregular menses Problem [facility] [id number] Generalize d anxiety disorder Problem [facility] [id number] Non-intrac table vomiting with nausea, unspecifie d vomiting type Problem [facility] [id number] Sore throat Problem [facility] [id number] Vitamin D deficiency Problem [facility] [id number] Diarrhea of presumed infectious origin Problem [facility] [id number] Contact with and (suspected ) exposure to other viral communicab le diseases Problem [facility] [id number] Encounter for screening for other viral diseases Problem [facility] [id number] UTI symptoms Problem [facility] Allergies, Adverse Reactions, Alerts Allergy Name Allergy Type Status Severity Reaction(s) Onset Date Inactive Date Treating Clinician Comments Source SUMATRIP DEJESUS DRUG INGREDI Active Med Other-Cmnt 02-02 00:00: 00 [facility] Sumatrip dejesus Propensi ty to adverse reaction s Active Other - See comments 02-02 00:00: 00 Chest tightness [facility] TRIPTANS -5-HT1 ANTIMIGR TONYA AGENTS Drug Class Active Other-Cmnt 11-27 00:00: 00 [facility] Triptans -5-Ht1 Antimigr tonya Agents Propensi ty to adverse reaction s Active Other - See comments 11-27 00:00: 00 [facility] NO KNOWN ALLERGIE S Drug Class Active [facility] Social History Social Habit Start Date Stop Date Quantity Comments Source Gender identity [facility] Sexual orientation [facility] History of Tobacco Use [facility] Sex [facility]igned At [facility] Alcoholic beverage intake 2024-04-01 00:00:00 2024-04-01 00:00:00 Current drinker of alcohol (finding) [facility] Alcohol intake 2023-10-23 00:00:00 2023-10-23 00:00:00 Current drinker of alcohol (finding) [facility] History of Social function 2023-09-03 00:00:00 2023-09-03 00:00:00 [facility] Tobacco use and exposure 2022-08-22 00:00:00 2022-08-22 00:00:00 Former smokeless tobacco user [facility] Tobacco Comment 2022-08-22 00:00:00 2022-08-22 00:00:00 Vaping [facility] Exposure to SARS-CoV-2 (event) 2022-07-12 00:00:00 2022-07-22 10:40:00 Not sure [facility] Alcohol Comment 2019-11-29 00:00:00 2019-11-29 00:00:00 Socially [facility] Smoking Status Start Date Stop Date Source Never smoked tobacco [facility] Medications Ordered Medication Name Filled Medication Name Start Date Stop Date Current Medication? Ordering Clinician Indication Dosage Frequency Signature (SIG) Comments Components Source modafiniL 200 mg tablet 03-15 00:00: 00 Yes [id number] 200mg Take 1 tablet by mouth every morning. [facility] modafiniL 100 mg tablet 03-03 00:00: 00 Yes [id number] 104 100mg Take 1 tablet by mouth every day at 1200 (noon). [facility] modafiniL 200 mg tablet 03-03 00:00: 00 03-15 00:00 :00 No [id number] 104 100mg Take 0.5 tablets by mouth every morning. [facility] dexamethaso ne (DECADRON) injection 10 mg 02-12 21:30: 00 02-12 20:38 :00 No [id number] 10mg 10 mg, Intramuscu lar, ONCE, 1 dose, On 02/13/24 at 1630, Routine [facility] ketorolac (TORADOL) injection 30 mg 02-12 21:15: 00 02-12 20:35 :00 No [id number] 30mg 30 mg, Intramuscu lar, ONCE, 1 dose, On 02/13/24 at 1615, Routine [facility] methocarbam oL 750 mg tablet 02-12 00:00: 00 02-20 04:59 :00 Yes [id number] 750mg Take 1 tablet by mouth 4 (four) times daily for 7 days. [facility] modafiniL 100 mg tablet 01-21 00:00: 00 03-03 00:00 :00 No [id number] 104 100mg Take 1 tablet by mouth every morning and at 1200 (noon). [facility] citalopram 20 mg tablet 10-22 00:00: 00 04-01 00:00 :00 No [id number] 20mg Take 1 tablet by mouth in the morning. [facility] rimegepant (NURTEC ODT) 75 mg TbDL 10-21 00:00: 00 Yes [id number] 75mg Take 1 tablet by mouth every other day. [facility] ondansetron 4 mg disintegrat ing tablet 09-21 00:00: 00 Yes [id number] 4mg Take 1 tablet by mouth every 8 (eight) hours as needed for Nausea and Vomiting (N/V). [facility] bromphenira mine-pseudo ephedrine-D M (BROMFED DM) 2-30-10 mg/5 mL syrup 09-21 00:00: 00 Yes [id number] 5mL Take 5 mL by mouth 4 (four) times daily as needed for Congestion /Allergies or Cold symptoms. [facility] ibuprofen 800 mg tablet 09-21 00:00: 00 Yes [id number] 800mg Take 1 tablet by mouth every 6 (six) hours as needed for Pain (scale 1-3), Pain (scale 4-6) or Temp > 38.5 C. [facility] escitalopra m oxalate (LEXAPRO) 20 mg tablet 09-02 00:00: 00 Yes [id number] 20mg Take 1 tablet by mouth in the morning. [facility] busPIRone 5 mg tablet 09-02 00:00: 00 Yes [id number] 7.5mg Take 1.5 tablets by mouth 2 (two) times daily as needed (anxiety). [facility] Cholecalcif liza, Vitamin D3, (VITAMIN D3) 10 mcg (400 unit) capsule 08-30 12:00: 46 08-30 00:00 :00 No [facility] Cholecalcif liza, Vitamin D3, (VITAMIN D3) 10 mcg (400 unit) capsule 08-27 09:06: 23 Yes [facility] atogepant (QULIPTA) 30 mg Tab 08-27 00:00: 00 Yes [id number] 30mg Take 1 tablet (30 mg) by mouth in the morning. [facility] Cholecalcif liza, Vitamin D3, (VITAMIN D3) 10 mcg (400 unit) capsule 16:16: 24 Yes [facility] verapamiL 40 mg tablet 2022-06 00:00: 00 08-27 00:00 :00 No [id number] 40mg Take 1 tablet by mouth in the morning and 1 tablet at noon and 1 tablet in the evening. [facility] NaCl 0.9% (NS) bolus infusion 1,000 mL 2022-06 02:15: 00 05-07 02:56 :00 No 1000mL at 999 mL/hr, 1,000 mL, IV Infusion, ONCE, 1 dose, On Thu05/06/23 at 2015, STAT [facility] ketorolac (TORADOL) injection 30 mg 2022-06 02:15: 00 05-07 01:35 :00 No 30mg 30 mg, Slow IV Push, ONCE, 1 dose, On Thu05/06/23 at 2015, DOMINICK [facility] morpHINE (4 mg/mL) injection 4 mg 2022-06 01:15: 00 05-07 01:35 :00 No 4mg 4 mg, Slow IV Push, ONCE, 1 dose, On Thu05/06/23 at 1915, DOMINICK [facility] ondansetron 4 mg disintegrat ing tablet 2022-06 00:00: 00 00:00 :00 No [id number] 4mg Take 1 tablet by mouth every 4 (four) hours as needed for Nausea and Vomiting (N/V). [facility] HYDROcodone -acetaminop hen (NORCO) 10-325 mg tablet 2022-06 00:00: 00 05-14 05:59 :00 No [id number] 1{tbl} Take 1 tablet by mouth every 6 (six) hours as needed for Pain (scale 4-6) for up to 7 days. Indication s: acute pain [facility] tamsulosin 0.4 mg 24 hr capsule 2022-06 00:00: 00 06-02 05:59 :00 No [id number] .4mg Take 1 capsule by mouth in the morning for 28 days. [facility] cefTRIAXone (ROCEPHIN) 1,000 mg in NaCl 0.9% (NS) 100 mL MINI-BAG 2022-06 03:15: 00 05-03 04:36 :00 No 1000mg 1,000 mg, IV Piggyback, ONCE, 1 dose, On 05/02/23 at 2215, Administer over 30 Minutes, 100 mL
Reas on for Anti-Infec tive: Empiric Therapy for Suspected Infection< br>Empiric Therapy Site: Abdominal< br>Duratio n of therapy: Once (ED) [facility] iopamidol (ISOVUE 370-500 mL) injection 80 mL 2022-06 03:15: 00 05-03 03:15 :00 No [id number] 80mL 80 mL, Intravenou s, ONCE, 1 dose, On 05/02/23 at 2215, Routine [facility] ondansetron (ZOFRAN (PF)) injection 4 mg 2022-06 02:15: 00 05-03 01:45 :00 No 4mg 4 mg, Slow IV Push, ONCE, 1 dose, On 05/02/23 at 2115[facility] 15 mg 2022-06 02:15: 00 05-03 01:45 :00 No 15mg 15 mg, Slow IV Push, ONCE, 1 dose, On 05/02/23 at 2115, [facility] NaCl 0.9% (NS) bolus infusion 1,000 mL 2022-06 02:15: 00 05-03 03:49 :00 No 1000mL at 999 mL/hr, 1,000 mL, IV Infusion, ONCE, 1 dose, On 05/02/23 at 2115, [facility] ketorolac 10 mg tablet 2022-06 00:00: 00 00:00 :00 No [id number] 10mg Take 1 tablet by mouth every 6 (six) hours as needed for Pain (scale 7-10) for up to 15 doses. [facility] ondansetron (ZOFRAN) 4 mg tablet 2022-06 00:00: 00 00:00 :00 No [id number] 4mg Take 1 tablet by mouth every 8 (eight) hours as needed for Nausea and Vomiting (N/V) for up to 15 doses. [facility] cefdinir 300 mg capsule 2022-06 00:00: 00 05-13 05:59 :00 No [id number] 300mg Take 1 capsule by mouth every 12 (twelve) hours for 10 days. [facility] BUSPIRONE 5 mg tablet 2022-06 0-27 00:00: 00 09-02 00:00 :00 No [id number] TAKE 1 AND 1/2 TABLETS BY MOUTH TWICE DAILY NEEDED FOR ANXIETY [facility] nortriptyli ne 25 mg capsule 03-03 00:00: 00 08-27 00:00 :00 No [id number] 25mg Take 1 capsule by mouth at bedtime. [facility] LORazepam (ATIVAN) tablet 1 mg 825 15:15: 00 02-20 14:10 :00 No [id number] 1mg 1 mg, Oral, ONCE, 1 dose, On Thu02/20/23 at 1015, Routine [facility] escitalopra m oxalate (LEXAPRO) 20 mg tablet 02-11 00:00: 00 09-02 00:00 :00 No [id number] 20mg Take 1 tablet by mouth in the morning. [facility] busPIRone 5 mg tablet 02-11 00:00: 00 04-24 00:00 :00 No [id number] 7.5mg Take 1.5 tablets by mouth 2 (two) times daily as needed (anxiety). [facility] busPIRone 7.5 mg tablet 02-11 00:00: 00 02-11 00:00 :00 No [id number] 7.5mg Take 1 tablet by mouth in the morning and 1 tablet in the evening. [facility] amitriptyli ne 25 mg tablet 02-02 00:00: 00 03-03 00:00 :00 No [id number] 25mg Take 1 tablet by mouth at bedtime. [facility] Cholecalcif liza, Vitamin D3, (VITAMIN D3) 10 mcg (400 unit) capsule 01-14 08:09: 34 Yes [facility] busPIRone 5 mg tablet 01-14 00:00: 00 02-11 00:00 :00 No [id number] 5mg Take 1 tablet by mouth 2 (two) times daily as needed (anxiety). [facility] escitalopra m oxalate (LEXAPRO) 20 mg tablet 01-14 00:00: 00 02-11 00:00 :00 No [id number] 20mg Take 1 tablet by mouth in the morning. [facility] ubrogepant 100 mg Tab 01-02 00:00: 00 00:00 :00 No [id number] 100mg Take 1 tablet by mouth as needed for Other (Headache) for up to 10 doses. If symptoms persist or return, may repeat dose after 2 hours. Maximum: 200 mg per 24 hours [facility] sumatriptan 100 mg tablet -17 00:00: 00 01-02 00:00 :00 No [id number] 100mg Take 1 tablet by mouth as needed for Migraine (Max of 2 tablets/da y.). [facility] escitalopra m oxalate 10 mg tablet 5-03 00:00: 00 01-14 00:00 :00 No 10mg Take 1 tablet by mouth in the morning. [facility] verapamiL 40 mg tablet 0 4-06 00:00: 00 05-14 00:00 :00 No 40mg Take 1 tablet by mouth in the morning and 1 tablet in the evening. [facility] ubrogepant 100 mg Tab 3-16 00:00: 00 11-12 00:00 :00 No [id number] 100mg Take 1 tablet by mouth as needed for Other (Headache) for up to 10 doses. If symptoms persist or return, may repeat dose after 2 hours. Maximum: 200 mg per 24 hours [facility] verapamiL 40 mg tablet 0 2-24 00:00: 00 10-02 00:00 :00 No 40mg Take 1 tablet by mouth in the morning and 1 tablet in the evening. [facility] verapamiL 40 mg tablet 0 1-24 00:00: 00 08-22 00:00 :00 No [id number] 40mg Take 1 tablet by mouth in the morning and 1 tablet in the evening. [facility] Nurtec 75 MG Nurtec 75 MG 2022-0 - 00:00: 00 No 1{table t_on_th e_tongu e_and_a llow_to _dissol ve} Nurtec 75 MG Nurtec 75 MG Nurtec 75 MG 3-0 - 00:00: 00 No 1{table t_on_th e_tongu e_and_a llow_to _dissol ve} Nurtec 75 MG Nurtec 75 MG Nurtec 75 MG 2022-0 - 00:00: 00 No 1{table t_on_th e_tongu e_and_a llow_to _dissol ve} Nurtec 75 MG Nurtec 75 MG Nurtec 75 MG 2023-0 1- 00:00: 00 No 1{table t_on_th e_tongu e_and_a llow_to _dissol ve} Nurtec 75 MG Nurtec 75 MG Nurtec 75 MG 2023-0 1 00:00: 00 No 1{table t_on_th e_tongu e_and_a [...] MG Ibuprofen 800 MG Ibuprofen 800 MG 202-0 23 00:00: 00 No TID Ibuprofen 800 MG Ibuprofen 800 MG Ibuprofen 800 MG 2021-0 5-23 00:00: 00 No TID Ibuprofen 800 [...] MG Ibuprofen 800 MG Ibuprofen 800 MG 2-0 5-23 00:00: 00 No TID Ibuprofen 800 MG Ibuprofen 800 MG Ibuprofen 800 MG 2-0 5-23 00:00: 00 No TID Ibuprofen 800 MG Ibuprofen 800 MG Ibuprofen 800 MG 2-0 5-23 00:00: 00 No TID Ibuprofen 800 MG Ibuprofen 800 MG Ibuprofen 800 MG 2-0 5-23 00:00: 00 No TID Ibuprofen 800 MG Ibuprofen 800 MG Ibuprofen 800 MG 2-0 5-23 00:00: 00 No TID Ibuprofen 800 MG Ibuprofen 800 MG Ibuprofen 800 MG 2-0 5-23 00:00: 00 No TID Ibuprofen 800 MG Ibuprofen 800 MG Ibuprofen 800 MG 2-0 5-23 00:00: 00 No TID Ibuprofen 800 MG Lexapro 10 MG Lexapro 10 MG 2-0 2-22 00:00: 00 No 1{table t} QD Lexapro 10 MG Lexapro 10 MG Lexapro 10 MG 2-0 2-22 00:00: 00 No 1{table t} QD Lexapro 10 MG Zoloft 50 MG Zoloft 50 MG 2-0 1-28 00:00: 00 No 1{table t} QD Zoloft 50 MG Zoloft 50 MG Zoloft 50 MG 2-0 1-28 00:00: 00 No 1{table t} QD Zoloft 50 MG Wellbutrin XL 150 MG Wellbutrin XL 150 MG 2020-1 2-10 00:00: 00 No 1{table t_in_th e_morni ng} QD Wellbutrin XL 150 MG Oseltamivir Phosphate 75 MG Oseltamivir Phosphate 75 MG 2020-06 1-18 00:00: 00 No 1{capsu le} BID Oseltamivi r Phosphate 75 MG Fluticasone Propionate 50 MCG/ACT Fluticasone Propionate 50 MCG/ACT 2020-06 1-17 00:00: 00 No 1{spray _in_eac h_nostr il} QD Fluticason e Propionate 50 MCG/ACT Naproxen 500 MG Naproxen 500 MG 0 -16 00:00: 00 No BID Naproxen 500 [...] MG Naproxen 500 MG Naproxen 500 MG 0 16 00:00: 00 No BID Naproxen 500 [...] QD Vitamin D3 25 MCG (1000 UT) Ketorolac Ketorolac 0 8-27 00:00: [address] [facility] Ketorolac Ketorolac 0 8-27 00:00: [address] [facility] Ketorolac Ketorolac 0 02-22 00:00: 00 No 60mg [facility] Ketorolac Ketorolac 1-0 02-22 00:00: 00 No 60mg [facility] Ketorolac Ketorolac 1-0 02-22 00:00: 00 No 60mg [facility] Ketorolac Ketorolac 1-0 02-22 00:00: 00 No 60mg [facility] Ketorolac Ketorolac 1-0 02-22 00:00: 00 No 60mg [facility] Ketorolac Ketorolac 1-0 02-22 00:00: 00 No 60mg [facility] Ketorolac Ketorolac 2020-0 02-22 00:00: 00 No 60mg [facility] Ketorolac Ketorolac 1-0 02-22 00:00: 00 No 60mg [facility] Ketorolac Ketorolac 1-0 02-22 00:00: 00 No 60mg [facility] Ketorolac Ketorolac 1-0 02-22 00:00: 00 No 60mg [facility] Ketorolac Ketorolac 1-0 02-22 00:00: 00 No 60mg [facility] Ketorolac Ketorolac 1-0 02-22 00:00: 00 No 60mg [facility] Ketorolac Ketorolac 1-0 02-22 00:00: 00 No 60mg [facility] Rizatriptan Benzoate 5 MG Rizatriptan Benzoate 5 MG 1-0 7- 00:00: 00 No QD Rizatripta n Benzoate 5 MG Rizatriptan Benzoate 5 MG Rizatriptan Benzoate 5 MG 1-0 7- 00:00: 00 No QD Rizatripta n Benzoate 5 MG Promethazin e HCl 12.5 MG Promethazin e HCl 12.5 MG 2019-06 00:00: 00 No 1{table t} Promethazi ne HCl 12.5 MG Promethazin e HCl 12.5 MG Promethazin e HCl 12.5 MG 2019-06 00:00: 00 No 1{table t} Promethazi ne HCl 12.5 MG ibuprofen (IBU) tablet 400 mg 12-10 17:00: 00 Yes 400mg 400 mg, Oral, TID MEALS, First dose on Thu12/11/19 at 1200, Until Discontinu ed, Routine [facility] HYDROcodone -acetaminop hen (NORCO 5) 5-325 mg tablet 1 tablet 12-10 14:58: 18 12-10 15:22 :42 No 1{tbl} 1 tablet, Oral, Q6HPRN, Starting Thu12/11/19 at 0958, Until Thu12/11/19 at 1022, Routine, Pain (scale 4-6), PACU [facility] acetaminoph en (TYLENOL) tablet 650 mg 12-10 14:45: 00 Yes 650mg 650 mg, Oral, Q6HPRN, Starting Thu12/11/19 at 0945, Until Discontinu ed, Routine, Pain (scale 1-3) [facility] D5W-LR IV infusion 1,000 mL 12-10 14:45: 00 12-11 14:20 :29 No 1000mL at 50 mL/hr, IV Infusion, CONTINUOUS , Starting Thu12/11/19 at 0945, Until Thu12/12/19 at 0920, Routine [facility] morpHINE injection 2 mg 12-10 14:28: 17 12-10 15:22 :42 No 2mg 2 mg, Slow IV Push, Q5MIN PRN, 5 doses, Starting Thu12/11/19 at 0928, Until Thu12/11/19 at 1022, Routine, Pain (scale 4-6), PACU [facility] pantoprazol e (PROTONIX) EC tablet 40 mg 12-10 14:00: 00 Yes 40mg 40 mg, Oral, DAILY, First dose on 12/11/19 at 0900, Until Discontinu ed, Routine [facility] acetaminoph en (TYLENOL) tablet 650 mg 12-10 05:00: 00 12-10 14:33 :08 No 650mg 650 mg, Oral, Q6H, First dose on 12/11/19 at 0000, Until Discontinu ed, Routine [facility] piperacilli n-tazobacta m (ZOSYN) 3.375 gram/50 mL Piggyback RTU 3.375 g 12-10 00:00: 00 Yes 3.375g 3.375 g, IV Piggyback, Q6H ABX, First dose on 12/10/19 at 1900, Until Discontinu ed, 50 mL
Reas on for Anti-Infec tive: Documented Infection< br>Documen lori Infection Site: Abdominal< br>Duratio n of Therapy: 7 days [facility] D5W-LR IV infusion 1,000 mL 12-10 00:00: 00 12-10 14:33 :08 No 1000mL at 125 mL/hr, IV Infusion, CONTINUOUS , Starting [facility] 12/10/19 at 1900, Until 12/11/19 at 0933, Routine [facility] ondansetron (ZOFRAN (PF)) injection 4 mg 12-09 23:24: 53 Yes 4mg 4 mg, Slow IV Push, Q6HPRN, Starting 12/10/19 at 1824, Until Discontinu ed, Routine, Nausea and Vomiting (N/V) [facility] morpHINE injection 2 mg 12-09 23:24: 20 12-10 14:33 :08 No 2mg 2 mg, Slow IV Push, Q4HPRN, Starting 12/10/19 at 1824, Until 12/11/19 at 0933, Routine, Pain (scale 7-10) [facility] HYDROcodone -acetaminop hen (NORCO 5) 5-325 mg tablet 1 tablet 12-09 23:23: 58 12-11 23:22 :58 No 1{tbl} 1 tablet, Oral, Q6HPRN, Starting 12/10/19 at 1823, Until 12/12/19 at 1822, Routine, Pain (scale 4-6) [facility] cefTRIAXone (ROCEPHIN) 1,000 mg in NaCl 0.9% (NS) 50 mL MINI-BAG 12-09 22:45: 00 12-09 22:54 :19 No 1000mg 1,000 mg, IV Piggyback, ONCE, 1 dose, 12/10/19 at 1745, 50 mL
Reas on for Anti-Infec tive: Documented Infection< br>Documen lori Infection Site: Urine
D uration of Therapy: 7 days [facility] iohexol (OMNIPAQUE 350 BULK-150 mL) injection 120 mL 12-09 22:00: 00 12-09 22:00 :00 No 120mL 120 mL, Intravenou s, ONCE, 1 dose, 12/10/19 at 1700, Routine [facility] maalox:diph enhydrAMINE :lidocaine 2 % viscous 1:1:1 ([facility]) oral suspension 15 mL 12-09 21:30: 00 12-09 20:41 :00 No 15mL 15 mL, Oral, ONCE, 1 dose, 12/10/19 at 1630, Routine [facility] ondansetron (ZOFRAN (PF)) injection 4 mg 12-09 21:30: 00 12-09 20:41 :00 No 4mg 4 mg, Slow IV Push, ONCE, 1 dose, 12/10/19 at 1630, DOMINICK [facility] morpHINE injection 4 mg 12-09 21:30: 00 12-09 20:41 :00 No 4mg 4 mg, Slow IV Push, ONCE, 1 dose, 12/10/19 at 1630, STAT [facility] NaCl 0.9% (NS) bolus infusion 1,000 mL 12-09 20:30: 00 12-09 21:50 :00 No 1000mL at 999 mL/hr, 1,000 mL, IV Infusion, ONCE, 1 dose, 12/10/19 at 1530, DOMINICK [facility] oxyCODONE immediate release tablet 5 mg 12-03 18:30: 00 12-03 17:26 :00 No 5mg 5 mg, Oral, ONCE, 1 dose, 12/04/19 at 1330, Routine
media law faculty member approving Restricted medication : CATINA MARIN [facility] enoxaparin (LOVENOX) injection 40 mg 12-03 14:00: 00 Yes 40mg 40 mg, Subcutaneo us, DAILY, First dose on 12/04/19 at 0900, Until Discontinu ed, Routine [facility] sennosides (SENOKOT) tablet 8.6 mg 12-03 14:00: 00 Yes 8.6mg 8.6 mg, Oral, DAILY, First dose on 12/04/19 at 0900, Until Discontinu ed, Routine [facility] docusate (COLACE) capsule 100 mg 12-03 01:00: 00 Yes 100mg 100 mg, Oral, Q12H, First dose on 12/03/19 at 2000, Until Discontinu ed, Routine [facility] ibuprofen 600 mg tablet 12-03 00:00: 00 01-14 00:00 :00 No [id number] 600mg Take 1 tablet by mouth every 6 (six) hours as needed for Pain (scale 1-3). [facility] acetaminoph en 325 mg tablet 12-03 00:00: 00 12-04 04:59 :00 No [id number] 650mg Take 2 tablets by mouth every 6 (six) hours as needed for Pain (scale 1-3). [facility] oxyCODONE 5 mg immediate release tablet 12-03 00:00: 00 12-12 00:00 :00 No [id number] 5mg Take 1 tablet by mouth every 6 (six) hours as needed for Pain (scale 7-10). [facility] ondansetron (ZOFRAN ODT) 4 mg disintegrat ing tablet 12-03 00:00: 00 12-12 00:00 :00 No [id number] 4mg Take 1 tablet by mouth every 6 (six) hours as needed for Nausea and Vomiting (N/V). [facility] clindamycin 300 mg capsule 12-03 00:00: 00 12-12 00:00 :00 No [id number] 300mg Take 1 capsule by mouth 4 (four) times daily for 10 days. [facility] amoxicillin -clavulanat e (AUGMENTIN) 875-125 mg per tablet 12-03 00:00: 00 12-12 00:00 :00 No [id number] 1{tbl} Take 1 tablet by mouth 2 (two) times daily for 10 days. [facility] gabapentin 300 mg capsule 12-03 00:00: 00 12-09 04:59 :00 No [id number] 300mg Take 1 capsule by mouth 3 (three) times daily for 5 days. [facility] acetaminoph en (TYLENOL) tablet 650 mg 12-02 23:00: 00 Yes 650mg 650 mg, Oral, Q6H, First dose on 12/03/19 at 1800, Until Discontinu ed, Routine [facility] ketorolac (TORADOL) injection 30 mg 12-02 22:30: 00 12-04 16:59 :00 No 30mg 30 mg, Slow IV Push, Q6H, 8 doses, First dose on Thu12/03/19 at 1730, Last dose on Thu12/05/19 at 0600, Routine
media law faculty member approving Restricted medication : CATINA MARIN [facility] piperacilli n-tazobacta m (ZOSYN) 3.375 gram/50 mL Piggyback RTU 3.375 g 12-02 19:45: 00 Yes 3.375g 3.375 g, IV Piggyback, Q6H ABX, First dose on 12/03/19 at 1445, Until Discontinu ed, 50 mL
Reas on for Anti-Infec tive: Documented Infection< br>Documen lori Infection Site: Wound
D uration of Therapy: 10 days [facility] gabapentin (NEURONTIN) capsule 300 mg 12-02 19:15: 00 Yes 300mg 300 mg, Oral, TID, First dose on 12/03/19 at 1415, Until Discontinu ed, Routine [facility] lactated ringers IV infusion 1,000 mL 12-02 18:00: 00 Yes 1000mL at 125 mL/hr, 1,000 mL, IV Infusion, CONTINUOUS , Starting 12/03/19 at 1300, Until Discontinu ed, Routine [facility] oxyCODONE immediate release tablet 5 mg 12-02 17:44: 08 Yes 5mg 5 mg, Oral, Q6HPRN, Starting 12/03/19 at 1244, Until Discontinu ed, Routine, Pain (scale 7-10)
F aculty member approving Restricted medication : CATINA MARIN [facility] zolpidem (AMBIEN) tablet 10 mg 12-02 17:43: 42 Yes 10mg 10 mg, Oral, QHSPRN, Starting 12/03/19 at 1243, Until Discontinu ed, Routine, Insomnia [facility] ondansetron (ZOFRAN (PF)) injection 4 mg 12-02 17:43: 33 Yes 4mg 4 mg, Slow IV Push, Q6HPRN, Starting 12/03/19 at 1243, Until Discontinu ed, Routine, Nausea and Vomiting (N/V) [facility] lactated ringers IV infusion 1,000 mL 12-02 17:00: 00 Yes 1000mL at 75 mL/hr, 1,000 mL, IV Infusion, CONTINUOUS , Starting 12/03/19 at 1200, Until Discontinu ed, Routine, PACU [facility] clindamycin in 5 % dextrose (CLEOCIN) [...] on for Clindamyci n use: labial abscess [facility] iohexol (OMNIPAQUE 350 BULK-100 mL) injection 120 mL 12-02 13:45: 00 12-02 13:31 :00 No 120mL 120 mL, Intravenou s, ONCE, 1 dose, 12/03/19 at 0845, Routine [facility] acetaminoph en (TYLENOL) tablet 1,000 mg 12-02 13:30: 12-02 12:28 :00 No 1000mg 1,000 mg, Oral, ONCE, 1 dose, 12/03/19 at 0830, DOMINICK [facility] ondansetron (ZOFRAN (PF)) injection 4 mg 12-02 13:30: 12-02 12:29 :00 No 4mg 4 mg, Slow IV Push, ONCE, 1 dose, 12/03/19 at 0830, DOMINICK [facility] FENTanyl PF (SUBLIMAZE (PF)) injection 75 mcg 12-02 13:30: 00 12-02 12:29 :00 No 75ug 75 mcg, Slow IV Push, ONCE, 1 dose, 12/03/19 at 0830, STAT [facility] ibuprofen 800 mg tablet 11-28 00:00: 00 Yes [id number] 800mg Take 1 tablet by mouth every 8 (eight) hours as needed for Pain (scale 4-6). [facility] sulfamethox azole-trime thoprim (BACTRIM DS) 800-160 mg per tablet 11-28 00:00: 00 12-03 00:00 :00 No [id number] 1{tbl} Take 1 tablet by mouth 2 (two) times daily. [facility] Zoloft 100 MG Zoloft 100 MG No [...] d} QD Benadryl Allergy 25 MG Ibuprofen 200 MG Ibuprofen 200 MG No TID Ibuprofen 200 MG Immunizations Ordered Immunization Name Filled Immunization Name Date Status Comments Source Flu Quadrivalent PF 0.5 ml IM Flu Quadrivalent PF 0.5 ml IM 2022-02-28 15:07:00 Completed [facility] Flu Quadrivalent PF 0.5 ml IM Flu Quadrivalent PF 0.5 ml IM 2022-02-28 15:07:00 Completed [facility] Flu Quadrivalent PF 0.5 ml IM Flu Quadrivalent PF 0.5 ml IM 2022-02-28 15:07:00 Completed [facility] Flu Quadrivalent PF 0.5 ml IM Flu Quadrivalent PF 0.5 ml IM 2022-02-28 15:07:00 Completed [facility] Flu Quadrivalent PF 0.5 ml IM Flu Quadrivalent PF 0.5 ml IM 2022-02-28 15:07:00 Completed [facility] Flu Quadrivalent PF 0.5 ml IM Flu Quadrivalent PF 0.5 ml IM 2022-02-28 15:07:00 Completed [facility] Flu Quadrivalent PF 0.5 ml IM Flu Quadrivalent PF 0.5 ml IM 2022-02-28 15:07:00 Completed [facility] Flu Quadrivalent PF 0.5 ml IM Flu Quadrivalent PF 0.5 ml IM 2022-02-28 15:07:00 Completed [facility] Flu Quadrivalent PF 0.5 ml IM Flu Quadrivalent PF 0.5 ml IM 2022-02-28 15:07:00 Completed [facility] Flu Quadrivalent PF 0.5 ml IM Flu Quadrivalent PF 0.5 ml IM 2022-02-28 15:07:00 Completed [facility] Flu Quadrivalent PF 0.5 ml IM Flu Quadrivalent PF 0.5 ml IM 2022-02-28 15:07:00 Completed [facility] Flu Quadrivalent PF 0.5 ml IM Flu Quadrivalent PF 0.5 ml IM 2021-04-10 14:13:00 Completed [facility] Flu Quadrivalent PF 0.5 ml IM Flu Quadrivalent PF 0.5 ml IM 2021-04-10 14:13:00 Completed [facility] Flu Quadrivalent PF 0.5 ml IM Flu Quadrivalent PF 0.5 ml IM 2021-04-10 14:13:00 Completed [facility] Flu Quadrivalent PF 0.5 ml IM Flu Quadrivalent PF 0.5 ml IM 2021-04-10 14:13:00 Completed [facility] Flu Quadrivalent PF 0.5 ml IM Flu Quadrivalent PF 0.5 ml IM 2021-04-10 14:13:00 Completed [facility] Flu Quadrivalent PF 0.5 ml IM Flu Quadrivalent PF 0.5 ml IM 2021-04-10 14:13:00 Completed [facility] Flu Quadrivalent PF 0.5 ml IM Flu Quadrivalent PF 0.5 ml IM 2021-04-10 14:13:00 Completed [facility] Flu Quadrivalent PF 0.5 ml IM Flu Quadrivalent PF 0.5 ml IM 2021-04-10 14:13:00 Completed [facility] Flu Quadrivalent PF 0.5 ml IM Flu Quadrivalent PF 0.5 ml IM 2021-04-10 14:13:00 Completed [facility] Flu Quadrivalent PF 0.5 ml IM Flu Quadrivalent PF 0.5 ml IM 2021-04-10 14:13:00 Completed [facility] Flu Quadrivalent PF 0.5 ml IM Flu Quadrivalent PF 0.5 ml IM 2021-04-10 14:13:00 Completed [facility] Flu Quadrivalent PF 0.5 ml IM Flu Quadrivalent PF 0.5 ml IM 2021-04-10 14:13:00 Completed [facility] Flu Quadrivalent PF 0.5 ml IM Flu Quadrivalent PF 0.5 ml IM 2021-04-10 14:13:00 Completed [facility] Flu Quadrivalent PF 0.5 ml IM Flu Quadrivalent PF 0.5 ml IM 2021-04-10 14:13:00 Completed [facility] Flu Quadrivalent PF 0.5 ml IM Flu Quadrivalent PF 0.5 ml IM 2021-04-10 14:13:00 Completed [facility] Flu Quadrivalent PF 0.5 ml IM Flu Quadrivalent PF 0.5 ml IM 2021-04-10 14:13:00 Completed [facility] Ketorolac Ketorolac 2021-02-22 13:36:00 Completed [facility] Influenza Virus Vaccine 2018-04-21 00:00:00 Completed [facility] Influenza Virus Vaccine 2018-04-21 00:00:00 Completed [facility] Influenza Virus Vaccine 2018-04-21 00:00:00 Completed [facility] Influenza Virus Vaccine 2018-04-21 00:00:00 Completed [facility] Influenza Virus Vaccine 2018-04-21 00:00:00 Completed [facility] Influenza Virus Vaccine 2018-04-21 00:00:00 Completed [facility] Influenza Virus Vaccine 2018-04-21 00:00:00 Completed [facility] Influenza Virus Vaccine 2018-04-21 00:00:00 Completed [facility] Influenza Virus Vaccine 2018-04-21 00:00:00 Completed [facility] Influenza Virus Vaccine 2018-04-21 00:00:00 Completed [facility] Influenza Virus Vaccine 2018-04-21 00:00:00 Completed [facility] Influenza Virus Vaccine 2018-04-21 00:00:00 Completed [facility] Influenza Virus Vaccine 2018-04-21 00:00:00 Completed [facility] Influenza Virus Vaccine 2018-04-21 00:00:00 Completed [facility] Influenza Virus Vaccine 2018-04-21 00:00:00 Completed [facility] Influenza Virus Vaccine 2018-04-21 00:00:00 Completed [facility] Influenza Virus Vaccine 2018-04-21 00:00:00 Completed [facility] Influenza Virus Vaccine 2018-04-21 00:00:00 Completed [facility] Influenza Virus Vaccine 2018-04-21 00:00:00 Completed [facility] Influenza Virus Vaccine 2018-04-21 00:00:00 Completed [facility] Influenza Virus Vaccine 2018-04-21 00:00:00 Completed [facility] Influenza Virus Vaccine 2018-04-21 00:00:00 Completed [facility] Influenza Virus Vaccine 2018-04-21 00:00:00 Completed [facility] Influenza Virus Vaccine 2018-04-21 00:00:00 Completed Influenza Virus Vaccine 2018-04-21 00:00:00 Completed [facility] Influenza Virus Vaccine 2018-04-21 00:00:00 Completed [facility] Influenza Virus Vaccine 2018-04-21 00:00:00 Completed [facility] Influenza Virus Vaccine 2018-04-21 00:00:00 Completed [facility] Influenza Virus Vaccine 2018-04-21 00:00:00 Completed [facility] Influenza Virus Vaccine 2018-04-21 00:00:00 Completed [facility] Influenza Virus Vaccine 2018-04-21 00:00:00 Completed [facility] Influenza Virus Vaccine 2018-04-21 00:00:00 Completed [facility] Influenza Virus Vaccine 2018-04-21 00:00:00 Completed [facility] Influenza Virus Vaccine 2018-04-21 00:00:00 Completed [facility] Influenza Virus Vaccine 2018-04-21 00:00:00 Completed [facility] Influenza Virus Vaccine 2018-04-21 00:00:00 Completed [facility] Influenza Virus Vaccine 2018-04-21 00:00:00 Completed [facility] Influenza Virus Vaccine 2018-04-21 00:00:00 Completed [facility] Meningococcal Polysaccharide (groups A, C, Y and W-135) conjugate vaccine (MCV4P) 2018-01-12 00:00:00 Completed [facility] Meningococcal Polysaccharide (groups A, C, Y and W-135) conjugate vaccine (MCV4P) 2018-01-12 00:00:00 Completed [facility] Meningococcal Polysaccharide (groups A, C, Y and W-135) conjugate vaccine (MCV4P) 2018-01-12 00:00:00 Completed [facility] Meningococcal Polysaccharide (groups A, C, Y and W-135) conjugate vaccine (MCV4P) 2018-01-12 00:00:00 Completed [facility] Meningococcal Polysaccharide (groups A, C, Y and W-135) conjugate vaccine (MCV4P) 2018-01-12 00:00:00 Completed [facility] Meningococcal Polysaccharide (groups A, C, Y and W-135) conjugate vaccine (MCV4P) 2018-01-12 00:00:00 Completed [facility] Meningococcal Polysaccharide (groups A, C, Y and W-135) conjugate vaccine (MCV4P) 2018-01-12 00:00:00 Completed [facility] Meningococcal Polysaccharide (groups A, C, Y and W-135) conjugate vaccine (MCV4P) 2018-01-12 00:00:00 Completed [facility] Meningococcal Polysaccharide (groups A, C, Y and W-135) conjugate vaccine (MCV4P) 2018-01-12 00:00:00 Completed [facility] Meningococcal Polysaccharide (groups A, C, Y and W-135) conjugate vaccine (MCV4P) 2018-01-12 00:00:00 Completed [facility] Meningococcal Polysaccharide (groups A, C, Y and W-135) conjugate vaccine (MCV4P) 2018-01-12 00:00:00 Completed [facility] Meningococcal Polysaccharide (groups A, C, Y and W-135) conjugate vaccine (MCV4P) 2018-01-12 00:00:00 Completed [facility] Meningococcal Polysaccharide (groups A, C, Y and W-135) conjugate vaccine (MCV4P) 2018-01-12 00:00:00 Completed [facility] Meningococcal Polysaccharide (groups A, C, Y and W-135) conjugate vaccine (MCV4P) 2018-01-12 00:00:00 Completed [facility] Meningococcal Polysaccharide (groups A, C, Y and W-135) conjugate vaccine (MCV4P) 2018-01-12 00:00:00 Completed [facility] Meningococcal Polysaccharide (groups A, C, Y and W-135) conjugate vaccine (MCV4P) 2018-01-12 00:00:00 Completed [facility] Meningococcal Polysaccharide (groups A, C, Y and W-135) conjugate vaccine (MCV4P) 2018-01-12 00:00:00 Completed [facility] Meningococcal Polysaccharide (groups A, C, Y and W-135) conjugate vaccine (MCV4P) 2018-01-12 00:00:00 Completed [facility] Meningococcal Polysaccharide (groups A, C, Y and W-135) conjugate vaccine (MCV4P) 2018-01-12 00:00:00 Completed [facility] Meningococcal Polysaccharide (groups A, C, Y and W-135) conjugate vaccine (MCV4P) 2018-01-12 00:00:00 Completed [facility] Meningococcal Polysaccharide (groups A, C, Y and W-135) conjugate vaccine (MCV4P) 2018-01-12 00:00:00 Completed [facility] Meningococcal Polysaccharide (groups A, C, Y and W-135) conjugate vaccine (MCV4P) 2018-01-12 00:00:00 Completed [facility] Meningococcal Polysaccharide (groups A, C, Y and W-135) conjugate vaccine (MCV4P) 2018-01-12 00:00:00 Completed [facility] Meningococcal Polysaccharide (groups A, C, Y and W-135) conjugate vaccine (MCV4P) 2018-01-12 00:00:00 Completed [facility] Meningococcal Polysaccharide (groups A, C, Y and W-135) conjugate vaccine (MCV4P) 2018-01-12 00:00:00 Completed [facility] Meningococcal Polysaccharide (groups A, C, Y and W-135) conjugate vaccine (MCV4P) 2018-01-12 00:00:00 Completed [facility] Meningococcal Polysaccharide (groups A, C, Y and W-135) conjugate vaccine (MCV4P) 2018-01-12 00:00:00 Completed [facility] Meningococcal Polysaccharide (groups A, C, Y and W-135) conjugate vaccine (MCV4P) 2018-01-12 00:00:00 Completed [facility] Meningococcal Polysaccharide (groups A, C, Y and W-135) conjugate vaccine (MCV4P) 2018-01-12 00:00:00 Completed [facility] Meningococcal Polysaccharide (groups A, C, Y and W-135) conjugate vaccine (MCV4P) 2018-01-12 00:00:00 Completed [facility] Meningococcal Polysaccharide (groups A, C, Y and W-135) conjugate vaccine (MCV4P) 2018-01-12 00:00:00 Completed [facility] Meningococcal Polysaccharide (groups A, C, Y and W-135) conjugate vaccine (MCV4P) 2018-01-12 00:00:00 Completed [facility] Meningococcal Polysaccharide (groups A, C, Y and W-135) conjugate vaccine (MCV4P) 2018-01-12 00:00:00 Completed [facility] Meningococcal Polysaccharide (groups A, C, Y and W-135) conjugate vaccine (MCV4P) 2018-01-12 00:00:00 Completed [facility] Meningococcal Polysaccharide (groups A, C, Y and W-135) conjugate vaccine (MCV4P) 2018-01-12 00:00:00 Completed [facility] Meningococcal Polysaccharide (groups A, C, Y and W-135) conjugate vaccine (MCV4P) 2018-01-12 00:00:00 Completed [facility] Meningococcal Polysaccharide (groups A, C, Y and W-135) conjugate vaccine (MCV4P) 2018-01-12 00:00:00 Completed [facility] Meningococcal Polysaccharide (groups A, C, Y and W-135) conjugate vaccine (MCV4P) 2018-01-12 00:00:00 Completed [facility] TDAP 2010-01-02 00:00:00 Completed [facility] Varicella (varivax)(chicken pox) 2010-01-02 00:00:00 Completed [facility] Meningococcal Polysaccharide (groups A, C, Y and W-135) conjugate vaccine (MCV4P) 2010-01-02 00:00:00 Completed [facility] Meningococcal Polysaccharide (groups A, C, Y and W-135) conjugate vaccine (MCV4P) 2010-01-02 00:00:00 Completed [facility] TDAP 2010-01-02 00:00:00 Completed [facility] Varicella (varivax)(chicken pox) 2010-01-02 00:00:00 Completed [facility] Meningococcal Polysaccharide (groups A, C, Y and W-135) conjugate vaccine (MCV4P) 2010-01-02 00:00:00 Completed [facility] TDAP 2010-01-02 00:00:00 Completed [facility] Varicella (varivax)(chicken pox) 2010-01-02 00:00:00 Completed [facility] Meningococcal Polysaccharide (groups A, C, Y and W-135) conjugate vaccine (MCV4P) 2010-01-02 00:00:00 Completed [facility] TDAP 2010-01-02 00:00:00 Completed [facility] Varicella (varivax)(chicken pox) 2010-01-02 00:00:00 Completed [facility] Meningococcal Polysaccharide (groups A, C, Y and W-135) conjugate vaccine (MCV4P) 2010-01-02 00:00:00 Completed [facility] TDAP 2010-01-02 00:00:00 Completed [facility] Varicella (varivax)(chicken pox) 2010-01-02 00:00:00 Completed [facility] Meningococcal Polysaccharide (groups A, C, Y and W-135) conjugate vaccine (MCV4P) 2010-01-02 00:00:00 Completed [facility] TDAP 2010-01-02 00:00:00 Completed [facility] Varicella (varivax)(chicken pox) 2010-01-02 00:00:00 Completed [facility] Meningococcal Polysaccharide (groups A, C, Y and W-135) conjugate vaccine (MCV4P) 2010-01-02 00:00:00 Completed [facility] TDAP 2010-01-02 00:00:00 Completed [facility] Varicella (varivax)(chicken pox) 2010-01-02 00:00:00 Completed [facility] Meningococcal Polysaccharide (groups A, C, Y and W-135) conjugate vaccine (MCV4P) 2010-01-02 00:00:00 Completed [facility] TDAP 2010-01-02 00:00:00 Completed [facility] Varicella (varivax)(chicken pox) 2010-01-02 00:00:00 Completed [facility] Meningococcal Polysaccharide (groups A, C, Y and W-135) conjugate vaccine (MCV4P) 2010-01-02 00:00:00 Completed [facility] TDAP 2010-01-02 00:00:00 Completed [facility] Varicella (varivax)(chicken pox) 2010-01-02 00:00:00 Completed [facility] Meningococcal Polysaccharide (groups A, C, Y and W-135) conjugate vaccine (MCV4P) 2010-01-02 00:00:00 Completed [facility] TDAP 2010-01-02 00:00:00 Completed [facility] Varicella (varivax)(chicken pox) 2010-01-02 00:00:00 Completed [facility] Meningococcal Polysaccharide (groups A, C, Y and W-135) conjugate vaccine (MCV4P) 2010-01-02 00:00:00 Completed [facility] TDAP 2010-01-02 00:00:00 Completed [facility] Varicella (varivax)(chicken pox) 2010-01-02 00:00:00 Completed [facility] Meningococcal Polysaccharide (groups A, C, Y and W-135) conjugate vaccine (MCV4P) 2010-01-02 00:00:00 Completed [facility] TDAP 2010-01-02 00:00:00 Completed [facility] Varicella (varivax)(chicken pox) 2010-01-02 00:00:00 Completed [facility] Meningococcal Polysaccharide (groups A, C, Y and W-135) conjugate vaccine (MCV4P) 2010-01-02 00:00:00 Completed [facility] Meningococcal Polysaccharide (groups A, C, Y and W-135) conjugate vaccine (MCV4P) 2010-01-02 00:00:00 Completed [facility] TDAP 2010-01-02 00:00:00 Completed [facility] Varicella (varivax)(chicken pox) 2010-01-02 00:00:00 Completed [facility] Tdap 2010-01-02 00:00:00 Completed [facility] Meningococcal Polysaccharide (groups A, C, Y and W-135) conjugate vaccine (MCV4P) 2010-01-02 00:00:00 Completed [facility] Varicella (varivax)(chicken pox) 2010-01-02 00:00:00 Completed [facility] TDAP 2010-01-02 00:00:00 Completed [facility] Varicella (varivax)(chicken pox) 2010-01-02 00:00:00 Completed [facility] Meningococcal Polysaccharide (groups A, C, Y and W-135) conjugate vaccine (MCV4P) 2010-01-02 00:00:00 Completed [facility] TDAP 2010-01-02 00:00:00 Completed [facility] Varicella (varivax)(chicken pox) 2010-01-02 00:00:00 Completed [facility] Meningococcal Polysaccharide (groups A, C, Y and W-135) conjugate vaccine (MCV4P) 2010-01-02 00:00:00 Completed [facility] TDAP 2010-01-02 00:00:00 Completed [facility] Varicella (varivax)(chicken pox) 2010-01-02 00:00:00 Completed [facility] Meningococcal Polysaccharide (groups A, C, Y and W-135) conjugate vaccine (MCV4P) 2010-01-02 00:00:00 Completed [facility] Meningococcal Polysaccharide (groups A, C, Y and W-135) conjugate vaccine (MCV4P) 2010-01-02 00:00:00 Completed [facility] TDAP 2010-01-02 00:00:00 Completed [facility] Varicella (varivax)(chicken pox) 2010-01-02 00:00:00 Completed [facility] Meningococcal Polysaccharide (groups A, C, Y and W-135) conjugate vaccine (MCV4P) 2010-01-02 00:00:00 Completed [facility] Tdap 2010-01-02 00:00:00 Completed [facility] TDAP 2010-01-02 00:00:00 Completed [facility] Varicella (varivax)(chicken pox) 2010-01-02 00:00:00 Completed [facility] Varicella (varivax)(chicken pox) 2010-01-02 00:00:00 Completed [facility] Meningococcal Polysaccharide (groups A, C, Y and W-135) conjugate vaccine (MCV4P) 2010-01-02 00:00:00 Completed [facility] TDAP 2010-01-02 00:00:00 Completed [facility] Varicella (varivax)(chicken pox) 2010-01-02 00:00:00 Completed [facility] Meningococcal Polysaccharide (groups A, C, Y and W-135) conjugate vaccine (MCV4P) 2010-01-02 00:00:00 Completed [facility] TDAP 2010-01-02 00:00:00 Completed [facility] Varicella (varivax)(chicken pox) 2010-01-02 00:00:00 Completed [facility] Meningococcal Polysaccharide (groups A, C, Y and W-135) conjugate vaccine (MCV4P) 2010-01-02 00:00:00 Completed [facility] Meningococcal Polysaccharide (groups A, C, Y and W-135) conjugate vaccine (MCV4P) 2010-01-02 00:00:00 Completed TDAP 2010-01-02 00:00:00 Completed Varicella (varivax)(chicken pox) 2010-01-02 00:00:00 Completed TDAP 2010-01-02 00:00:00 Completed [facility] Varicella (varivax)(chicken pox) 2010-01-02 00:00:00 Completed [facility] Meningococcal Polysaccharide (groups A, C, Y and W-135) conjugate vaccine (MCV4P) 2010-01-02 00:00:00 Completed [facility] TDAP 2010-01-02 00:00:00 Completed [facility] Varicella (varivax)(chicken pox) 2010-01-02 00:00:00 Completed [facility] Meningococcal Polysaccharide (groups A, C, Y and W-135) conjugate vaccine (MCV4P) 2010-01-02 00:00:00 Completed [facility] TDAP 2010-01-02 00:00:00 Completed [facility] Varicella (varivax)(chicken pox) 2010-01-02 00:00:00 Completed [facility] Meningococcal Polysaccharide (groups A, C, Y and W-135) conjugate vaccine (MCV4P) 2010-01-02 00:00:00 Completed [facility] TDAP 2010-01-02 00:00:00 Completed [facility] Varicella (varivax)(chicken pox) 2010-01-02 00:00:00 Completed [facility] Meningococcal Polysaccharide (groups A, C, Y and W-135) conjugate vaccine (MCV4P) 2010-01-02 00:00:00 Completed [facility] TDAP 2010-01-02 00:00:00 Completed [facility] Varicella (varivax)(chicken pox) 2010-01-02 00:00:00 Completed [facility] Meningococcal Polysaccharide (groups A, C, Y and W-135) conjugate vaccine (MCV4P) 2010-01-02 00:00:00 Completed [facility] TDAP 2010-01-02 00:00:00 Completed [facility] Varicella (varivax)(chicken pox) 2010-01-02 00:00:00 Completed [facility] Meningococcal Polysaccharide (groups A, C, Y and W-135) conjugate vaccine (MCV4P) 2010-01-02 00:00:00 Completed [facility] TDAP 2010-01-02 00:00:00 Completed [facility] Varicella (varivax)(chicken pox) 2010-01-02 00:00:00 Completed [facility] Meningococcal Polysaccharide (groups A, C, Y and W-135) conjugate vaccine (MCV4P) 2010-01-02 00:00:00 Completed [facility] TDAP 2010-01-02 00:00:00 Completed [facility] Varicella (varivax)(chicken pox) 2010-01-02 00:00:00 Completed [facility] Meningococcal Polysaccharide (groups A, C, Y and W-135) conjugate vaccine (MCV4P) 2010-01-02 00:00:00 Completed [facility] TDAP 2010-01-02 00:00:00 Completed [facility] Varicella (varivax)(chicken pox) 2010-01-02 00:00:00 Completed [facility] Meningococcal Polysaccharide (groups A, C, Y and W-135) conjugate vaccine (MCV4P) 2010-01-02 00:00:00 Completed [facility] TDAP 2010-01-02 00:00:00 Completed [facility] Varicella (varivax)(chicken pox) 2010-01-02 00:00:00 Completed [facility] Meningococcal Polysaccharide (groups A, C, Y and W-135) conjugate vaccine (MCV4P) 2010-01-02 00:00:00 Completed [facility] Meningococcal Polysaccharide (groups A, C, Y and W-135) conjugate vaccine (MCV4P) 2010-01-02 00:00:00 Completed [facility] TDAP 2010-01-02 00:00:00 Completed [facility] Varicella (varivax)(chicken pox) 2010-01-02 00:00:00 Completed [facility] Meningococcal Polysaccharide (groups A, C, Y and W-135) conjugate vaccine (MCV4P) 2010-01-02 00:00:00 Completed [facility] TDAP 2010-01-02 00:00:00 Completed [facility] Varicella (varivax)(chicken pox) 2010-01-02 00:00:00 Completed [facility] Tdap 2010-01-02 00:00:00 Completed [facility] Meningococcal Polysaccharide (groups A, C, Y and W-135) conjugate vaccine (MCV4P) 2010-01-02 00:00:00 Completed [facility] Varicella (varivax)(chicken pox) 2010-01-02 00:00:00 Completed [facility] TDAP 2010-01-02 00:00:00 Completed [facility] Varicella (varivax)(chicken pox) 2010-01-02 00:00:00 Completed [facility] Meningococcal Polysaccharide (groups A, C, Y and W-135) conjugate vaccine (MCV4P) 2010-01-02 00:00:00 Completed [facility] TDAP 2010-01-02 00:00:00 Completed [facility] Varicella (varivax)(chicken pox) 2010-01-02 00:00:00 Completed [facility] MMR 2003-02-07 00:00:00 Completed [facility] Polio (IPV/OPV) 2003-02-07 00:00:00 Completed [facility] Daptacel DTAP 2003-02-07 00:00:00 Completed [facility] Daptacel DTAP 2003-02-07 00:00:00 Completed [facility] MMR 2003-02-07 00:00:00 Completed [facility] Polio (IPV/OPV) 2003-02-07 00:00:00 Completed [facility] Daptacel DTAP 2003-02-07 00:00:00 Completed [facility] MMR 2003-02-07 00:00:00 Completed [facility] Polio (IPV/OPV) 2003-02-07 00:00:00 Completed [facility] Daptacel DTAP 2003-02-07 00:00:00 Completed [facility] MMR 2003-02-07 00:00:00 Completed [facility] Polio (IPV/OPV) 2003-02-07 00:00:00 Completed [facility] Daptacel DTAP 2003-02-07 00:00:00 Completed [facility] MMR 2003-02-07 00:00:00 Completed [facility] Polio (IPV/OPV) 2003-02-07 00:00:00 Completed [facility] Daptacel DTAP 2003-02-07 00:00:00 Completed [facility] MMR 2003-02-07 00:00:00 Completed [facility] Polio (IPV/OPV) 2003-02-07 00:00:00 Completed [facility] Daptacel DTAP 2003-02-07 00:00:00 Completed [facility] MMR 2003-02-07 00:00:00 Completed [facility] Polio (IPV/OPV) 2003-02-07 00:00:00 Completed [facility] Daptacel DTAP 2003-02-07 00:00:00 Completed [facility] MMR 2003-02-07 00:00:00 Completed [facility] Polio (IPV/OPV) 2003-02-07 00:00:00 Completed [facility] Daptacel DTAP 2003-02-07 00:00:00 Completed [facility] MMR 2003-02-07 00:00:00 Completed [facility] Polio (IPV/OPV) 2003-02-07 00:00:00 Completed [facility] Daptacel DTAP 2003-02-07 00:00:00 Completed [facility] Daptacel DTAP 2003-02-07 00:00:00 Completed [facility] MMR 2003-02-07 00:00:00 Completed [facility] Polio (IPV/OPV) 2003-02-07 00:00:00 Completed [facility] Daptacel DTAP 2003-02-07 00:00:00 Completed [facility] MMR 2003-02-07 00:00:00 Completed [facility] Polio (IPV/OPV) 2003-02-07 00:00:00 Completed [facility] Daptacel DTAP 2003-02-07 00:00:00 Completed [facility] Daptacel DTAP 2003-02-07 00:00:00 Completed [facility] MMR 2003-02-07 00:00:00 Completed [facility] Polio (IPV/OPV) 2003-02-07 00:00:00 Completed [facility] MMR 2003-02-07 00:00:00 Completed [facility] Daptacel DTAP 2003-02-07 00:00:00 Completed [facility] MMR 2003-02-07 00:00:00 Completed [facility] Polio (IPV/OPV) 2003-02-07 00:00:00 Completed [facility] Polio (IPV/OPV) 2003-02-07 00:00:00 Completed [facility] Daptacel DTAP 2003-02-07 00:00:00 Completed [facility] MMR 2003-02-07 00:00:00 Completed [facility] Polio (IPV/OPV) 2003-02-07 00:00:00 Completed [facility] Daptacel DTAP 2003-02-07 00:00:00 Completed [facility] MMR 2003-02-07 00:00:00 Completed [facility] Polio (IPV/OPV) 2003-02-07 00:00:00 Completed [facility] Daptacel DTAP 2003-02-07 00:00:00 Completed [facility] MMR 2003-02-07 00:00:00 Completed [facility] Polio (IPV/OPV) 2003-02-07 00:00:00 Completed [facility] MMR 2003-02-07 00:00:00 Completed [facility] Daptacel DTAP 2003-02-07 00:00:00 Completed [facility] MMR 2003-02-07 00:00:00 Completed [facility] Polio (IPV/OPV) 2003-02-07 00:00:00 Completed [facility] Polio (IPV/OPV) 2003-02-07 00:00:00 Completed [facility] Daptacel DTAP 2003-02-07 00:00:00 Completed [facility] MMR 2003-02-07 00:00:00 Completed [facility] Polio (IPV/OPV) 2003-02-07 00:00:00 Completed [facility] Daptacel DTAP 2003-02-07 00:00:00 Completed [facility] MMR 2003-02-07 00:00:00 Completed [facility] Polio (IPV/OPV) 2003-02-07 00:00:00 Completed [facility] Daptacel DTAP 2003-02-07 00:00:00 Completed [facility] MMR 2003-02-07 00:00:00 Completed [facility] Polio (IPV/OPV) 2003-02-07 00:00:00 Completed [facility] Daptacel DTAP 2003-02-07 00:00:00 Completed [facility] Daptacel DTAP 2003-02-07 00:00:00 Completed MMR 2003-02-07 00:00:00 Completed [facility] MMR 2003-02-07 00:00:00 Completed Polio (IPV/OPV) 2003-02-07 00:00:00 Completed Polio (IPV/OPV) 2003-02-07 00:00:00 Completed [facility] Daptacel DTAP 2003-02-07 00:00:00 Completed [facility] MMR 2003-02-07 00:00:00 Completed [facility] Polio (IPV/OPV) 2003-02-07 00:00:00 Completed [facility] Daptacel DTAP 2003-02-07 00:00:00 Completed [facility] MMR 2003-02-07 00:00:00 Completed [facility] Polio (IPV/OPV) 2003-02-07 00:00:00 Completed [facility] Daptacel DTAP 2003-02-07 00:00:00 Completed [facility] MMR 2003-02-07 00:00:00 Completed [facility] Polio (IPV/OPV) 2003-02-07 00:00:00 Completed [facility] Daptacel DTAP 2003-02-07 00:00:00 Completed [facility] MMR 2003-02-07 00:00:00 Completed [facility] Polio (IPV/OPV) 2003-02-07 00:00:00 Completed [facility] Daptacel DTAP 2003-02-07 00:00:00 Completed [facility] MMR 2003-02-07 00:00:00 Completed [facility] Polio (IPV/OPV) 2003-02-07 00:00:00 Completed [facility] Daptacel DTAP 2003-02-07 00:00:00 Completed [facility] MMR 2003-02-07 00:00:00 Completed [facility] Polio (IPV/OPV) 2003-02-07 00:00:00 Completed [facility] Daptacel DTAP 2003-02-07 00:00:00 Completed [facility] MMR 2003-02-07 00:00:00 Completed [facility] Polio (IPV/OPV) 2003-02-07 00:00:00 Completed [facility] Daptacel DTAP 2003-02-07 00:00:00 Completed [facility] Daptacel DTAP 2003-02-07 00:00:00 Completed [facility] MMR 2003-02-07 00:00:00 Completed [facility] Polio (IPV/OPV) 2003-02-07 00:00:00 Completed [facility] Daptacel DTAP 2003-02-07 00:00:00 Completed [facility] MMR 2003-02-07 00:00:00 Completed [facility] Polio (IPV/OPV) 2003-02-07 00:00:00 Completed [facility] Daptacel DTAP 2003-02-07 00:00:00 Completed [facility] MMR 2003-02-07 00:00:00 Completed [facility] Polio (IPV/OPV) 2003-02-07 00:00:00 Completed [facility] MMR 2003-02-07 00:00:00 Completed [facility] Daptacel DTAP 2003-02-07 00:00:00 Completed [facility] MMR 2003-02-07 00:00:00 Completed [facility] Polio (IPV/OPV) 2003-02-07 00:00:00 Completed [facility] Polio (IPV/OPV) 2003-02-07 00:00:00 Completed [facility] Daptacel DTAP 2003-02-07 00:00:00 Completed [facility] MMR 2003-02-07 00:00:00 Completed [facility] Polio (IPV/OPV) 2003-02-07 00:00:00 Completed [facility] Daptacel DTAP 2003-02-07 00:00:00 Completed [facility] MMR 2003-02-07 00:00:00 Completed [facility] Polio (IPV/OPV) 2003-02-07 00:00:00 Completed [facility]iberix 1999-06-27 00:00:00 Completed [facility] Daptacel DTAP 1999-06-27 00:00:00 Completed [facility] Daptacel DTAP 1999-06-27 00:00:00 Completed [facility] 1999-06-27 00:00:00 Completed [facility] Daptacel DTAP 1999-06-27 00:00:00 Completed [facility] 1999-06-27 00:00:00 Completed [facility] Daptacel DTAP 1999-06-27 00:00:00 Completed [facility] 1999-06-27 00:00:00 Completed [facility] Daptacel DTAP 1999-06-27 00:00:00 Completed [facility] 1999-06-27 00:00:00 Completed [facility] Daptacel DTAP 1999-06-27 00:00:00 Completed [facility] 1999-06-27 00:00:00 Completed [facility] Daptacel DTAP 1999-06-27 00:00:00 Completed [facility] Daptacel DTAP 1999-06-27 00:00:00 Completed [facility] 1999-06-27 00:00:00 Completed [facility] Daptacel DTAP 1999-06-27 00:00:00 Completed [facility] 1999-06-27 00:00:00 Completed [facility] Daptacel DTAP 1999-06-27 00:00:00 Completed [facility] 1999-06-27 00:00:00 Completed [facility] Daptacel DTAP 1999-06-27 00:00:00 Completed [facility] 1999-06-27 00:00:00 Completed [facility] Daptacel DTAP 1999-06-27 00:00:00 Completed [facility] 1999-06-27 00:00:00 Completed [facility] Daptacel DTAP 1999-06-27 00:00:00 Completed [facility] Daptacel DTAP 1999-06-27 00:00:00 Completed [facility] 1999-06-27 00:00:00 Completed [facility] Daptacel DTAP 1999-06-27 00:00:00 Completed [facility] 1999-06-27 00:00:00 Completed [facility] Daptacel DTAP 1999-06-27 00:00:00 Completed [facility] 1999-06-27 00:00:00 Completed [facility] Daptacel DTAP 1999-06-27 00:00:00 Completed [facility] 1999-06-27 00:00:00 Completed [facility] 1999-06-27 00:00:00 Completed [facility] Daptacel DTAP 1999-06-27 00:00:00 Completed [facility] 1999-06-27 00:00:00 Completed [facility] Daptacel DTAP 1999-06-27 00:00:00 Completed [facility] 1999-06-27 00:00:00 Completed [facility] Daptacel DTAP 1999-06-27 00:00:00 Completed [facility] 1999-06-27 00:00:00 Completed [facility] 1999-06-27 00:00:00 Completed [facility] Daptacel DTAP 1999-06-27 00:00:00 Completed [facility] 1999-06-27 00:00:00 Completed [facility] Daptacel DTAP 1999-06-27 00:00:00 Completed [facility] 1999-06-27 00:00:00 Completed [facility] Daptacel DTAP 1999-06-27 00:00:00 Completed [facility] Daptacel DTAP 1999-06-27 00:00:00 Completed [facility] 1999-06-27 00:00:00 Completed [facility] 1999-06-27 00:00:00 Completed [facility] Daptacel DTAP 1999-06-27 00:00:00 Completed [facility] 1999-06-27 00:00:00 Completed [facility] Daptacel DTAP 1999-06-27 00:00:00 Completed [facility] 1999-06-27 00:00:00 Completed [facility] Daptacel DTAP 1999-06-27 00:00:00 Completed [facility] 1999-06-27 00:00:00 Completed [facility] Daptacel DTAP 1999-06-27 00:00:00 Completed [facility] 1999-06-27 00:00:00 Completed [facility] Daptacel DTAP 1999-06-27 00:00:00 Completed [facility] 1999-06-27 00:00:00 Completed [facility] Daptacel DTAP 1999-06-27 00:00:00 Completed [facility] 1999-06-27 00:00:00 Completed [facility] Daptacel DTAP 1999-06-27 00:00:00 Completed [facility] 1999-06-27 00:00:00 Completed [facility] Daptacel DTAP 1999-06-27 00:00:00 Completed [facility] Daptacel DTAP 1999-06-27 00:00:00 Completed [facility] 1999-06-27 00:00:00 Completed [facility] Daptacel DTAP 1999-06-27 00:00:00 Completed [facility] 1999-06-27 00:00:00 Completed [facility] Daptacel DTAP 1999-06-27 00:00:00 Completed [facility] 1999-06-27 00:00:00 Completed [facility] Daptacel DTAP 1999-06-27 00:00:00 Completed [facility] 1999-06-27 00:00:00 Completed [facility] Daptacel DTAP 1999-06-27 00:00:00 Completed [facility] 1999-06-27 00:00:00 Completed [facility] 1999-06-27 00:00:00 Completed [facility] [facility] Daptacel DTAP 1999-06-27 00:00:00 Completed [facility] Hiberix 1999-06-27 00:00:00 Completed [facility] Polio (IPV/OPV) 1998-09-10 00:00:00 Completed [facility] Varicella (varivax)(chicken pox) 1998-09-10 00:00:00 Completed [facility] Hiberix 1998-09-10 00:00:00 Completed [facility] Daptacel DTAP 1998-09-10 00:00:00 Completed [facility] MMR 1998-09-10 00:00:00 Completed [facility] Daptacel DTAP 1998-09-10 00:00:00 Completed [facility] MMR 1998-09-10 00:00:00 Completed [facility] Polio (IPV/OPV) 1998-09-10 00:00:00 Completed [facility] Varicella (varivax)(chicken pox) 1998-09-10 00:00:00 Completed [facility] Hiberix 1998-09-10 00:00:00 Completed [facility] Daptacel DTAP 1998-09-10 00:00:00 Completed [facility] MMR 1998-09-10 00:00:00 Completed [facility] Polio (IPV/OPV) 1998-09-10 00:00:00 Completed [facility] Varicella (varivax)(chicken pox) 1998-09-10 00:00:00 Completed [facility] Hiberix 1998-09-10 00:00:00 Completed [facility] Daptacel DTAP 1998-09-10 00:00:00 Completed [facility] MMR 1998-09-10 00:00:00 Completed [facility] Polio (IPV/OPV) 1998-09-10 00:00:00 Completed [facility] Varicella (varivax)(chicken pox) 1998-09-10 00:00:00 Completed [facility] Hiberix 1998-09-10 00:00:00 Completed [facility] Daptacel DTAP 1998-09-10 00:00:00 Completed [facility] Daptacel DTAP 1998-09-10 00:00:00 Completed [facility] MMR 1998-09-10 00:00:00 Completed [facility] Polio (IPV/OPV) 1998-09-10 00:00:00 Completed [facility] Varicella (varivax)(chicken pox) 1998-09-10 00:00:00 Completed [facility] Hiberix 1998-09-10 00:00:00 Completed [facility] Daptacel DTAP 1998-09-10 00:00:00 Completed [facility] MMR 1998-09-10 00:00:00 Completed [facility] Polio (IPV/OPV) 1998-09-10 00:00:00 Completed [facility] Varicella (varivax)(chicken pox) 1998-09-10 00:00:00 Completed [facility] Hiberix 1998-09-10 00:00:00 Completed [facility] Daptacel DTAP 1998-09-10 00:00:00 Completed [facility] MMR 1998-09-10 00:00:00 Completed [facility] Polio (IPV/OPV) 1998-09-10 00:00:00 Completed [facility] Varicella (varivax)(chicken pox) 1998-09-10 00:00:00 Completed [facility] Hiberix 1998-09-10 00:00:00 Completed [facility] Daptacel DTAP 1998-09-10 00:00:00 Completed [facility] MMR 1998-09-10 00:00:00 Completed [facility] Polio (IPV/OPV) 1998-09-10 00:00:00 Completed [facility] Varicella (varivax)(chicken pox) 1998-09-10 00:00:00 Completed [facility] Hiberix 1998-09-10 00:00:00 Completed [facility] Daptacel DTAP 1998-09-10 00:00:00 Completed [facility] MMR 1998-09-10 00:00:00 Completed [facility] Polio (IPV/OPV) 1998-09-10 00:00:00 Completed [facility] Varicella (varivax)(chicken pox) 1998-09-10 00:00:00 Completed [facility] Hiberix 1998-09-10 00:00:00 Completed [facility] Daptacel DTAP 1998-09-10 00:00:00 Completed [facility] MMR 1998-09-10 00:00:00 Completed [facility] Polio (IPV/OPV) 1998-09-10 00:00:00 Completed [facility] Varicella (varivax)(chicken pox) 1998-09-10 00:00:00 Completed [facility] Hiberix 1998-09-10 00:00:00 Completed [facility] Daptacel DTAP 1998-09-10 00:00:00 Completed [facility] MMR 1998-09-10 00:00:00 Completed [facility] Polio (IPV/OPV) 1998-09-10 00:00:00 Completed [facility] Varicella (varivax)(chicken pox) 1998-09-10 00:00:00 Completed [facility] Hiberix 1998-09-10 00:00:00 Completed [facility] Daptacel DTAP 1998-09-10 00:00:00 Completed [facility] Daptacel DTAP 1998-09-10 00:00:00 Completed [facility] MMR 1998-09-10 00:00:00 Completed [facility] Polio (IPV/OPV) 1998-09-10 00:00:00 Completed [facility] Varicella (varivax)(chicken pox) 1998-09-10 00:00:00 Completed [facility] Hiberix 1998-09-10 00:00:00 Completed [facility] MMR 1998-09-10 00:00:00 Completed [facility] Daptacel DTAP 1998-09-10 00:00:00 Completed [facility] MMR 1998-09-10 00:00:00 Completed [facility] Polio (IPV/OPV) 1998-09-10 00:00:00 Completed [facility] Varicella (varivax)(chicken pox) 1998-09-10 00:00:00 Completed [facility] Hiberix 1998-09-10 00:00:00 Completed [facility] Polio (IPV/OPV) 1998-09-10 00:00:00 Completed [facility] Varicella (varivax)(chicken pox) 1998-09-10 00:00:00 Completed [facility] Daptacel DTAP 1998-09-10 00:00:00 Completed [facility] MMR 1998-09-10 00:00:00 Completed [facility] Polio (IPV/OPV) 1998-09-10 00:00:00 Completed [facility] Varicella (varivax)(chicken pox) 1998-09-10 00:00:00 Completed [facility] Hiberix 1998-09-10 00:00:00 Completed [facility] Hiberix 1998-09-10 00:00:00 Completed [facility] Daptacel DTAP 1998-09-10 00:00:00 Completed [facility] MMR 1998-09-10 00:00:00 Completed [facility] Polio (IPV/OPV) 1998-09-10 00:00:00 Completed [facility] Varicella (varivax)(chicken pox) 1998-09-10 00:00:00 Completed [facility] Hiberix 1998-09-10 00:00:00 Completed [facility] Daptacel DTAP 1998-09-10 00:00:00 Completed [facility] MMR 1998-09-10 00:00:00 Completed [facility] Polio (IPV/OPV) 1998-09-10 00:00:00 Completed [facility] Varicella (varivax)(chicken pox) 1998-09-10 00:00:00 Completed [facility] Hiberix 1998-09-10 00:00:00 Completed [facility] MMR 1998-09-10 00:00:00 Completed [facility] Daptacel DTAP 1998-09-10 00:00:00 Completed [facility] MMR 1998-09-10 00:00:00 Completed [facility] Polio (IPV/OPV) 1998-09-10 00:00:00 Completed [facility] Varicella (varivax)(chicken pox) 1998-09-10 00:00:00 Completed [facility] Polio (IPV/OPV) 1998-09-10 00:00:00 Completed [facility] Hiberix 1998-09-10 00:00:00 Completed [facility] Daptacel DTAP 1998-09-10 00:00:00 Completed [facility] MMR 1998-09-10 00:00:00 Completed [facility] Polio (IPV/OPV) 1998-09-10 00:00:00 Completed [facility] Varicella (varivax)(chicken pox) 1998-09-10 00:00:00 Completed [facility] Hiberix 1998-09-10 00:00:00 Completed [facility] Varicella (varivax)(chicken pox) 1998-09-10 00:00:00 Completed [facility] Hiberix 1998-09-10 00:00:00 Completed [facility] Daptacel DTAP 1998-09-10 00:00:00 Completed [facility] MMR 1998-09-10 00:00:00 Completed [facility] Polio (IPV/OPV) 1998-09-10 00:00:00 Completed [facility] Varicella (varivax)(chicken pox) 1998-09-10 00:00:00 Completed [facility] Hiberix 1998-09-10 00:00:00 Completed [facility] Daptacel DTAP 1998-09-10 00:00:00 Completed [facility] MMR 1998-09-10 00:00:00 Completed [facility] Polio (IPV/OPV) 1998-09-10 00:00:00 Completed [facility] Varicella (varivax)(chicken pox) 1998-09-10 00:00:00 Completed [facility] Hiberix 1998-09-10 00:00:00 Completed [facility] Daptacel DTAP 1998-09-10 00:00:00 Completed [facility] MMR 1998-09-10 00:00:00 Completed [facility] Daptacel DTAP 1998-09-10 00:00:00 Completed MMR 1998-09-10 00:00:00 Completed Polio (IPV/OPV) 1998-09-10 00:00:00 Completed Varicella (varivax)(chicken pox) 1998-09-10 00:00:00 Completed Hiberix 1998-09-10 00:00:00 Completed Polio (IPV/OPV) 1998-09-10 00:00:00 Completed [facility] Varicella (varivax)(chicken pox) 1998-09-10 00:00:00 Completed [facility] Hiberix 1998-09-10 00:00:00 Completed [facility] Daptacel DTAP 1998-09-10 00:00:00 Completed [facility] MMR 1998-09-10 00:00:00 Completed [facility] Polio (IPV/OPV) 1998-09-10 00:00:00 Completed [facility] Varicella (varivax)(chicken pox) 1998-09-10 00:00:00 Completed [facility] Hiberix 1998-09-10 00:00:00 Completed [facility] Daptacel DTAP 1998-09-10 00:00:00 Completed [facility] MMR 1998-09-10 00:00:00 Completed [facility] Polio (IPV/OPV) 1998-09-10 00:00:00 Completed [facility] Varicella (varivax)(chicken pox) 1998-09-10 00:00:00 Completed [facility] Hiberix 1998-09-10 00:00:00 Completed [facility] Daptacel DTAP 1998-09-10 00:00:00 Completed [facility] MMR 1998-09-10 00:00:00 Completed [facility] Polio (IPV/OPV) 1998-09-10 00:00:00 Completed [facility] Varicella (varivax)(chicken pox) 1998-09-10 00:00:00 Completed [facility] Hiberix 1998-09-10 00:00:00 Completed [facility] Daptacel DTAP 1998-09-10 00:00:00 Completed [facility] MMR 1998-09-10 00:00:00 Completed [facility] Polio (IPV/OPV) 1998-09-10 00:00:00 Completed [facility] Varicella (varivax)(chicken pox) 1998-09-10 00:00:00 Completed [facility] Hiberix 1998-09-10 00:00:00 Completed [facility] Daptacel DTAP 1998-09-10 00:00:00 Completed [facility] MMR 1998-09-10 00:00:00 Completed [facility] Polio (IPV/OPV) 1998-09-10 00:00:00 Completed [facility] Varicella (varivax)(chicken pox) 1998-09-10 00:00:00 Completed [facility] Hiberix 1998-09-10 00:00:00 Completed [facility] Daptacel DTAP 1998-09-10 00:00:00 Completed [facility] MMR 1998-09-10 00:00:00 Completed [facility] Polio (IPV/OPV) 1998-09-10 00:00:00 Completed [facility] Varicella (varivax)(chicken pox) 1998-09-10 00:00:00 Completed [facility] Hiberix 1998-09-10 00:00:00 Completed [facility] Daptacel DTAP 1998-09-10 00:00:00 Completed [facility] MMR 1998-09-10 00:00:00 Completed [facility] Daptacel DTAP 1998-09-10 00:00:00 Completed [facility] Polio (IPV/OPV) 1998-09-10 00:00:00 Completed [facility] Varicella (varivax)(chicken pox) 1998-09-10 00:00:00 Completed [facility] Hiberix 1998-09-10 00:00:00 Completed [facility] Daptacel DTAP 1998-09-10 00:00:00 Completed [facility] MMR 1998-09-10 00:00:00 Completed [facility] Polio (IPV/OPV) 1998-09-10 00:00:00 Completed [facility] Varicella (varivax)(chicken pox) 1998-09-10 00:00:00 Completed [facility] Hiberix 1998-09-10 00:00:00 Completed [facility] Daptacel DTAP 1998-09-10 00:00:00 Completed [facility] MMR 1998-09-10 00:00:00 Completed [facility] Polio (IPV/OPV) 1998-09-10 00:00:00 Completed [facility] Varicella (varivax)(chicken pox) 1998-09-10 00:00:00 Completed [facility] Hiberix 1998-09-10 00:00:00 Completed [facility] Daptacel DTAP 1998-09-10 00:00:00 Completed [facility] MMR 1998-09-10 00:00:00 Completed [facility] Polio (IPV/OPV) 1998-09-10 00:00:00 Completed [facility] MMR 1998-09-10 00:00:00 Completed [facility] Varicella (varivax)(chicken pox) 1998-09-10 00:00:00 Completed [facility] Hiberix 1998-09-10 00:00:00 Completed [facility] Daptacel DTAP 1998-09-10 00:00:00 Completed [facility] MMR 1998-09-10 00:00:00 Completed [facility] Polio (IPV/OPV) 1998-09-10 00:00:00 Completed [facility] Varicella (varivax)(chicken pox) 1998-09-10 00:00:00 Completed [facility] Hiberix 1998-09-10 00:00:00 Completed [facility] Polio (IPV/OPV) 1998-09-10 00:00:00 Completed [facility] Varicella (varivax)(chicken pox) 1998-09-10 00:00:00 Completed [facility] Daptacel DTAP 1998-09-10 00:00:00 Completed [facility] MMR 1998-09-10 00:00:00 Completed [facility] Polio (IPV/OPV) 1998-09-10 00:00:00 Completed [facility] Varicella (varivax)(chicken pox) 1998-09-10 00:00:00 Completed [facility] Hiberix 1998-09-10 00:00:00 Completed [facility] Hiberix 1998-09-10 00:00:00 Completed [facility] Daptacel DTAP 1998-09-10 00:00:00 Completed [facility] MMR 1998-09-10 00:00:00 Completed [facility] Polio (IPV/OPV) 1998-09-10 00:00:00 Completed [facility] Varicella (varivax)(chicken pox) 1998-09-10 00:00:00 Completed [facility] Hiberix 1998-09-10 00:00:00 Completed [facility] Hep B, Adol or Pedi Dosage 1997 00:00:00 Completed [facility] Hep B, Adol or Pedi Dosage 1997 00:00:00 Completed [facility] Hep B, Adol or Pedi Dosage 1997 00:00:00 Completed [facility] Hep B, Adol or Pedi Dosage 1997 00:00:00 Completed [facility] Hep B, Adol or Pedi Dosage 1997 00:00:00 Completed [facility] Hep B, Adol or Pedi Dosage 1997 00:00:00 Completed [facility] Hep B, Adol or Pedi Dosage 1997 00:00:00 Completed [facility] Hep B, Adol or Pedi Dosage 1997 00:00:00 Completed [facility] Hep B, Adol or Pedi Dosage 1997 00:00:00 Completed [facility] Hep B, Adol or Pedi Dosage 1997 00:00:00 Completed [facility] Hep B, Adol or Pedi Dosage 1997 00:00:00 Completed [facility] Hep B, Adol or Pedi Dosage 1997 00:00:00 Completed [facility] Hep B, Adol or Pedi Dosage 1997 00:00:00 Completed [facility] Hep B, Adol or Pedi Dosage 1997 00:00:00 Completed [facility] Hep B, Adol or Pedi Dosage 1997 00:00:00 Completed [facility] Hep B, Adol or Pedi Dosage 1997 00:00:00 Completed [facility] Hep B, Adol or Pedi Dosage 1997 00:00:00 Completed [facility] Hep B, Adol or Pedi Dosage 1997 00:00:00 Completed [facility] Hep B, Adol or Pedi Dosage 1997 00:00:00 Completed [facility] Hep B, Adol or Pedi Dosage 1997 00:00:00 Completed [facility] Hep B, Adol or Pedi Dosage 1997 00:00:00 Completed [facility] Hep B, Adol or Pedi Dosage 1997 00:00:00 Completed [facility] Hep B, Adol or Pedi Dosage 1997 00:00:00 Completed [facility] Hep B, Adol or Pedi Dosage 1997 00:00:00 Completed Hep B, Adol or Pedi Dosage 1997 00:00:00 Completed [facility] Hep B, Adol or Pedi Dosage 1997 00:00:00 Completed [facility] Hep B, Adol or Pedi Dosage 1997 00:00:00 Completed [facility] Hep B, Adol or Pedi Dosage 1997 00:00:00 Completed [facility] Hep B, Adol or Pedi Dosage 1997 00:00:00 Completed [facility] Hep B, Adol or Pedi Dosage 1997 00:00:00 Completed [facility] Hep B, Adol or Pedi Dosage 1997 00:00:00 Completed [facility] Hep B, Adol or Pedi Dosage 1997 00:00:00 Completed [facility] Hep B, Adol or Pedi Dosage 1997 00:00:00 Completed [facility] Hep B, Adol or Pedi Dosage 1997 00:00:00 Completed [facility] Hep B, Adol or Pedi Dosage 1997 00:00:00 Completed [facility] Hep B, Adol or Pedi Dosage 1997 00:00:00 Completed [facility] Hep B, Adol or Pedi Dosage 1997 00:00:00 Completed [facility] Hep B, Adol or Pedi Dosage 1997 00:00:00 Completed [facility] Polio (IPV/OPV) 1997 00:00:00 Completed [facility] Hiberix 1997 00:00:00 Completed [facility] Daptacel DTAP 1997 00:00:00 Completed [facility] Daptacel DTAP 1997 00:00:00 Completed [facility] Polio (IPV/OPV) 1997 00:00:00 Completed [facility] Hiberix 1997 00:00:00 Completed [facility] Daptacel DTAP 1997 00:00:00 Completed [facility] Polio (IPV/OPV) 1997 00:00:00 Completed [facility] Hiberix 1997 00:00:00 Completed [facility] Daptacel DTAP 1997 00:00:00 Completed [facility] Daptacel DTAP 1997 00:00:00 Completed [facility] Polio (IPV/OPV) 1997 00:00:00 Completed [facility] Hiberix 1997 00:00:00 Completed [facility] Daptacel DTAP 1997 00:00:00 Completed [facility] Polio (IPV/OPV) 1997 00:00:00 Completed [facility] Hiberix 1997 00:00:00 Completed [facility] Daptacel DTAP 1997 00:00:00 Completed [facility] Polio (IPV/OPV) 1997 00:00:00 Completed [facility] Hiberix 1997 00:00:00 Completed [facility] Daptacel DTAP 1997 00:00:00 Completed [facility] Polio (IPV/OPV) 1997 00:00:00 Completed [facility] Hiberix 1997 00:00:00 Completed [facility] Daptacel DTAP 1997 00:00:00 Completed [facility] Polio (IPV/OPV) 1997 00:00:00 Completed [facility] Hiberix 1997 00:00:00 Completed [facility] Daptacel DTAP 1997 00:00:00 Completed [facility] Polio (IPV/OPV) 1997 00:00:00 Completed [facility] Hiberix 1997 00:00:00 Completed [facility] Daptacel DTAP 1997 00:00:00 Completed [facility] Polio (IPV/OPV) 1997 00:00:00 Completed [facility] Hiberix 1997 00:00:00 Completed [facility] Daptacel DTAP 1997 00:00:00 Completed [facility] Polio (IPV/OPV) 1997 00:00:00 Completed [facility] Hiberix 1997 00:00:00 Completed [facility] Daptacel DTAP 1997 00:00:00 Completed [facility] Daptacel DTAP 1997 00:00:00 Completed [facility] Polio (IPV/OPV) 1997 00:00:00 Completed [facility] Hiberix 1997 00:00:00 Completed [facility] Daptacel DTAP 1997 00:00:00 Completed [facility] Polio (IPV/OPV) 1997 00:00:00 Completed [facility] Hiberix 1997 00:00:00 Completed [facility] Polio (IPV/OPV) 1997 00:00:00 Completed [facility] Daptacel DTAP 1997 00:00:00 Completed [facility] Polio (IPV/OPV) 1997 00:00:00 Completed [facility] Hiberix 1997 00:00:00 Completed [facility] Hiberix 1997 00:00:00 Completed [facility] Daptacel DTAP 1997 00:00:00 Completed [facility] Polio (IPV/OPV) 1997 00:00:00 Completed [facility] Hiberix 1997 00:00:00 Completed [facility] Daptacel DTAP 1997 00:00:00 Completed [facility] Polio (IPV/OPV) 1997 00:00:00 [facility] [facility] Hiberix 1997 00:00:00 Completed [facility] Daptacel DTAP 1997 00:00:00 Completed [facility] Polio (IPV/OPV) 1997 00:00:00 Completed [facility] Polio (IPV/OPV) 1997 00:00:00 Completed [facility] Hiberix 1997 00:00:00 Completed [facility] Daptacel DTAP 1997 00:00:00 Completed [facility] Polio (IPV/OPV) 1997 00:00:00 Completed [facility] Hiberix 1997 00:00:00 Completed [facility] Hiberix 1997 00:00:00 Completed [facility] Daptacel DTAP 1997 00:00:00 Completed [facility] Polio (IPV/OPV) 1997 00:00:00 Completed [facility] Hiberix 1997 00:00:00 Completed [facility] Daptacel DTAP 1997 00:00:00 Completed [facility] Polio (IPV/OPV) 1997 00:00:00 Completed [facility] Hiberix 1997 00:00:00 Completed [facility] Daptacel DTAP 1997 00:00:00 Completed [facility] Daptacel DTAP 1997 00:00:00 Completed Polio (IPV/OPV) 1997 00:00:00 Completed Hiberix 1997 00:00:00 Completed Polio (IPV/OPV) 1997 00:00:00 Completed [facility] Hiberix 1997 00:00:00 Completed [facility] Daptacel DTAP 1997 00:00:00 Completed [facility] Polio (IPV/OPV) 1997 00:00:00 Completed [facility] Hiberix 1997 00:00:00 Completed [facility] Daptacel DTAP 1997 00:00:00 Completed [facility] Polio (IPV/OPV) 1997 00:00:00 Completed [facility] Hiberix 1997 00:00:00 Completed [facility] Daptacel DTAP 1997 00:00:00 Completed [facility] Polio (IPV/OPV) 1997 00:00:00 Completed [facility] Hiberix 1997 00:00:00 Completed [facility] Daptacel DTAP 1997 00:00:00 Completed [facility] Polio (IPV/OPV) 1997 00:00:00 Completed [facility] Hiberix 1997 00:00:00 Completed [facility] Daptacel DTAP 1997 00:00:00 Completed [facility] Polio (IPV/OPV) 1997 00:00:00 Completed [facility] Hiberix 1997 00:00:00 Completed [facility] Daptacel DTAP 1997 00:00:00 Completed [facility] Polio (IPV/OPV) 1997 00:00:00 Completed [facility] Hiberix 1997 00:00:00 Completed [facility] Daptacel DTAP 1997 00:00:00 Completed [facility] Daptacel DTAP 1997 00:00:00 Completed [facility] Polio (IPV/OPV) 1997 00:00:00 Completed [facility] Hiberix 1997 00:00:00 Completed [facility] Daptacel DTAP 1997 00:00:00 Completed [facility] Polio (IPV/OPV) 1997 00:00:00 Completed [facility] Hiberix 1997 00:00:00 Completed [facility] Daptacel DTAP 1997 00:00:00 Completed [facility] Polio (IPV/OPV) 1997 00:00:00 Completed [facility] Hiberix 1997 00:00:00 Completed [facility] Daptacel DTAP 1997 00:00:00 Completed [facility] Polio (IPV/OPV) 1997 00:00:00 Completed [facility] Hiberix 1997 00:00:00 Completed [facility] Daptacel DTAP 1997 00:00:00 Completed [facility] Polio (IPV/OPV) 1997 00:00:00 Completed [facility] Polio (IPV/OPV) 1997 00:00:00 Completed [facility] Hiberix 1997 00:00:00 Completed [facility] Daptacel DTAP 1997 00:00:00 Completed [facility] Polio (IPV/OPV) 1997 00:00:00 Completed [facility] Hiberix 1997 00:00:00 Completed [facility] Hiberix 1997 00:00:00 Completed [facility] Daptacel DTAP 1997 00:00:00 Completed [facility] Polio (IPV/OPV) 1997 00:00:00 Completed [facility] Hiberix 1997 00:00:00 Completed [facility] Polio (IPV/OPV) 1997 00:00:00 Completed [facility] Daptacel DTAP 1997 00:00:00 Completed [facility] Hep B, Adol or Pedi Dosage 1997 00:00:00 Completed [facility] Daptacel DTAP 1997 00:00:00 Completed [facility] Hep B, Adol or Pedi Dosage 1997 00:00:00 Completed [facility] Polio (IPV/OPV) 1997 00:00:00 Completed [facility] Daptacel DTAP 1997 00:00:00 Completed [facility] Daptacel DTAP 1997 00:00:00 Completed [facility] Hep B, Adol or Pedi Dosage 1997 00:00:00 Completed [facility] Polio (IPV/OPV) 1997 00:00:00 Completed [facility] Daptacel DTAP 1997 00:00:00 Completed [facility] Hep B, Adol or Pedi Dosage 1997 00:00:00 Completed [facility] Polio (IPV/OPV) 1997 00:00:00 Completed [facility] Daptacel DTAP 1997 00:00:00 Completed [facility] Hep B, Adol or Pedi Dosage 1997 00:00:00 Completed [facility] Polio (IPV/OPV) 1997 00:00:00 Completed [facility] Daptacel DTAP 1997 00:00:00 Completed [facility] Hep B, Adol or Pedi Dosage 1997 00:00:00 Completed [facility] Polio (IPV/OPV) 1997 00:00:00 Completed [facility] Daptacel DTAP 1997 00:00:00 Completed [facility] Hep B, Adol or Pedi Dosage 1997 00:00:00 Completed [facility] Polio (IPV/OPV) 1997 00:00:00 Completed [facility] Daptacel DTAP 1997 00:00:00 Completed [facility] Hep B, Adol or Pedi Dosage 1997 00:00:00 Completed [facility] Polio (IPV/OPV) 1997 00:00:00 Completed [facility] Daptacel DTAP 1997 00:00:00 Completed [facility] Hep B, Adol or Pedi Dosage 1997 00:00:00 Completed [facility] Polio (IPV/OPV) 1997 00:00:00 Completed [facility] Daptacel DTAP 1997 00:00:00 Completed [facility] Hep B, Adol or Pedi Dosage 1997 00:00:00 Completed [facility] Polio (IPV/OPV) 1997 00:00:00 Completed [facility] Daptacel DTAP 1997 00:00:00 Completed [facility] Hep B, Adol or Pedi Dosage 1997 00:00:00 Completed [facility] Polio (IPV/OPV) 1997 00:00:00 Completed [facility] Daptacel DTAP 1997 00:00:00 Completed [facility] Daptacel DTAP 1997 00:00:00 Completed [facility] Hep B, Adol or Pedi Dosage 1997 00:00:00 Completed [facility] Polio (IPV/OPV) 1997 00:00:00 Completed [facility] Hep B, Adol or Pedi Dosage 1997 00:00:00 Completed [facility] Hep B, Adol or Pedi Dosage 1997 00:00:00 Completed [facility] Daptacel DTAP 1997 00:00:00 Completed [facility] Hep B, Adol or Pedi Dosage 1997 00:00:00 Completed [facility] Polio (IPV/OPV) 1997 00:00:00 Completed [facility] Polio (IPV/OPV) 1997 00:00:00 Completed [facility] Daptacel DTAP 1997 00:00:00 Completed [facility] Hep B, Adol or Pedi Dosage 1997 00:00:00 Completed [facility] Polio (IPV/OPV) 1997 00:00:00 Completed [facility] Daptacel DTAP 1997 00:00:00 Completed [facility] Hep B, Adol or Pedi Dosage 1997 00:00:00 Completed [facility] Polio (IPV/OPV) 1997 00:00:00 Completed [facility] Daptacel DTAP 1997 00:00:00 Completed [facility] Hep B, Adol or Pedi Dosage 1997 00:00:00 Completed [facility] Polio (IPV/OPV) 1997 00:00:00 Completed [facility] Daptacel DTAP 1997 00:00:00 Completed [facility] Polio (IPV/OPV) 1997 00:00:00 Completed [facility] Hep B, Adol or Pedi Dosage 1997 00:00:00 Completed [facility] Polio (IPV/OPV) 1997 00:00:00 Completed [facility] Daptacel DTAP 1997 00:00:00 Completed [facility] Hep B, Adol or Pedi Dosage 1997 00:00:00 Completed [facility] Polio (IPV/OPV) 1997 00:00:00 Completed [facility] Daptacel DTAP 1997 00:00:00 Completed [facility] Hep B, Adol or Pedi Dosage 1997 00:00:00 Completed [facility] Polio (IPV/OPV) 1997 00:00:00 Completed [facility] Daptacel DTAP 1997 00:00:00 Completed [facility] Hep B, Adol or Pedi Dosage 1997 00:00:00 Completed [facility] Polio (IPV/OPV) 1997 00:00:00 Completed [facility] Daptacel DTAP 1997 00:00:00 Completed [facility] Hep B, Adol or Pedi Dosage 1997 00:00:00 Completed [facility] Daptacel DTAP 1997 00:00:00 Completed [facility] Hep B, Adol or Pedi Dosage 1997 00:00:00 Completed Polio (IPV/OPV) 1997 00:00:00 Completed Polio (IPV/OPV) 1997 00:00:00 Completed [facility] Daptacel DTAP 1997 00:00:00 Completed [facility] Hep B, Adol or Pedi Dosage 1997 00:00:00 Completed [facility] Polio (IPV/OPV) 1997 00:00:00 Completed [facility] Daptacel DTAP 1997 00:00:00 Completed [facility] Hep B, Adol or Pedi Dosage 1997 00:00:00 Completed [facility] Polio (IPV/OPV) 1997 00:00:00 Completed [facility] Daptacel DTAP 1997 00:00:00 Completed [facility] Hep B, Adol or Pedi Dosage 1997 00:00:00 Completed [facility] Polio (IPV/OPV) 1997 00:00:00 Completed [facility] Daptacel DTAP 1997 00:00:00 Completed [facility] Hep B, Adol or Pedi Dosage 1997 00:00:00 Completed [facility] Polio (IPV/OPV) 1997 00:00:00 Completed [facility] Daptacel DTAP 1997 00:00:00 Completed [facility] Hep B, Adol or Pedi Dosage 1997 00:00:00 Completed [facility] Polio (IPV/OPV) 1997 00:00:00 Completed [facility] Daptacel DTAP 1997 00:00:00 Completed [facility] Hep B, Adol or Pedi Dosage 1997 00:00:00 Completed [facility] Polio (IPV/OPV) 1997 00:00:00 Completed [facility] Daptacel DTAP 1997 00:00:00 Completed [facility] Daptacel DTAP 1997 00:00:00 Completed [facility] Hep B, Adol or Pedi Dosage 1997 00:00:00 Completed [facility] Polio (IPV/OPV) 1997 00:00:00 Completed [facility] Daptacel DTAP 1997 00:00:00 Completed [facility] Hep B, Adol or Pedi Dosage 1997 00:00:00 Completed [facility] Polio (IPV/OPV) 1997 00:00:00 Completed [facility] Hep B, Adol or Pedi Dosage 1997 00:00:00 Completed [facility] Daptacel DTAP 1997 00:00:00 Completed [facility] Hep B, Adol or Pedi Dosage 1997 00:00:00 Completed [facility] Polio (IPV/OPV) 1997 00:00:00 Completed [facility] Daptacel DTAP 1997 00:00:00 Completed [facility] Hep B, Adol or Pedi Dosage 1997 00:00:00 Completed [facility] Polio (IPV/OPV) 1997 00:00:00 Completed [facility] Daptacel DTAP 1997 00:00:00 Completed [facility] Hep B, Adol or Pedi Dosage 1997 00:00:00 Completed [facility] Polio (IPV/OPV) 1997 00:00:00 Completed [facility] Polio (IPV/OPV) 1997 00:00:00 Completed [facility] Daptacel DTAP 1997 00:00:00 Completed [facility] Hep B, Adol or Pedi Dosage 1997 00:00:00 Completed [facility] Polio (IPV/OPV) 1997 00:00:00 Completed [facility] Daptacel DTAP 1997 00:00:00 Completed [facility] Hep B, Adol or Pedi Dosage 1997 00:00:00 Completed [facility] Polio (IPV/OPV) 1997 00:00:00 Completed [facility] Hep B, Adol or Pedi Dosage 1997 00:00:00 Completed [facility] Hep B, Adol or Pedi Dosage 1997 00:00:00 Completed [facility] Hep B, Adol or Pedi Dosage 1997 00:00:00 Completed [facility] Hep B, Adol or Pedi Dosage 1997 00:00:00 Completed [facility] Hep B, Adol or Pedi Dosage 1997 00:00:00 Completed [facility] Hep B, Adol or Pedi Dosage 1997 00:00:00 Completed [facility] Hep B, Adol or Pedi Dosage 1997 00:00:00 Completed [facility] Hep B, Adol or Pedi Dosage 1997 00:00:00 Completed [facility] Hep B, Adol or Pedi Dosage 1997 00:00:00 Completed [facility] Hep B, Adol or Pedi Dosage 1997 00:00:00 Completed [facility] Hep B, Adol or Pedi Dosage 1997 00:00:00 Completed [facility] Hep B, Adol or Pedi Dosage 1997 00:00:00 Completed [facility] Hep B, Adol or Pedi Dosage 1997 00:00:00 Completed [facility] Hep B, Adol or Pedi Dosage 1997 00:00:00 Completed [facility] Hep B, Adol or Pedi Dosage 1997 00:00:00 Completed [facility] Hep B, Adol or Pedi Dosage 1997 00:00:00 Completed [facility] Hep B, Adol or Pedi Dosage 1997 00:00:00 Completed [facility] Hep B, Adol or Pedi Dosage 1997 00:00:00 Completed [facility] Hep B, Adol or Pedi Dosage 1997 00:00:00 Completed [facility] Hep B, Adol or Pedi Dosage 1997 00:00:00 Completed [facility] Hep B, Adol or Pedi Dosage 1997 00:00:00 Completed [facility] Hep B, Adol or Pedi Dosage 1997 00:00:00 Completed [facility] Hep B, Adol or Pedi Dosage 1997 00:00:00 Completed [facility] Hep B, Adol or Pedi Dosage 1997 00:00:00 Completed Hep B, Adol or Pedi Dosage 1997 00:00:00 Completed [facility] Hep B, Adol or Pedi Dosage 1997 00:00:00 Completed [facility] Hep B, Adol or Pedi Dosage 1997 00:00:00 Completed [facility] Hep B, Adol or Pedi Dosage 1997 00:00:00 Completed [facility] Hep B, Adol or Pedi Dosage 1997 00:00:00 Completed [facility] Hep B, Adol or Pedi Dosage 1997 00:00:00 Completed [facility] Hep B, Adol or Pedi Dosage 1997 00:00:00 Completed [facility] Hep B, Adol or Pedi Dosage 1997 00:00:00 Completed [facility] Hep B, Adol or Pedi Dosage 1997 00:00:00 Completed [facility] Hep B, Adol or Pedi Dosage 1997 00:00:00 Completed [facility] Hep B, Adol or Pedi Dosage 1997 00:00:00 Completed [facility] Hep B, Adol or Pedi Dosage 1997 00:00:00 Completed [facility] Hep B, Adol or Pedi Dosage 1997 00:00:00 Completed [facility] Hep B, Adol or Pedi Dosage 1997 00:00:00 Completed [facility] D[facility]acel DTAP Unknown [facility], [facility]i [facility]os[facility] Completed [facility] Influenza Virus Vaccine Unknown Completed [facility] Meningococcal Polysaccharide (groups A, C, Y and W-135) conjugate vaccine (MCV4P) Unknown Completed [facility] MMR Unknown Completed [facility] Pol[facility] (IPV/OPV) Unknown [facility] Varicella (varivax)(chicken pox) Unknown Completed [facility] Hiberix Unknown Completed [facility] Daptacel DTAP Unknown Completed [facility] Hep B, Adol or Pedi Dosage Unknown Completed [facility] Influenza Virus Vaccine Unknown Completed [facility] Meningococcal Polysaccharide (groups A, C, Y and W-135) conjugate vaccine (MCV4P) Unknown Completed [facility] MMR Unknown Completed [facility] Polio (IPV/OPV) Unknown [facility] Com[facility] Varicella (varivax)(chicken pox) Unknown Completed [facility] Hiberix Unknown Completed [facility] Daptacel DTAP Unknown Completed [facility] Hep B, Adol or Pedi Dosage Unknown Completed [facility] Influenza Virus Vaccine Unknown Completed [facility] Meningococcal Polysaccharide (groups A, C, Y and W-135) conjugate vaccine (MCV4P) Unknown Completed [facility] MMR Unknown Completed [facility] Polio (IPV/OPV) Unknown [facility] Com[facility] Varicella (varivax)(chicken pox) Unknown Completed [facility] Hiberix Unknown Completed [facility] Daptacel DTAP Unknown Completed [facility] Hep B, Adol or Pedi Dosage Unknown Completed [facility] Influenza Virus Vaccine Unknown Completed [facility] Meningococcal Polysaccharide (groups A, C, Y and W-135) conjugate vaccine (MCV4P) Unknown Completed [facility] MMR Unknown Completed [facility] Polio (IPV/OPV) Unknown [facility] Com[facility] Varicella (varivax)(chicken pox) Unknown Completed [facility] Hiberix Unknown Completed [facility] Daptacel DTAP Unknown [facility], Adol or Pedi Dosage Unknown Completed [facility] Influenza Virus Vaccine Unknown Completed [facility] Meningococcal Polysaccharide (groups A, C, Y and W-135) conjugate vaccine (MCV4P) Unknown Completed [facility] MMR Unknown Completed [facility] Polio (IPV/OPV) Unknown [facility] Com[facility] Varicella (varivax)(chicken pox) Unknown Completed [facility] Hiberix Unknown Completed [facility] Influenza Virus Vaccine Unknown Completed [facility] TDAP Unknown Completed [facility] Daptacel DTAP Unknown Completed [facility] Hep B, Adol or Pedi Dosage Unknown Completed [facility] Meningococcal Polysaccharide (groups A, C, Y and W-135) conjugate vaccine (MCV4P) Unknown Completed [facility] MMR Unknown Completed [facility] Polio (IPV/OPV) Unknown Completed [facility] Varicella (varivax)(chicken pox) Unknown Completed [facility] Hiberix Unknown Completed [facility]acel DTAP [facility], [facility] Com[facility] Influenza Virus Vaccine Unknown Completed [facility] Meningococcal Polysaccharide (groups A, C, Y and W-135) conjugate vaccine (MCV4P) Unknown Completed [facility] MMR Unknown Completed [facility] Polio (IPV/OPV) Unknown [facility] Com[facility] Varicella (varivax)(chicken pox) Unknown Completed [facility] Hiberix Unknown Completed [facility] Daptacel DTAP Unknown Completed [facility] Hep B, Adol or Pedi Dosage Unknown Completed [facility] Influenza Virus Vaccine Unknown Completed [facility] Meningococcal Polysaccharide (groups A, C, Y and W-135) conjugate vaccine (MCV4P) Unknown Completed [facility] MMR Unknown Completed [facility] Polio (IPV/OPV) Unknown [facility] Com[facility] Varicella (varivax)(chicken pox) Unknown Completed [facility] Hiberix Unknown Completed [facility] Daptacel DTAP Unknown [facility], Adol or Pedi Dosage Unknown [facility] [facility] Influenza Virus Vaccine Unknown Completed [facility] Meningococcal Polysaccharide (groups A, C, Y and W-135) conjugate vaccine (MCV4P) Unknown Completed [facility] MMR Unknown Completed [facility] Polio (IPV/OPV) Unknown [facility] Varicella (varivax)(chicken pox) Unknown Completed [facility] Hiberix Unknown Completed [facility] Daptacel DTAP Unknown Completed [facility] Hep B, Adol or Pedi Dosage Unknown Completed [facility] Influenza Virus Vaccine Unknown Completed [facility] Meningococcal Polysaccharide (groups A, C, Y and W-135) conjugate vaccine (MCV4P) Unknown Completed [facility] MMR Unknown Completed [facility] Polio (IPV/OPV) Unknown Completed [facility] TDAP Unknown Completed [facility] Varicella (varivax)(chicken pox) Unknown Completed [facility] Hiberix Unknown Completed [facility] Daptacel DTAP Unknown Completed [facility] Hep B, Adol or Pedi Dosage Unknown Completed [facility] Influenza Virus Vaccine Unknown Completed [facility] Meningococcal Polysaccharide (groups A, C, Y and W-135) conjugate vaccine (MCV4P) Unknown Completed [facility] MMR Unknown Completed [facility] Polio (IPV/OPV) Unknown [facility] Varicella (varivax)(chicken pox) Unknown Completed [facility] Hiberix Unknown Completed [facility] Influenza Virus Vaccine Unknown Completed [facility] TDAP Unknown Completed [facility] Daptacel DTAP Unknown [facility], [facility] or Pedi Dosage Unknown Completed [facility] Meningococcal Polysaccharide (groups A, C, Y and W-135) conjugate vaccine (MCV4P) Unknown Completed [facility] MMR Unknown Completed [facility] Polio (IPV/OPV) Unknown Completed [facility] Varicella (varivax)(chicken pox) Unknown Completed [facility] Hiberix Unknown Completed [facility] Daptacel DTAP Unknown [facility], Adol or Pedi Dosage Unknown Completed [facility] Influenza Virus Vaccine Unknown Completed [facility] Meningococcal Polysaccharide (groups A, C, Y and W-135) conjugate vaccine (MCV4P) Unknown Completed [facility] MMR Unknown Completed [facility] Polio (IPV/OPV) Unknown [facility] Com[facility] Varicella (varivax)(chicken pox) Unknown Completed [facility] Hiberix Unknown Completed [facility] Daptacel DTAP Unknown [facility], Adol or Pedi Dosage Unknown Completed [facility] Influenza Virus Vaccine Unknown Completed [facility] Meningococcal Polysaccharide (groups A, C, Y and W-135) conjugate vaccine (MCV4P) Unknown Completed [facility] MMR Unknown Completed [facility] Polio (IPV/OPV) Unknown Completed [facility] TDAP Unknown Completed [facility] Varicella (varivax)(chicken pox) Unknown Completed [facility] Hiberix Unknown Completed [facility] Daptacel DTAP Unknown Completed [facility] Hep B, Adol or Pedi Dosage Unknown Completed [facility] Influenza Virus Vaccine Unknown Completed [facility] Meningococcal Polysaccharide (groups A, C, Y and W-135) conjugate vaccine (MCV4P) Unknown Completed [facility] MMR Unknown Completed [facility] Polio (IPV/OPV) Unknown [facility] Com[facility] Varicella (varivax)(chicken pox) Unknown Completed [facility] Hiberix Unknown Completed [facility] Daptacel DTAP Unknown [facility], Adol or Pedi Dosage Unknown Completed [facility] Influenza Virus Vaccine Unknown Completed [facility] Meningococcal Polysaccharide (groups A, C, Y and W-135) conjugate vaccine (MCV4P) Unknown Completed [facility] MMR Unknown Completed [facility] Polio (IPV/OPV) Unknown Completed [facility] TDAP Unknown Completed [facility] Varicella (varivax)(chicken pox) Unknown Completed [facility] Hiberix Unknown Completed [facility] Daptacel DTAP Unknown [facility], Adol or Pedi Dosage Unknown Completed [facility] Influenza Virus Vaccine Unknown Completed [facility] Meningococcal Polysaccharide (groups A, C, Y and W-135) conjugate vaccine (MCV4P) Unknown Completed [facility] MMR Unknown Completed [facility] Polio (IPV/OPV) Unknown Completed [facility] TDAP Unknown Completed [facility] Varicella (varivax)(chicken pox) Unknown Completed [facility] Hiberix Unknown Completed [facility] Daptacel DTAP Unknown Completed [facility] Hep B, Adol or Pedi Dosage Unknown Completed [facility] Influenza Virus Vaccine Unknown Completed [facility] Meningococcal Polysaccharide (groups A, C, Y and W-135) conjugate vaccine (MCV4P) Unknown Completed [facility] MMR Unknown Completed [facility] Polio (IPV/OPV) Unknown Completed [facility] TDAP Unknown Completed [facility] Varicella (varivax)(chicken pox) Unknown Completed [facility] Hiberix Unknown Completed [facility] Influenza Virus Vaccine Unknown Completed [facility] TDAP Unknown Completed [facility] Daptacel DTAP Unknown [facility], Adol or Pedi Dosage Unknown Completed [facility] Meningococcal Polysaccharide (groups A, C, Y and W-135) conjugate vaccine (MCV4P) Unknown Completed [facility] MMR Unknown Completed [facility] Polio (IPV/OPV) Unknown [facility] Varicella (varivax)(chicken pox) Unknown Completed [facility] Hiberix Unknown Completed [facility] Influenza Virus Vaccine Unknown Completed [facility] TDAP Unknown Completed [facility] Influenza Virus Vaccine Unknown Completed [facility] TDAP Unknown Completed [facility] Daptacel DTAP Unknown [facility], Adol or Pedi Dosage Unknown Completed [facility] Meningococcal Polysaccharide (groups A, C, Y and W-135) conjugate vaccine (MCV4P) Unknown Completed [facility] MMR Unknown Completed [facility] Polio (IPV/OPV) Unknown [facility] Varicella (varivax)(chicken pox) Unknown Completed [facility] Hiberix Unknown Completed [facility] Daptacel DTAP Unknown Completed [facility] Hep B, Adol or Pedi Dosage Unknown Completed [facility] Meningococcal Polysaccharide (groups A, C, Y and W-135) conjugate vaccine (MCV4P) Unknown Completed [facility] MMR Unknown Completed [facility] Polio (IPV/OPV) Unknown [facility] Varicella (varivax)(chicken pox) Unknown Completed [facility] Hiberix Unknown Completed [facility] Daptacel DTAP Unknown Com[facility], Adol or Pedi Dosage Unknown Completed [facility] Influenza Virus Vaccine Unknown Completed [facility] Meningococcal Polysaccharide (groups A, C, Y and W-135) conjugate vaccine (MCV4P) Unknown Completed [facility] MMR Unknown Completed [facility] Polio (IPV/OPV) Unknown [facility] Completed [facility] Varicella (varivax)(chicken pox) Unknown Completed [facility] Hiberix Unknown Completed [facility] Daptacel DTAP Unknown Com[facility] B, Adol or Pedi Dosage Unknown Completed [facility] Influenza Virus Vaccine Unknown Completed [facility] Meningococcal Polysaccharide (groups A, C, Y and W-135) conjugate vaccine (MCV4P) Unknown Completed [facility] MMR Unknown Completed [facility] Polio (IPV/OPV) Unknown [facility] Completed [facility] Varicella (varivax)(chicken pox) Unknown Completed [facility] Hiberix Unknown Completed [facility] Influenza Virus Vaccine Unknown Completed [facility] TDAP Unknown Completed [facility] Daptacel DTAP Unknown Completed [facility] Hep B, Adol or Pedi Dosage Unknown Completed [facility] Meningococcal Polysaccharide (groups A, C, Y and W-135) conjugate vaccine (MCV4P) Unknown Completed [facility] MMR Unknown Completed [facility] Polio (IPV/OPV) Unknown [facility] Varicella (varivax)(chicken pox) Unknown Completed [facility] Hiberix Unknown Completed [facility] Daptacel DTAP Unknown Com[facility], Adol or Pedi Dosage Unknown Completed [facility] Influenza Virus Vaccine Unknown Completed [facility] Meningococcal Polysaccharide (groups A, C, Y and W-135) conjugate vaccine (MCV4P) Unknown Completed [facility] MMR Unknown Completed [facility] Polio (IPV/OPV) Unknown Completed [facility] TDAP Unknown Completed [facility] Varicella (varivax)(chicken pox) Unknown Completed [facility] Hiberix Unknown Completed [facility] Daptacel DTAP Unknown Completed [facility] Hep B, Adol or Pedi Dosage Unknown Completed [facility] Influenza Virus Vaccine Unknown Completed [facility] Meningococcal Polysaccharide (groups A, C, Y and W-135) conjugate vaccine (MCV4P) Unknown Completed [facility] MMR Unknown Completed [facility] Polio (IPV/OPV) Unknown [facility] Completed [facility] Varicella (varivax)(chicken pox) Unknown Completed [facility] Hiberix Unknown Completed [facility] Influenza Virus Vacc[facility] Unknown Completed [facility] TDAP Unknown Completed [facility] Influenza Virus Vaccine Unknown Completed [facility] TDAP Unknown Completed [facility] Daptacel DTAP Unknown Com[facility] B, Adol or Pedi Dosage Unknown Completed [facility] Meningococcal Polysaccharide (groups A, C, Y and W-135) conjugate vaccine (MCV4P) Unknown Completed [facility] MMR Unknown Completed [facility] Polio (IPV/OPV) Unknown Completed [facility] Varicella (varivax)(chicken pox) Unknown Completed [facility] Hiberix Unknown Completed [facility] Daptacel DTAP Unknown Com[facility] Hep B, Adol or Pedi Dosage Unknown Completed [facility] Influenza Virus Vaccine Unknown Completed [facility] Meningococcal Polysaccharide (groups A, C, Y and W-135) conjugate vaccine (MCV4P) Unknown Completed [facility] MMR Unknown Completed [facility] Polio (IPV/OPV) Unknown [facility] Completed [facility] Varicella (varivax)(chicken pox) Unknown Completed [facility] Hiberix Unknown Completed [facility] Daptacel DTAP Unknown Completed [facility] Hep B, Adol or Pedi Dosage Unknown Completed [facility] Influenza Virus Vaccine Unknown Completed [facility] Meningococcal Polysaccharide (groups A, C, Y and W-135) conjugate vaccine (MCV4P) Unknown Completed [facility] MMR Unknown Completed [facility] Polio (IPV/OPV) Unknown Completed [facility] TDAP Unknown Completed [facility] Varicella (varivax)(chicken pox) Unknown Completed [facility] Hiberix Unknown Completed [facility] Daptacel DTAP Unknown Completed [facility] Hep B, Adol or Pedi Dosage Unknown Completed [facility] Influenza Virus Vaccine Unknown Completed [facility] Meningococcal Polysaccharide (groups A, C, Y and W-135) conjugate vaccine (MCV4P) Unknown Completed [facility] MMR Unknown Completed [facility] Polio (IPV/OPV) Unknown [facility] Completed [facility] Varicella (varivax)(chicken pox) Unknown Completed [facility] Hiberix Unknown Completed [facility] Influenza Virus Vaccine Unknown Completed [facility] TDAP Unknown Completed [facility] Daptacel DTAP Unknown [facility], Adol or Pedi Dosage Unknown Completed [facility] Influenza Virus Vaccine Unknown Completed [facility] Meningococcal Polysaccharide (groups A, C, Y and W-135) conjugate vaccine (MCV4P) Unknown Completed [facility] MMR Unknown Completed [facility] Polio (IPV/OPV) Unknown Completed [facility] TDAP Unknown Completed [facility] Varicella (varivax)(chicken pox) Unknown Completed [facility] Hiberix Unknown Completed [facility] Daptacel DTAP [facility], [facility] Completed [facility] Meningococcal Polysaccharide (groups A, C, Y and W-135) conjugate vaccine (MCV4P) Unknown Completed [facility] MMR Unknown Completed [facility] Polio (IPV/OPV) Unknown Completed [facility] Varicella (varivax)(chicken pox) Unknown Completed [facility] Hiberix Unknown Completed [facility] Daptacel DTAP Unknown Completed [facility] Hep B, Adol or Pedi Dosage Unknown Completed [facility] Meningococcal Polysaccharide (groups A, C, Y and W-135) conjugate vaccine (MCV4P) Unknown Completed [facility] MMR Unknown Completed [facility] Polio (IPV/OPV) Unknown Completed [facility] Varicella (varivax)(chicken pox) Unknown Completed [facility] Hiberix Unknown Completed [facility] Influenza Virus Vaccine Unknown Completed [facility] TDAP Unknown Completed [facility] Daptacel DTAP [facility], Adol or Pedi Dosage Unknown Completed [facility] Meningococcal Polysaccharide (groups A, C, Y and W-135) conjugate vaccine (MCV4P) Unknown Completed [facility] MMR Unknown Completed [facility] Polio (IPV/OPV) Unknown [facility] Varicella (varivax)(chicken pox) Unknown Completed [facility] Hiberix Unknown Completed [facility] Influenza Virus Vaccine Unknown Completed [facility] TDAP Unknown Completed [facility] Daptacel DTAP Unknown Completed [facility] Hep B, Adol or Pedi Dosage Unknown Completed [facility] Meningococcal Polysaccharide (groups A, C, Y and W-135) conjugate vaccine (MCV4P) Unknown Completed [facility] MMR Unknown Completed [facility] Polio (IPV/OPV) Unknown Completed [facility] Varicella (varivax)(chicken pox) Unknown Completed [facility] Hiberix Unknown Completed [facility] Daptacel DTAP Unknown Com[facility] B, Adol or Pedi Dosage Unknown Completed [facility] Influenza Virus Vaccine Unknown Completed [facility] Meningococcal Polysaccharide (groups A, C, Y and W-135) conjugate vaccine (MCV4P) Unknown Completed [facility] MMR Unknown Completed [facility] Polio (IPV/OPV) Unknown Completed [facility] TDAP Unknown Completed [facility] Varicella (varivax)(chicken pox) Unknown Completed [facility] Hiberix Unknown Completed [facility] Daptacel DTAP Unknown Completed [facility] Hep B, Adol or Pedi Dosage Unknown Completed [facility] Influenza Virus Vaccine Unknown Completed [facility] Meningococcal Polysaccharide (groups A, C, Y and W-135) conjugate vaccine (MCV4P) Unknown Completed [facility] MMR Unknown Completed [facility] Polio (IPV/OPV) Unknown Completed [facility] TDAP Unknown Completed [facility] Varicella (varivax)(chicken pox) Unknown Completed [facility] Hiberix Unknown Completed [facility] Influenza Virus Vaccine Unknown Completed [facility] TDAP Unknown Completed [facility] Daptacel DTAP [facility], Adol or Pedi Dosage Unknown Completed [facility] Meningococcal Polysaccharide (groups A, C, Y and W-135) conjugate vaccine (MCV4P) Unknown Completed [facility] MMR Unknown Completed [facility] Polio (IPV/OPV) Unknown Completed [facility] Varicella (varivax)(chicken pox) Unknown Completed [facility] Hiberix Unknown Completed [facility] Daptacel DTAP Unknown Completed [facility] Hep B, Adol or Pedi Dosage Unknown Completed [facility] Influenza Virus Vaccine Unknown Completed [facility] Meningococcal Polysaccharide (groups A, C, Y and W-135) conjugate vaccine (MCV4P) Unknown Completed [facility] MMR Unknown Completed [facility] Polio (IPV/OPV) Unknown [facility] Com[facility] Varicella (varivax)(chicken pox) Unknown Completed [facility] Hiberix Unknown Completed [facility] Daptacel DTAP Unknown [facility], Adol or Pedi Dosage Unknown Completed [facility] Influenza Virus Vaccine Unknown Completed [facility] Meningococcal Polysaccharide (groups A, C, Y and W-135) conjugate vaccine (MCV4P) Unknown Completed [facility] MMR Unknown Completed [facility] Polio (IPV/OPV) Unknown [facility] Completed [facility] Varicella (varivax)(chicken pox) Unknown Completed [facility] Hiberix Unknown Completed [facility] Daptacel DTAP Unknown Completed [facility] Hep B, Adol or Pedi Dosage Unknown Completed [facility] Influenza Virus Vaccine Unknown Completed [facility] Meningococcal Polysaccharide (groups A, C, Y and W-135) conjugate vaccine (MCV4P) Unknown Completed [facility] MMR Unknown Completed [facility] Polio (IPV/OPV) Unknown [facility] Varicella (varivax)(chicken pox) Unknown Completed [facility] Hiberix Unknown Completed [facility] Daptacel DTAP Unknown [facility], Adol or Pedi Dosage Unknown Completed [facility] Influenza Virus Vaccine Unknown Completed [facility] Meningococcal Polysaccharide (groups A, C, Y and W-135) conjugate vaccine (MCV4P) Unknown Completed [facility] MMR Unknown Completed [facility] Polio (IPV/OPV) Unknown [facility] Com[facility] Varicella (varivax)(chicken pox) Unknown Completed [facility] Hiberix Unknown Completed [facility] Daptacel DTAP Unknown [facility], Adol or Pedi Dosage Unknown Completed [facility] Influenza Virus Vaccine Unknown Completed [facility] Meningococcal Polysaccharide (groups A, C, Y and W-135) conjugate vaccine (MCV4P) Unknown Completed [facility] MMR Unknown Completed [facility] Polio (IPV/OPV) Unknown Completed [facility] TDAP Unknown Completed [facility] Varicella (varivax)(chicken pox) Unknown Completed [facility] Hiberix Unknown Completed [facility] Daptacel DTAP Unknown Completed [facility] Hep B, Adol or Pedi Dosage Unknown Completed [facility] Influenza Virus Vaccine Unknown Completed [facility] Meningococcal Polysaccharide (groups A, C, Y and W-135) conjugate vaccine (MCV4P) Unknown Completed [facility] MMR Unknown Completed [facility] Polio (IPV/OPV) Unknown Completed [facility] TDAP Unknown Completed [facility] Varicella (varivax)(chicken pox) Unknown Completed [facility] Hiberix Unknown Completed [facility]el DTAP [facility], [facility]os[facility] Unknown Completed [facility] Influenza Virus Vaccine Unknown Completed [facility] Meningococcal Polysaccharide (groups A, C, Y and W-135) conjugate vaccine (MCV4P) Unknown Completed [facility] MMR Unknown Completed [facility] Polio (IPV/OPV) Unknown Completed [facility] TDAP Unknown Completed [facility] Varicella (varivax)(chicken pox) Unknown Completed [facility] Hiberix Unknown Completed [facility] Daptacel DTAP Unknown Completed [facility] Hep B, Adol or Pedi Dosage Unknown Completed [facility] Influenza Virus Vaccine Unknown Completed [facility] Meningococcal Polysaccharide (groups A, C, Y and W-135) conjugate vaccine (MCV4P) Unknown Completed [facility] MMR Unknown Completed [facility] Polio (IPV/OPV) Unknown Completed [facility] TDAP Unknown Completed [facility] Varicella (varivax)(chicken pox) Unknown Completed [facility] Hiberix Unknown Completed [facility] Daptacel DTAP Unknown [facility], Adol or Pedi Dosage Unknown Completed [facility] Influenza Virus Vaccine Unknown Completed [facility] Meningococcal Polysaccharide (groups A, C, Y and W-135) conjugate vaccine (MCV4P) Unknown Completed [facility] MMR Unknown Completed [facility] Polio (IPV/OPV) Unknown [facility] Completed [facility] Varicella (varivax)(chicken pox) Unknown Completed [facility] Hiberix Unknown Completed [facility] Daptacel DTAP Unknown Completed [facility] Hep B, Adol or Pedi Dosage Unknown Completed [facility] Influenza Virus Vaccine Unknown Completed [facility] Meningococcal Polysaccharide (groups A, C, Y and W-135) conjugate vaccine (MCV4P) Unknown Completed [facility] MMR Unknown Completed [facility] Polio (IPV/OPV) Unknown Completed [facility] TDAP Unknown Completed [facility] Varicella (varivax)(chicken pox) Unknown Completed [facility] Hiberix Unknown Completed [facility] Daptacel DTAP [facility], Adol or Pedi Dosage Unknown Completed [facility] Influenza Virus Vaccine Unknown Completed [facility] Meningococcal Polysaccharide (groups A, C, Y and W-135) conjugate vaccine (MCV4P) Unknown Completed [facility] MMR Unknown Completed [facility] Polio (IPV/OPV) Unknown [facility] Completed [facility] Varicella (varivax)(chicken pox) Unknown Completed [facility] Hiberix Unknown Completed [facility] Daptacel DTAP Unknown Completed [facility] Hep B, Adol or Pedi Dosage Unknown Completed [facility] Influenza Virus Vaccine Unknown Completed [facility] Meningococcal Polysaccharide (groups A, C, Y and W-135) conjugate vaccine (MCV4P) Unknown Completed [facility] MMR Unknown Completed [facility] Polio (IPV/OPV) Unknown Completed [facility] TDAP Unknown Completed [facility] Varicella (varivax)(chicken pox) Unknown Completed [facility] Hiberix Unknown Completed [facility] Daptacel DTAP Unknown Completed [facility] Hep B, Adol or Pedi Dosage Unknown Completed [facility] Influenza Virus Vaccine Unknown Completed [facility] Meningococcal Polysaccharide (groups A, C, Y and W-135) conjugate vaccine (MCV4P) Unknown Completed [facility] MMR Unknown Completed [facility] Polio (IPV/OPV) Unknown Completed [facility] TDAP Unknown Completed [facility] Varicella (varivax)(chicken pox) Unknown Completed [facility] Hiberix Unknown Completed [facility] Daptacel DTAP Unknown [facility], Adol or Pedi Dosage Unknown Completed [facility] Influenza Virus Vaccine Unknown Completed [facility] Meningococcal Polysaccharide (groups A, C, Y and W-135) conjugate vaccine (MCV4P) Unknown Completed [facility] MMR Unknown Completed [facility] Polio (IPV/OPV) Unknown Completed [facility] TDAP Unknown Completed [facility] Varicella (varivax)(chicken pox) Unknown Completed [facility] Hiberix Unknown Completed [facility] Daptacel DTAP Unknown Completed [facility] Hep B, Adol or Pedi Dosage Unknown Completed [facility] Influenza Virus Vaccine Unknown Completed [facility] Meningococcal Polysaccharide (groups A, C, Y and W-135) conjugate vaccine (MCV4P) Unknown Completed [facility] MMR Unknown Completed [facility] Polio (IPV/OPV) Unknown Completed [facility] TDAP Unknown Completed [facility] Varicella (varivax)(chicken pox) Unknown Completed [facility] Hiberix Unknown Completed [facility] Daptacel DTAP Unknown [facility], Adol or Pedi Dosage Unknown Completed [facility] Influenza Virus Vaccine Unknown Completed [facility] Meningococcal Polysaccharide (groups A, C, Y and W-135) conjugate vaccine (MCV4P) Unknown Completed [facility] MMR Unknown Completed [facility] Polio (IPV/OPV) Unknown Completed [facility] TDAP Unknown Completed [facility] Varicella (varivax)(chicken pox) Unknown Completed [facility] Hiberix Unknown Completed [facility] Daptacel DTAP Unknown Completed [facility] Hep B, Adol or Pedi Dosage Unknown Completed [facility] Influenza Virus Vaccine Unknown Completed [facility] Meningococcal Polysaccharide (groups A, C, Y and W-135) conjugate vaccine (MCV4P) Unknown Completed [facility] MMR Unknown Completed [facility] Polio (IPV/OPV) Unknown Completed [facility] TDAP Unknown Completed [facility] Varicella (varivax)(chicken pox) Unknown Completed [facility] Hiberix Unknown Completed [facility] Daptacel DTAP Unknown Completed [facility] Hep B, Adol or Pedi Dosage Unknown Completed [facility] Influenza Virus Vaccine Unknown Completed [facility] Meningococcal Polysaccharide (groups A, C, Y and W-135) conjugate vaccine (MCV4P) Unknown Completed [facility] MMR Unknown Completed [facility] Polio (IPV/OPV) Unknown Completed [facility] TDAP Unknown Completed [facility] Varicella (varivax)(chicken pox) Unknown Completed [facility] Hiberix Unknown Completed [facility] Vital Signs Vital Name Observation Time Observation Value Comments S ource Systolic blood pressure 2024-04-01 21:25:00 122 mm[Hg] [facility] Diastolic blood pressure 2024-04-01 21:25:00 84 mm[Hg] [facility] Heart rate 2024-04-01 21:25:00 88 /min [facility] Body height 2024-04-01 21:25:00 165.1 cm [facility] Body weight 2024-04-01 21:25:00 110.224 kg [facility] BMI 2024-04-01 21:25:00 40.44 kg/m2 [facility] Oxygen saturation in Arterial blood by Pulse oximetry 2024-04-01 21:25:00 100 /min [facility] Body height 2024-03-01 19:54:00 165.1 cm [facility] Heart rate 2024-02-13 20:26:00 101 /min [facility] Systolic blood pressure 2024-02-13 20:02:00 107 mm[Hg] [facility] Diastolic blood pressure 2024-02-13 20:02:00 65 mm[Hg] [facility] Body temperature 2024-02-13 20:01:00 36.61 Nancy [facility] Respiratory rate 2024-02-13 20:01:00 18 /min [facility] Body height 2024-02-13 20:01:00 165.1 cm [facility] Body weight 2024-02-13 20:01:00 110.088 kg [facility] BMI 2024-02-13 20:01:00 40.39 kg/m2 [facility] Oxygen saturation in Arterial blood by Pulse oximetry 2024-02-13 20:01:00 100 /min [facility] Systolic blood pressure 2024-01-22 14:19:00 110 mm[Hg] [facility] Diastolic blood pressure 2024-01-22 14:19:00 66 mm[Hg] [facility] Heart rate 2024-01-22 14:19:00 104 /min [facility] Body temperature 2024-01-22 14:19:00 36.56 Nancy [facility] Body height 2024-01-22 14:19:00 165.1 cm [facility] Body weight 2024-01-22 14:19:00 113.671 kg [facility] BMI 2024-01-22 14:19:00 41.70 kg/m2 [facility] Oxygen saturation in Arterial blood by Pulse oximetry 2024-01-22 14:19:00 98 /min [facility] Systolic blood pressure 2023-12-04 21:06:00 114 mm[Hg] [facility] Diastolic blood pressure 2023-12-04 21:06:00 67 mm[Hg] [facility] Heart rate 2023-12-04 21:06:00 81 /[facility] 2023-12-04 21:06:00 16 /min [facility] Body height 2023-12-04 21:06:00 165.1 cm [facility] Body weight 2023-12-04 21:06:00 112.447 kg [facility] BMI 2023-12-04 21:06:00 41.25 kg/m2 [facility] Oxygen saturation in Arterial blood by Pulse oximetry 2023-12-04 21:06:00 97 /min [facility] Systolic blood pressure 2023-10-23 21:06:00 115 mm[Hg] [facility] Diastolic blood pressure 2023-10-23 21:06:00 76 mm[Hg] [facility] Heart rate 2023-10-23 21:06:00 79 /min [facility] Body temperature 2023-10-23 21:06:00 36.83 Nancy [facility] Body height 2023-10-23 21:06:00 162.6 cm [facility] Body weight 2023-10-23 21:06:00 112.038 kg [facility] BMI 2023-10-23 21:06:00 42.40 kg/m2 [facility] Oxygen saturation in Arterial blood by Pulse oximetry 2023-10-23 21:06:00 100 /min [facility] Systolic blood pressure 2023-10-02 21:17:00 124 mm[Hg] [facility] Diastolic blood pressure 2023-10-02 21:17:00 69 mm[Hg] [facility] Heart rate 2023-10-02 21:17:00 85 /min [facility] Respiratory rate 2023-10-02 21:17:00 16 /min [facility] Body height 2023-10-02 21:17:00 162.6 cm [facility] Body weight 2023-10-02 21:17:00 112.583 kg [facility] BMI 2023-10-02 21:17:00 42.60 kg[facility] Oxygen saturation in Arterial blood by Pulse oximetry 2023-10-02 21:17:00 98 /min [facility] Systolic blood pressure 2023-09-03 22:18:00 106 mm[Hg] [facility] Diastolic blood pressure 2023-09-03 22:18:00 74 mm[Hg] [facility] Heart rate 2023-09-03 22:18:00 98 /min [facility] Body temperature 2023-09-03 22:18:00 36.83 Nancy [facility] Body height 2023-09-03 22:18:00 165.1 cm [facility] Oxygen saturation in Arterial blood by Pulse oximetry 2023-09-03 22:18:00 98 /min [facility] Systolic blood pressure 2023-08-28 14:56:00 105 mm[Hg] [facility] Diastolic blood pressure 2023-08-28 14:56:00 63 mm[Hg] [facility] Heart rate 2023-08-28 14:56:00 81 /min [facility] Respiratory rate 2023-08-28 14:56:00 18 /min [facility] Body height 2023-08-28 14:56:00 165.1 cm [facility] Body weight 2023-08-28 14:56:00 113.762 kg [facility] BMI 2023-08-28 14:56:00 41.74 kg/m2 [facility] Oxygen saturation in Arterial blood by Pulse oximetry 2023-08-28 14:56:00 100 /min [facility] Systolic blood pressure 2023-08-27 22:13:00 112 mm[Hg] [facility] Diastolic blood pressure 2023-08-27 22:13:00 75 mm[Hg] [facility] Heart rate 2023-08-27 22:13:00 79 /min [facility] Body temperature 2023-08-27 22:13:00 36.78 Nancy [facility] Body height 2023-08-27 22:13:00 165.1 cm [facility] weight 2023-08-27 22:13:00 112.946 kg [facility] BMI 2023-08-27 22:13:00 41.44 kg/m2 [facility] Oxygen saturation in Arterial blood by Pulse oximetry 2023-08-27 22:13:00 100 /min [facility] Systolic blood pressure 2023-05-07 02:00:00 123 mm[Hg] [facility] Diastolic blood pressure 2023-05-07 02:00:00 86 mm[Hg] [facility] Heart rate 2023-05-07 02:00:00 75 /min [facility] Body temperature 2023-05-07 02:00:00 36.89 Nancy [facility] Respiratory rate 2023-05-07 02:00:00 16 /min [facility] Oxygen saturation in Arterial blood by Pulse oximetry 2023-05-07 02:00:00 99 /min [facility] Body height 2023-05-07 00:24:00 165.1 cm [facility] Body weight 2023-05-07 00:24:00 104.327 kg [facility] BMI 2023-05-07 00:24:00 38.27 kg/m2 [facility] Systolic blood pressure 2023-05-04 14:08:00 106 mm[Hg] [facility] Diastolic blood pressure 2023-05-04 14:08:00 71 mm[Hg] [facility] Heart rate 2023-05-04 14:08:00 79 /min [facility] Body temperature 2023-05-04 14:08:00 36.94 Nancy [facility] Body height 2023-05-04 14:08:00 165.1 cm [facility] Body weight 2023-05-04 14:08:00 112.674 kg [facility] BMI 2023-05-04 14:08:00 41.34 kg/m2 [facility] Oxygen saturation in Arterial blood by Pulse oximetry 2023-05-04 14:08:00 99 /min [facility] Systolic blood pressure 2023-05-03 04:36:00 129 mm[Hg] [facility] Diastolic blood pressure 2023-05-03 04:36:00 78 mm[Hg] [facility] Heart rate 2023-05-03 04:36:00 91 /min [facility] Respiratory rate 2023-05-03 04:36:00 16 /min [facility] Oxygen saturation in Arterial blood by Pulse oximetry 2023-05-03 04:36:00 99 /min [facility] Body temperature 2023-05-03 00:25:00 36.78 Nancy [facility] Systolic blood pressure 2023-05-03 00:02:00 112 mm[Hg] [facility] Diastolic blood pressure 2023-05-03 00:02:00 81 mm[Hg] [facility] Heart rate 2023-05-03 00:02:00 86 /min [facility] Body temperature 2023-05-03 00:02:00 36.56 Nancy [facility] Respiratory rate 2023-05-03 00:02:00 16 /min [facility] Body weight 2023-05-03 00:02:00 111.449 kg [facility] BMI 2023-05-03 00:02:00 40.89 kg/m2 [facility] Oxygen saturation in Arterial blood by Pulse oximetry 2023-05-03 00:02:00 99 /min [facility] Systolic blood pressure 2023-03-03 13:09:00 112 mm[Hg] [facility] Diastolic blood pressure 2023-03-03 13:09:00 76 mm[Hg] [facility] Heart rate 2023-03-03 13:09:00 76 [facility] Body height 2023-03-03 13:09:00 165.1 cm [facility] Body weight 2023-03-03 13:09:00 108.364 kg [facility] BMI 2023-03-03 13:09:00 39.76 kg/m2 [facility] Oxygen saturation in Arterial blood by Pulse oximetry 2023-03-03 13:09:00 98 /min [facility] Systolic blood pressure 2023-02-20 14:08:00 126 mm[Hg] [facility] Diastolic blood pressure 2023-02-20 14:08:00 80 mm[Hg] [facility] Heart rate 2023-02-20 14:08:00 93 /min [facility] Respiratory rate 2023-02-20 14:08:00 18 /min [facility] Body height 2023-02-20 14:08:00 165.1 cm [facility] Body weight 2023-02-20 14:08:00 108.863 kg [facility] BMI 2023-02-20 14:08:00 39.94 kg/m2 [facility] Oxygen saturation in Arterial blood by Pulse oximetry 2023-02-20 14:08:00 99 /min [facility] Systolic blood pressure 2023-02-11 17:32:00 115 mm[Hg] [facility] Diastolic blood pressure 2023-02-11 17:32:00 77 mm[Hg] [facility] Heart rate 2023-02-11 17:32:00 84 /min [facility] Body temperature 2023-02-11 17:32:00 36.11 Nancy [facility] Body height 2023-02-11 17:32:00 165.1 cm [facility] Body weight 2023-02-11 17:32:00 109.181 kg [facility] BMI 2023-02-11 17:32:00 40.05 kg/m2 [facility] Oxygen saturation in Arterial blood by Pulse oximetry 2023-02-11 17:32:00 98 /min [facility] Systolic blood pressure 2023-02-11 13:24:00 110 mm[Hg] [facility] Diastolic blood pressure 2023-02-11 13:24:00 80 mm[Hg] [facility] Heart rate 2023-02-11 13:24:00 82 /min [facility] 2023-02-11 13:24:00 35.94 Nancy [facility] Body height 2023-02-11 13:24:00 165.1 cm [facility] Body weight 2023-02-11 13:24:00 109.498 kg [facility] BMI 2023-02-11 13:24:00 40.17 kg/m2 [facility] Oxygen saturation in Arterial blood by Pulse oximetry 2023-02-11 13:24:00 98 /min [facility] Systolic blood pressure 2023-02-02 21:23:00 113 mm[Hg] [facility] Diastolic blood pressure 2023-02-02 21:23:00 83 mm[Hg] [facility] Heart rate 2023-02-02 21:23:00 85 /min [facility] Respiratory rate 2023-02-02 21:23:00 18 /min [facility] Body height 2023-02-02 21:23:00 165.1 cm [facility] Body weight 2023-02-02 21:23:00 108.183 kg [facility] BMI 2023-02-02 21:23:00 39.69 kg/m2 [facility] Oxygen saturation in Arterial blood by Pulse oximetry 2023-02-02 21:23:00 99 /min [facility] [facility] Systolic blood pressure 2023-01-14 13:09:00 112 mm[Hg] [facility] Diastolic blood pressure 2023-01-14 13:09:00 73 mm[Hg] [facility] Heart rate 2023-01-14 13:09:00 73 /min [facility] 2023-01-14 13:09:00 36.67 Nancy [facility] Body height 2023-01-14 13:09:00 165.1 cm [facility] weight 2023-01-14 13:09:00 107.049 kg [facility] BMI 2023-01-14 13:09:00 39.27 kg/m2 [facility] Oxygen saturation in Arterial blood by Pulse oximetry 2023-01-14 13:09:00 100 /min [facility] Systolic blood pressure 2022-08-22 15:33:00 101 mm[Hg] [facility] Diastolic blood pressure 2022-08-22 15:33:00 68 mm[Hg] [facility] Heart rate 2022-08-22 15:33:00 68 /min [facility] Body height 2022-08-22 15:33:00 162.6 cm [facility] Body weight 2022-08-22 15:33:00 102.059 kg [facility] BMI 2022-08-22 15:33:00 38.62 kg/m2 [facility] Systolic blood pressure 2022-07-22 16:47:00 109 mm[Hg] [facility] Diastolic blood pressure 2022-07-22 16:47:00 78 mm[Hg] [facility] Heart rate 2022-07-22 16:47:00 81 /min [facility] Respiratory rate 2022-07-22 16:47:00 18 /min [facility] Body height 2022-07-22 16:47:00 162.6 cm [facility] Body weight 2022-07-22 16:47:00 102.649 kg [facility] BMI 2022-07-22 16:47:00 38.84 kg/m2 [facility] weight 2022-07-07 15:00:00 229.5 [lb_av] [facility] height 2022-07-07 15:00:00 64 [in_i] [facility] bmi 2022-07-07 15:00:00 39.39 kg/m2 [facility] heart rate 2022-07-07 15:00:00 82 /min [facility] temperature 2022-07-07 15:00:00 98.1 [degF] [facility] oximetry 2022-07-07 15:00:00 98 % [facility] blood pressure systolic 2022-07-07 15:00:00 102 mm[Hg] [facility] blood pressure diastolic 2022-07-07 15:00:00 76 mm[Hg] [facility] weight 2021-06-07 14:00:00 200.7 [lb_av] [facility] height 2021-06-07 14:00:00 64 [in_i] [facility] bmi 2021-06-07 14:00:00 34.45 kg/m2 [facility] heart rate 2021-06-07 14:00:00 109 /min [facility] temperature 2021-06-07 14:00:00 98.2 [degF] [facility] oximetry 2021-06-07 14:00:00 98 % [facility] blood pressure systolic 2021-06-07 14:00:00 115 mm[Hg] [facility] blood pressure diastolic 2021-06-07 14:00:00 71 mm[Hg] [facility] heart rate 2021-02-22 12:20:00 140 /min [facility] temperature 2021-02-22 12:20:00 100.4 [degF] [facility] oximetry 2021-02-22 12:20:00 97 % [facility] weight 2021-01-03 13:15:00 189.1 [lb_av] [facility] height 2021-01-03 13:15:00 64 [in_i] [facility] bmi 2021-01-03 13:15:00 32.46 kg/m2 [facility] heart rate 2021-01-03 13:15:00 104 /min [facility] temperature 2021-01-03 13:15:00 98.4 [degF] [facility] oximetry 2021-01-03 13:15:00 98 % [facility] blood pressure systolic 2021-01-03 13:15:00 116 mm[Hg] [facility] blood pressure diastolic 2021-01-03 13:15:00 72 mm[Hg] [facility] Systolic blood pressure 2019-12-13 16:01:00 110 mm[Hg] [facility] Diastolic blood pressure 2019-12-13 16:01:00 80 mm[Hg] [facility] Heart rate 2019-12-13 16:01:00 75 /min Unive [facility] Body temperature 2019-12-13 16:01:00 36.33 Nancy [facility] Respiratory rate 2019-12-13 16:01:00 18 /min [facility] Oxygen saturation in Arterial blood by Pulse oximetry 2019-12-13 16:01:00 100 /min [facility] Body weight 2019-12-13 09:20:00 88.996 kg [facility] BMI 2019-12-13 09:20:00 33.68 kg/m2 [facility] Body height 2019-12-11 00:55:00 162.6 cm [facility] Systolic blood pressure 2019-12-13 16:01:00 110 mm[Hg] [facility] Diastolic blood pressure 2019-12-13 16:01:00 80 mm[Hg] [facility] Heart rate 2019-12-13 16:01:00 75 /min Unive [facility] Body temperature 2019-12-13 16:01:00 36.33 Nancy [facility] Respiratory rate 2019-12-13 16:01:00 18 /min [facility] Oxygen saturation in Arterial blood by Pulse oximetry 2019-12-13 16:01:00 100 /min [facility] Body weight 2019-12-13 09:20:00 88.996 kg [facility] BMI 2019-12-13 09:20:00 33.68 kg/m2 [facility] Body height 2019-12-11 00:55:00 162.6 cm Univ [facility] Systolic blood pressure 2019-12-04 16:51:00 93 mm[Hg] [facility] Diastolic blood pressure 2019-12-04 16:51:00 52 mm[Hg] [facility] Heart rate 2019-12-04 16:51:00 73 /min Unive [facility] Body temperature 2019-12-04 16:51:00 36.39 Nancy [facility] Respiratory rate 2019-12-04 16:51:00 18 /min [facility] Oxygen saturation in Arterial blood by Pulse oximetry 2019-12-04 16:51:00 99 /min [facility] Body weight 2019-12-04 08:26:00 89.994 kg [facility] BMI 2019-12-04 08:26:00 34.06 kg/m2 [facility] Body height 2019-12-03 18:55:00 162.6 cm [facility] Systolic blood pressure 2019-12-04 16:51:00 93 mm[Hg] [facility] Diastolic blood pressure 2019-12-04 16:51:00 52 mm[Hg] [facility] Heart rate 2019-12-04 16:51:00 73 /min Unive [facility] Body temperature 2019-12-04 16:51:00 36.39 Nancy [facility] Respiratory rate 2019-12-04 16:51:00 18 /min [facility] Oxygen saturation in Arterial blood by Pulse oximetry 2019-12-04 16:51:00 99 /min [facility] Body weight 2019-12-04 08:26:00 89.994 kg [facility] BMI 2019-12-04 08:26:00 34.06 kg/m2 [facility] Body height 2019-12-03 18:55:00 162.6 cm [facility] Procedures Procedure Date / Time Performed Performing Clinician Source VITAMIN B6, PLASMA 2023-10-02 21:52:00 Nataliia Talbert [facility] MAGNESIUM 2023-10-02 21:52:00 Nataliia Talbert [facility] FERRITIN SERUM 2023-10-02 21:52:00 [facility] VITAM[facility] B12, LEVEL 2023-10-02 21:52:00 Nataliia Talbert [facility] FOLATE 2023-10-02 21:52:00 Nataliia Talbert [facility] THYROID STIMULATING HORMONE 2023-10-02 21:52:00 Nataliia Talbert [facility] COMP. METABOLIC PANEL (77302) 2023-10-02 21:52:00 Nataliia Talbert [facility] LIPID PANEL (67155)(TOTAL CHOLESTEROL, TRIGLYCERIDES, HDL) 2023-10-02 21:52:00 Nataliia Talbert [facility] IRON PANEL 2023-10-02 21:52:00 Nataliia Talbert [facility] CBC WITH DIFF 2023-10-02 21:52:00 Nataliia Talbert [facility] GLYCOSYLATED HEMOGLOBIN (A1C) 2023-10-02 21:52:00 Nataliia Talbert [facility] VITAMIN D, 25-OH 2023-10-02 21:52:00 Nataliia Talbert [facility] SLEEP STUDY DATA REPORT 2023-06-10 06:01:00 Doct or Unassigned, Shokan [facility] US RETROPERITONEAL COMPLETE 2023-05-18 22:46:01 Trace Atwood [facility] ASSIGNMENT OF BENEFITS 2023-05-18 22:20:58 Docto r Unassigned, Shokan [facility] CONSENT/REFUSAL FOR DIAGNOSIS AND TREATMENT 2023-05-18 22:20:42 Doctor Unassigned, Shokan [facility] BASIC METABOLIC PANEL (NA, K, CL, CO2, GLUCOSE, BUN, CREATININE, CA) 2023-05-07 01:09:00 Ravinder Valenzuela [facility] URINALYSIS 2023-05-07 01:09:00 Ravinder Valenzuela [facility] POCT TEST 2023-05-07 01:09:00 Marshall Valenzuela [facility] CONSENT/REFUSAL FOR DIAGNOSIS AND TREATMENT 2023-05-07 00:13:20 Doctor Unassigned, Shokan [facility] PATIENT QUESTIONNAIRE 2023-05-04 06:01:00 Doctor Unassigned, Shokan [facility] CT ABDOMEN PELVIS W CONTRAST 2023-05-03 02:19:10 Farhana Arnold [facility] LIPASE 2023-05-03 01:41:00 Farhana Arnold [facility] HEPATIC FUNCTION PANEL (60915) (ALB,T.PRO,BILI T,BU/BC,ALT,AST,ALK PHOS) 2023-05-03 01:41:00 Farhana Arnold [facility] BASIC METABOLIC PANEL (NA, K, CL, CO2, GLUCOSE, BUN, CREATININE, CA) 2023-05-03 01:41:00 Farhana Arnold [facility] CBC WITH DIFF 2023-05-03 01:41:00 Farhana Arnold [facility] POCT TEST 2023-05-03 01:07:00 Farhana Arnold [facility] URINALYSIS 2023-05-03 01:06:00 Farhana Arnold [facility] CONSENT/REFUSAL FOR DIAGNOSIS AND TREATMENT 2023-05-03 00:21:40 Doctor Unassigned, Shokan [facility] MR CERVICAL SPINE WO CONTRAST 2023-02-20 15:08:24 Darell Hartley [facility] SLEEP STUDY DATA REPORT 2023-02-03 05:01:00 Doct or Unassigned, Shokan [facility] POCT TEST 2023-01-14 13:50:00 Nataliia Talbert [facility] MEDICATION CORRESPONDENCE 2022-10-02 05:01:00 Do ctor Unassigned, Shokan [facility] XR CHEST 2 VW 2022-09-26 14:44:11 Laurita Calderon [facility] ASSIGNMENT OF BENEFITS 2022-09-26 14:23:34 Docto r Unassigned, Shokan [facility] PATIENT FINANCIAL POLICY 2022-08-22 15:16:36 Doctor Unassigned, Shokan [facility] ASSIGNMENT OF BENEFITS 2022-07-22 16:42:31 Docto r Unassigned, Shokan [facility] BASIC METABOLIC PANEL (NA, K, CL, CO2, GLUCOSE, BUN, CREATININE, CA) 2019-12-13 08:55:00 [facility] 2019-12-13 08:55:00 Tiffani Elizabeth [facility] BASIC METABOLIC PANEL (NA, K, CL, CO2, GLUCOSE, BUN, CREATININE, CA) 2019-12-12 08:07:00 Janeth Elizabeth [facility] CBC WITH DIFFERENTIAL 2019-12-12 08:07:00 Tiffani Elizabeth [facility] SURGICAL PATHOLOGY EXAM 2019-12-11 14:00:00 Kj Pack [facility] LAPAROSCOPIC APPENDECTOMY 2019-12-11 12:53:00 Annetta Pack [facility] MAGNESIUM 2019-12-11 08:12:00 Stephanie Vega [facility] BASIC METABOLIC PANEL (NA, K, CL, CO2, GLUCOSE, BUN, CREATININE, CA) 2019-12-11 08:12:00 Stephanie Vega [facility] CBC WITH DIFFERENTIAL 2019-12-11 08:12:00 Denis Vega [facility] PROTHROMBIN TIME / INR 2019-12-11 08:12:00 Ld Hardin [facility] ACTIVATED PARTIAL THRMPLAS JOSE MARTIN 2019-12-11 08:12:00 [facility] ([facility] NOW RAPID TESTING) 2019-12-10 23:13:00 Jessica Worley [facility] BLOOD CULTURE SCREEN 2019-12-10 22:28:00 Armando Worley [facility] BLOOD CULTURE SCREEN 2019-12-10 22:15:00 Armando Worley [facility] LACTIC ACID WHOLE BLOOD 2019-12-10 22:13:00 Jessica Worley [facility] CT ABDOMEN PELVIS W CONTRAST 2019-12-10 21:47:45 Jessica Worley [facility] LIPASE 2019-12-10 20:34:00 BrunildaJessica [facility] COMP. METABOLIC PANEL (61264) 2019-12-10 20:34:00 Brunilda Jessica Singh [facility] CBC WITH DIFFERENTIAL 2019-12-10 20:34:00 GoldenSebastian pattenlaurie Singh [facility] URINALYSIS 2019-12-10 20:34:00 Brunilda Micheallaurie Winters [facility] URINE CULTURE 2019-12-10 20:34:00 Brunilda Armandorufuslaurie Singh [facility] POCT TEST 2019-12-10 20:34:00 BrunildaJin [facility] CBC WITH DIFFERENTIAL 2019-12-04 10:31:00 Chandrika [facility] ASPIRATE OR ABSCESS CULTURE(AEROBIC/ANAEROBIC) 2019-12-03 16:05:18 Chand[address] [facility] CT PELVIS W CONTRAST 2019-12-03 13:34:34 Kendra Valenzuela [facility] BLOOD CULTURE SCREEN 2019-12-03 12:49:00 Kendra Valenzuela [facility] POCT TEST 2019-12-03 12:32:00 Marshall Valenzuela [facility] URINALYSIS 2019-12-03 12:29:00 Ravinder Valenzuela [facility] COVID-19 (ID NOW RAPID TESTING) 2019-12-03 12:29:00 Ravinder Valenzuela [facility] BLOOD CULTURE SCREEN 2019-12-03 12:21:00 Kendra Valenzuela [facility] CBC WITH DIFFERENTIAL 2019-12-03 12:21:00 Dakotah Valenzuela [facility] PROTHROMBIN TIME / INR 2019-12-03 12:21:00 Sathish Valenzuela [facility] ACTIVATED PARTIAL THRMPLAS JOSE MARTIN 2019-12-03 12:21:00 Ravinder Valenzuela [facility] HEPATIC FUNCTION PANEL (63338) (ALB,T.PRO,BILI T,BU/BC,ALT,AST,ALK PHOS) 2019-12-03 12:20:00 Ravinder Valenzuela [facility] BASIC METABOLIC PANEL (NA, K, CL, CO2, GLUCOSE, BUN, CREATININE, CA) 2019-12-03 12:20:00 Ravinder Valenzuela [facility] LACTIC ACID WHOLE BLOOD 2019-12-03 12:20:00 Do kaitlin Valenzuela [facility] NOTICE OF PRIVACY PRACTICES 2019-12-03 11:17:35 Doctor Unassigned, Shokan [facility] Encounters Start Date/Time End Date/Time Encounter Type Admission Type Attending [facility] Care Facility Care Department Encounter ID Source 2023-02-02 11:21:00 Outpatient MovedAnabel [facility] [id number] [facility] 2022-10-22 10:15:02 Outpatient Jj Zaidi [facility] [id number] [facility] 2022-09-30 11:55:01 Outpatient Jj Zaidi [facility] [id number] [facility] 2022-07-14 11:32:02 Outpatient Jj Zaidi [facility] [id number] [facility] 2022-07-11 17:06:00 Outpatient Jj ZaidiWALTERANDRES [facility] [id number] [facility] 2022-07-07 11:43:03 Outpatient Jj Zaidi [facility] [id number] [facility] 2022-06-10 11:01:01 Outpatient Jj Zaidi [facility] [id number] [facility] 2022-02-05 14:59:01 Outpatient DejuanJj young [facility] [id number] [facility] 2021-10-01 14:12:02 Outpatient DejuanJj young [facility] [id number] [facility] 2021-09-02 17:03:02 Outpatient Jj Zaidi [facility] [id number] [facility] 2021-07-24 14:27:47 Outpatient Jj Zadii [facility] [id number] [facility] 2021-07-24 14:23:59 Outpatient Jj Zaidi [facility] [id number] [facility] 2021-07-24 14:08:21 Outpatient Jj Zaidi [facility] [id number] [facility] 2021-07-24 13:23:42 Outpatient [facility] [id number] [facility] 2024-05-24 08:30:00 2024-05-24 08:30:00 Outpatient R ALE REAL [facility] [id number] [facility] 2024-04-26 07:30:00 2024-04-26 07:30:00 Outpatient R TERESA BELL [facility] [id number] [facility] 2024-04-01 16:30:00 2024-04-01 17:00:59 Outpatient R NATALIIA TALBERT [facility] [id number] [facility] 2024-04-01 16:30:00 2024-04-01 17:00:59 Office Visit Nataliia Talbert [facility] 1.840.114 350.1.13.10 4.2.7.2.686 [id number] [facility] 2024-03-14 00:00:00 2024-03-15 09:27:55 Telephone Ale Real [facility] 1.840.114 350.1.13.10 4.2.7.2.686 [id number] [facility] 2024-03-10 16:00:00 2024-03-10 16:00:00 Outpatient TIBURCIO THOMAS [facility] [id number] [facility] 2024-02-25 00:00:00 2024-03-03 23:56:01 Patient Secure Msg RealSilvana [facility] 1..840.114 350.1.13.10 4.2.7.2.686 [id number] [facility] 2024-03-03 16:00:00 2024-03-03 16:00:00 Outpatient TIBURCIO THOMAS [facility] [id number] [facility] 2024-03-03 10:30:00 2024-03-03 10:30:00 Outpatient TIBURCIO THOMAS [facility] [id number] [facility] 2024-03-01 14:30:00 2024-03-01 14:45:00 Office Visit Edmond Patel Brandon [facility] 1..840.114 350.1.13.10 4.2.7.2.686 [id number] [facility] 2024-03-01 14:30:00 2024-03-01 14:30:00 Outpatient SARAH ANDUJAR [facility] [id number] [facility] 2024-02-13 14:40:00 2024-02-13 15:00:00 Urgent Care Cami Nguyen, Attending [facility] 1..840.114 350.1.13.10 4.2.7.2.686 [id number] [facility] 2024-02-13 14:40:00 2024-02-13 14:40:00 Outpatient CAMI PETER [facility] [id number] [facility] 2024-01-25 00:00:00 2024-01-28 12:21:29 Telephone AddieAle [facility] 1.2.840.114 350.1.13.10 4.2.7.2.686 [id number] [facility] 2024-01-28 10:00:00 2024-01-28 10:00:00 Outpatient R [facility] [id number] [facility] 2024-01-22 09:00:00 2024-01-22 09:53:45 Outpatient R ADDIEИВАНALE [facility] [id number] [facility] 2024-01-22 09:00:00 2024-01-22 09:53:45 Office Visit Ale [facility] 1.2.840.114 350.1.13.10 4.2.7.2.686 [id number] [facility] 2024-01-15 00:00:00 2024-01-19 12:38:36 Telephone [facility] 1.2.840.114 350.1.13.10 4.2.7.2.686 [id number] [facility] 2024-01-13 08:00:00 2024-01-13 18:00:00 Chicken Picker Visit 1, [facility] Sleep Lab Bed Shelly Bedolla [facility] 1.2.840.114 350.1.13.10 4.2.7.2.686 [id number] [facility] 2024-01-13 08:00:00 2024-01-13 17:47:41 Outpatient R SHELLY BEDOLLA STRAHIL [facility] [id number] [facility] 2024-01-13 00:00:00 2024-01-13 09:29:14 Telephone Shelly Bedolla [facility] 1.0.114 350.1.13.10 4.2.7.2.686 [id number] [facility] 2024-01-13 00:00:00 2024-01-13 09:23:22 Telephone Michelle Belcher [facility] 1.2840.114 350.1.13.10 4.2.7.2.686 [id number] [facility] 2024-01-13 08:00:00 2024-01-13 08:00:00 Outpatient R SHELLY BEDOLLA STRAAREliazar [facility] [id number] [facility] 2024-01-13 07:45:00 2024-01-13 08:00:00 Chicken Picker Visit Pob, Adc Lab Main Shelly [facility]ollaMichelle [facility] 1.840.114 350.1.13.10 4.2.7.2.686 [id number] [facility] 2024-01-12 20:00:00 2024-01-12 22:30:00 Chicken Picker Visit 1, Adc Sleep Lab Bed Sultana Ale [facility] 1.840.114 350.1.13.10 4.2.7.2.686 [id number] [facility] 2024-01-12 20:00:00 2024-01-12 20:00:00 Outpatient R ИВАН REALWANA [facility] [id number] [facility] 2024-01-11 00:00:00 2024-01-11 11:20:36 Telephone Vitor Valenzuela [facility] 1.840.114 350.1.13.10 4.2.7.2.686 [id number] [facility] 2023-12-29 20:00:00 2023-12-29 20:00:00 Outpatient R [facility] [id number] [facility] 2023-12-29 00:00:00 2023-12-29 11:04:[address] [facility] 1.2.840.114 350.1.13.10 4.2.7.2.686 [id number] [facility] 2023-12-28 00:00:00 2023-12-28 11:58:38 Telephone Michelle Belcher [facility] MED[facility] OFF[facility]ILD[facility] 1.2840.114 350.1.13.10 4.2.7.2.686 [id number] [facility] 2023-12-25 00:00:00 2023-12-25 15:10:51 Case Management Michelle Belcher [facility] MEDICAL OFFICE BUILDING 1.2840.114 350.1.13.10 4.2.7.2.686 [id number] 084 [id number] [facility] 2023-12-23 00:00:00 2023-12-23 10:21:03 Telephone Vitor Valenzuela [facility] MEDICAL OFFICE BUILDING 1.2840.114 350.1.13.10 4.2.7.2.686 [id number] 092 [id number] [facility] 2023-11-17 00:00:00 2023-12-19 18:20:21 Patient Secure Msg Doctor Unassigned, Shokan [facility] 1.2840.114 350.1.13.10 4.2.7.2.686 [id number] 019 [id number] [facility] 2023-12-04 16:00:00 2023-12-04 16:30:00 Office Visit JavanMichelle leary [facility] MEDICAL OFFICE BUILDING 1.2840.114 350.1.13.10 4.2.7.2.686 [id number] [id number] [facility] 2023-12-04 16:00:00 2023-12-04 16:00:00 Outpatient R MICHELLE BELCHER [facility] [id number] [facility] 2023-11-16 00:00:00 2023-11-16 13:31:05 Telephone Vitor Valenzuela [facility] MEDICAL OFFICE BUILDING 1.840.114 350.1.13.10 4.2.7.2.686 [id number] 092 [id number] [facility] 2023-10-07 00:00:00 2023-11-07 18:06:57 Patient Secure Msg Doctor Unassigned, Shokan [facility] 1.84.114 350.1.13.10 4.2.7.2.686 [id number] [facility] 2023-10-23 16:00:00 2023-10-23 17:00:26 Outpatient R NATALIIA TALBERT [facility] [id number] [facility] 2023-10-23 16:00:00 2023-10-23 17:00:26 Office Visit Nataliia Talbert [facility] NIXON?LILAYair [facility] MED[facility] OFFICE BUILDING 1.840.114 350.1.13.10 4.2.7.2.686 [id number] 044 [id number] [facility] 2023-10-20 00:00:00 2023-10-20 00:00:00 Telephone Vitor Valenzuela [facility] MEDICAL OFFICE BUILDING 1.84.114 350.1.13.10 4.2.7.2.686 [id number] [id number] [facility] 2023-10-13 07:30:00 2023-10-13 07:30:00 Outpatient R TERESA BELL [facility] [id number] [facility] 2023-10-07 00:00:00 2023-10-07 00:00:00 Patient Secure Msg Nataliia Talbert [facility] HUSSAIN?IVAN [facility] MEDICAL OFFICE BUILDING 1.2.840.114 350.1.13.10 4.2.7.2.686 [id number] 044 [id number] [facility] 2023-10-06 00:00:00 2023-10-06 00:00:00 Telephone Nataliia Talbert [facility] HUSSAIN?IVAN [facility] MEDICAL OFFICE BUILDING 1.2.840.114 350.1.13.10 4.2.7.2.686 [id number] 044 [id number] [facility] 2023-10-05 00:00:00 2023-10-05 00:00:00 Telephone SimiMichelle [facility] MEDICAL OFFICE BUILDING 1.2.840.114 350.1.13.10 4.2.7.2.686 [id number] [id number] [facility] 2023-10-05 00:00:00 2023-10-05 00:00:00 Patient Secure Michelle Light [facility] MEDICAL OFFICE BUILDING 1.2.840.114 350.1.13.10 4.2.7.2.686 [id number] 084 [id number] [facility] 2023-10-02 17:00:00 2023-10-02 17:15:00 Chicken Picker Visit Draw, Clc-Bls Lab JavanMichelle leary [facility] MEDICAL OFFICE BUILDING 1.2.840.114 350.1.13.10 4.2.7.2.686 [id number] [facility] 2023-10-02 17:00:00 2023-10-02 17:00:00 Outpatient R MICHELLE BELCHER [facility] [id number] [facility] 2023-10-02 16:30:00 2023-10-02 16:40:38 Office Visit JavanMichelle leary [facility] MEDICAL OFFICE BUILDING 1.2.840.114 350.1.13.10 4.2.7.2.686 [id number] 084 [id number] [facility] 2023-10-01 16:30:00 2023-10-01 16:30:00 Outpatient NATALIIA COLLAZO [facility] [id number] [facility] 2023-09-29 15:30:00 2023-09-29 15:30:00 Outpatient R MICHELLE BELCHER [facility] [id number] [facility] 2023-09-25 16:30:00 2023-09-25 16:30:00 Outpatient R TANISHA HAMILTON [facility] [id number] [facility] 2023-09-23 00:00:00 2023-09-23 00:00:[address] [facility] CRISTINA NIXON?[facility]AN [facility] MEDICAL OFF[facility] BUILDING 1.2.840.114 350.1.13.10 4.2.7.2.686 [id number] [id number] [facility] 2023-09-22 09:00:00 2023-09-22 10:05:00 Outpatient PUJA CASTILLO [facility] [id number] [facility] 2023-09-22 00:00:00 2023-09-22 00:00:00 Telephone Vitor Valenzuela [facility] MEDICAL OFFICE BUILDING 1.2.840.114 350.1.13.10 4.2.7.2.686 [id number] [id number] [facility] 2023-09-21 15:30:00 2023-09-21 15:30:00 Outpatient R MICHELLE BEL[facility]ER [facility] [id number] [facility] 2023-09-03 16:00:00 2023-09-03 16:45:21 Outpatient NATALIIA COLLAZO [facility] [id number] [facility] 2023-09-03 16:00:00 2023-09-03 16:45:21 Office Visit Nataliia Talbert [facility] HUSSAIN?[facility]AN [facility] OFF[facility] BUILDING 1.2.840.114 350.1.13.10 4.2.7.2.686 [id number] 044 [id number] [facility] 2023-09-01 00:00:00 2023-09-01 00:00:00 Patient Secure Msg Doctor Unassigned, Shokan [facility] 1.840.114 350.1.13.10 4.2.7.2.686 [id number] [facility] 2023-08-31 00:00:00 2023-08-31 00:00:00 Telephone Vitor Valenzuela [facility] MEDICAL OFFICE BUILDING 1.840.114 350.1.13.10 4.2.7.2.686 [id number] 092 [id number] [facility] 2023-08-28 09:00:00 2023-08-28 09:47:50 Outpatient R BERNARDA ALEJANDRINA [facility] [id number] [facility] 2023-08-28 09:00:00 2023-08-28 09:47:50 Office Visit Bernarda [facility] HUSSAIN?IVAN [facility] MEDICAL OFFICE BUILDING 1.840.114 350.1.13.10 4.2.7.2.686 [id number] [id number] [facility] 2023-08-28 00:00:00 2023-08-28 00:00:00 [facility] MEDICAL OFFICE BUILDING 1..840.114 350.1.13.10 4.2.7.2.686 [id number] 092 [id number] [facility] 2023-08-28 00:00:00 2023-08-28 00:00:00 Telephone Chris Yeung [facility] .840.114 350.1.13.10 4.2.7.2.686 [id number] [id number] [facility] 2023-08-27 16:00:00 2023-08-27 16:24:52 [facility] [id number] [facility] 2023-08-27 16:00:00 2023-08-27 16:24:52 Office Visit Valentina [facility]?IV[facility] MEDICAL OFFICE BUILDING 1.840.114 350.1.13.10 4.2.7.2.686 [id number] [id number] [facility] 2023-08-21 13:40:00 2023-08-21 13:40:00 Outpatient R [facility] [id number] [facility] 2023 11:00:00 2023 11:00:00 Outpatient R ALEJANDRINA MENCHACA [facility] [id number] [facility] 2023 09:00:00 2023 09:00:00 Outpatient ALEJANDRINA RODRIGUEZ [facility] [id number] [facility] 2023-06-10 20:00:00 2023-06-10 22:30:00 Chicken Picker Visit 1, [facility] Sleep Lab Bed Shelly Bedolla [facility] 1..840.114 350.1.13.10 4.2.7.2.686 [id number] [facility] 2023-06-10 20:00:00 2023-06-10 20:00:00 Outpatient R SHELLY BEDOLLA STRAHIL [facility] [id number] [facility] 2023-06-10 00:00:00 2023-06-10 00:00:00 Orders Only Doctor Unassigned, Shokan [facility] 1.2840.114 350.1.13.10 4.2.7.2.686 [id number] [facility] 2023-05-26 10:00:00 2023-05-26 10:00:00 Outpatient R WINSTON KHOURY [facility] [id number] [facility] 2023-05-19 00:00:00 2023-05-19 00:00:00 Telephone [facility] 1.840.114 350.1.13.10 4.2.7.2.686 [id number] [facility] 2023-05-18 16:20:52 2023-05-18 23:59:00 [id number] 2023-05-18 16:20:52 2023-05-18 23:59:00 Hospital Encounter [facility] 1.2840.114 350.1.13.10 4.2.7.2.686 [id number] [facility] 2023-05-15 10:00:00 2023-05-15 10:00:00 Outpatient R ARLENE DAILY [facility] [id number] [facility] 2023-05-14 00:00:00 2023-05-14 00:00:00 Darell Damon [facility] MEDICAL OFF[facility] BUILDING 1.2.840.114 350.1.13.10 4.2.7.2.686 [id number] [id number] [facility] 2023-05-11 00:00:00 2023-05-11 00:00:00 Telephone [facility] BUILDING 1.2840.114 350.1.13.10 4.2.7.2.686 [id number] [facility] 2023-05-11 00:00:00 2023-05-11 00:00:00 Patient Secure Msg Doctor Unassigned, Shokan [facility] 1.20.114 350.1.13.10 4.2.7.2.686 [id number] [facility] 2023-05-06 18:26:00 2023-05-06 20:57:00 Emergency X RAVINDER VALENZUELA [facility] ERT [id number] [facility] 2023-05-06 18:26:00 2023-05-06 20:57:00 Emergency Ravinder Valenzuela [facility] 1.0.114 350.1.13.10 4.2.7.2.686 [id number] 084 [id number] [facility] 2023-05-06 00:00:00 2023-05-06 00:00:00 Nurse Triage Marvin Millan, [facility] 1..114 350.1.13.10 4.2.7.2.686 [id number] [facility] 2023-05-05 00:00:00 2023-05-05 00:00:00 Telephone Angelic [facility] 1..114 350.1.13.10 4.2.7.2.686 [id number] [facility] 2023-05-04 12:30:00 2023-05-04 12:45:00 Chicken Picker Visit Lab, Ang - Db Angelic [facility]AN [facility] MEDICAL OFFICE BUILDING 1..114 350.1.13.10 4.2.7.2.686 [id number] [facility] 2023-05-04 08:00:00 2023-05-04 08:40:42 Outpatient R ANGELIC [facility] [id number] [facility] 2023-05-04 08:00:00 2023-05-04 08:30:00 Office Visit Trace Atwood [facility] 1.2.840.114 350.1.13.10 4.2.7.2.686 [id number] [facility] 2023-05-04 00:00:00 2023-05-04 00:00:00 Orders Only Doctor Unassigned, Shokan [facility] 1.2.840.114 350.1.13.10 4.2.7.2.686 [id number] [facility] 2023-05-02 19:29:00 2023-05-02 23:37:00 Emergency X FARHANA ARNOLD [facility] ERT [id number] [facility] 2023-05-02 19:29:00 2023-05-02 23:37:00 Emergency Farhana [facility] 1.2.840.114 350.1.13.10 4.2.7.2.686 [id number] [facility] 2023-05-02 18:45:00 2023-05-02 19:27:28 [facility] [id number] [facility] 2023-05-02 18:45:00 2023-05-02 19:27:28 Nurse Visit Vera perez [facility] 1.2.840.114 350.1.13.10 4.2.7.2.686 [id number] [facility] 2023-05-02 18:30:00 2023-05-02 18:30:00 Outpatient R VERA Perez [facility] [id number] [facility] 2023-05-01 15:30:00 2023-05-01 15:30:00 Outpatient R [facility] [id number] [facility] 2023-04-18 00:00:00 2023-04-18 00:00:00 Refill Nataliia Talbert [facility] HUSSAIN?[facility] MEDICAL OFFICE BUILDING 1.840.114 350.1.13.10 4.2.7.2.686 [id number] [facility] 2023-04-15 00:00:00 2023-04-15 00:00:00 Outpatient GC_GCBZW_Ka diyala_S [facility] [id number] [facility] 2023-04-06 00:00:00 2023-04-06 00:00:00 Refill Nataliia Talbert [facility] HUSSAIN?[facility] MEDICAL OFFICE BUILDING 1.84.114 350.1.13.10 4.2.7.2.686 [id number] [facility] 2023-03-03 08:20:00 2023-03-03 08:40:39 Outpatient R DARELL HARTLEY [facility] [id number] [facility] 2023-03-03 08:20:00 2023-03-03 08:40:39 Office Visit Darell Hartley [facility] MEDICAL OFFICE BUILDING 1.84114 350.1.13.10 4.2.7.2.686 [id number] [id number] [facility] 2023-02-27 00:00:00 2023-02-27 00:00:00 Telephone Aman [facility] 1.114 350.1.13.10 4.2.7.2.686 [id number] [id number] [facility] 2023-02-25 00:00:00 2023-02-25 00:00:00 Case Management Aman [facility] .114 350.1.13.10 4.2.7.2.686 [id number] 085 [id number] [facility] 2023-02-25 00:00:00 2023-02-25 00:00:00 Patient Secure Msg Melinda Newton [facility] 1.114 350.1.13.10 4.2.7.2.686 [id number] [facility] 2023-02-20 08:19:08 2023-02-20 23:59:00 Outpatient DARELL LOCKHART [facility] [id number] [facility] 2023-02-20 08:19:08 2023-02-20 23:59:00 Hospital Encounter Darell Hartley [facility] 1..114 350.1.13.10 4.2.7.2.686 [id number] [facility] 2023-02-19 00:00:00 2023-02-19 00:00:00 Patient Secure Msg Doctor Unassigned, Shokan [facility] 1.114 350.1.13.10 4.2.7.2.686 [id number] [facility] 2023-02-11 12:30:00 2023-02-11 13:03:32 Outpatient R MELINDA NEWTON [facility] [id number] [facility] 2023-02-11 12:30:00 2023-02-11 13:00:00 Office Visit Melinda [facility] 1..114 350.1.13.10 4.2.7.2.686 [id number] [id number] [facility] 2023-02-11 08:30:00 2023-02-11 09:15:03 Office Visit Nataliia Talbert [facility] KAELJONATHON HUSSAIN?IVAN JOHNSONANGELA MEDICAL OFFICE BUILDING 1.114 350.1.13.10 4.2.7.2.686 [id number] 044 [id number] [facility] 2023-02-05 00:00:00 2023-02-05 00:00:00 Telephone Nataliia Talbert [facility] HUSSAIN?IVAN [facility] MEDICAL OFFICE BUILDING 1.2.840.114 350.1.13.10 4.2.7.2.686 [id number] 044 [id number] [facility] 2023-02-05 00:00:00 2023-02-05 00:00:00 Telephone Nataliia Talbert [facility] HUSSAIN?[facility] MEDICAL OFFICE BUILDING 1..840.114 350.1.13.10 4.2.7.2.686 [id number] [id number] [facility] 2023-02-03 15:00:00 2023-02-03 15:15:00 Chicken Picker Visit [facility], [facility] Sleep Lab Shelly Bedolla [facility] 1..840.114 350.1.13.10 4.2.7.2.686 [id number] [facility] 2023-02-03 15:00:00 2023-02-03 15:00:00 Outpatient SHELLY BOUCHER STRAAREliazar [facility] [id number] [facility] 2023-02-03 00:00:00 2023-02-03 00:00:00 Orders Only Doctor Unassigned, Shokan [facility] 1.840.114 350.1.13.10 4.2.7.2.686 [id number] [facility] 2023-02-02 16:00:00 2023-02-02 17:11:50 Outpatient DARELL LOCKHART [facility] [id number] [facility] 2023-02-02 16:00:00 2023-02-02 17:11:50 [facility] MEDICAL OFFICE BUILDING 1.2.84.114 350.1.13.10 4.2.7.2.686 [id number] [facility] 2023-02-01 00:00:00 2023-02-01 00:00:00 (TEL) [facility] [id number] [facility] ent Clinics 2023-01-14 11:30:00 2023-01-14 11:30:00 Chicken Picker Visit Lab, Ang - Nataliia George [facility] HUSSAIN[facility] 1.84.114 350.1.13.10 4.2.7.2.686 [id number] [facility] 2023-01-14 08:00:00 2023-01-14 08:48:26 Outpatient R NATALIIA TALBERT [facility] [id number] [facility] 2023-01-14 08:00:00 2023-01-14 08:48:26 Office Visit Nataliia Talbert Yair [facility] HUSSAIN[facility] 1.84.114 350.1.13.10 4.2.7.2.686 [id number] [facility] 2023-01-09 13:30:00 2023-01-09 13:30:00 Outpatient R ALEJANDRINA MENCHACA [facility] [id number] [facility] 2023-01-07 00:00:00 2023-01-07 00:00:00 Telephone [facility]wyn [facility] Hospital[facility]ON INIGUEZE?[facility] MEDICAL OFFICE BUILDING 1.84.114 350.1.13.10 4.2.7.2.686 [id number] [id number] [facility] 2023-01-02 00:00:00 2023-01-02 00:00:00 Telephone Alejandrina Menchaca [facility] HUSSAIN?[facility] MEDICAL OFFICE BUILDING 1.84.114 350.1.13.10 4.2.7.2.686 [id number] 092 [id number] [facility] 2022-11-26 00:00:00 2022-11-26 00:00:00 (TEL) [facility] [id number] [facility] ent Clinics 2022-11-21 00:00:00 2022-11-21 00:00:00 Telephone Selwyn [facility]acaRay [facility] HospitalJONATHON NIXON?[facility] MEDICAL OFFICE BUILDING 1.2840.114 350.1.13.10 4.2.7.2.686 [id number] 092 [id number] [facility] 2022-11-11 00:00:00 2022-11-11 00:00:00 Telephone Selwyn [facility]acaRay [facility] HospitalJONATHON NIXON?IVAN [facility] MEDICAL OFFICE BUILDING 1.840.114 350.1.13.10 4.2.7.2.686 [id number] 092 [id number] [facility] 2022-11-07 00:00:00 2022-11-07 00:00:00 Telephone Darell Hartley [facility] HUSSAIN?IVAN [facility] MEDICAL OFFICE BUILDING 1.840.114 350.1.13.10 4.2.7.2.686 [id number] [id number] [facility] 2022-11-03 00:00:00 2022-11-03 00:00:00 Telephone Selwyn [facility]acaRay [facility] HospitalJONATHON NIXON?IVAN [facility] MEDICAL OFFICE BUILDING 1.2840.114 350.1.13.10 4.2.7.2.686 [id number] 092 [id number] [facility] 2022-10-31 00:00:00 2022-10-31 00:00:00 Telephone Darell Hartley [facility] HUSSAIN?IVAN [facility] MEDICAL OFFICE BUILDING 1.2840.114 350.1.13.10 4.2.7.2.686 [id number] [id number] [facility] 2022-10-03 00:00:00 2022-10-03 00:00:00 Patient Secure Msg Doctor Unassigned, Shokan [facility]?IVAN [facility] MEDICAL OFFICE BUILDING 1.2.840.114 350.1.13.10 4.2.7.2.686 [id number] 092 [id number] [facility] 2022-10-02 00:00:00 2022-10-02 00:00:00 Orders Only Doctor Unassigned, Shokan [facility] 1.2840.114 350.1.13.10 4.2.7.2.686 [id number] [facility] 2022-10-01 00:00:00 2022-10-01 00:00:00 [facility]?IVAN [facility] MEDICAL OFFICE BUILDING 1.2.840.114 350.1.13.10 4.2.7.2.686 [id number] 092 [id number] [facility] 2022-09-29 00:00:00 2022-09-29 00:00:00 Refill Selwyn MenchacaCritical access hospitalE?[facility] MEDICAL OFFICE BUILDING 1.2.840.114 350.1.13.10 4.2.7.2.686 [id number] [id number] [facility] 2022-09-26 09:24:35 2022-09-26 23:59:00 Outpatient R RADIOLOGY [facility] [id number] [facility] 2022-09-26 09:24:35 2022-09-26 23:59:00 Hospital Encounter Radiology [facility] 1.2840.114 350.1.13.10 4.2.7.2.686 [id number] [facility] 2022-09-26 00:00:00 2022-09-26 00:00:00 (TEL) [facility] [id number] [facility]ics 2022-09-26 00:00:00 2022-09-26 00:00:00 Orders Only Doctor Unassigned, Shokan [facility] 1.2.840.114 350.1.13.10 4.2.7.2.686 [id number] [facility] 2022-09-19 00:00:00 2022-09-19 00:00:00 (TEL) [facility] [id number] [facility]ics 2022-09-09 00:00:00 2022-09-09 00:00:00 Telephone Darell Hartley [facility]?IVAN [facility] 1..840.114 350.1.13.10 4.2.7.2.686 [id number] [facility] 2022-08-28 10:00:00 2022-08-28 10:00:00 Outpatient CAROLINE MACHADO [id number] Daisy [facility] 2022-08-22 09:20:00 2022-08-22 11:27:15 Outpatient DARELL LOCKHART [facility] [id number] [facility] 2022-08-22 09:20:00 2022-08-22 11:27:15 Office Visit Darell [facility] 1..840.114 350.1.13.10 4.2.7.2.686 [id number] [facility] 2022-08-22 00:00:00 2022-08-22 00:00:00 Orders Only Doctor Unassigned, [place] [facility] 1.2.840.114 350.1.13.10 4.2.7.2.686 [id number] [facility] 2022-08-15 08:45:00 2022-08-15 08:45:00 Outpatient CAROLINE MACHADO [id number] Daisy Perkins 2022-07-25 00:00:00 2022-07-25 00:00:00 (TEL) [facility] [id number] [facility] 2022-07-22 11:00:00 2022-07-22 11:31:46 Outpatient DARELL LOCKHART [facility] [id number] [facility] 2022-07-22 11:00:00 2022-07-22 11:31:46 Office Visit Alejandrina Menchaca [facility] CRISTINA NIXON?[facility] 1.2.840.114 350.1.13.10 4.2.7.2.686 [id number] [facility] 2022-07-22 00:00:00 2022-07-22 00:00:00 Orders Only Doctor Unassigned, [place] [facility] 1.2.840.114 350.1.13.10 4.2.7.2.686 [id number] [facility] 2022-07-16 00:00:00 2022-07-16 00:00:00 (TEL) [facility] [id number] [facility] 2022-07-14 00:00:00 2022-07-14 00:00:00 (TEL) [facility] [id number] [facility] 2022-07-14 00:00:00 2022-07-14 00:00:00 (TEL) [facility] [id number] [facility] 2022-07-14 00:00:00 2022-07-14 00:00:00 (TEL) [facility] [id number] [facility] 2022-07-08 00:00:00 2022-07-08 00:00:00 (TEL) [facility] [id number] [facility] 2022-07-07 00:00:00 2022-07-07 00:00:00 (15 min) 15 min [facility] [id number] [facility] 2022-06-09 00:00:00 2022-06-09 00:00:00 (TEL) [facility] [id number] [facility] 2022-06-07 00:00:00 2022-06-07 00:00:00 (TEL) [facility] [id number] [facility] 2021-12-06 00:00:00 2021-12-06 00:00:00 (TEL) [facility] [id number] [facility] 2021-11-18 00:00:00 2021-11-18 00:00:00 Office Visit, Est Pt., Level 3 [facility] [id number] [facility] 2021-11-15 00:00:00 2021-11-15 00:00:00 (TEL) [facility] [id number] [facility] 2021-09-03 00:00:00 2021-09-03 00:00:00 (TEL) [facility] [id number] [facility] 2021-09-03 00:00:00 2021-09-03 00:00:00 Office Visit, Est Pt., Level 3 [facility] [id number] [facility] 2021-09-02 00:00:00 2021-09-02 00:00:00 (TEL) [facility] [id number] [facility] 2021-08-20 00:00:00 2021-08-20 00:00:00 (TEL) [facility] [id number] [facility] 2021-08-20 00:00:00 2021-08-20 00:00:00 (TEL) [facility] [id number] [facility] 2021-08-06 00:00:00 2021-08-06 00:00:00 (TEL) [facility] [id number] [facility] 2021-08-06 00:00:00 2021-08-06 00:00:00 (TEL) [facility]LS[facility] STLSJC [id number] [facility] 2021-07-26 00:00:00 2021-07-26 00:00:00 (TEL) [facility]LS[facility] STLSJC [id number] [facility] 2021-07-26 00:00:00 2021-07-26 00:00:00 Office Visit, Est Pt., Level 3 [facility]LS[facility] STLSJC [id number] [facility] 2021-06-07 00:00:00 2021-06-07 00:00:00 Office Visit, Est Pt., Level 4 [facility]LS[facility] STLSJC [id number] [facility] 2021-06-03 10:10:00 2021-06-03 10:11:00 Outpatient R Stanislav Gotti STLSJX STLSJX [id number] STLSJX 2021-05-16 00:00:00 2021-05-16 00:00:00 Outpatient Stanislav Gotti STLSJX STLSJX [id number] [facility]JX 2021-05-16 00:00:00 2021-05-16 00:00:00 ([place]) Nurse Visit [facility]LS[facility] STLSJC [id number] [facility] 2021-05-16 00:00:00 2021-05-16 00:00:00 (TEL) [facility]LSJC STLSJC [id number] [facility] 2021-05-15 00:00:00 2021-05-15 00:00:00 (TEL) [facility] [id number] [facility] 2021-05-15 00:00:00 2021-05-15 00:00:00 Office Visit, Est Pt., Level 3 [facility]LS[facility] STLSJC [id number] [facility] 2021-03-14 00:00:00 2021-03-14 00:00:00 Office Visit, Est Pt., Level 4 STLSJC STLSJC [id number] [facility] 2021-02-26 18:25:00 2021-02-26 18:25:00 Outpatient R OvalleJordon aguila STLSJX STLSJX [id number] STLSJX 2021-02-22 00:00:00 2021-02-22 00:00:00 Office Visit, Est Pt., Level 3 [facility] STLSJC [id number] [facility] 2021-01-03 00:00:00 2021-01-03 00:00:00 Office Visit, Est Pt., Level 4 [facility]LS[facility] STLSJC [id number] [facility] 2021-01-03 00:00:00 2021-01-03 00:00:00 (TEL) STLSJC STLSJC [id number] [facility] 2020-12-01 20:37:00 2020-12-01 20:37:00 Emergency ER GilbertAbraham pimentel STLSJX STLSJX [id number] STLSJX 2020-09-18 00:00:00 2020-09-18 00:00:00 Patient Outreach RastaJuwan [facility] 1.2.840.114 350.1.13.10 4.2.7.2.686 [id number] 2020-09-18 00:00:00 2020-09-18 00:00:00 Patient Outreach Rasta Juwan [facility] 1.2.840.114 350.1.13.10 4.2.7.2.686 [id number] [facility] 2020-06-06 13:00:00 2020-06-06 13:00:00 Outpatient R ARLENE DAILY [facility] [id number] [facility] 2019-12-14 00:00:00 2019-12-14 00:00:00 Transition of Care Kristin Clements 1.2.840.114 350.1.13.10 4.2.7.2.686 [id number] 2019-12-14 00:00:00 2019-12-14 00:00:00 Transition of Care Kristin Clements 1.2.840.114 350.1.13.10 4.2.7.2.686 [id number] [facility] 2019-12-10 15:00:16 2019-12-13 13:00:00 Hospital Encounter Micheal Worleylaurie Singh FranksthomasGeovany perez [facility] 1.2.840.114 350.1.13.10 4.2.7.2.686 [id number] 2019-12-10 15:00:16 2019-12-13 13:00:00 Hospital Encounter Jessica Worley AbdthomasGeovany perez [facility] 1.2.840.114 350.1.13.10 4.2.7.2.686 [id number] [facility] 2019-12-10 15:00:16 2019-12-13 13:00:00 Inpatient X GEOVANY KHALIL [facility] [id number] [facility] 2019-12-06 13:00:00 2019-12-06 13:00:00 Outpatient R ARLENE DAILY [facility] [id number] [facility] 2019-12-03 06:40:29 2019-12-04 16:25:00 Hospital Encounter Ravinder Valenzuela Michael [facility] 1.2.840.114 350.1.13.10 4.2.7.2.686 [id number] 2019-12-03 06:40:29 2019-12-04 16:25:00 Inpatient X CATINA MARIN MICHAEL [facility] [id number] [facility] 2019-12-03 06:40:29 2019-12-04 16:25:00 Hospital Encounter Ravinder Valenzuela Michael [facility] 1.2.840.114 350.1.13.10 4.2.7.2.686 [id number] [facility] 2019-12-02 00:00:00 2019-12-02 00:00:00 Telephone AdArlene jimenez [facility] 1.2.840.114 350.1.13.10 4.2.7.2.686 [id number] 2019-12-02 00:00:00 2019-12-02 00:00:00 Telephone AdArlene jimenez [facility] 1.2.840.114 350.1.13.10 4.2.7.2.686 [id number] [facility] 2019-11-29 10:00:00 2019-11-29 10:00:00 Outpatient R ARLENE DAILY [facility] [id number] [facility] Results Test Description Test Time Test Comments Results Result Co mments Source [facility] [id number] 20:43:51* Test Item Value Reference Range Interpretation Comme nts FERRITIN (test code = 0660957331) 5.7 ng/mL 6.0-137.0 L LESLEY (test code = LESLEY) Biotin has been reported to cause a negative bias, interpret results relative to patient's use of biotin. Lab Interpretation (test code = 99046-8) Abnormal [facility] Wclae1571-66-09 20:18:05* Test Item Value Reference Range Interpretation Comme nts IRON (test code = 9504189622) 42 ug/dL 50-160 L TIBC (test code = 4144716629) 409 ug/dL 250-410 % FE SAT (test code = 1614894595) 10 % 20-50 L Lab Interpretation (test cod e = 32735-8) Abnormal [facility] CampusVitamin B12, Ojfms7675-09-13 08:58:08* Test Item Value Reference Range Interpretation Comme nts VIT B12 (test code = 9874586344) 523 pg/mL 240-930 LESLEY (test code = LESLEY) Biotin has been reported to cause a positive bias, interpret results relative to patient's use of biotin. Lab Interpretation (test code = 85570-2) Normal [facility]Folate2024-04-06 08:58:07* Test Item Value Reference Range Interpretation Comme nts FOLATE SER (test code = 9444052145) 6.2 ng/mL 3.0-20.0 Biotin has been reported to cause a positive bias, interpret results relative to patient's use of biotin. Lab Interpretation (test code = 80827-1) Normal [facility] CampusThyroid Stimulating Ooatcck1832-34-62 23:41:34 * Test Item Value Reference Range Interpretation Comme nts TSH (test code = 8206195508) 1.56 0.45-4.70 Lab Interpretation (test cod e = 09742-7) Normal [facility] CampusGlycosylated Hemoglobin (A1C)2023-10-02 23:19:21* Test Item Value Reference Range Interpretation Comme nts HGB A1C (test code = 4548-4) 4.7 % 4.0-5.7 LESLEY (test code = LESLEY) Reference RangesNormal: <5.7%Prediabetes: 5.7 - 6.4%Diabetes: > 6.5% Lab Interpretation (test code = 10299-6) Normal [facility] CampusComp. Metabolic Panel (52174)2023-10-02 23:11:09* Test Item Value Reference Range Interpretation Comme nts NA (test code = 9732621155) 140 mmol/L 135-145 K (test code = 9559090505) 4.6 mmol/L 3.5-5.0 CL (test code = 9340678066) 103 mmol/L 98-108 CO2 TOTAL (test code = 6841708316) 29 mmol/L 23-31 AGAP (test code = 4729322488) 8 2-16 BUN (test code = 6876159645) 19 mg/dL 7-23 GLUCOSE (test code = 4520184024) 89 mg/dL 70-110 CREATININE (test code = 2160-0) 0.83 mg/dL 0.50-1.04 TOTAL BILI (test code = 5571712330) 0.5 mg/dL 0.1-1.1 CALCIUM (test code = 7064605854) 9.1 mg/dL 8.6-10.6 T PROTEIN (test code = 2848645824) 8.1 g/dL 6.3-8.2 ALBUMIN (test code = 8655049914) 4.4 g/dL 3.5-5.0 ALK PHOS (test code = 1374927165) 88 U/L 34-122 ALTv (test code = 1742-6) 52 U/L 5-35 H AST(SGOT) (test code = 7026924289) 39 U/L 13-40 eGFR (test code = 79920-3) 99.9 mL/min/1.73m2 CKD-EPI eGFR (2020). Assuming creatinine has been stable day-to-day for at least three months, the eGFR indicates Category G1 (>= 90 mL/min/1.73 m2) Lab Interpretation (test code = 53200-9) Abnormal [facility] CampusLipid Panel (30794)(Total Cholesterol, Triglycerides, HDL)2023-10-02 23:11:09* Test Item Value Reference Range Interpretation Comme nts CHOL (test code = 7782751172) 161 mg/dL 120-200 HDL (test code = 6253900286) 41 mg/dL >=50 L HDLC RATIO (test code = 5083340109) 3.9 <=4.5 TRIG (test code = 7159127456) 180 mg/dL 30-170 H LDL CHOL (test code = 20863-1) 84 mg/dL <=160 VLDL (test code = 4390256875) 36 mg/dL 5-60 Lab Interpretation (test cod e = 37274-6) Abnormal [facility] CampusMagnesium2024-04-05 23:11:09* Test Item Value Reference Range Interpretation Comme nts MAGNESIUM (test code = 9929868080) 1.9 mg/dL 1.7-2.4 Lab Interpretation (test cod e = 30620-3) Normal [facility] Qnre2820-34-06 23:04:50* Test Item Value Reference Range Interpretation Comme nts WBC (test code = 6690-2) 10.21 4.30-11.10 RBC (test code = 789-8) 3.96 3.93-5.25 HGB (test code = 718-7) 10.2 g/dL 11.6-15.0 L HCT (test code = 4544-3) 33.6 % 35.7-45.2 L MCV (test code = 787-2) 84.8 fL 80.6-95.5 MCH (test code = 785-6) 25.8 pg 25.9-32.8 L MCHC (test code = 786-4) 30.4 g/dL 31.6-35.1 L RDW-SD (test code = 92819-7) 43.2 fL 39.0-49.9 RDW-CV (test code = 788-0) 14.1 % 12.0-15.5 PLT (test code = 777-3) 383 166-358 H MPV (test code = 88879-4) 10.8 fL 9.5-12.9 NRBC/100 WBC (test code = 0321864952) 0.0 0.0-10.0 NRBC x10^3 (test code = 6744560698) See_Comment [Automated messa ge] The system which generated this result transmitted reference range: 10*3/?L. The reference range was not used to interpret this result as normal/abnormal. GRAN MAT (NEUT) % (test code = 770-8) 62.8 % IMM GRAN % (test code = 4419015950) 0.30 % LYMPH % (test code = 736-9) 27.8 % MONO % (test code = 5905-5) 6.6 % EOS % (test code = 713-8) 1.5 % BASO % (test code = 706-2) 1.0 % GRAN MAT x10^3(ANC) (test code = 1935741481) 6.42 10*3/uL 1.88-7.09 IMM GRAN x10^3 (test code = 6597418209) 0.03 10*3/uL 0.00-0.06 LYMPH x10^3 (test code = 731-0) 2.84 10*3/uL 1.32-3.29 MONO x10^3 (test code = 742-7) 0.67 10*3/uL 0.33-0.92 EOS x10^3 (test code = 711-2) 0.15 10*3/uL 0.03-0.39 BASO x10^3 (test code = 704-7) 0.10 10*3/uL 0.01-0.07 H Lab Interpretation (test code = 58899-4) Abnormal [facility] METABOLIC PANEL (NA, K, CL, CO2, GLUCOSE, BUN, CREATININE, CA)2023-05-07 01:50:39* Test Item Value Reference Range Interpretation Comme nts NA (test code = 1206596324) 136 mmol/L 135-145 K (test code = 4502996147) 4.7 mmol/L 3.5-5.0 CL (test code = 1938499824) 103 mmol/L 98-108 CO2 TOTAL (test code = 1940995718) 24 mmol/L 23-31 AGAP (test code = 7263039960) 9 2-16 BUN (test code = 4084831604) 22 mg/dL 7-23 GLUCOSE (test code = 5225228605) 85 mg/dL 70-110 CREATININE (test code = 9551207164) 0.64 mg/dL 0.50-1.04 CALCIUM (test code = 1438264909) 8.8 mg/dL 8.6-10.6 eGFR (test code = 24278-9) 126.0 mL/min/1.73m2 CKD-EPI eGFR (20 21). Assuming creatinine has been stable day-to-day for at least three months, the eGFR indicates Category G1 (>= 90 mL/min/1.73 m2) [facility] OMAD1430-01-05 01:09:00* Test Item Value Reference Range Interpretation Comme nts POCT PREG (test code = 1605) Negative On board controls acceptable with C Line (test code = 3574) Yes POCT PREG LOT # (test code = 3575 543790 POCT PREG TEST DATE ( test code = 3576) 07-01-2024 Lab Interpretation (test cod e = 82304-0) Normal [facility] MET[facility]OLIC PANEL (NA, K, CL, CO2, GLUCOSE, BUN, CREATININE, CA)2023-05-03 02:06:38* Test Item Value Reference Range Interpretation Comme nts NA (test code = 7798602554) 140 mmol/L 135-145 K (test code = 3467907343) 4.4 mmol/L 3.5-5.0 CL (test code = 2465504949) 107 mmol/L 98-108 CO2 TOTAL (test code = 4557401750) 22 mmol/L 23-31 L AGAP (test code = 0803842280) 11 2-16 BUN (test code = 6067268565) 22 mg/dL 7-23 GLUCOSE (test code = 2616297999) 92 mg/dL 70-110 CREATININE (test code = 6183492075) 0.96 mg/dL 0.50-1.04 CALCIUM (test code = 2358644809) 9.1 mg/dL 8.6-10.6 eGFR (test code = 63875-6) 84.4 mL/min/1.73m2 CKD-EPI eGFR (2020). Assuming creatinine has been stable day-to-day for at least three months, the eGFR indicates Category G2 (60 - 89 mL/min/1.73 m2) Lab Interpretation (test code = 62845-8) Abnormal [facility]AT[facility] FUNCTION PANEL (69290) (ALB,T.PRO,BILI T,BU/BC,ALT,AST,ALK PHOS)2023-05-03 02:06:38* Test Item Value Reference Range Interpretation Comme nts TOTAL BILI (test code = 3064858901) 0.4 mg/dL 0.1-1.1 BILI UNCON (test code = 8634479942) 0.1 mg/dL 0.1-1.1 BILI CONJ (test code = 9447420763) 0.0 mg/dL 0.0-0.3 T PROTEIN (test code = 2820021810) 8.4 g/dL 6.3-8.2 H ALBUMIN (test code = 7148770316) 4.5 g/dL 3.5-5.0 ALK PHOS (test code = 3532442609) 113 U/L 34-122 ALTv (test code = 1742-6) 73 U/L 5-35 H AST(SGOT) (test code = 5305651266) 55 U/L 13-40 H Lab Interpretation (test cod e = 04981-2) Abnormal [facility] CampusLIPASE2023-11-05 02:06:38* Test Item Value Reference Range Interpretation Comme nts LIPASE (test code = 5920721367) 104 U/L 0-220 Lab Interpretation (test cod e = 70971-4) Normal [facility]CB WITH [id number] 01:49:56* Test Item Value Reference Range Interpretation [...] 32.7 g/dL 31.6-35.1 RDW-SD (test code = 35598-6) 43.8 fL 39.0-49.9 RDW-CV (test code = 788-0) 14.4 % 12.0-15.5 PLT (test code = 777-3) 396 See_Comment H [Automated messa ge] The system which generated this result transmitted reference range: 166 - 358 10*3/?L. The reference range was not used to interpret this result as normal/abnormal. MPV (test code = 61929-8) 10.0 fL 9.5-12.9 NRBC/100 WBC (test code = 6642481354) 0.0 See_Comment [Automated me ssage] The system which generated this result transmitted reference range: 0.0 - 10.0 /100 WBCs. The reference range was not used to interpret this result as normal/abnormal. NRBC x10^3 (test code = 9802558261) See_Comment [Automated messa ge] The system which generated this result transmitted reference range: 10*3/?L. The reference range was not used to interpret this result as normal/abnormal. GRAN MAT (NEUT) % (test code = 770-8) 66.0 % IMM GRAN % (test code = 0474749431) 0.30 % LYMPH % (test code = 736-9) 26.8 % MONO % (test code = 5905-5) 5.2 % EOS % (test code = 713-8) 1.1 % BASO % (test code = 706-2) 0.6 % GRAN MAT x10^3(ANC) (test code = 8649552326) 7.49 10*3/uL 1.88-7.09 H IMM GRAN x10^3 (test code = 5479722489) 0.03 10*3/uL 0.00-0.06 LYMPH x10^3 (test code = 731-0) 3.04 10*3/uL 1.32-3.29 MONO x10^3 (test code = 742-7) 0.59 10*3/uL 0.33-0.92 EOS x10^3 (test code = 711-2) 0.12 10*3/uL 0.03-0.39 BASO x10^3 (test code = 704-7) 0.07 10*3/uL 0.01-0.07 Lab Interpretation (test code = 69796-7) Abnormal [facility] GANE7821-10-24 01:07:00* Test Item Value Reference Range Interpretation Comme nts POCT PREG (test code = 1605) Negative On board controls acceptable with C Line (test code = 3574) Yes POCT PREG LOT # (test code = 3575) [id number] POCT PREG TEST DATE ( test code = 3576) 07/01/24 Lab Interpretation (test cod e = 63952-2) Normal [facility] [id number] 13:53:00* Test Item Value Reference Range Interpretation Comme nts POCT PREG (test code = 1605) Negative On board controls acceptable with C Line (test code = 3574) Yes POCT PREG LOT # (test code = 3575) POCT PREG TEST DATE ( test code = 3576) [facility] [id number] 13:53:00* Test Item Value Reference Range Interpretation Comme nts POCT PREG (test code = 1605) Negative On board controls acceptable with C Line (test code = 3574) Yes POCT PREG LOT # (test code = 3575) POCT PREG TEST DATE ( test code = 3576) [facility] IOTL4766-56-93 13:53:00* Test Item Value Reference Range Interpretation Comme nts POCT PREG (test code = 1605) Negative On board controls acceptable with C Line (test code = 3574) Yes POCT PREG LOT # (test code = 3575) POCT PREG TEST DATE ( test code = 3576) [facility]- SARS CoV-2 PCR by [id number] 00:00:00* Test Item Value Reference Range Interpretation Comme nts SARS-CoV-2 PCR (test code = 91071-6) Not Detected NotDetected SURGICAL PATHOLOGY [id number] 16:36:00* Test Item Value Reference Range Interpretation Comme nts Case Report (test code = 7290632272) Surgical Pathology ?Case: [id number] ? Authorizing Provider: ?Sridhar Pack MD ? Collected: ? 12/11/2019 0900 ?Ordering Location: ? ? [facility] ? ? ?Received: ?12/11/2019 1022 ? [facility] ?Pathologist: ? Lizett, Dacia, PHD ?Specimen: ? ?APPENDIX, Appendix ? Final Diagnosis (test code = 2353226346) g6kkjFFzCUNho3lvFPAjlKT uZzEwMzNcZnRuYmpcdWMxIH gvodUnASire1GvS8MvJrVaD FxhbnNpXGRlZmxhbmcxMDMz VTP0ddNtPELrAUmxWTFeTBr eHy3aqVCikFwsTeRuBCGom0 wtoyVOfyfhtVi9x9ucOMXrN iT1zVTzVCuuQ6icskAslAAg XRIoMJk6rK40FBOitK6tzIZ sIDtccmVkMFxncmVlbjBcYm t3OBJsQ4jmXHYmXCUiD3MsV B6pRPOgSrc9FJA0QNP3lEns q3D2lMZktQIrzNatEcQuAoZ jRCLHi8UhJQy5dUvoE8YxDM JmHiX4iEAvCBQrVSfgDCOpF AWxzvN7tT93LNymjgV6iIUv y3Ucf85ca420eI8mvYFxZBU 7MEGuKQKwoRLjEEEsQNJ4XC LwqNVrF8heCHgkBX5kktxwJ YZ6GPdzACWooNxcQOvfCTBe IhTdeSSiJMAhfOfwPDtku82 6IVD7WrHxER2hN4Jgv7C1uO 9maXRcZGVmdGFiNzIwXGZvc t2vzSDpPGako1NoGIO2pjB4 tQXpoBZvGPIpQV33Ouycl1Y bHhjcROL7SHLkkgAgk2Rmk1 osWcXgvaXpG7ejJ7TvMOMkG UBmETLdWnLqvvRpm6Ide1Sl pBXvoLv3o9sjTKZzSLNojLd cq2ldHQP3NIXjQ7R3rXAxd1 ykDTwlBEBrwXC6ueEuMBJmh KUrW0CpaU6eARnaYD6jlth6 s0pvXbAzJD4klobac1ifPUe wOUYoLTW5XbAgOYCvr4Mpjl gqEbAiy5GskTNhDSryX06dp 422WNTfqqFvN0sfjNXmudgv bGFpblxmMFxmczIwXHFsXHB sYWluXGYwXGZzMjBccGxhaW 5cZjBcZnMyMFxwYXJccGFyZ FxwbGFpblxmMFxmczIwXHBs SXlbLRJuSHMfEbAlQF1nKGP FBJ8PDPyjWCXVKQAJPCAIRG 9NWTpccGFyXHFsXHBsYWluX ONiVDTvKyCnaMzapN2rFlPs TpThPWQwDLKaLK8kXPSAGEH uEMLILN5SOVTGPXtACRTfci EfLZHpHE6qKF2YX25UDZSVG 3JNQ2awABG0z0eklOTxAXMw xMEfKlSoVKZoHMHek4ifJEW mbGFuZzEwMzNcZnRuYmpcdW LhFMYsXkFqj1etl884bJSza 3vdAPJzIuJ8gWKzURYfrLqh zhe6gOkpWqKrCMOia9ehazC cZmNoYXJzZXQwIEFyaWFsO3 55PELxKKffh0qal4LeCYJjw RKgv8Y6AOBVPYlyMiKwM966 v8vca9eqtfMsmDF3AKDrKVH 7PSblavPdcyK2WBzbcDAbFy G3HVjrnlEkMFfpxrQyxtSlM fx4ATFeB220CWU1kYthb0zt QRA0JYJvCHMkKrrlUb5moKZ rW793LETrWQLNQEVrnAm1VN TikfEjmfKlcFMHb224Q121b 2zyEGPqjzUorYdFkoxfo1tu P581XHQysKXzicGdQrNnQPW qqLXaxEI0EEYsFH5gtfzfVT bfDNmwYQCvhrS7PLAgiBKxH 3AaBAYtHD6gsxevDHC3QDvj VIWoWQH8WfGaQMIdz3Gljjt 5KkJzop8lfd11LKF2h9JokI pgGEE6KYR3BuQpUh0fwLFqH ZNsOF3uDxNnmHWqNCChqb55 wPpeNCbajhNreW7cJxTiIIK mpEKjFQTiVS0ixDCpHYAzmZ 5ucmxjXHBnYnJkcmhlYWRcc BovnaSlMs6yhYprGDF3AIwt Z8dncZ7zBeH0UOxcB9tbyF0 fYUn8PSqvaQG8UOLebL6yLO 6yasfvk9nmUJmiJZefMGWiu oJ9msX7AJIbdKYlI5LhvB4p UGKbMH5punivl8kqEUK1GAp jVEUyXXV7XmPuPFVrb4Wsif o6CsKja4LvaBHsMBflM18ao 772XVQwtmNrX4dzaILmihnq rXHtmucrVUfkngV7HMXiQMJ sYWluXGYxXGZzMjBcbGFuZz EwMzNcaGljaFxmMVxkYmNoX OOtRChpG0bpGkKyJ9BxJKMn EhGkuJUdWDxbhFH5HQAhYJT zv62reVi4QOWedbsrc5AcUZ BftKPjaCBukJ3zscXvs5zvR XCwZPHyRMBdV3PaTSV3xFRd JIVvvEGnbZT5GK1ygcTcOK8 hZGUgYnkgcmVzaWRlbnRzLC GeSQrfr3rpOL1eDTAqbXiiz M9nfCJ7JQFii7jxmBKfsMZf w8mhb9MscrNfYRgkCDZwQMw xKNNeZCAqBL6rOXHfdOKgck Jck7X2QxcufJJfyhdlFplsy uJ9OGfgofpiVCAaCRgwC7me KbRwVCPykKprMdaiw7RiCEC yXGZzMjhccGFyfX0= Clinical Information (test code = 9649581342) Acute Appendicitis Gross Description (test code = 9777244528) o8czzAYeSPXjbWUuCxLjTXX gVQEty5mdZGJtfBAzZvRjFz NcZnRuYmpcdWMxXGRlZmYwe 1axt301nECus4fiVFNsDmN8 yEFlHKAwwAMmC111KVMwRBq ol8ufo7VaCBHblJFnu2O0XG GSihnxbHq1tRjvZ97bj5O5V hhsE0fxDHEzTJakZEYiWPgc lQQwWGU7CYNbOEQ3FNafwgJ hpiG6LSyngLLnLcP9XMy2u4 vdwYrtTQGqXIP6t0huGQbsc mVsRB3ojb0mpKu6o4gtzxSz WHRfWBBscFRAPSMfE3NewBl kHs2yaSl7mThfCkmiJRL8Kp m4JJ8pmn13gej2pIaxKBEuu cutVpT1EEocMBHedlitWBy7 YKiaQQMtuVSqVKMhfLExC3U iQNseBY8psfa9OrAkXM1kfu zzSNibCGYfBZP4OzBtFBBni 8LrrhxmBqSqam6xcz43AXR6 b2EspFrhIXL9EJV2ThOpAq9 dqKQtXJOhTY8iEnVdgIBvPX Dfgs62tKunXSovnsEhqE3pC eGsWBZprQYfGKSjSR9xcKJz JDWumF3zjjqwNKYgZpPhmxx iBDPkbYoqngRsOy9ufVatAG M5BDriA0lcnT5eEcO2YPlaS 4felO7eCJg7QMqxwFK0ELDn iE5iQX8wretab8fnRPZ6FDw dKYSmmvJ6geXmDRPykBVfC2 DaeR44NrOjnPPtC5AroI9eP IpaPJKjlej0PbJnXj5eyICg dTO1BDgfPtnsXOzjUTQdgeD vbnRccGduZGVjXHBsYWluXH EtKHfkVQQkDDMtXkOgw9QuZ MBus3ptPvAnp7xssTx0YXmb bFxwbGFpblxmMFxmczIwXHB gSXslLYJwZJYcIeLwB8GjS3 tlUO1xPTYyunRzTHExjQMjW UVhuyMml1OoJJxvydPtJIYt rOsfIUH3oFKmHJYcRODnQNY wGU72MHMzNIxfASNgXHUmIy OwrDaoZTjsMVq7RmvpkHFgr lxmMVxmczIwIHMgbmFtZSwg VUggbnVtYmVyICJhcHBlbmR peFxwbGFpblxmMVxmczIwXH B0WyYyAMyoKJGcbBapmA8bE gFjZtYeIKMvZP0xNYGpteRp i2HoKV0fZPJxmQjqif85OY1 ihjTxdQheo6UrXHHijLDsCT g1GYq8JoWcH23bhR2izFOyC 6XuNXztNT16YJRqODUmfIIs vtVfxAJbHEPxgjhmg3r1pPL yyADkN4nmHVT5HDire2yzcQ 6apKexoEQrIRNcB3XzgNlkB 72sC6IqzFEjNO6mi11fnTUi dnAsdJYtVz8hOFdsMz26EIc nJX5mFGPdOF1jHHWnSXEntH XappSuhZRxTMYey3OvbCShJ HWepGK3VJWkrtKou0Cdng0j OBocISGiqQHbCLe8UCwtJIF ikhfdbWf4WBBkD8For55zQH J9ktQmWXMfMYlxTLOiNZSqt xQdvGPfPY2aVDZdooeyziak MyMhgGCiSsOqRU8wFSJuRGJ em774RYqxqI7tAQ1lRWP2VM S2XJ3pc1jefHTggTxgbqCay NYxUT1fJVZbSOY3KMbmBTHk sEVwztBbanRhTH2eCPGjBmF csZIgGwMsEC3pQOIsLrSMOR Z9mCP0uiMnq0r7FSDsxqHry 9YjT5Cup5TxmPXrNEOmfTpz aWVkLiBSZXByZXNlbnRhdGl 1CPDaBWV1eH6hpdT4rSbzaQ InntPhiCDrDZFnd7EsFCHeY 9Dqx18pRLI8bTStWvcqF9vb iM8dMMPndjRgAHN2jP9vLP0 hcmdpbiBhbmQgZGlzdGFsIH HjgKCqebHnj6NnzQv5jSKzR GluIEExLUEyLlxwYXJccGFy ZFxwbGFpblxmMFxmczIwXHB sYWluXGYxXGZzMjAgSnVsaW FqOUBUlQebmoO2FNNBGCbnY XJ9 Embedded Images (test code = 5838517355) [facility] METABOLIC PANEL (NA, K, CL, CO2, GLUCOSE, BUN, CREATININE, CA)2019-12-13 09:38:00* Test Item Value Reference Range Interpretation Comme nts NA (test code = 2892181270) 138 mmol/L 135-145 K (test code = 9388406069) 3.8 mmol/L 3.5-5 CL (test code = 4608729641) 108 mmol/L 98-108 CO2 TOTAL (test code = 8506589278) 26 mmol/L 23-31 AGAP (test code = 5317308983) 2-16 BUN (test code = 3406684423) 10 mg/dL 7-23 GLUCOSE (test code = 3365190514) 87 mg/dL 70-110 CREATININE (test code = 1954453130) 0.65 mg/dL 0.5-1.04 CALCIUM (test code = 5181162060) 8.4 mg/dL 8.6-10.6 L eGFR Calculation (Non-) (test code = 9637056696) mL/min/1.73m2 eGFR Calculation () (test code = 6570253241) mL/min/1.73m2 LESLEY (test code = LESLEY) Association [...] imaging tests). Lab Interpretation (test code = 64233-6) Abnormal [facility] WITH [id number] 09:21:00* Test Item Value Reference Range Interpretation [...] 32.3 g/dL 31.6-35.1 RDW-SD (test code = 10837-4) 46.5 fL 39-49.9 RDW-CV (test code = 788-0) 15.3 % 12-15.5 PLT (test code = 777-3) See_Comment [Automated [employer]] The system which generated this result transmitted reference range: 166 - 358 10*3/?L. The reference range was not used to interpret this result as normal/abnormal. MPV (test code = 30506-2) 10.7 fL 9.5-12.9 NRBC/100 WBC (test code = 9979211367) See_Comment [Automated [employer] ssage] The system which generated this result transmitted reference range: 0.0 - 10.0 /100 WBCs. The reference range was not used to interpret this result as normal/abnormal. NRBC x10^3 (test code = 3606917565) <0.01 See_Comment [Automated messa ge] The system which generated this result transmitted reference range: 10*3/?L. The reference range was not used to interpret this result as normal/abnormal. GRAN MAT (NEUT) % (test code = 770-8) 55.2 % IMM GRAN % (test code = 4683198831) 0.40 % LYMPH % (test code = 736-9) 36.9 % MONO % (test code = 5905-5) 6.6 % EOS % (test code = 713-8) 0.2 % BASO % (test code = 706-2) 0.7 % GRAN MAT x10^3(ANC) (test code = 8963641315) 5.51 10*3/uL 1.88-7.09 IMM GRAN x10^3 (test code = 6274280875) 0.04 10*3/uL 0-0.06 LYMPH x10^3 (test code = 731-0) 3.69 10*3/uL 1.32-3.29 H MONO x10^3 (test code = 742-7) 0.66 10*3/uL 0.33-0.92 EOS x10^3 (test code = 711-2) <0.03 0.03-0.39 L BASO x10^3 (test code = 704-7) 0.07 10*3/uL 0.01-0.07 Lab Interpretation (test code = 05464-7) Abnormal [facility] METABOLIC PANEL (NA, K, CL, CO2, GLUCOSE, BUN, CREATININE, CA)2019-12-12 09:50:00* Test Item Value Reference Range Interpretation Comme nts NA (test code = 2563900717) 137 mmol/L 135-145 K (test code = 7272543479) 4.1 mmol/L 3.5-5 CL (test code = 7807007034) 105 mmol/L 98-108 CO2 TOTAL (test code = 1806337598) 26 mmol/L 23-31 AGAP (test code = 8264140653) 2-16 BUN (test code = 2202457346) 7 mg/dL 7-23 GLUCOSE (test code = 5295922071) 113 mg/dL 70-110 H CREATININE (test code = 7360331938) 0.60 mg/dL 0.5-1.04 CALCIUM (test code = 9108685559) 9.0 mg/dL 8.6-10.6 eGFR Calculation (Non-) (test code = 5941873252) mL/min/1.73m2 eGFR Calculation () (test code = 7463897051) mL/min/1.73m2 LESLEY (test code = LESLEY) Association [...] imaging tests). Lab Interpretation (test code = 21600-5) Abnormal [facility] WITH DPMNRSNROXIA4354-42-97 09:26:00* Test Item Value Reference Range Interpretation [...] 31.9 g/dL 31.6-35.1 RDW-SD (test code = 64154-9) 45.2 fL 39-49.9 RDW-CV (test code = 788-0) 14.6 % 12-15.5 PLT (test code = 777-3) See_Comment H [Automated message] The system which generated this result transmitted reference range: 166 - 358 10*3/?L. The reference range was not used to interpret this result as normal/abnormal. MPV (test code = 25165-8) 11.3 fL 9.5-12.9 NRBC/100 WBC (test code = 3997680976) See_Comment [Automated message] The system which generated this result transmitted reference range: 0.0 - 10.0 /100 WBCs. The reference range was not used to interpret this result as normal/abnormal. NRBC x10^3 (test code = 3534288660) <0.01 See_Comment [Automated message] The system which generated this result transmitted reference range: 10*3/?L. The reference range was not used to interpret this result as normal/abnormal. GRAN MAT (NEUT) % (test code = 770-8) 85.0 % IMM GRAN % (test code = 4234502941) 0.60 % LYMPH % (test code = 736-9) 10.1 % MONO % (test code = 5905-5) 4.1 % EOS % (test code = 713-8) 0.0 % BASO % (test code = 706-2) 0.2 % GRAN MAT x10^3(ANC) (test code = 6149517080) 14.90 10*3/uL 1.88-7.09 H IMM GRAN x10^3 (test code = 0943841283) 0.10 10*3/uL 0-0.06 H LYMPH x10^3 (test code = 731-0) 1.77 10*3/uL 1.32-3.29 MONO x10^3 (test code = 742-7) 0.72 10*3/uL 0.33-0.92 EOS x10^3 (test code = 711-2) <0.03 0.03-0.39 L BASO x10^3 (test code = 704-7) 0.04 10*3/uL 0.01-0.07 Lab Interpretation (test code = 09121-2) [facility]normal [facility] Trgytcl5995-56-46 20:16:00* Test Item Value Reference Range Interpretation Comme nts URINE CULTURE (test code = 630-4) No aerobic growth (< 1000 CFU/mL) [facility] CampusMagnesium Kbgzt1032-09-99 09:46:00* Test Item Value Reference Range Interpretation Comme nts MAGNESIUM (test code = 0464607236) 2.0 mg/dL 1.7-2.4 Lab Interpretation (test cod e = 08515-4) Normal [facility] Metabolic Panel (NA, K, CL, CO2, GLUCOSE, BUN, CREATININE, CA)2019-12-11 09:45:00* Test Item Value Reference Range Interpretation Comme nts NA (test code = 0610215279) 136 mmol/L 135-145 K (test code = 9446633024) 3.6 mmol/L 3.5-5 CL (test code = 2179994553) 106 mmol/L 98-108 CO2 TOTAL (test code = 7743246621) 26 mmol/L 23-31 AGAP (test code = 0316315837) 2-16 BUN (test code = 9559756893) 13 mg/dL 7-23 GLUCOSE (test code = 0232412347) 105 mg/dL 70-110 CREATININE (test code = 0235719551) 0.67 mg/dL 0.5-1.04 CALCIUM (test code = 2254924127) 8.5 mg/dL 8.6-10.6 L eGFR Calculation (Non-) (test code = 5725628345) mL/min/1.73m2 eGFR Calculation () (test code = 0878103401) mL/min/1.73m2 LESLEY (test code = LESLEY) Association [...] imaging tests). Lab Interpretation (test code = 49743-8) Abnormal [facility] CampusaPTT2020-06-14 09:15:00* Test Item Value Reference Range Interpretation Comme [facility] APTT Patient (test code = 3173-2) See_Comment [Automated message] The system which generated this result transmitted reference range: 23 - 38 Seconds. The reference range was not used to interpret this result as normal/abnormal. LESLEY (test code = LESLEY) The [facility] patient population mean normal value for aPTT is 30 seconds. Lab Interpretation (test code = 39583-8) Normal [facility] CampusPROTHROMBIN TIME / [id number] 09:13:00* Test Item Value Reference Range Interpretation Comme [facility] PROTIME PATIENT (test code = 5964-2) See_Comment [Automated messa ge] The system which generated this result transmitted reference range: 12.0 - 14.7 Seconds. The reference range was not used to interpret this result as normal/abnormal. INR (test code = 6301-6) Normal INR <1.1; Warfarin Therapeutic range 2.0 to 3.0 or 2.5 to 3.5, depending upon the indications. Lab Interpretation (test code = 55816-5) Normal [facility] WITH PEQSMSAKGXTR3778-81-65 09:06:00* Test Item Value Reference Range Interpretation Comme [facility] WBC (test code = 6690-2) See_Comment H [...] 32.1 g/dL 31.6-35.1 RDW-SD (test code = 32495-7) 44.3 fL 39-49.9 RDW-CV (test code = 788-0) 14.5 % 12-15.5 PLT (test code = 777-3) See_Comment [Automated messa ge] The system which generated this result transmitted reference range: 166 - 358 10*3/?L. The reference range was not used to interpret this result as normal/abnormal. MPV (test code = 10353-7) 10.8 fL 9.5-12.9 NRBC/100 WBC (test code = 7480337673) See_Comment [Automated me ssage] The system which generated this result transmitted reference range: 0.0 - 10.0 /100 WBCs. The reference range was not used to interpret this result as normal/abnormal. NRBC x10^3 (test code = 4966130898) <0.01 See_Comment [Automated messa ge] The system which generated this result transmitted reference range: 10*3/?L. The reference range was not used to interpret this result as normal/abnormal. GRAN MAT (NEUT) % (test code = 770-8) 70.5 % IMM GRAN % (test code = 5152932966) 0.50 % LYMPH % (test code = 736-9) 22.1 % MONO % (test code = 5905-5) 6.1 % EOS % (test code = 713-8) 0.3 % BASO % (test code = 706-2) 0.5 % GRAN MAT x10^3(ANC) (test code = 5438181578) 9.13 10*3/uL 1.88-7.09 H IMM GRAN x10^3 (test code = 7958626084) 0.07 10*3/uL 0-0.06 H LYMPH x10^3 (test code = 731-0) 2.86 10*3/uL 1.32-3.29 MONO x10^3 (test code = 742-7) 0.79 10*3/uL 0.33-0.92 EOS x10^3 (test code = 711-2) 0.04 10*3/uL 0.03-0.39 BASO x10^3 (test code = 704-7) 0.07 10*3/uL 0.01-0.07 Lab Interpretation (test code = 32127-3) Abnormal [facility] CampusCOVID-19 (ID NOW RAPID TESTING)2019-12-11 00:12:00* Test Item Value Reference Range Interpretation Comme nts SARS-CoV-2 Rapid ID NOW (test code = 71898-4) Not Detected Not Detected LESLEY (test code = LESLEY) ID NOW COVID-19 As say is an isothermal nucleic acid amplification test intended for the qualitative detection of nucleic acid from SARS-CoV-2 viral RNA in 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 It is used under Emergency Use [...] clinically indicated. Lab Interpretation (test code = 07687-4) Normal [facility] CampusCT ABDOMEN PELVIS W [id number] 22:56:30Early uncomplicated acute appendicitis with no perforation orperiappendiceal abscess. The findings of this study, including early appendicitis, have beendiscussed with and acknowledged by [facility] Folushoover the phone on 12/10/2019at 5:45 PM with [...] appendicitis, have beendiscussed with and acknowledged by ACTING PROFESSORVinita Lopez over the phone on 12/10/2019at 5:45 PM with readback.Preliminary Report Dictated byResident: Jmienez Loera MD., have reviewed this study and agree with the abovereport.[facility] CampusLactic Acid Whole Exctd5957-86-72 22:21:00* Test Item Value Reference Range Interpretation Comme nts LACTIC ACID (test code = 0833564418) 1.70 mmol/L 0.3-2.6 [facility] WITH [id number] 21:45:00* Test Item Value Reference Range Interpretation [...] 32.9 g/dL 31.6-35.1 RDW-SD (test code = 02430-6) 43.1 fL 39-49.9 RDW-CV (test code = 788-0) 14.3 % 12-15.5 PLT (test code = 777-3) See_Comment H [Automated message] The system which generated this result transmitted reference range: 166 - 358 10*3/?L. The reference range was not used to interpret this result as normal/abnormal. MPV (test code = 41798-2) 10.6 fL 9.5-12.9 NRBC/100 WBC (test code = 8903207479) See_Comment [Automated message] The system which generated this result transmitted reference range: 0.0 - 10.0 /100 WBCs. The reference range was not used to interpret this result as normal/abnormal. NRBC x10^3 (test code = 0569583722) <0.01 See_Comment [Automated message] The system which generated this result transmitted reference range: 10*3/?L. The reference range was not used to interpret this result as normal/abnormal. GRAN MAT (NEUT) % (test code = 770-8) 90.0 % IMM GRAN % (test code = 0797860354) 1.00 % LYMPH % (test code = 736-9) 5.5 % MONO % (test code = 5905-5) 3.1 % EOS % (test code = 713-8) 0.0 % BASO % (test code = 706-2) 0.4 % GRAN MAT x10^3(ANC) (test code = 9562500299) 23.83 10*3/uL 1.88-7.09 H IMM GRAN x10^3 (test code = 0845566232) 0.26 10*3/uL 0-0.06 H LYMPH x10^3 (test code = 731-0) 1.47 10*3/uL 1.32-3.29 MONO x10^3 (test code = 742-7) 0.83 10*3/uL 0.33-0.92 EOS x10^3 (test code = 711-2) <0.03 0.03-0.39 L BASO x10^3 (test code = 704-7) 0.11 10*3/uL 0.01-0.07 H Lab Interpretation (test code = 00678-1) Abnormal [facility] CampusUrinalysis2020-06-13 21:37:00* Test Item Value Reference Range Interpretation Comme nts APPEARANCE (test code = 7297277082) Cloudy Clear A COLOR (test code = 1615567893) Yellow Yellow PH (test code = 6567503133) 4.8-8.0 SP GRAVITY (test code = 7956098709) 1.003-1.030 GLU U QUAL (test code = 8643058565) Normal Normal BLOOD (test code = 3490654399) 2+ Negative A KETONES (test code = 1508613318) 5 mg/dL Negative A PROTEIN (test code = 2887-8) 30 mg/dL Negative A UROBILIN (test code = 3582365840) Normal Normal BILIRUBIN (test code = 6618595633) Negative Negative NITRITE (test code = 4763654108) Negative Negative LEUK JAKE (test code = 6087362792) 250/uL Negative A RBC/HPF (test code = 9593553847) See_Comment H [Automated messa ge] The system which generated this result transmitted reference range: 0 - 3 HPF. The reference range was not used to interpret this result as normal/abnormal. WBC/HPF (test code = 1122655894) See_Comment H [Automated messa ge] The system which generated this result transmitted reference range: 0 - 5 HPF. The reference range was not used to interpret this result as normal/abnormal. BACTERIA (test code = 5298213201) Few Negative A MUCOUS (test code = 2198232702) Marked Negative LPF A SQ EPITH (test code = 1335285089) HPF Lab Interpretation (test code = 01251-6) Abnormal [facility]. METABOLIC PANEL (36753)2019-12-10 21:28:00* Test Item Value Reference Range Interpretation Comme nts NA (test code = 0232841776) 136 mmol/L 135-145 K (test code = 3071041712) 3.8 mmol/L 3.5-5 CL (test code = 0089835798) 103 mmol/L 98-108 CO2 TOTAL (test code = 8391951861) 23 mmol/L 23-31 AGAP (test code = 2410660298) 2-16 BUN (test code = 3852471690) 13 mg/dL 7-23 GLUCOSE (test code = 0294539868) 93 mg/dL 70-110 CREATININE (test code = 6446331238) 0.58 mg/dL 0.5-1.04 TOTAL BILI (test code = 8077165957) 0.4 mg/dL 0.1-1.1 CALCIUM (test code = 3604137966) 9.3 mg/dL 8.6-10.6 T PROTEIN (test code = 8746424997) 7.8 g/dL 6.3-8.2 ALBUMIN (test code = 9963421730) 4.5 g/dL 3.5-5 ALK PHOS (test code = 2943757971) 88 U/L 34-122 ALTv (test code = 1742-6) 44 U/L 5-35 H AST(SGOT) (test code = 8997124705) 31 U/L 13-40 eGFR Calculation (Non-) (test code = 9924819367) mL/min/1.73m2 eGFR Calculation () (test code = 9267074687) mL/min/1.73m2 LESLEY (test code = LESLEY) Association [...] imaging tests). Lab Interpretation (test code = 06314-4) Abnormal [facility] CampusLipase Ztric1232-32-63 21:28:00* Test Item Value Reference Range Interpretation Comme [facility] LIPASE (test code = 8743096940) 76 U/L 0-220 Lab Interpretation (test cod e = 21318-4) Normal [facility] CampusPOCT Test, [id number] 20:34:00 * Test Item Value Reference Range Interpretation Comme nts POCT PREG (test code = 1605) negative POCT PREG LOT # (test code = 3575) [id number] POCT PREG TEST DATE ( test code = 3576) 01/26/2021 Lab Interpretation (test cod e = 47386-9) Normal [facility] CampusCB WITH [id number] 11:03:00* Test Item Value Reference Range Interpretation [...] 32.6 g/dL 31.6-35.1 RDW-SD (test code = 55465-1) 44.3 fL 39-49.9 RDW-CV (test code = 788-0) 14.5 % 12-15.5 PLT (test code = 777-3) See_Comment H [Automated message] The system which generated this result transmitted reference range: 166 - 358 10*3/?L. The reference range was not used to interpret this result as normal/abnormal. MPV (test code = 49135-5) 10.6 fL 9.5-12.9 NRBC/100 WBC (test code = 2551264671) See_Comment [Automated message] The system which generated this result transmitted reference range: 0.0 - 10.0 /100 WBCs. The reference range was not used to interpret this result as normal/abnormal. NRBC x10^3 (test code = 4428365143) <0.01 See_Comment [Automated message] The system which generated this result transmitted reference range: 10*3/?L. The reference range was not used to interpret this result as normal/abnormal. GRAN MAT (NEUT) % (test code = 770-8) 87.0 % IMM GRAN % (test code = 8756994163) 0.80 % LYMPH % (test code = 736-9) 7.5 % MONO % (test code = 5905-5) 4.6 % EOS % (test code = 713-8) 0.0 % BASO % (test code = 706-2) 0.1 % GRAN MAT x10^3(ANC) (test code = 1783692468) 12.69 10*3/uL 1.88-7.09 H IMM GRAN x10^3 (test code = 5732915703) 0.12 10*3/uL 0-0.06 H LYMPH x10^3 (test code = 731-0) 1.10 10*3/uL 1.32-3.29 L MONO x10^3 (test code = 742-7) 0.67 10*3/uL 0.33-0.92 EOS x10^3 (test code = 711-2) <0.03 0.03-0.39 L BASO x10^3 (test code = 704-7) <0.03 0.01-0.07 Lab Interpretation (test code = 94795-3) Abnormal [facility] CampusCT PELVIS W [id number] 14:57:55A 6.4 cm peripherally enhancing left labial [...] havereviewed this study and agree with the abovereport.[facility] CampusUrinalysis2020-06-06 13:17:00* Test Item Value Reference Range Interpretation Comme nts APPEARANCE (test code = 8853101998) Clear Clear COLOR (test code = 3957338656) Yellow Yellow PH (test code = 3173805517) 4.8-8.0 SP GRAVITY (test code = 3801562725) 1.003-1.030 GLU U QUAL (test code = 4218719936) Negative Negative BLOOD (test code = 5975695158) Negative Negative KETONES (test code = 1553765879) 40 mg/dL Negative A PROTEIN (test code = 2887-8) Negative Negative UROBILIN (test code = 6856529076) 0.2 mg/dL See_Comment [Automated messa ge] The system which generated this result transmitted reference range: 0-1.0 mg/dL. The reference range was not used to interpret this result as normal/abnormal. BILIRUBIN (test code = 4520585489) Negative Negative NITRITE (test code = 0778270569) Negative Negative LEUK JAKE (test code = 7041200449) Negative Negative RBC/HPF (test code = 8803574687) <1 See_Comment [Automated messa ge] The system which generated this result transmitted reference range: 0 - 3 HPF. The reference range was not used to interpret this result as normal/abnormal. WBC/HPF (test code = 8159482451) <1 See_Comment [Automated messa ge] The system which generated this result transmitted reference range: 0 - 5 HPF. The reference range was not used to interpret this result as normal/abnormal. BACTERIA (test code = 8070448932) Few Negative A Lab Interpretation (test code = 44537-3) Abnormal [facility] (NA, K, CL, CO2, GLUCOSE, BUN, CREATININE, CA)2019-12-03 13:16:00* Test Item Value Reference Range Interpretation Comme nts NA (test code = 9585224118) 137 mmol/L 135-145 K (test code = 0139640374) 4.0 mmol/L 3.5-5 CL (test code = 6238159987) 103 mmol/L 98-108 CO2 TOTAL (test code = 8704165744) 23 mmol/L 23-31 AGAP (test code = 6819003803) 2-16 BUN (test code = 8502308373) 18 mg/dL 7-23 GLUCOSE (test code = 7334089656) 96 mg/dL 70-110 CREATININE (test code = 5222424303) 0.93 mg/dL 0.5-1.04 CALCIUM (test code = 0353785408) 9.9 mg/dL 8.6-10.6 eGFR Calculation (Non-) (test code = 2920852765) mL/min/1.73m2 eGFR Calculation () (test code = 9728487722) mL/min/1.73m2 LESLEY (test code = LESLEY) Association [...] or urine or abnormalities in imaging tests). [facility] CampusHepatic Function Panel (ALB, T.PRO, BILI T, BU/BC, ALT, AST, ALK PHOS)2019-12-03 13:16:00* Test Item Value Reference Range Interpretation Comme nts TOTAL BILI (test code = 9580171519) 0.6 mg/dL 0.1-1.1 BILI UNCON (test code = 6076647317) 0.6 mg/dL 0.1-1.1 BILI CONJ (test code = 8049973634) 0.0 mg/dL 0-0.3 T PROTEIN (test code = 9791384185) 8.7 g/dL 6.3-8.2 H ALBUMIN (test code = 0361639851) 5.0 g/dL 3.5-5 ALK PHOS (test code = 6478556493) 125 U/L 34-122 H ALTv (test code = 1742-6) 36 U/L 5-35 H AST(SGOT) (test code = 3633405706) 25 U/L 13-40 Lab Interpretation (test cod e = 11560-0) Abnormal [facility]COVID[facility] (ID NOW RAPID TESTING)2019-12-03 13:05:00* Test Item Value Reference Range Interpretation Comme nts SARS-CoV-2 Rapid ID NOW (test code = 50710-4) Not Detected Not Detected LESLEY (test code = LESLEY) ID NOW COVID-19 As say is an isothermal nucleic acid amplification test intended for the qualitative detection of nucleic acid from SARS-CoV-2 viral RNA in 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 It is used under Emergency Use [...] clinically indicated. Lab Interpretation (test code = 00634-1) Normal [facility] CampusaPTT2020-06-06 12:54:00* Test Item Value Reference Range Interpretation Comme [facility] APTT Patient (test code = 3173-2) See_Comment [Automated message] The system which generated this result transmitted reference range: 23 - 38 Seconds. The reference range was not used to interpret this result as normal/abnormal. LESLEY (test code = LESLEY) The [facility] patient population mean normal value for aPTT is 30 seconds. Lab Interpretation (test code = 23500-4) Normal [facility] CampusProthrombin Time (PT) / [id number] 12:54:00 * Test Item Value Reference Range Interpretation Comme [facility] PROTIME PATIENT (test code = 5964-2) See_Comment [Automated messa ge] The system which generated this result transmitted reference range: 12.0 - 14.7 Seconds. The reference range was not used to interpret this result as normal/abnormal. INR (test code = 6301-6) Normal INR <1.1; Warfarin Therapeutic range 2.0 to 3.0 or 2.5 to 3.5, depending upon the indications. Lab Interpretation (test code = 04790-3) Normal [facility] CampusCBC WITH VDDSLHJWUUYF6297-91-84 12:43:00* Test Item Value Reference Range Interpretation Comme [facility] WBC (test code = 6690-2) See_Comment H [...] 32.4 g/dL 31.6-35.1 RDW-SD (test code = 35387-5) 42.6 fL 39-49.9 RDW-CV (test code = 788-0) 14.2 % 12-15.5 PLT (test code = 777-3) See_Comment [Automated message] The system which generated this result transmitted reference range: 166 - 358 10*3/?L. The reference range was not used to interpret this result as normal/abnormal. MPV (test code = 11425-4) 10.5 fL 9.5-12.9 NRBC/100 WBC (test code = 9511291176) See_Comment [Automated message] The system which generated this result transmitted reference range: 0.0 - 10.0 /100 WBCs. The reference range was not used to interpret this result as normal/abnormal. NRBC x10^3 (test code = 4370900384) <0.01 See_Comment [Automated message] The system which generated this result transmitted reference range: 10*3/?L. The reference range was not used to interpret this result as normal/abnormal. GRAN MAT (NEUT) % (test code = 770-8) 82.6 % IMM GRAN % (test code = 0781567886) 0.70 % LYMPH % (test code = 736-9) 9.2 % MONO % (test code = 5905-5) 6.7 % EOS % (test code = 713-8) 0.3 % BASO % (test code = 706-2) 0.5 % GRAN MAT x10^3(ANC) (test code = 3850256916) 12.22 10*3/uL 1.88-7.09 H IMM GRAN x10^3 (test code = 3664464254) 0.11 10*3/uL 0-0.06 H LYMPH x10^3 (test code = 731-0) 1.36 10*3/uL 1.32-3.29 MONO x10^3 (test code = 742-7) 0.99 10*3/uL 0.33-0.92 H EOS x10^3 (test code = 711-2) 0.04 10*3/uL 0.03-0.39 BASO x10^3 (test code = 704-7) 0.08 10*3/uL 0.01-0.07 H Lab Interpretation (test code = 25584-5) Abnormal [facility] CampusLaneic Acid Whole Bqzez0196-91-77 12:41:00* Test Item Value Reference Range Interpretation Comme nts LACTIC ACID (test code = 1916933095) 1.29 mmol/L 0.3-2.6 [facility] Test, Vqozc9427-32-33 12:32:00 * Test Item Value Reference Range Interpretation Comme nts POCT PREG (test code = 1605) negative On board controls acceptable with C Line (test code = 3574) present POCT PREG LOT # (test code = 3575) [id number] POCT PREG TEST DATE ( test code = 3576) 01/26/2021 Lab Interpretation (test cod e = 29474-6) Normal [facility], Strep A Screen [*IH]* Test Item Value Reference Range Interpretation Comme nts Strep A (test code = 26890-2) neg Ref Range - Negat reid POC, Strep A Screen [*IH]* Test Item Value Reference Range Interpretation Comme nts Strep A (test code = 62034-9) negative Ref Range - Negat reid US Gallbladder RUQ Name: EDUARD RUTLEDGE Quynh : 1995Sex: [facility] Pt Name: KIRILLEDUARD C [address] [facility] Phys: [place] [address] : 1995 Age: 25 SEX:F Exam Date: 06/03/21 Status: REG CLI Acct: [id number] Loc: [facility] Pt Unit #: [id number] Report #: [id number] CC: Stanislav Gotti MD ULTRASOUND REPORT Order # Category/Exam [id number] ULT/US Gallbladder RUQ ([id number]): . Results EXAM: Right upper quadrant ultrasound [...] MD Electronically Signed Date/Time: 06/03/21 1056 Technologist: ADRIAN [id number] Dictated Date/Time: 06/03/21 1055 Transcribed Date/Time:XR Chest 1 View PortableName: EDUARD RUTLEDGE : 1995 Sex: [facility] Pt Name: EDUARD RUTLEDGE [address] [facility] Phys: ABRAHAM INFANTE DO [facility] [place] [address] : 1995 Age: 25 SEX:F Exam Date: 12/01/20 Status: REG ER Acct: [id number] Loc: [facility] Pt Unit #: [id number] Report #: [id number] CC: ABRAHAM INFANTE DO [facility] REPORT Order # Category/Exam [id number] RAD/XR Chest 1 View Portable ([id number]): . Results Exam: Chest one view HISTORY:Shortness of breath and chest pain Comparison: None FINDINGS: Cardiac silhouette: Normal Aorta: Unremarkable Pulmonary vessels: Normal Costophrenic angles: Clear LUNGS: No masses or consolidation. Pneumothorax: None Osseous abnormalities: None IMPRESSION: No acute cardiopulmonary process. Reported By: Jonathan Garcia MD Electronically Signed Date/Time: 12/01/202121 Technologist: FEI Dictated Date/Time: 12/01/202120 Transcribed Date/Time: Notes Date/Time Note Provider Source 2024-03-15 09:27:32 Notified patient via [facility] regarding updated RX for modafinil 200mg with correct dosing instructions. T Ruth Medina RN [facility] 2024-03-15 09:17:22 I have reordered the morning dose , to take 200 mg in the morning T [facility] 2024-03-14 10:03:47 Eduard Rutledge is a 28 year old female Pt is calling to get clarification on medication instructions. increased medication from 100mg to 200mg but then in instructions orders pt to take "half of tablet" which would be same as old dose. Please advise. Young Brock [facility] 2024-01-28 12:11:47 Called patient to inform her of provider response on modafinil. Patient acknowledged & asked if provider is willing to enter order for hepatic function labs. Patient has FU 05/24. Review of chart shows another provider entered a hepatic function panel lab on 08/31/23 & shows as uncompleted. Advised patient to call the [facility] lab of her choice to ensure the order is still active/open on their end so she can get this completed. If she completes the lab, informed patient that Dr. Real will not get the results directly as she did not order this lab so patient will need to communicate with our clinic on those results. Patient verbalized understanding. Ruth Medina RN [facility] 2024-01-28 11:48:19 Modafinil can be taken with mild hepatic function abnormality. Nausea and headaches are common side effects of the medication and patient can stop the medicine if it is severe/uncomfortable for her. [facility] 2024-01-27 08:51:13 Returned call to patient; patient has history of fatty liver & elevated liver enzymes & wants provider input/advice on how safe it is to take modafinil based on her history. Patient states she has been having nausea & READ which she attributes to the medication. Informed patient that message will be routed to provider for clarification. [facility] 2024-01-26 14:17:23 Eduard Rutledge is a 28 year old female returning missed call. She says it's urgent and is concerned about fatty liver. Please call back, thanks. Rachelle Joshua [facility] 2024-01-25 16:27:48 Called Eduard Rutledge and left message regarding Rx. Patient instructed to return call when message received. Doreen Naidu RN [facility] 2024-01-25 08:23:48 Eduard Rutledge is a 28 year old female Patient is requesting a call from provider or nurse regarding her RX for modafiniL 100 mg tablet . Please advise Ashley Roe [facility] 2024-01-19 12:35:58 Pt's identity verified via . Discussed sleep study results with patient. MSLT is consistent with narcolepsy. Patient will be forwarded to Dr. Real for further care and management. Michelle Belcher APRN, ROSSY-[facility], [address] [address] Dept: [phone] Dept [facility] 2024-01-18 13:46:29 Called Eduard Rutledge, she was requesting sleep study results. Last seen by Michelle Belcher at [facility]. Informed her I would forward request to [facility]. She was appreciative and verbalized understanding. Doreen Naidu RN [facility] 2024-01-15 08:50:33 Eduard Rutledge is a 28 year old female Patient requesting a call back from nurse, states [facility], and would like to see what it was regarding Please advise Raven Cabral [facility] 2024-01-13 07:45:00 Summary: Pt in a sleep study, urine brought down by Alejandrina in sleep study. Images from the original note were not included. Patient has been identified by and name and was provided with cup, antiseptic towelette, and clean catch instructions. 1 urine specimen(s) sent. Unpreserved 1 Urine Culture Aptima tube Other urine [facility] 2024-01-11 11:19:00 PharmD attempted to reach patient to follow up on Qulipta. LVM reminding her of pending labs (LFTs) and to return call to PharmD. Vitor Valenzuela PharmD, [facility] Clinical Pharmacist Specialist Vitor Valenzuela [facility] 2023-12-28 11:53:57 Placed order for PSG sleep study and UDS. Called patient and identity verified via . Medications reviewed with patient. She states she has not started taking Celexa and is still taking Lexapro 20mg. Also takes Buspirone PRN. Advised to taper off antidepressant prior to sleep study as this may directly affect MSLT results. Advised to reach out to prescriber for tapering dose with verbalized understanding. Michelle Belcher APRN, [facility], [address], [address] [place] [id number] Dept: [phone] Dept FRUIT HARVEST MACHINE OPERATOR-NURSE PRACTITIONER MIDLEVEL PROVIDER [facility] 2023-12-25 15:07:00 Addended by: MICHELLE TURNER on: 12/28/2023 11:42 AM Modules accepted: Orders [facility] 2023-12-25 15:07:00 Addended by: CHICHO ALFONSO NP on: 01/13/2024 08:58 AM Modules accepted: Orders FRUIT HARVEST MACHINE OPERATOR-NURSE PRACTITIONER MIDLEVEL PROVIDER [facility] 2023-12-23 10:15:45 PharmD called and spoke to patient to follow up on Nurtec. She reports starting medication ~2 weeks ago and is taking 75mg po every other day as instructed. She reports ~3 headaches over past couple of weeks. Denies GI upset. Headaches/migraines improving with initiation of Nurtec. Tolerating, no ADRs. Patient instructed to do labwork in a couple of weeks for LFT monitoring and verbalized understanding of plan. Vitor Valenzuela PharmD, [facility] Clinical Pharmacist Specialist Vitor Valenzuela [facility] 2023-11-16 13:26:18 [facility] Special[facility] Therapy Plan Eduard Rutledge is a 28 year old y/o /White female patient referred to the [facility] for management of Nurtec and appropriateness of therapy which is being used to treat the diagnosis of Prevention of migraines. Eduard Rutledge is Experienced to therapy . Switching from Qulipta due to nausea/constipation. The stage of Eduard Rutledge active disease is Severe >15 headaches per month. Not all migraines. Goals of therapy based on therapy plan: Reduce attack frequency, severity, duration and disability, Reduce pain, Minimize need for repeat dosing or rescue medications, and Minimize adverse events Patient self-reported goals of therapy: Reduce attack frequency, severity, duration and disability, Reduce pain, Minimize need for repeat dosing or rescue medications, and Minimize adverse events Based on current therapy, patient progress towards established goals include: New to therapy The current specialty medication regimen is: Nurtec 75mg po every other day to be started on 11/18/23. Concurrent Neurology medications: Escitalopram 20mg po daily for m ood Buspirone 5mg one and one-half tablet BID prn anxiety Previously trialed medications: Failed Amitriptyline, Nortriptyline, Verapamil, Ubrelvy While speaking with the patient, the Specialty Pharmacist has reviewed and updated the: medication list and allergy list Patient's most recent discharge from a hospital admission related to their specialty condition: The patient has not had a recent hospitalization related to their specialty condition. The [facility] Specialty Pharmacist has reviewed: The H&P, treatment recommendations, and all provider encounters relevant to the management of Acute treatment of migraines and Prevention of migraines. Comorbid conditions: No contraindication to therapy Risk factors identified related to specialty medication therapy and condition: Hepatic Pertinent labs reviewed: Complete metabolic panel elevated LFTs Drug-Drug Interactions: There are no significant drug-drug interactions -Weight: Wt Readings from Last 1 Encounters: 10/23/23 112 kg (247 lb) Lab Results Component Value Date/Time BUN 19 10/02/2023 04:52 PM CREAT 0.83 10/02/2023 04:52 PM EGFR 99.9 10/02/2023 04:52 PM Lab Results Component Value Date/Time AST 39 10/02/2023 04:52 PM ALT 52 (H) 10/02/2023 04:52 PM BILIT 0.5 10/02/2023 04:52 PM BILIUNCON 0.1 05/02/2023 08:41 PM ALKPHOS 88 10/02/2023 04:52 PM Lab Results Component Value Date/Time WBC 10.21 10/02/2023 04:52 PM HGB 10.2 (L) 10/02/2023 04:52 PM PLT 383 (H) 10/02/2023 04:52 PM After review, the prescribed medication is clinically appropriate. PharmD provided education on Nurtec (Rimegepant): -Dosing: -Prevention: 75mg by mouth every other day -discussed keeping track of every other day dosing (phone reminders, calendar). -Side effects: -Common: nausea, abdominal pain -Rare: skin rash/hypersensitivity, dyspnea -: avoid -Counseled on contraception - condoms Home Delivery Process: If the patient chooses to have the medications delivered home, someone needs to be at home to receive the packaged medication. The medication can only sit in the ice box for 6 to 8 hours, and then it needs to be refrigerated. [address] [facility] [id number] -Follow-up: Provided patient with PharmD contact information to call if they have any questions. Otherwise, PharmD to follow up by telephone on 12/22/23. Future Appointments Provider Department Dept Phone 12/04/2023 4:00 PM Michelle Belcher FNP [facility], [place] [phone] A comprehensive Welcome Packet is accessible to all patients via the [facility]'s website. For patients who may not have internet access, a printed copy is included with their medication shipment or provided during medication pick-up. Thank you, Vitor Valenzuela [facility] Vitor Valenzuela [facility] 2023-10-22 11:39:10 Addended by: ALEJANDRINA ASCENCIO on: 10/22/2023 11:39 AM Modules accepted: Orders [facility] 2023-10-20 14:10:41 PharmD called and spoke to patient to follow up on Qulipta. Patient stopped taking medication due to c/o nausea and constipation. Discussed po Nurtec as another option for migraine preventative. Message sent to [facility] team to obtain authorization. Once approved, will send message to Ms Menchaca to order. Pt verbalized understanding. Vitor Valenzuela PharmD, BCPS Clinical Pharmacist Specialist Vitor Valenzuela [facility] 2023-10-07 15:36:40 Yes, do recommend she take otc ferrous sulfate [facility] 2023-10-05 08:05:56 Images from the original note were not included. Received CPAP supply refill request from Michelle Belcher NP. Last office visit 4 Follow Up visit - 6.01.19 Last DME sent - [address] [facility] Rx: full face mask, heated tubing APAP therapy pressure settings [id number] with EPR:3cmH2O and heated humidification with choice mask. DME : [employer] Lorene Armas RN [facility] 2023-10-02 17:00:00 Images from the original note were not included. Venipuncture collection performed by clean technique on the right forearm(s). Total of 1 attempts were made. Slight pressure and a bandage/dressing were applied to the site(s). The patient experienced no complications. The following specimens were processed according to instructions and sent to [facility] laboratories per lab order on 10/02/2023: 1 LIGHT GREEN TUBE LT BLUE SST 3 RED LAV 2 PPT DK GREEN (LiHep) DK GREEN (SodH) REEVES DK BLUE (K2) DK BLUE (S) ACD Blood Culture NIPT/NTD [facility] 2023-09-23 13:04:25 Ubrelvy no longer an active medication. [facility] 2023-09-23 10:39:50 Images from the original note were not included. Lorene Painter [facility] 2023-09-22 12:54:11 PharmD called and spoke to patient to follow up on Qulipta. She reports starting Qulipta 30mg daily only two days (09/20/23) due to being out of town. Has not yet noticed any improvement as she has been struggling with a headache due to being sick. Denies nausea, constipation, jaundice, fatigue/drowsiness. Will follow up again by phone in one month for LFT monitoring. Pt verbalized understanding of plan. Vitor Valenzuela, Blake, BCPS Clinical Pharmacist Specialist Vitor Valenzuela [facility] 2023-08-31 15:42:03 Noted. OGRAPHIC INTELLIGENCE OFFICER Lorene Armas RN [facility] 2023-08-31 14:38:55 Called Eduard Rutledge, informed her that all other sleep providers here are booked with earliest availability in September. Patient is fine with going to [facility] location. Review of Michelle Belcher's schedule shows availability in August. Patient scheduled for 09/21/23 at [facility] with Michelle Belcher. Routing to Michelle Belcher for awareness. OGRAPHIC INTELLIGENCE OFFICER Ruth Medina RN [facility] 2023-08-31 13:45:14 I am on service in ICU and have never seen this patient. Given the urgency of patient's symptoms- please schedule her to be seen by another sleep provider dominick. Please advise patient to refrain from driving and/or engaging in dangerous activities with any symptoms of tiredness or sleepiness in the interim. Thanks, Dr. Yeung OGRAPHIC INTELLIGENCE OFFICER IM-PULMONARY DISEASE STAFF [facility] 2023-08-31 11:58:15 [facility] Special[facility] Pharm[facility] Therapy Plan Eduard Rutledge is a 28 year old y/o /White female patient referred to the [facility] for management of Qulipta and appropriateness of therapy which is being used to treat the diagnosis of Prevention of migraines. Eduard Rutledge is Experienced to therapy . Prev trial with Ubrelvy. The stage of Eduard Rutledge active disease is Severe >15 headache days per month. Not all migraines. Goals of therapy based on therapy plan: Reduce attack frequency, severity, duration and disability, Reduce pain, and Minimize need for repeat dosing or rescue medications Patient self-reported goals of therapy: Reduce attack frequency, severity, duration and disability, Reduce pain, and Minimize need for repeat dosing or rescue medications Based on current therapy, patient progress towards established goals include: New to therapy The current specialty medication regimen is: Qulipta 30mg po daily to be started on 09/02/23. Concurrent Neurology medications: Escitalopram 20mg po daily for m ood Buspirone 5mg one and one-half tablet BID prn anxiety Previously trialed medications: Failed Amitriptyline, Nortriptyline, Verapamil, Ubrelvy While speaking with the patient, the Specialty Pharmacist has reviewed and updated the: medication list and allergy list Triptan allergy Patient's most recent discharge from a hospital admission related to their specialty condition: The patient has not had a recent hospitalization related to their specialty condition. The [facility] Specialty Pharmacist has reviewed: The H&P, treatment recommendations, and all provider encounters relevant to the management of Prevention of migraines. Comorbid conditions: No contraindication to therapy Risk factors identified related to specialty medication therapy and condition: Hepatic Scr wnl. Elevated LFTs that patient says she has fatty liver. Will order f/u Hepatic Panel/LFTs to be completed 3 to 4 weeks after starting Qulipta. Pertinent labs reviewed: Complete metabolic panel Drug-Drug Interactions: There are no significant drug-drug interactions -Weight: Wt Readings from Last 1 Encounters: 08/28/23 113.8 kg (250 lb 12.8 oz) Lab Results Component Value Date/Time BUN 22 05/06/2023 07:09 PM CREAT 0.64 05/06/2023 07:09 PM EGFR 126.0 05/06/2023 07:09 PM Lab Results Component Value Date/Time AST 43 (H) 05/04/2023 12:45 PM ALT 64 (H) 05/04/2023 12:45 PM BILIT 0.4 05/04/2023 12:45 PM BILIUNCON 0.1 05/02/2023 08:41 PM ALKPHOS 95 05/04/2023 12:45 PM Lab Results Component Value Date/Time WBC 10.32 05/04/2023 12:45 PM HGB 10.9 (L) 05/04/2023 12:45 PM PLT 336 05/04/2023 12:45 PM After review, the prescribed medication is clinically appropriate. PharmD provided education on Qulipta (atogepant): -Dosing: -Start 30 mg by mouth daily -Side effects: -Common: nausea, constipation, fatigue, drowsiness, decreased appetite/wt loss, increased LFTs (monitor jaundice symptoms) -: Avoid -Counseled on contraception. Not using. Discussed barrier method (condoms). After counseling and education, utilized teach-back method to ensure patient comprehension on injection technique. Home Delivery Process: If the patient chooses to have the medications delivered home, someone needs to be at home to receive the packaged medication. The medication can only sit in the ice box for 6 to 8 hours, and then it needs to be refrigerated. [address] [address] -Follow-up: Provided patient with PharmD contact information to call if they have any questions. Otherwise, PharmD to follow up by telephone on 09/21/23 to remind her of follow up LFTs. Thank you, Vitor Valenzuela [facility] 2023-08-28 14:41:22 Returned call to Eduard Rutledge. She states that her sleepiness "has been getting worse over the past couple weeks" but has overall felt sleepiness has been for about 2 mths & sometimes falls asleep while driving; she commutes 1 [address] work one way & is concerned about how sleepy she feels while driving. She received her machine in Jun 2023 & has felt no benefit from it since starting therapy as she feels sleepy & tired all the time. Airview shows patient is 100% compliant at this time. Patient states she is comfortable on her current machine settings but wonders if she should be on higher pressures. Patient stated her sister has narcolepsy & would like to know if she should be evaluated for this. Patient is a previous [facility] patient with sleep FU scheduled on 11/09/[address] Yeung. Routing to Dr. Yeung for review/recommendation. [facility] 2023-08-28 13:51:27 Pt calling states she started using the CPAP machine the first of the year and states it is not helping. She states she is falling asleep while driving to work. She has to drive an hour. Callback [phone] OGRAPHIC INTELLIGENCE OFFICER Ruby Marshall [facility] 2023-08-28 11:34:36 Benny, The prior authorization has been approved for the following medication: Drug: Qulipta Insurance: [employer] PA#: [id number] Expires: 02/28/2024 The patient can reach out to their pharmacy to have the medication processed on their insurance. Thank you LA Garibay [facility] 2023-02-27 09:18:33 Formatting of this n ote might be different from the original. Images from the original note were not included. New start DME The following has been sent to the provider for completion via parachute/FAX Orders pended for [employer] company Prescription for CPAP Sleep study /data report dated - 02/03/2023 Demographics - Face sheet Insurance Information Progress Notes from office visit prior to sleep study - 01/14/2023 Office visit note post sleep study 02/11/2023 Follow up due 31-90 days following initiation of any device. Doreen Naidu RN [facility] 2023-02-05 14:24:38 Formatting of this n ote might be different from the original. Attempted to contact patient. No answer. Left message to call back. Joan Herrera LVN 02/05/2023 2:24 PM Joan Herrera LVN [facility] 2023-02-05 14:19:18 Formatting of this n ote might be different from the original. Pt is calling says she need to discuss dx that is bridge attacher to a referral for sleep apnea Merline Brunson [facility] 2023-01-14 11:30:00 Formatting of this n ote is different from the original. Images from the original note were not included. Venipuncture collection performed by clean technique on the left anticubitus. Total of 1 attempts were made. Slight pressure and a bandage/dressing were applied to the site(s). The patient experienced no complications. The following specimens were processed according to instructions and sent to [facility] laboratories per lab order on TODAY: LT BLUE SST 3 RED LAV 2 PPT DK GREEN (LiHep) DK GREEN (SodH) REEVES DK BLUE (K2) DK BLUE (S) ACD Blood Culture NIPT/NTD [facility]
[2024-04-14] MEDS ORDERED: FAMOTIDINE 20 MG TAB ONE (00:01)
[2024-04-14] MEDS ORDERED: DIPHENHYDRAMINE 25 MG TAB/CAP ONE (00:01)
[2024-04-14] MEDS ORDERED: predniSONE 20 MG TAB ONE (00:01)
--- NOTE | 2024-04-14 00:46 | ER ---
Nurse's Notes [facility] Name: Dominique Rutledge Age: 28 yrs Sex: Female : 1995 Arrival Date: 04/13/2024 Time: 22:30 Bed DX1 Private MD: MIRLANDE CARDOSO Diagnosis: Allergy status to unspecified drugs, medicaments and biological substances status Presentation: 04/13 23:01 Chief complaint: Patient states: took cephalexin for the first time and i feel like lg3 having chest tightness, throat burning and hot all over. took 2 Benadryl [employer] at 1940 with no relief. Coronavirus screen: Client denies travel out of the [place] in the last 14 days. At this time, the client does not indicate any symptoms associated with coronavirus-19. Ebola Screen: No symptoms or risks identified at this time. Onset: The symptoms/episode began/occurred today. Anaphylaxis evaluation, the patient reports or I have noted the following symptoms which indicate a significant risk of anaphylaxis: chest pain. Initial Sepsis Screen: Does the patient meet any 2 criteria? No. Patient's initial sepsis screen is negative. Does the patient have a suspected source of infection? No. Patient's initial sepsis screen is negative. Risk Assessment: Do you want to hurt yourself or someone else? Patient reports no desire to harm self or others. Onset of symptoms was April 13, 2024. 23:01 Method Of Arrival: Ambulatory lg3 23:01 Acuity: NANCI 3 lg3 Triage Assessment: 23:04 General: Appears in no apparent distress. uncomfortable, Behavior is calm, cooperative. lg3 Pain: Complains of pain in chest. EENT: No deficits noted. No signs and/or symptoms were reported regarding the EENT system. Neuro: No deficits noted. Quinonez Agitation-Sedation Scale (RASS): 0 - Alert and Calm Level of Consciousness is awake, alert, obeys commands, Oriented to person, place, time, situation. Cardiovascular: No deficits noted. Reports chest pain, lightheadedness, Capillary refill < 3 seconds Clubbing of nail beds is absent JVD is absent Patient's skin is warm and dry. Respiratory: No deficits noted. Airway is patent Respiratory effort is even, unlabored, Respiratory pattern is regular, symmetrical. GI: No deficits noted. No signs and/or symptoms were reported involving the gastrointestinal system. : No deficits noted. No signs and/or symptoms were reported regarding the genitourinary system. Derm: Skin is intact, is healthy with good turgor, Skin is dry, Skin is normal, Skin temperature is warm reddening to face, neck and chest noted. Musculoskeletal: No deficits noted. No signs and/or symptoms reported regarding the musculoskeletal system. Circulation, motion, and sensation intact. Range of motion: intact in all extremities. 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 - Infectious Disease History:: Denies. - Social history:: Smoking status: Patient denies any tobacco usage or history of. Patient/guardian denies using alcohol, street drugs. Screenin:57 [facility] ED Fall Risk Assessment (Adult) History of falling in the last 3 months, lg3 including since admission No falls in past 3 months (0 pts) Confusion or Disorientation No (0 pts) Intoxicated or Sedated No (0 pts) Impaired Gait No (0 pts) Mobility Assist Device Used No (0 pt) Altered Elimination No (0 pt) Score/Fall Risk Level 0 - 2 = Low Risk Oriented to surroundings, Maintained a safe environment, Educated pt \T\ family on fall prevention, incl call for assistance when getting out of bed, Assessed \T\ reinforced patient's understanding of fall precautions. Abuse screen: Denies threats or abuse. Denies injuries from another. Nutritional screening: No deficits noted. Tuberculosis screening: No symptoms or risk factors identified. Assessment: 23:56 General: see triage assessment. Respiratory: No deficits noted. Airway is patent lg3 Respiratory effort is even, unlabored, Respiratory pattern is regular, symmetrical, Breath sounds are clear bilaterally. 04/14 01:08 Reassessment: Patient appears in no apparent distress at this time. Patient and/or lg3 family updated on plan of care and expected duration. Pain level reassessed. Patient is alert, oriented x 3, equal unlabored respirations, skin warm/dry/pink. Patient states feeling better. Patient states symptoms have improved. Vital Signs: 04/13 23:01 BP 131 / 84; Pulse 111; Resp 17 S; Temp 98(O); Pulse Ox 100% on R/A; Weight 108.86 kg lg3 (R); Height 5 ft. 5 in. (R); 04/14 01:10 BP 124 / 82; Pulse 91; Resp 18 S; Temp 98.1(O); Pulse Ox 100% on R/A; lg3 04/13 23:01 Body Mass Index 39.94 (108.86 kg, 165.1 cm) lg3 ED Course: 04/13 22:34 Patient arrived in ED. gm2 22:34 MIRLANDE CARDOSO is Private Physician. gm2 22:43 [facility] Schmidt [facility] cp 22:43 Ramiro Hudson MD is Attending Physician. cp 23:04 Triage completed. lg3 23:04 Arm band placed on right wrist. lg3 23:57 Rosina Mckeon RN is Primary Nurse. lg3 23:57 Patient has correct armband on for positive identification. Family accompanied patient. lg3 23:57 EKG done, by ED staff, reviewed by Ramiro BROWN. ty 04/14 01:10 No provider procedures requiring assistance completed. Patient did not have IV access lg3 during this emergency room visit. Administered Medications: 00:02 Drug: predniSONE PO 60 mg PO once Route: PO; lg3 01:08 Follow up: Response: No adverse reaction lg3 00:02 Drug: Famotidine PO 20 mg PO once Route: PO; lg3 01:08 Follow up: Response: No adverse reaction lg3 00:02 Drug: diphenhydrAMINE PO 25 mg PO once Route: PO; lg3 01:08 Follow up: Response: No adverse reaction; Marked relief of symptoms lg3 Medication: 04/13 23:58 VIS not applicable for this client. lg3 Outcome: 04/14 00:45 Discharge ordered by . cp 01:10 Discharged to home ambulatory, lg3 01:10 Condition: stable 01:10 Discharge instructions given to patient, Instructed on discharge instructions, follow up and referral plans. medication usage, Demonstrated understanding of instructions, follow-up care, medications, Prescriptions given X 4, 01:10 Patient left the ED. lg3 Signatures: Ramiro Schmidt PA PA cp Able, Lacie, RN RN lg3 Desiree Blum gm2 Stef Chou Corrections: (The following items were deleted from the chart) 04/13 23:05 23:04 Home Meds: Zoloft Oral; lg3 lg3
--- NOTE | 2024-04-14 00:46 | EDPHYS ---
Physician Documentation [facility] Name: Dominique Rutledge Age: 28 yrs Sex: Female : 1995 Arrival Date: 04/13/2024 Time: 22:30 Bed DX1 Private MD: MIRLANDE CARDOSO ED Physician Ramiro Hudson HPI: 04/13 23:40 This 28 yrs old Female presents to ER via Ambulatory with complaints of Allergic cp Reaction. 23:40 The patient presents with chest pain, throat burning and burning all over. Onset: The cp symptoms/episode began/occurred yesterday, and became worse today. Possible causes: started taking prescribed Keflex for uti with first dose yesterday and having symptoms that were worse today after taking medication. Symptoms improved after taking 2 tablets of Benadryl at home. 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 - Infectious Disease History:: Denies. - Social history:: Smoking status: Patient denies any tobacco usage or history of. Patient/guardian denies using alcohol, street drugs. ROS: 23:45 Constitutional: Negative for body aches, chills, fever, poor PO intake, cp 23:45 Eyes: Negative for injury, pain, redness, and discharge, cp 23:45 ENT: Negative for difficulty swallowing, difficulty handling secretions, 23:45 Cardiovascular: Positive for chest pain, 23:45 Respiratory: Negative for cough, wheezing, 23:45 Abdomen/GI: Negative for abdominal pain, vomiting, diarrhea, constipation, 23:45 Neuro: Negative for altered mental status, headache, weakness, 23:45 All other systems are negative, Exam: 23:50 Constitutional: The patient appears in no acute distress, alert, awake, cp non-diaphoretic, non-toxic, well developed, well nourished, obese, 23:50 Head/Face: Normocephalic, atraumatic. cp 23:50 Eyes: Periorbital structures: appear normal, Conjunctiva: normal, no exudate, no injection, Sclera: no appreciated abnormality, Lids and lashes: appear normal, bilaterally, 23:50 ENT: External ear(s): are unremarkable, Nose: is normal, Mouth: Lips: moist, Oral mucosa: pink and intact, moist, Posterior pharynx: Airway: no evidence of obstruction, patent, swelling, is not appreciated, erythema, is not appreciated, 23:50 Chest/axilla: Inspection: normal, 23:50 Cardiovascular: Rate: tachycardic, Rhythm: regular, Edema: is not appreciated, JVD: is not appreciated, 23:50 Respiratory: the patient does not display signs of respiratory distress, Respirations: normal, no use of accessory muscles, no retractions, labored breathing, is not present, Breath sounds: are clear throughout, no decreased breath sounds, no stridor, no wheezing, 23:50 Abdomen/GI: Inspection: abdomen appears normal, Palpation: abdomen is soft and non-tender, in all quadrants, 23:50 Skin: no rash present. 23:50 Neuro: Orientation: to person, place \T\ time. Mentation: is normal, Motor: moves all fours, strength is normal, 23:59 ECG was reviewed by the Attending Physician. Vital Signs: 23:01 BP 131 / 84; Pulse 111; Resp 17 S; Temp 98(O); Pulse Ox 100% on R/A; Weight 108.86 kg lg3 (R); Height 5 ft. 5 in. (R); 04/14 01:10 BP 124 / 82; Pulse 91; Resp 18 S; Temp 98.1(O); Pulse Ox 100% on R/A; lg3 04/13 23:01 Body Mass Index 39.94 (108.86 kg, 165.1 cm) lg3 MDM: 04/13 23:20 Medical Screening Exam initiated 04/14 00:45 Data reviewed: vital signs, nurses notes, EKG, and as a result, I will discharge patient. 00:45 I considered the following discharge prescriptions or medication management in the emergency department Medications were administered in the Emergency Department. See MAR. Independent interpretation of the following test(s) in the Emergency Department EKG: See my EKG interpretation above. Counseling: I had a detailed discussion with the patient and/or guardian regarding the historical points, exam findings, and any diagnostic results supporting the discharge/admit diagnosis, to return to the emergency department if symptoms worsen or persist or if there are any questions or concerns that arise at home. Response to treatment: the patient's symptoms have mildly improved after treatment, and as a result, I will discharge patient. Special discussion: Based on the patient's history, exam, and Dx evaluation, there is no indication for emergent intervention or inpatient Tx. It is understood by the patient/guardian that if the Sx's persist or worsen they need to return immediately for re-evaluation. 04/13 23:37 Order name: EKG; Complete Time: 23:37 cp 04/13 23:37 Order name: EKG - Nurse/Tech; Complete Time: 23:57 cp 04/13 23:38 Order name: Misc. Order: may give medications if patient is not ; Complete cp Time: 23:58 EC/16 23:59 Rate is 93 beats/min. Rhythm is regular. NE interval is normal. QRS interval is normal. cp QT interval is normal. T waves are Inverted in lead aVR. Interpreted by me. Reviewed by me. Administered Medications: 04/14 00:02 Drug: predniSONE PO 60 mg PO once Route: PO; lg3 01:08 Follow up: Response: No adverse reaction lg3 00:02 Drug: Famotidine PO 20 mg PO once Route: PO; lg3 01:08 Follow up: Response: No adverse reaction lg3 00:02 Drug: diphenhydrAMINE PO 25 mg PO once Route: PO; lg3 01:08 Follow up: Response: No adverse reaction; Marked relief of symptoms lg3 Disposition Summary: 04/14/24 00:45 Discharge Ordered Notes: Location: Home cp Problem: new cp Symptoms: have improved cp Condition: Stable cp Diagnosis - Allergy status to unspecified drugs, medicaments and biological substances status cp Followup: cp - With: Private Physician - When: 2 - 3 days - Reason: symptoms continue Discharge Instructions: - Discharge Summary Sheet cp - Drug Allergy cp Forms: - Medication Reconciliation Form cp - Antibiotic Education cp - Prescription Opioid Use cp - Patient Portal Instructions cp - Leadership Thank You Letter cp Prescriptions: - Pepcid 20 mg Oral tablet - take 1 tablet ORAL route every 12 hours for 7 days; 14 tablet; Refills: 0, cp Product Selection Permitted - Zyrtec 10 mg Oral Tablet - take 1 tablet ORAL route once daily As needed; 20 tablet; Refills: 0, Product cp Selection Permitted - Prednisone 20 mg Oral tablet - take 2 tablets ORAL route once daily for 7 days; 14 tablet; Refills: 0, Product cp Selection Permitted - Macrobid 100 mg Oral Capsule - take 1 capsule ORAL route every 12 hours for 7 days; 14 capsule; Refills: 0, cp Product Selection Permitted Signatures: Ramiro Schmidt PA PA cp Able, Lacie RN RN lg3 Corrections: (The following items were deleted from the chart) 04/13 23:05 23:04 Home Meds: Zoloft Oral; lg3 lg3 04/14 00:27 04/13 23:40 The patient presents with chest pain, cp cp
[2024-04-14 04:29] VITALS: O2SAT 100
[2024-04-14 04:30] VITALS: BP 124/82; TEMP 98.1
--- NOTE | 2024-04-14 11:50 | EKG ---
Test Date: 2024-04-13 Test Time: 23:52:58 Rn Enterostomal: CHAPIS MEASUREMENT RESULTS: Intervals: Rate: 93 OR: 168 QRSD: 98 QT: 352 QTc: 437 [place]: P: 36 OR: 168 QRS: 62 T: 34 INTERPRETIVE STATEMENTS: Normal sinus rhythm Incomplete right bundle branch block Borderline ECG Compared to ECG 08/21/2023 15:09:55 No significant changes Electronically Signed On 04-14-24 11:49:50 CDT by Evan Arenas
== END 2024-04-14 01:10 | disposition home or self-care (01) ==
LOC: ER 22:30
DX: R07.9 Chest pain, unspecified (principal); R07.0 Pain in throat; Z88.1 Allergy status to other antibiotic agents
CPT/HCPCS: 93005; 99284; J7512